=== PATIENT | female | born 1975 | race Caucasian/White ===

== ENCOUNTER 2017-12-05 19:45 | Emergency (ER) | payer MEDICARE, SELFPAY ==
[2017-12-05 19:46] VITALS: BP 121/94; PULSE 106; RESP 17; TEMP 36.9; O2SAT 96; BMI 36.7
--- NOTE | 2017-12-05 20:42 | CT_ITS ---
STUDY: CT ABDOMEN AND PELVIS WITHOUT CONTRAST REASON FOR EXAM: Female, 41 years old. Abdominal pain. RADIATION DOSAGE (If Supplied By Facility): CTDIvol = ( 21.76 ) mGy, DLP = ( 1163.64 ) mGycm TECHNIQUE: Transaxial images were obtained from the dome of the diaphragm to the symphysis pubis without oral contrast, and without intravenous contrast. Sagittal and coronal images were reconstructed. Individualized dose optimization techniques were used for this CT. COMPARISON: 03/18/2016. FINDINGS: The visualized lung bases are unremarkable. The visualized portions of the heart are within normal limits. The liver is borderline in size. No focal lesion is seen. There are surgical clips in the gallbladder fossa consistent with a prior cholecystectomy. The spleen is borderline in size. Normal pancreas. Normal bilateral adrenal glands. Normal right kidney. Normal left kidney. There is thickening of the gastric wall probably due to underdistention. Normal small intestine. There are multiple colonic diverticula consistent with diverticulosis. There are surgical clips in the region of the appendix consistent with a prior appendectomy. Normal abdominal aorta. Normal inferior vena cava. Normal retroperitoneum. Normal urinary bladder. There is a very small umbilical hernia containing fat. There is no demonstrated acute osseous changes. CT/Abdomen/Pel W ORAL Cont Only IMPRESSION: Borderline hepatosplenomegaly. Status post cholecystectomy. No demonstrated acute process. Electronically Signed: Vidal Manriquez MD at 22:52 EDT Tel , Service support ,
--- NOTE | 2017-12-05 20:45 | ED.DCSUM_ITS ---
- ER Visit Summary Date of Service: 12/05/17 Chief Complaint: Abdominal pain History of Present Illness: The patient is a 41 F presenting with abdominal pain. She states this has been ongoing for several years. She has had consistent pain for the past 3 weeks. She went to [facility]. She states that they did blood work and advised her to follow-up with her primary care physician. She has an appointment tomorrow. She is awaiting pain management. She has a history of diabetes, HIV, asthma. She states her viral load is undetectable. She has a history of previous appendectomy, cholecystectomy, hysterectomy. Denies nausea, vomiting, diarrhea. She has had constipation but had 2 bowel movements today. Denies urinary complaints. Denies fever. Physical Examination: Vitals are stable. Patient is afebrile. Alert no acute distress. HEENT exam is unremarkable. Neck is supple. Lungs are clear and equal bilaterally. Heart is regular rate and rhythm. Abdomen is soft mild diffuse tenderness with no rebound or guarding Extremities are unremarkable. Skin is warm and dry. No focal neurologic deficit. Remainder of exam is unremarkable. Emergency Department Course and Treatment: Patient is given morphine, Zofran, IV fluids. CBC, chemistries unremarkable other than creatinine 1.27. Alk phos 132, lipase 201. Urinalysis unremarkable. Patient continues to have pain and was given fentanyl with improvement. CT abdomen pelvis shows borderline hepatosplenomegaly. Status post cholecystectomy. No demonstrated acute process. Patient is resting comfortably on reevaluation. She has an appointment with her primary care physician in the morning. She is advised to keep this appointment. Advised return to ED for any worsening complaints. Disposition: Discharge home Impression: Acute on chronic abdominal pain This note was generated with [employer] dictation software. It may contain incorrect words, spelling, and punctuation that were not noted in review of the chart prior to signing ED Disposition - Plan for ED Patient: Chief Complaint: Abd Pain Referrals: Barry Fortune Jr., MD [Primary Care Provider] -
[2017-12-05] MEDS: Ondansetron 4 MG/2 ML Vial IV (21:06)
[2017-12-05] MEDS: Morphine 4 MG/ML Syringe IV (21:06)
[2017-12-05 21:34] LABS: Absolute Lymphocyte Count 2.46 X10^3/ul (0.83-4.51); Absolute Neutrophil Count 3.9 X10^3/uL (2.0-7.7); Basophil# 0.03 X10^3/uL; Basophil% 0.4 % (0-1); Eosinophil# 0.35 X10^3/uL; Eosinophils% 4.8 % (0-5); Hematocrit 43.8 % (37-47); Hemoglobin 14.8 g/dl (12.0-15.0); Lymphocyte # 2.46 X10^3/ul (4.0); Mean Corp Hgb Conc 33.8 g/gl (32-36); Mean Corpuscular Hgb 30.2 pg (27.0-32.0); Mean Corpuscular Volume 89.4 fL (81-99); Mean Platelet Vol. 10.7 fl (6.2-12.0); Monocyte# 0.54 X10^3/uL; Monocyte% 7.5 % (0-10); Neutrophil # 3.85 X10^3/uL (2.7-7.7); Neutrophil % 53.2 % (47-70); Platelet Count 195 K/mm3 (150-450); RBC Distribution Width CV 12.5 % (11.6-14.6); RBC Distribution Width SD 39.9 fl (35.1-43.9); White Blood Count 7.2 K/mm3 (4.4-11.0)
[2017-12-05 21:44] LABS: ALB/GLOB Ratio 1.1 RATIO (0.9-2.4); AST(SGOT) 24 U/L (15-37); Alanine Aminotransfer ALT/SGPT 37 U/L (13-56); Alkaline Phosphatase 132 U/L (45-117); Anion Gap 6 (5-15); BUN 16 mg/dL (7-18); BUN/Creat Ratio 12.6 RATIO (10-20); Calcium,Total 9.3 mg/dL (8.5-10.1); Chloride 106 mmol/L (98-107); Creatinine, Serum 1.27 mg/dL (0.55-1.02); EST Glomerular Filtration Rate 49 mL/min (>60); Est Glom Filt Rate - Afr Amer 60 mL/min (>60); Globulin 3.7 g/dL (2.2-4.2); Glucose 116 mg/dL (74-106); Lipase 201 U/L (73-393); Potassium 3.8 mmol/L (3.5-5.1); Protein, Total 7.7 g/dL (6.4-8.2); Sodium Level 139 mmol/L (136-145)
[2017-12-05 21:45] LABS: POSITIVE COUNT NO; POSITIVE DIFFERENTIAL NO; POSITIVE MORPHOLOGY NO
[2017-12-05] MEDS: 0.9% Normal Saline 1,000 ML 999 ML IV (22:33)
[2017-12-05 22:37] VITALS: BP 95/78; PULSE 85; RESP 20; O2SAT 98
[2017-12-05 22:41] LABS: Mucous, Urine 0 SEEN /hpf (<or=2+)
[2017-12-05 22:52] LABS: Color, Urine Yellow (Yellow); Glucose, Dipstick Normal (Normal); Ketone-Dipstick Negative (Negative); Leukocyte Esterase-Dipstick 25 /ul (Negative); Nitrite-Dipstick Negative (Negative); Occult Blood-Urine 10 /ul (Negative); Protein-Dipstick Negative (Negative); Specific Gravity, Urine 1.015 (1.002-1.030); Urine Bilirubin Dipstick Negative (Negative); Urine Clarity Clear (Clear); Urine Urobilinogen 1 mg/dl (Normal)
[2017-12-05] MEDS: fentaNYL 100 MCG/2 ML Ampul 50 MCG IV (22:54)
[2017-12-05 23:03] LABS: Squamous Epithelial Cells - UA 0-5 SEEN /hpf (5-10)
[2017-12-05 23:05] LABS: Bacteria 1+ /hpf (None Seen); White Blood Cells 0-5 SEEN /hpf (0-5)
[2017-12-05 23:06] LABS: Red Blood Cells-Urine 0-5 SEEN /hpf (0-5)
--- NOTE | 2017-12-05 23:17 | ED.DEP ---
ED Disposition - Plan for ED Patient: Chief Complaint: Abd Pain Instructions: ED Abdominal Pain Unkn Cause Referrals: Barry Fortune Jr., MD [Primary Care Provider] -
[2017-12-05 23:44] VITALS: BP 118/52; PULSE 85; RESP 16; O2SAT 98
== END 2017-12-05 23:45 | disposition home or self-care (01) ==
PROVIDERS: Emergency Provider Emergency Medicine; Family Provider Internal Medicine; PCP Internal Medicine
DX: R10.9 Unspecified abdominal pain (principal); G89.29 Other chronic pain; K59.00 Constipation, unspecified; B20 Human immunodeficiency virus [HIV] disease; R16.2 Hepatomegaly with splenomegaly, not elsewhere classified; E11.9 Type 2 diabetes mellitus without complications; J45.909 Unspecified asthma, uncomplicated; Z72.0 Tobacco use; Z79.84 Long term (current) use of oral hypoglycemic drugs; Z79.899 Other long term (current) drug therapy; Z90.49 Acquired absence of other specified parts of digestive tract; Z90.710 Acquired absence of both cervix and uterus
CPT/HCPCS: 74176; 80053; 81001; 83690; 85025; 96361; 96374; 96375; 99283; J7030; J7040; A4216; J2405

== ENCOUNTER 2018-05-11 14:01 | Outpatient (RCR) | payer MEDICARE, MEDICAID, SELFPAY ==
[2018-05-11 14:49] VITALS: BP 134/107; PULSE 111; RESP 20; TEMP 37; BMI 35.7
[2018-05-11 15:21] VITALS: BMI 35.7
--- NOTE | 2018-05-11 17:20 | PCM.WC.HP ---
(1) Flea bite of multiple sites Status: Acute Current Visit: Yes Code(s): W57.XXXA - Bitten or stung by nonvenomous insect and other nonvenomous arthropods, initial encounter (2) Dermatitis Status: Acute Current Visit: Yes Code(s): L30.9 - Dermatitis, unspecified (3) Type 2 diabetes mellitus Status: Acute Current Visit: Yes Code(s): E11.9 - Type 2 diabetes mellitus without complications (4) Bipolar 1 disorder Status: Acute Current Visit: Yes Code(s): F31.9 - Bipolar disorder, unspecified (5) Neuropathy Status: Acute Current Visit: Yes Code(s): G62.9 - Polyneuropathy, unspecified (6) Arthritis Status: Acute Current Visit: Yes Code(s): M19.90 - Unspecified osteoarthritis, unspecified site History of Present Illness Date of Service: 05/11/18 Chief Complaint: Consultation for multiple fleabites times 2 months and left ear sore spot times 1 week History of Wound: This is a 42-year-old white female who presents to the wound healing center today for evaluation of nonhealing flea bites times 2 months and a sore spot behind her left ear. The patient has a complicated past medical history with multiple surgeries and includes CHF, asthma, type 2 diabetes mellitus, bipolar, neuropathy, HIV, and arthritis. The patient notes that approximately 2 months ago she noted leaves on her lower extremities and developed fleabites shortly afterwards. She states that she had these evaluated and over the past 2 months she has been on multiple antibiotics including doxycycline and Keflex and a Medrol pack as well. She continues to itch and pick the sites that are present on her bilateral lower extremities, she states that she is currently done with all antibiotics and her Medrol pack. She also notes a sore spot on her ear that occurred approximately a week ago. She states that she went to the emergency department for this and was diagnosed with psoriasis and however has not followed up with her PCP or dermatology as was recommended. She denies any purulent drainage from her wounds and denies any signs of systemic infection at this time. She otherwise denies any fever, chills, nausea, vomiting, shortness of breath, chest pain or pressure, syncope or presyncopal episodes. Past Medical History Allergies/Adverse Reactions: Allergies amoxicillin Allergy (Verified 05/08/18 21:51) Hives hydrocodone [From Vicodin] Allergy (Verified 05/08/18 21:51) Unknown methylprednisolone [From Medrol] Allergy (Verified 05/08/18 21:51) Hives prochlorperazine [From Compazine] Allergy (Verified 05/08/18 21:51) Other prochlorperazine edisylate [From Compazine] Allergy (Verified 05/08/18 21:51) Other prochlorperazine maleate [From Compazine] Allergy (Verified 05/08/18 21:51) Other acetaminophen [From Tylenol] Adverse Reaction (Verified 05/08/18 21:51) Other A MIGRAINE MED Allergy (Uncoded 05/08/18 21:51) Other Home Medications: Ambulatory Orders Medication Instructions Recorded Emtricitabine/Tenofovir [Truvada 1 tab PO DAILY 04/16/15 Tablet] Lamivudine/Zidovudine [Combivir 1 each PO DAILY 04/16/15 Tablet] Ritonavir [Norvir] 500 mg PO DAILY 04/16/15 Dicyclomine HCl [Bentyl] 20 mg PO TIDAC #15 capsule 04/17/15 Cyclobenzaprine [Flexeril] 10 mg PO TID PRN #20 tablet 07/05/17 Darunavir Ethanolate [Prezista] 600 mg PO BID 12/05/17 Metformin HCl [Glucophage] 500 mg PO BIDCM 12/05/17 Raltegravir Potassium [Isentress] 400 mg PO BID 12/05/17 Lisinopril [Zestril] 10 tab PO DAILY 05/11/18 Sulfamethoxazole/Trimethoprim 400 tab PO DAILY 05/11/18 [Bactrim 400-80 mg Tablet] Smoking Status: Heavy Smoker (>10/day) Review of Systems Constitutional: Denies: Chills, Fever, Weight Change Eyes: Denies: Pain, Vision Change HEENT: Denies: Difficulty Hearing, Difficulty Swallowing, Sinus Congestion Cardiovascular: Denies: Chest Pain, Palpitations Respiratory: Denies: Cough, Shortness of Breath Gastrointestinal: Denies: Diarrhea, Nausea, Vomiting Genitourinary: Denies: Dysuria, Hematuria Skin: Reports: Lesions, Pruritis, Rash, Wounds - See HPI Endocrine: Denies: Heat/ Cold Intolerance, Polydipsia, Polyuria Hematologic/ Lymphatic: Denies: Easy Bruising, Easy Bleeding - Physical Exam Vital Signs Temp Pulse Resp BP 98.6 F 111 H 20 H 134/107 H 05/11/18 14:49 05/11/18 14:49 05/11/18 14:49 05/11/18 14:49 General: Alert, Oriented x3, Cooperative HEENT: Atraumatic Lungs: Normal air movement, Diminished, Wheezes Cardiovascular: Regular rate, Regular Rhythm Abdomen: Soft, Non Tender, Obese Extremities: No clubbing, No cyanosis, No edema Skin: Ulcer/ Wound - Multiple cysts small circular open areas present bilateral lower extremities, visible scratch card present, wounds are clean and without slough or signs of cellulitis at this time. Left posterior ear erythematous and patchy with some white scaling present Wound Measurements and Assessment WC - Nurse 1 - General Ulcer Measurement Start: 05/11/18 14:49 Freq: Status: Active Protocol: Activity Type Activity Date Activity User E-Sign Co-Sign Detail Recorded Client Recorded Date Recorded By Document 05/11/18 14:49 OH [id number] 05/11/18 15:12 MT Document 05/11/18 15:21 OH [id number] 05/11/18 15:49 OH 05/11/18 05/11/18 14:49 15:21 [Ulcer Assessment] #5 LEFT POST EAR -Combined with other wound No -Current Size (cm) - Length 2.3 -Current Size (cm) - Width 1 -Current Size (cm) - Depth 0.1 -Total Square Cm 2.3 -Date of Last Picture (Recall this 05/11/18 field) -Photo Taken Yes -Tunneling No -Undermining/Tunneling No -Circular Undermining No -Exudate Amt None Present (0 %) -Wound Margin Flat & Intact -Granulation Amt None Present (0 %) -Slough/Fibrin Yes -Necrosis Amt Large (67-100%) -Necrotic Tissue Type Adherent Slough -Texture (Padma-wound Skin Appearance) Assessed -Moisture (Padma-wound Skin Appearance Assessed ) -Color (Padma-wound Skin Appearance) Assessed -Temperature (Padma-wound Skin No Abnormality Appearance) (Pt Warm) -Tenderness on Palpation (Padma-wound Yes Skin Appearance) -Ulcer Cleansing Rinsed/ Irrigated with Saline -Foul Odor after Cleansing No -Anesthetic Used 4% Lidocaine Solution #3 MEDIAL SUP RLE CLUSTER -Combined with other wound No -Current Size (cm) - Length 1 -Current Size (cm) - Width 0.5 -Current Size (cm) - Depth 0.1 -Total Square Cm 0.5 -Date of Last Picture (Recall this 05/11/18 field) -Photo Taken Yes -Tunneling No -Undermining/Tunneling No -Circular Undermining No -Wound Margin Thickened -Slough/Fibrin Yes -Necrosis Amt Large (67-100%) -Necrotic Tissue Type Adherent Slough -Texture (Padma-wound Skin Appearance) Assessed -Moisture (Padma-wound Skin Appearance Assessed ) Maceration -Color (Padma-wound Skin Appearance) Assessed -Temperature (Padma-wound Skin No Abnormality Appearance) (Pt Warm) -Tenderness on Palpation (Padma-wound No Skin Appearance) -Ulcer Cleansing Rinsed/ Irrigated with Saline -Foul Odor after Cleansing No -Anesthetic Used 4% Lidocaine Solution #4 MEDIAL INFERIOR RLE -Combined with other wound No -Current Size (cm) - Length 0.5 -Current Size (cm) - Width 0.5 -Current Size (cm) - Depth 0.3 -Total Square Cm 0.25 -Date of Last Picture (Recall this 05/11/18 field) -Photo Taken Yes -Tunneling No -Undermining/Tunneling No -Circular Undermining No -Granulation Amt None Present (0 %) -Slough/Fibrin Yes -Necrosis Amt Large (67-100%) -Necrotic Tissue Type Adherent Slough -Texture (Padma-wound Skin Appearance) Assessed -Moisture (Padma-wound Skin Appearance Assessed ) Maceration -Color (Padma-wound Skin Appearance) Assessed Palor -Temperature (Padma-wound Skin No Abnormality Appearance) (Pt Warm) -Tenderness on Palpation (Padma-wound No Skin Appearance) -Ulcer Cleansing Rinsed/ Irrigated with Saline -Foul Odor after Cleansing No -Anesthetic Used 4% Lidocaine Solution #2 MEDIAL LLE -Combined with other wound No -Current Size (cm) - Length 1.0 -Current Size (cm) - Width 1.0 -Current Size (cm) - Depth 0.1 -Total Square Cm 1.00 -Date of Last Picture (Recall this 05/11/18 field) -Photo Taken Yes -Tunneling No -Undermining/Tunneling No -Circular Undermining No -Exudate Amt None Present (0 %) -Wound Margin Distinct, Outline Attached -Granulation Amt Large (67-100%) -Granulation Quality Red -Slough/Fibrin Yes -Necrosis Amt Large (67-100%) -Texture (Padma-wound Skin Appearance) Assessed -Moisture (Padma-wound Skin Appearance Assessed ) -Color (Padma-wound Skin Appearance) Assessed Erythema -Temperature (Padma-wound Skin No Abnormality Appearance) (Pt Warm) -Tenderness on Palpation (Padma-wound No Skin Appearance) -Ulcer Cleansing Rinsed/ Irrigated with Saline -Foul Odor after Cleansing No -Anesthetic Used 4% Lidocaine Solution #1 LEFT LATERAL LE -Combined with other wound No -Current Size (cm) - Length 0.5 -Current Size (cm) - Width 0.5 -Current Size (cm) - Depth 0.2 -Total Square Cm 0.25 -Date of Last Picture (Recall this 05/11/18 field) -Photo Taken Yes -Tunneling No -Undermining/Tunneling No -Circular Undermining No -Exudate Amt Small (1-33%) -Exudate Type Purulent -Wound Margin Distinct, Outline Attached -Granulation Amt Large (67-100%) -Granulation Quality Red -Slough/Fibrin No -Necrosis Amt None Present (0 %) -Texture (Padma-wound Skin Appearance) Assessed -Moisture (Padma-wound Skin Appearance Assessed ) -Color (Padma-wound Skin Appearance) Assessed -Temperature (Padma-wound Skin No Abnormality Appearance) (Pt Warm) -Tenderness on Palpation (Padma-wound No Skin Appearance) -Ulcer Cleansing Rinsed/ Irrigated with Saline -Foul Odor after Cleansing No -Anesthetic Used 4% Lidocaine Solution Wound Center Nurse 1 [Edema Assessment] -Lower Limb Edema Present No WC - Nurse 2 - General Ulcer CM Notes Start: 05/11/18 14:49 Freq: Status: Active Protocol: Activity Type Activity Date Activity User E-Sign Co-Sign Detail Recorded Client Recorded Date Recorded By Document 05/11/18 16:23 [id number] 05/11/18 16:24 05/11/18 16:23 Pain Scale: 0-10 Numeric [Pain] -Is Patient Pain Free? Yes Neurological: Neuro grossly intact Psych/Mental Status: Normal Affect, Appropriate, Alert and oriented to time, place, person, mood and affect Debridement Note Post-Debridement Measurements/Treatment WC - Nurse 2 - General Ulcer CM Notes Start: 05/11/18 14:49 Freq: Status: Active Protocol: Activity Type Activity Date Activity User E-Sign Co-Sign Detail Recorded Client Recorded Date Recorded By Document 05/11/18 16:23 [id number] 05/11/18 16:24 CS 05/11/18 16:23 Pain Scale: 0-10 Numeric Is Patient Pain Free? Yes No debridement was completed today Assessment/Plan Active Problems Flea bite of multiple sites (Acute) Dermatitis (Acute) Type 2 diabetes mellitus (Acute) Bipolar 1 disorder (Acute) Neuropathy (Acute) Arthritis (Acute) Assessment: See above diagnoses Plan: The patient was seen for consultation at the wound center today and updated on her plan of care. No debridement was done today as none was indicated. Patient does have have what she believes to be multiple wounds on her bilateral lower extremities which were initially caused by fleabites. All wounds are very small and clean and are complicated by the patient's chronic itching and picking. Advised patient to follow-up with dermatology. Also advised on daily chlorhexidine rinses and advised on signs and symptoms of cellulitis that require urgent medical attention. Patient has been treated with multiple antibiotics and steroids without much relief, therefore dermatology input is warranted. Regarding the patient's previous diagnosis of psoriasis to her left posterior ear, discuss following up with dermatology for this as well. Did discuss the importance of following up with her primary care as well. Patient may follow-up at the wound center on an as-needed basis. Code Visit Office Visits / Consults: [id number] OV L3 New
--- NOTE | 2018-05-11 17:26 | HP.PCM_ITS ---
(1) Flea bite of multiple sites Status: Acute Current Visit: Yes Code(s): W57.XXXA - Bitten or stung by nonvenomous insect and other nonvenomous arthropods, initial encounter (2) Dermatitis Status: Acute Current Visit: Yes Code(s): L30.9 - Dermatitis, unspecified (3) Type 2 diabetes mellitus Status: Acute Current Visit: Yes Code(s): E11.9 - Type 2 diabetes mellitus without complications (4) Bipolar 1 disorder Status: Acute Current Visit: Yes Code(s): F31.9 - Bipolar disorder, unspecified (5) Neuropathy Status: Acute Current Visit: Yes Code(s): G62.9 - Polyneuropathy, unspecified (6) Arthritis Status: Acute Current Visit: Yes Code(s): M19.90 - Unspecified osteoarthritis, unspecified site History of Present Illness Date of Service: 05/11/18 Chief Complaint: Consultation for multiple fleabites times 2 months and left ear sore spot times 1 week History of Wound: This is a 42-year-old white female who presents to the wound healing center today for evaluation of nonhealing flea bites times 2 months and a sore spot behind her left ear. The patient has a complicated past medical history with multiple surgeries and includes CHF, asthma, type 2 diabetes mellitus, bipolar, neuropathy, HIV, and arthritis. The patient notes that approximately 2 months ago she noted leaves on her lower extremities and develop ed fleabites shortly afterwards. She states that she had these evaluated and over the past 2 months she has been on multiple antibiotics including doxycycline and Keflex and a Medrol pack as well. She continues to itch and pick the sites that are present on her bilateral lower extremities, she states that she is currently done with all antibiotics and her Medrol pack. She also notes a sore spot on her ear that occurred approximately a week ago. She states that she went to the emergency department for this and was diagnosed with psoriasis and however has not followed up with her PCP or dermatology as was recommended. She denies any purulent drainage from her wounds and denies any signs of systemic infection at this time. She otherwise denies any fever, chills, nausea, vomiting, shortness of breath, chest pain or pressure, syncope or presyncopal episodes. Past Medical History Allergies/Adverse Reactions: Allergies amoxicillin Allergy (Verified 05/08/18 21:51) Hives hydrocodone [From Vicodin] Allergy (Verified 05/08/18 21:51) Unknown methylprednisolone [From Medrol] Allergy (Verified 05/08/18 21:51) Hives prochlorperazine [From Compazine] Allergy (Verified 05/08/18 21:51) Other prochlorperazine edisylate [From Compazine] Allergy (Verified 05/08/18 21:51) Other prochlorperazine maleate [From Compazine] Allergy (Verified 05/08/18 21:51) Other acetaminophen [From Tylenol] Adverse Reaction (Verified 05/08/18 21:51) Other A MIGRAINE MED Allergy (Uncoded 05/08/18 21:51) Other Home Medications: Ambulatory Orders Medication Instructions Recorded Emtricitabine/Tenofovir [Truvada 1 tab PO DAILY 04/16/15 Tablet] Lamivudine/Zidovudine [Combivir 1 each PO DAILY 04/16/15 Tablet] Ritonavir [Norvir] 500 mg PO DAILY 04/16/15 Dicyclomine HCl [Bentyl] 20 mg PO TIDAC #15 capsule 04/17/15 Cyclobenzaprine [Flexeril] 10 mg PO TID PRN #20 tablet 07/05/17 Darunavir Ethanolate [Prezista] 600 mg PO BID 12/05/17 Metformin HCl [Glucophage] 500 mg PO BIDCM 12/05/17 Raltegravir Potassium [Isentress] 400 mg PO BID 12/05/17 Lisinopril [Zestril] 10 tab PO DAILY 05/11/18 Sulfamethoxazole/Trimethoprim 400 tab PO DAILY 05/11/18 [Bactrim 400-80 mg Tablet] Smoking Status: Heavy Smoker (>10/day) Review of Systems Constitutional: Denies: Chills, Fever, Weight Change Eyes: Denies: Pain, Vision Change HEENT: Denies: Difficulty Hearing, Difficulty Swallowing, Sinus Congestion Cardiovascular: Denies: Chest Pain, Palpitations Respiratory: Denies: Cough, Shortness of Breath Gastrointestinal: Denies: Diarrhea, Nausea, Vomiting Genitourinary: Denies: Dysuria, Hematuria Skin: Reports: Lesions, Pruritis, Rash, Wounds - See HPI Endocrine: Denies: Heat/ Cold Intolerance, Polydipsia, Polyuria Hematologic/ Lymphatic: Denies: Easy Bruising, Easy Bleeding - Physical Exam Vital Signs Temp Pulse Resp BP 98.6 F 111 H 20 H 134/107 H 05/11/18 14:49 05/11/18 14:49 05/11/18 14:49 05/11/18 14:49 General: Alert, Oriented x3, Cooperative HEENT: Atraumatic Lungs: Normal air movement, Diminished, Wheezes Cardiovascular: Regular rate, Regular Rhythm Abdomen: Soft, Non Tender, Obese Extremities: No clubbing, No cyanosis, No edema Skin: Ulcer/ Wound - Multiple cysts small circular open areas present bilateral lower extremities, visible scratch card present, wounds are clean and without slough or signs of cellulitis at this time. Left posterior ear erythematous and patchy with some white scaling present Wound Measurements and Assessment WC - Nurse 1 - General Ulcer Measurement Start: 05/11/18 14:49 Freq: Status: Active Protocol: Activity Type Activity Date Activity User E-Sign Co-Sign Detail Recorded Client Recorded Date Recorded By Document 05/11/18 14:49 [place] [id number] 05/11/18 15:12 [place] Document 05/11/18 15:21 [place] [id number] 05/11/18 15:49 [place] 05/11/18 05/11/18 14:49 15:21 [Ulcer Assessment] #5 LEFT POST EAR -Combined with other wound No -Current Size (cm) - Length 2.3 -Current Size (cm) - Width 1 -Current Size (cm) - Depth 0.1 -Total Square Cm 2.3 -Date of Last Picture (Recall this 05/11/18 field) -Photo Taken Yes -Tunneling No -Undermining/Tunneling No -Circular Undermining No -Exudate Amt None Present (0 %) -Wound Margin Flat & Intact -Granulation Amt None Present (0 %) -Slough/Fibrin Yes -Necrosis Amt Large (67-100%) -Necrotic Tissue Type Adherent Slough -Texture (Padma-wound Skin Appearance) Assessed -Moisture (Padma-wound Skin Appearance Assessed ) -Color (Padma-wound Skin Appearance) Assessed -Temperature (Padma-wound Skin No Abnormality Appearance) (Pt Warm) -Tenderness on Palpation (Padma-wound Yes Skin Appearance) -Ulcer Cleansing Rinsed/ Irrigated with Saline -Foul Odor after Cleansing No -Anesthetic Used 4% Lidocaine Solution #3 MEDIAL SUP RLE CLUSTER -Combined with other wound No -Current Size (cm) - Length 1 -Current Size (cm) - Width 0.5 -Current Size (cm) - Depth 0.1 -Total Square Cm 0.5 -Date of Last Picture (Recall this 05/11/18 field) -Photo Taken Yes -Tunneling No -Undermining/Tunneling No -Circular Undermining No -Wound Margin Thickened -Slough/Fibrin Yes -Necrosis Amt Large (67-100%) -Necrotic Tissue Type Adherent Slough -Texture (Padma-wound Skin Appearance) Assessed -Moisture (Padma-wound Skin Appearance Assessed ) Maceration -Color (Padma-wound Skin Appearance) Assessed -Temperature (Padma-wound Skin No Abnormality Appearance) (Pt Warm) -Tenderness on Palpation (Padma-wound No Skin Appearance) -Ulcer Cleansing Rinsed/ Irrigated with Saline -Foul Odor after Cleansing No -Anesthetic Used 4% Lidocaine Solution #4 MEDIAL INFERIOR RLE -Combined with other wound No -Current Size (cm) - Length 0.5 -Current Size (cm) - Width 0.5 -Current Size (cm) - Depth 0.3 -Total Square Cm 0.25 -Date of Last Picture (Recall this 05/11/18 field) -Photo Taken Yes -Tunneling No -Undermining/Tunneling No -Circular Undermining No -Granulation Amt None Present (0 %) -Slough/Fibrin Yes -Necrosis Amt Large (67-100%) -Necrotic Tissue Type Adherent Slough -Texture (Padma-wound Skin Appearance) Assessed -Moisture (Padma-wound Skin Appearance Assessed ) Maceration -Color (Padma-wound Skin Appearance) Assessed Palor -Temperature (Padma-wound Skin No Abnormality Appearance) (Pt Warm) -Tenderness on Palpation (Padma-wound No Skin Appearance) -Ulcer Cleansing Rinsed/ Irrigated with Saline -Foul Odor after Cleansing No -Anesthetic Used 4% Lidocaine Solution #2 MEDIAL LLE -Combined with other wound No -Current Size (cm) - Length 1.0 -Current Size (cm) - Width 1.0 -Current Size (cm) - Depth 0.1 -Total Square Cm 1.00 -Date of Last Picture (Recall this 05/11/18 field) -Photo Taken Yes -Tunneling No -Undermining/Tunneling No -Circular Undermining No -Exudate Amt None Present (0 %) -Wound Margin Distinct, Outline Attached -Granulation Amt Large (67-100%) -Granulation Quality Red -Slough/Fibrin Yes -Necrosis Amt Large (67-100%) -Texture (Padma-wound Skin Appearance) Assessed -Moisture (Padma-wound Skin Appearance Assessed ) -Color (Padma-wound Skin Appearance) Assessed Erythema -Temperature (Padma-wound Skin No Abnormality Appearance) (Pt Warm) -Tenderness on Palpation (Padma-wound No Skin Appearance) -Ulcer Cleansing Rinsed/ Irrigated with Saline -Foul Odor after Cleansing No -Anesthetic Used 4% Lidocaine Solution #1 LEFT LATERAL LE -Combined with other wound No -Current Size (cm) - Length 0.5 -Current Size (cm) - Width 0.5 -Current Size (cm) - Depth 0.2 -Total Square Cm 0.25 -Date of Last Picture (Recall this 05/11/18 field) -Photo Taken Yes -Tunneling No -Undermining/Tunneling No -Circular Undermining No -Exudate Amt Small (1-33%) -Exudate Type Purulent -Wound Margin Distinct, Outline Attached -Granulation Amt Large (67-100%) -Granulation Quality Red -Slough/Fibrin No -Necrosis Amt None Present (0 %) -Texture (Padma-wound Skin Appearance) Assessed -Moisture (Padma-wound Skin Appearance Assessed ) -Color (Padma-wound Skin Appearance) Assessed -Temperature (Padma-wound Skin No Abnormality Appearance) (Pt Warm) -Tenderness on Palpation (Padma-wound No Skin Appearance) -Ulcer Cleansing Rinsed/ Irrigated with Saline -Foul Odor after Cleansing No -Anesthetic Used 4% Lidocaine Solution Wound Center Nurse 1 [Edema Assessment] -Lower Limb Edema Present No WC - Nurse 2 - General Ulcer CM Notes Start: 05/11/18 14:49 Freq: Status: Active Protocol: Activity Type Activity Date Activity User E-Sign Co-Sign Detail Recorded Client Recorded Date Recorded By Document 05/11/18 16:23 [id number] 05/11/18 16:24 05/11/18 16:23 Pain Scale: 0-10 Numeric [Pain] -Is Patient Pain Free? Yes Neurological: Neuro grossly intact Psych/Mental Status: Normal Affect, Appropriate, Alert and oriented to time, place, person, mood and affect Debridement Note Post-Debridement Measurements/Treatment WC - Nurse 2 - General Ulcer CM Notes Start: 05/11/18 14:49 Freq: Status: Active Protocol: Activity Type Activity Date Activity User E-Sign Co-Sign Detail Recorded Client Recorded Date Recorded By Document 05/11/18 16:23 [id number] 05/11/18 16:24 CS 05/11/18 16:23 Pain Scale: 0-10 Numeric Is Patient Pain Free? Yes No debridement was completed today Assessment/Plan Active Problems Flea bite of multiple sites (Acute) Dermatitis (Acute) Type 2 diabetes mellitus (Acute) Bipolar 1 disorder (Acute) Neuropathy (Acute) Arthritis (Acute) Assessment: See above diagnoses Plan: The patient was seen for consultation at the wound center today and [facility] ed on her plan of care. No debridement was done today as none was indicated. Patient does have have what she believes to be multiple wounds on her bilateral lower extremities which were initially caused by fleabites. All wounds are very small and clean and are complicated by the patient's chronic itching and picking. Advised patient to follow-up with dermatology. Also advised on daily chlorhexidine rinses and advised on signs and symptoms of cellulitis that require urgent medical attention. Patient has been treated with multiple antibiotics and steroids without much relief, therefore dermatology input is warranted. Regarding the patient's previous diagnosis of psoriasis to her left posterior ear, discuss following up with dermatology for this as well. Did discuss the importance of following up with her primary care as well. Patient may follow-up at the wound center on an as-needed basis. Code Visit Office Visits / Consults: [id number] OV L3 New
== END 2018-06-07 23:59 ==
LOC: WC 14:01
PROVIDERS: Family Provider Internal Medicine; PCP Internal Medicine; Visit Provider Nurse Practitioner Family
DX: S80.862A Insect bite (nonvenomous), left lower leg, initial encounter (principal); S80.861A Insect bite (nonvenomous), right lower leg, initial encounter; W57.XXXA Bitten or stung by nonvenomous insect and other nonvenomous arthropods, initial encounter; L30.9 Dermatitis, unspecified; F41.9 Anxiety disorder, unspecified; E11.42 Type 2 diabetes mellitus with diabetic polyneuropathy; M19.90 Unspecified osteoarthritis, unspecified site; B20 Human immunodeficiency virus [HIV] disease; I50.9 Heart failure, unspecified; J45.909 Unspecified asthma, uncomplicated; F17.200 Nicotine dependence, unspecified, uncomplicated
CPT/HCPCS: 99204; G0463

== ENCOUNTER 2018-12-07 00:26 | Emergency (ER) | payer MEDICARE, MEDICAID, SELFPAY ==
[2018-12-07 00:28] VITALS: BP 145/90; PULSE 109; RESP 18; TEMP 36.7; O2SAT 95; BMI 36.6
[2018-12-07] MEDS: DiphenhydrAMINE 50 MG/ML Syringe 25 MG IV (01:12)
[2018-12-07] MEDS: 0.9% Normal Saline 1,000 ML 1000 ML IV (01:12)
[2018-12-07] MEDS: Ketorolac 30 MG/ML Syringe IV (01:14)
[2018-12-07] MEDS: Metoclopramide 10 MG/2 ML Vial IV (01:21)
[2018-12-07 01:34] LABS: Absolute Lymphocyte Count 2.59 X10^3/ul (0.83-4.51); Basophil# 0.02 X10^3/uL; Basophil% 0.2 % (0-1); Eosinophil# 0.17 X10^3/uL; Eosinophils% 2.1 % (0-5); Hematocrit 40.7 % (37-47); Hemoglobin 14.2 g/dl (12.0-15.0); Lymphocyte # 2.59 X10^3/ul (4.0); Lymphocyte % 31.5 % (19-41); Mean Corp Hgb Conc 34.9 g/gl (32-36); Mean Corpuscular Hgb 29.9 pg (27.0-32.0); Mean Corpuscular Volume 85.7 fL (81-99); Mean Platelet Vol. 10.6 fl (6.2-12.0); Monocyte# 0.43 X10^3/uL; Monocyte% 5.2 % (0-10); Neutrophil % 60.8 % (47-70); Platelet Count 204 K/mm3 (150-450); RBC Distribution Width CV 14.1 % (11.6-14.6); RBC Distribution Width SD 44.1 fl (35.1-43.9); Red Blood Count 4.75 M/mm3 (4.2-5.4); White Blood Count 8.2 K/mm3 (4.4-11.0)
[2018-12-07 01:35] LABS: POSITIVE COUNT NO; POSITIVE DIFFERENTIAL NO; POSITIVE MORPHOLOGY NO
[2018-12-07 01:49] LABS: Anion Gap 10 (5-15); BUN 18 mg/dL (7-18); BUN/Creat Ratio 15.9 RATIO (10-20); Calcium,Total 8.8 mg/dL (8.5-10.1); Chloride 106 mmol/L (98-107); Creatinine, Serum 1.13 mg/dL (0.55-1.02); EST Glomerular Filtration Rate 56 mL/min (>60); Est Glom Filt Rate - Afr Amer 68 mL/min (>60); Estimated Creatinine Clearance 66.09 ml/min; Glucose 234 mg/dL (74-106); Potassium 3.7 mmol/L (3.5-5.1); Sodium Level 139 mmol/L (136-145)
--- NOTE | 2018-12-07 02:04 | ED.VISSUMM ---
- ER Visit Summary Date of Service: 12/07/18 Chief Complaint: Headache, flank pain, short of breath History of Present Illness: The patient is a 42 F who complains of migraine and left flank pain. She states she was seen at [facility] last week after being told she had been exposed to black mold. She had a rash on her face and arms. She was placed on Benadryl and 10 mg of prednisone a day for the last 5 days. Patient states she is now done without medication and her rash is resolved. She complains of a migraine that is been present since last June. She states she also has a cyst like lesion in her left kidney that is currently being worked up. She feels this area is sore now that she stopped the prednisone. She did take Excedrin yesterday afternoon. Patient has an appointment to be seen by Dr. Maldonado to establish primary care in less than a week. Physical Examination: Vital signs unremarkable. Patient sitting upright in a darkened room. She is in no acute distress. Head neck examination is unremarkable. No meningismus. Heart is regular rate and rhythm. Lung sounds are clear. Abdomen is soft and nontender. Neuro exam reveals no focal deficits. Test Results: CBC and chemistry studies significant only for glucose of 234. Patient is a diabetic. Creatinine is 1.13. Emergency Department Course and Treatment: Patient was given Toradol, Reglan, Benadryl, and IV fluids. On repeat evaluation she is sleeping comfortably. She easily awakens. She will follow-up with her upcoming doctor's appointment. She asked about testing for lead levels that she states she was told the home in which she has been living has exposed her to lead. I advised her that this can be ordered through her primary care doctor. Treatment Plan: [] Disposition: Discharge Impression: Migraine, improved This note was generated with [employer] dictation software. It may contain incorrect words, spelling, and punctuation that were not noted in review of the chart prior to signing ED Disposition - Plan for ED Patient: Disposition: Home or Assisted Living Instructions: ED Headache Migraine Referrals: Juan Manuel Maldonado MD [Primary Care Provider] - Keep Antonio appointment
[2018-12-07 02:19] VITALS: BP 130/72; PULSE 90; RESP 20; O2SAT 99
== END 2018-12-07 02:19 | disposition home or self-care (01) ==
PROVIDERS: Emergency Provider Emergency Medicine; Family Provider Internal Medicine; PCP Internal Medicine
DX: G43.909 Migraine, unspecified, not intractable, without status migrainosus (principal); R10.9 Unspecified abdominal pain; N28.9 Disorder of kidney and ureter, unspecified; M79.10 Myalgia, unspecified site; I50.9 Heart failure, unspecified; E11.9 Type 2 diabetes mellitus without complications; F31.9 Bipolar disorder, unspecified; Z72.0 Tobacco use; Z79.899 Other long term (current) drug therapy; I25.2 Old myocardial infarction; Z87.442 Personal history of urinary calculi
CPT/HCPCS: 80048; 85025; 96361; 96374; 96375; 99283; J7030

== ENCOUNTER → 2018-12-11 10:10 | Outpatient (CLI) | payer MEDICARE, SELFPAY ==
[2018-12-11 09:36] VITALS: BMI 36.6
[2018-12-11 12:18] LABS: Hemoglobin A1c 5.7 % (4.2-6.3)
[2018-12-11 12:28] LABS: Cholesterol 199 mg/dL (200); High Density Lipoprotein 40 mg/dL; Triglycerides 192 mg/dL; Very Low Density Lipoprotein 38 mg/dL (5-40)
[2018-12-12 16:49] LABS: Lead, Blood Adult 16+yrs 1 ug/dL (0-4)
== END ==
PROVIDERS: Family Provider Internal Medicine; PCP Internal Medicine; Visit Provider Internal Medicine
DX: E11.9 Type 2 diabetes mellitus without complications (principal); I10 Essential (primary) hypertension; Z77.011 Contact with and (suspected) exposure to lead
CPT/HCPCS: 36415; 80061; 83036; 83655

== ENCOUNTER → 2019-01-02 13:28 | Outpatient (CLI) | payer MEDICARE, MEDICAID, SELFPAY ==
[2019-01-02 13:28] VITALS: BMI 36.6
--- NOTE | 2019-01-02 13:31 | RAD_ITS ---
STUDY: X-RAY - RIGHT KNEE REASON FOR EXAM: Female, 43 years old. Pain. TECHNIQUE: 4 view(s) of the knee. COMPARISON: None. FINDINGS: Normal visualized distal femur. Normal visualized proximal tibia and fibula. Normal proximal tibiofibular articulation. Normal medial femorotibial compartment. Normal lateral femorotibial compartment. There is slight lateral tilt and subluxation of the patella. The soft tissue structures are unremarkable. RAD/Knee 4 or More Views IMPRESSION: Slight lateral tilt and subluxation of the patella. No acute finding. Electronically Signed: Philip Roman MD at 17:44 EDT , Service support ,
--- NOTE | 2019-01-02 13:31 | RAD_ITS ---
STUDY: X-RAY - LEFT KNEE REASON FOR EXAM: Female, 43 years old. Pain. TECHNIQUE: 4 view(s) of the knee. COMPARISON: None. FINDINGS: Normal visualized distal femur. Normal visualized proximal tibia and fibula. Normal proximal tibiofibular articulation. Normal medial femorotibial compartment. Normal lateral femorotibial compartment. There is slight lateral tilt and subluxation of the patella. The soft tissue structures are unremarkable. RAD/Knee 4 or More Views IMPRESSION: Slight lateral tilt and subluxation of the patella. No acute finding. Electronically Signed: Philip Roman MD at 17:44 EDT , Service support ,
== END ==
PROVIDERS: Family Provider Internal Medicine; PCP Internal Medicine; Referring Provider Orthopaedic Surgery; Visit Provider Orthopaedic Surgery
DX: M19.90 Unspecified osteoarthritis, unspecified site (principal)
CPT/HCPCS: 73564

== ENCOUNTER → 2019-02-06 16:19 | Outpatient (CLI) | payer MEDICARE, MEDICAID, SELFPAY ==
[2019-01-22 12:08] VITALS: BMI 36.6
--- NOTE | 2019-02-06 16:23 | MRI_ITS ---
STUDY: MRI RIGHT KNEE REASON FOR EXAM: Female, 43 years old. Right anterior knee pain. TECHNIQUE: Standardized fat and water weighted pulse sequences were obtained in all 3 orthogonal planes. COMPARISON: X-ray January 03, 2019. FINDINGS: Normal medial meniscus. Normal hyaline cartilage of the medial femorotibial compartment. Normal medial femoral condyle and tibial plateau. Normal medial collateral ligamentous complex (MCL). Normal distal semimembranosus, gracilis and semitendinosus tendons. Normal lateral meniscus. Normal hyaline cartilage of the lateral femorotibial compartment. Normal lateral femoral condyle and tibial plateau. Normal proximal tibiofibular articulation. Normal lateral collateral (fibular) ligament. Normal popliteus tendon. Normal biceps femoris tendon. Normal anterior cruciate ligament (ACL). Normal posterior cruciate ligament (PCL). There is arthrosis of the patellofemoral articulation. There is diffuse, full thickness articular cartilage loss of the patellofemoral compartment. There is mild spurring and subchondral edema of the posterior patella. Normal medial and lateral patellar retinaculum. Normal quadriceps tendon. Normal patellar tendon. Normal Hoffa's fat pad. There is a small volume joint effusion. There is a 3.2 cm Riggins's cyst. The soft tissues are unremarkable. The otherwise visualized osseous structures are unremarkable. MRI/Lower Ext Joint Only (Routine) IMPRESSION: Patellofemoral degenerative change. No meniscal tear. Joint effusion with popliteal cyst. Electronically Signed: Brad Valentine MD at 18:39 EDT , Service support ,
== END ==
PROVIDERS: Family Provider Internal Medicine; PCP Internal Medicine; Referring Provider Physician Assistant; Visit Provider Physician Assistant
DX: M25.561 Pain in right knee (principal)
CPT/HCPCS: 73721

== ENCOUNTER → 2019-02-14 16:20 | Outpatient (CLI) | payer MEDICARE, MEDICAID, SELFPAY ==
[2019-02-14 15:21] VITALS: BMI 36.6
--- NOTE | 2019-02-14 16:22 | RAD_ITS ---
STUDY: X-RAY - LUMBAR SPINE REASON FOR EXAM: Female, 43 years old. Back pain and right leg pain TECHNIQUE: 5 view(s) of the lumbar spine were obtained. COMPARISON: April 18, 2017 FINDINGS: Normal lumbar lordosis. There is no substantial scoliosis. There is a normal alignment of the vertebrae. Normal vertebral bodies and endplates. Normal disc space heights. Postop change status post cholecystectomy. No significant change since prior study RAD/L/S Spine Min 4 Views IMPRESSION: Normal x-ray examination of the lumbar spine. Would recommend CT or MRI for further evaluation Electronically Signed: Matias Blanco MD at 21:57 EDT , Service support ,
== END ==
PROVIDERS: Family Provider Internal Medicine; PCP Internal Medicine; Referring Provider Physician Assistant; Visit Provider Physician Assistant
DX: M54.9 Dorsalgia, unspecified (principal)
CPT/HCPCS: 72110

== ENCOUNTER → 2019-02-21 15:03 | Outpatient (CLI) | payer MEDICARE, SELFPAY ==
[2019-02-14 15:21] VITALS: BMI 36.6
[2019-02-21 14:33] VITALS: BMI 36.6
[2019-02-21 16:30] LABS: Hematocrit 42.6 % (37-47); Hemoglobin 14.7 g/dL (12.0-15.0); Mean Corp Hgb Conc 34.5 g/dL (32-36); Mean Corpuscular Volume 86.9 fL (81-99); Mean Platelet Vol. 10.7 fl (6.2-12.0); Platelet Count 222 K/mm3 (150-450); RBC Distribution Width CV 12.5 % (11.6-14.6); RBC Distribution Width SD 39.9 fl (35.1-43.9)
[2019-02-21 17:05] LABS: Anion Gap 6 (5-15); BUN 18 mg/dL (7-18); BUN/Creat Ratio 20.7 RATIO (10-20); Calcium,Total 9.5 mg/dL (8.5-10.1); Chloride 106 mmol/L (98-107); Creatinine, Serum 0.87 mg/dL (0.55-1.02); EST Glomerular Filtration Rate 76 mL/min (>60); Est Glom Filt Rate - Afr Amer 92 mL/min (>60); Glucose 122 mg/dL (74-106); Magnesium 1.7 mg/dL (1.6-2.6); Potassium 3.7 mmol/L (3.5-5.1); Sodium Level 137 mmol/L (136-145)
[2019-02-26 12:07] LABS: Alternaria tenuis 0.18 kU/L (Class 0/I); Aspergillus fumigatus <0.10 kU/L (Class 0); Bermuda Grass 3.83 kU/L (Class III); Birch 0.47 kU/L (Class I); Black Walnut 0.62 kU/L (Class II); Cat Hair / Dander,Stand <0.10 kU/L (Class 0); Cedar, Mountain 0.53 kU/L (Class I); Cladosporium herbarum <0.10 kU/L (Class 0); Cockroach, American 0.63 kU/L (Class II); Cottonwood 0.57 kU/L (Class II); D farinae Mite 0.18 kU/L (Class 0/I); D pteronyssinus <0.10 kU/L (Class 0); Dog Epithelia <0.10 kU/L (Class 0); Immunoglobulin E 92 IU/mL (6-495); Maple/Box Elder 0.63 kU/L (Class II); Mulberry, White 0.44 kU/L (Class I); Oak, White 0.57 kU/L (Class II); Pecan 0.51 kU/L (Class I); Penicillium Notatum <0.10 kU/L (Class 0); Pigweed, Rough 0.52 kU/L (Class I); Ragweed, Short/Common 0.66 kU/L (Class II); Russian Thistle 0.51 kU/L (Class I); Sheep Sorrel 0.61 kU/L (Class II)
[2019-02-26 12:48] LABS: Mouse Urine <0.10 kU/L (Class 0)
== END ==
PROVIDERS: Nurse Practitioner Family; Family Provider Internal Medicine; PCP Internal Medicine; Referring Provider Otolaryngology Otolaryngology/Facial Plastic Surgery; Visit Provider Otolaryngology Otolaryngology/Facial Plastic Surgery
DX: T78.40XA Allergy, unspecified, initial encounter (principal); E83.42 Hypomagnesemia; R25.2 Cramp and spasm; R53.83 Other fatigue
CPT/HCPCS: 36415; 80048; 82785; 83735; 85027; 86003

== ENCOUNTER 2019-03-01 20:06 | Emergency (ER) | payer MEDICARE, MEDICAID, SELFPAY ==
[2019-02-21 14:33] VITALS: BMI 36.6
[2019-03-01 20:07] VITALS: BP 140/76; PULSE 95; RESP 14; TEMP 36.4; O2SAT 97; BMI 37.1
[2019-03-01] MEDS: DiphenhydrAMINE 50 MG/ML Syringe 25 MG IV (22:07)
[2019-03-01] MEDS: Metoclopramide 10 MG/2 ML Vial 5 MG IV (22:08)
[2019-03-02 00:14] VITALS: RESP 16
[2019-03-02] MEDS: Ketorolac 30 MG/ML Syringe IV (00:26)
--- NOTE | 2019-03-02 00:43 | ED.DEP ---
ED Disposition - Plan for ED Patient: Instructions: Dry Socket, HEADACHE, Unspecified Prescriptions: Oxycodone [Oxyir] 5 mg PO Q6H PRN PRN 2 Days #8 tablet PRN Reason: Pain Referrals: Juan Manuel Maldonado MD [Primary Care Provider] -
--- NOTE | 2019-03-02 00:58 | ED.VISSUMM ---
- ER Visit Summary Date of Service: 03/02/19 Chief Complaint: Headache, mouth pain History of Present Illness: The patient is a 43 F presenting with headache, mouth pain. She states she has a migraine headache which started today. This feels like her typical migraine headaches. She states the headache started gradually. She also complains of pain in her mouth after having her left lower wisdom tooth pulled on Tuesday. She denies fever. She has had nausea and vomiting. Denies other complaints. Physical Examination: Vitals are stable. Patient is afebrile. Alert no acute distress. HEENT exam left lower gum s/p extraction. No fluctuance. No sublingual edema. Neck is supple. No meningismus Lungs are clear and equal bilaterally. Heart is regular rate and rhythm. Abdomen is soft nontender nondistended. Extremities are unremarkable. Skin is warm and dry. No focal neurologic deficit. Remainder of exam is unremarkable. Emergency Department Course and Treatment: Patient was given Reglan, Benadryl IV. She was then given Toradol IV with improvement of her headache. Dry socket paste was applied. She had improvement of her mouth pain. She is advised to follow-up with her dentist and her primary care physician. Advised return to ED for worsening complaints. Disposition: Discharge home Impression: Headache, dry socket This note was generated with [employer] dictation software. It may contain incorrect words, spelling, and punctuation that were not noted in review of the chart prior to signing ED Disposition - Plan for ED Patient: Instructions: HEADACHE, Unspecified, Dry Socket Prescriptions: Oxycodone [Oxyir] 5 mg PO Q6H PRN PRN 2 Days #8 tab PRN Reason: Pain Prescription Printed Referrals: Juan Manuel Maldonado MD [Primary Care Provider] -
[2019-03-02 00:59] VITALS: RESP 16
== END 2019-03-02 00:59 | disposition home or self-care (01) ==
PROVIDERS: Emergency Provider Emergency Medicine; Family Provider Internal Medicine; PCP Internal Medicine
DX: G43.909 Migraine, unspecified, not intractable, without status migrainosus (principal); M27.3 Alveolitis of jaws; B20 Human immunodeficiency virus [HIV] disease; I11.0 Hypertensive heart disease with heart failure; I50.9 Heart failure, unspecified; E11.9 Type 2 diabetes mellitus without complications; J45.909 Unspecified asthma, uncomplicated; K21.9 Gastro-esophageal reflux disease without esophagitis; Z79.84 Long term (current) use of oral hypoglycemic drugs; Z79.899 Other long term (current) drug therapy
CPT/HCPCS: 64402; 96374; 96375; 99285; A4216

== ENCOUNTER → 2019-03-13 14:10 | Outpatient (CLI) | payer MEDICARE, MEDICAID, SELFPAY ==
[2019-02-21 14:33] VITALS: BMI 36.6
[2019-03-01 20:07] VITALS: BMI 37.1
--- NOTE | 2019-03-13 14:27 | BD_ITS ---
STUDY: DUAL ENERGY X-RAY ABSORPTIOMETRY / DXA REASON FOR EXAM: Female, 43 years old. Early menopause. Loss of a period TECHNIQUE: Bone Mineral Density (BMD) measurements of lumbar spine and bilateral hips were obtained. COMPARISON: None. FINDINGS: Lumbar Spine (L1-L4): g/cm2 (1.045) / T-score (-1.1) / Z-score (-1.1) Findings are suggestive of osteopenia with a low fracture risk. Left Femur Total: g/cm2 (0.968) / T-score (-0.3) / Z-score (-0.1) Left Femoral Neck: g/cm2 (0.963) / T-score (-0.5) / Z-score (-0.1) Right Femur Total: g/cm2 (0.937) / T-score (-0.6) / Z-score (-0.3) Right Femoral Neck: g/cm2 (0.946) / T-score (-0.7) / Z-score (-0.2) BD/Dexa Bone Density Study IMPRESSION: The patient is considered osteopenic as outlined below according to World [employer] Organization (WHO) criteria with a low fracture risk. Reference Information: The T-score is the number of standard deviations above or below the standard which is normal for young adults at their peak bone mineral density. The World Health Organization (WHO) interprets the T-scores as follows: Above -1 Normal bone density Between -1 and -2.5 Osteopenia Equal to / or below -2.5 Osteoporosis As a practical clinical guideline, osteopenia may be graded as follows: Mild -1 through -1.5 Moderate -1.6 through -2.0 Severe -2.1 through -2.4 The Z-score is the number of standard deviations above or below age-matched controls. A Z-score of less than -1.5 would be considered abnormal. References: 1. NIH Osteoporosis and Related Bone Diseases http://www.osteo.org 2. International Society for Clinical Densitometry http://www.iscd.org 3. National Osteoporosis Foundation http://www.nof.org Electronically Signed: Del Amato, at 12:35 EDT , Service support ,
== END ==
PROVIDERS: Family Provider Internal Medicine; PCP Internal Medicine; Referring Provider Nurse Practitioner Family; Visit Provider Nurse Practitioner Family
DX: Z78.0 Asymptomatic menopausal state (principal); M85.80 Other specified disorders of bone density and structure, unspecified site
CPT/HCPCS: 77080

== ENCOUNTER 2019-03-27 08:42 | Emergency (ER) | payer MEDICARE, MEDICAID, SELFPAY ==
[2019-03-27 08:43] VITALS: BP 146/66; PULSE 85; RESP 16; TEMP 36.2; O2SAT 99; BMI 39.0
--- NOTE | 2019-03-27 08:57 | ED.DCSUM_ITS ---
- ER Visit Summary Date of Service: 03/27/19 Chief Complaint: Allergic reaction History of Present Illness: The patient is a 43 F who presents with an allergic reaction to mosquito bite. Patient states she was bitten by mosquito last night. Patient states she woke up today and her right eye was swollen. Patient states she has a history of allergies to mosquito bites. Patient denies any difficulty breathing or difficulty swallowing. Patient states she is Benadryl cream with minimal relief. Patient states she has pain in the right periorbital area that radiates to the right temporal area. Patient states she did have one episode of vomiting last night. Physical Examination: Vital signs are stable. Patient is afebrile. Patient is in no acute distress. Pupils are equal, round, and reactive to light bilaterally. Extraocular muscles are intact. There is edema of the right upper eyelid and supraorbital area. There are no vesicles or pustules noted. There is some mild edema and urticaria that cross the midline. There are no other urticaria noted. Oral mucosa is pink and moist. Airway is patent. There are no petechia noted. There are no mucous membrane lesions. Neck is supple. Trachea is midline. There is no JVD noted. There is no lymphadenopathy noted. Heart was regular rate and rhythm. Lungs are clear and equal bilaterally. Emergency Department Course and Treatment: Patient was given a prescription for Decadron since she is allergic to methylprednisolone. Patient was instructed to continue using ice to the area. Patient was instructed to continue using Benadryl as needed for itching. Patient was instructed to follow-up with her primary care physician in 5 to 7 days. Patient understood and was agreeable with the plan. All questions were answered. Disposition: Discharge home Impression: Urticaria This note was generated with [employer] dictation software. It may contain incorrect words, spelling, and punctuation that were not noted in review of the chart prior to signing ED Disposition - Plan for ED Patient: Disposition: Home or Assisted Living Diagnosis: Urticaria Instructions: ALLERGIC REACTION, Other (General) Prescriptions: Dexamethasone [Decadron] 6 mg PO DAILY 5 Days tab Prescription Printed Referrals: Juan Manuel Maldonado MD [Primary Care Provider] - 5-7 Days
== END 2019-03-27 09:36 | disposition home or self-care (01) ==
PROVIDERS: Emergency Provider Emergency Medicine; Family Provider Internal Medicine; PCP Internal Medicine
DX: L50.9 Urticaria, unspecified (principal); B20 Human immunodeficiency virus [HIV] disease; E11.9 Type 2 diabetes mellitus without complications; I10 Essential (primary) hypertension; M79.7 Fibromyalgia; R11.10 Vomiting, unspecified; M54.2 Cervicalgia; R19.7 Diarrhea, unspecified; R51 Headache; M54.9 Dorsalgia, unspecified; G89.29 Other chronic pain; K21.9 Gastro-esophageal reflux disease without esophagitis; F31.9 Bipolar disorder, unspecified; F41.9 Anxiety disorder, unspecified; E66.9 Obesity, unspecified; Z72.0 Tobacco use; Z79.84 Long term (current) use of oral hypoglycemic drugs; Z79.899 Other long term (current) drug therapy
CPT/HCPCS: 99282

== ENCOUNTER → 2019-04-17 14:40 | Outpatient (CLI) | payer MEDICARE, MEDICAID, SELFPAY ==
[2019-04-17 13:50] VITALS: BMI 39.0
[2019-04-18 12:50] LABS: Amphetamine Urine VISTA NEGATIVE (<1000 ng/mL); Barbiturate Urine VISTA NEGATIVE (< 200 ng/mL); Benzodiazepine Urine VISTA NEGATIVE (< 200 ng/mL); Cocaine Urine VISTA NEGATIVE (< 300 ng/mL); Ecstacy Urine VISTA NEGATIVE (< 500 ng/mL); Methadone Urine VISTA NEGATIVE (< 300 ng/mL); PCP Urine VISTA NEGATIVE (< 25 ng/mL); THC Urine VISTA NEGATIVE (< 50 ng/mL); Vista UDS pH Range 6
== END ==
PROVIDERS: Family Provider Internal Medicine; PCP Internal Medicine; Visit Provider Internal Medicine
DX: Z02.83 Encounter for blood-alcohol and blood-drug test (principal); F19.11 Other psychoactive substance abuse, in remission
CPT/HCPCS: 80307

== ENCOUNTER 2019-05-31 13:59 | Observation (INO) | payer MEDICARE, SELFPAY ==
[2019-04-17 13:50] VITALS: BMI 39.0
[2019-05-31] VITALS (11 sets, daily range): BP systolic 112–139; BP diastolic 64–87; PULSE 42–86; RESP 15–20; TEMP 36.4–36.8; O2SAT 97–100; BMI 37.9
--- NOTE | 2019-05-31 15:16 | EKG12_ITS ---
Test Reason : CP Blood Pressure : / mmHG Vent. Rate : 088 BPM Atrial Rate : 088 BPM P-R Int : 132 ms QRS Dur : 080 ms QT Int : 428 ms P-R-T Axes : 047 057 070 degrees QTc Int : 517 ms Sinus rhythm with Premature supraventricular complexes and with frequent Premature ventricular comple xes Possible Left atrial enlargement Prolonged QT Abnormal ECG Confirmed by LOLA ROSADO, DANIELE ([id number]), medical transcription editor REUBEN THOMAS ([id number]) on 06/04/2019 10:52:56 AM Referred By: EDPHYS Confirmed By:DANIELE DAVILA MD
--- NOTE | 2019-05-31 15:17 | RAD_ITS ---
STUDY: X-RAY CHEST REASON FOR EXAM: Female, 43 years old. Chest pain. Migraines. HIV. TECHNIQUE: Single AP portable view of the chest. COMPARISON: None. FINDINGS: EKG electrodes are seen. The lungs are clear and expanded. There is no demonstrated pleural abnormality. Normal size heart. Normal mediastinum and donta. Normal visualized pulmonary arteries. Normal visualized aortic arch and descending thoracic aorta. Normal visualized thoracic spine. Normal visualized ribs, clavicles, and shoulders. There is no demonstrated abnormality of the visualized soft tissue structures of the upper abdomen. RAD/Chest 1 View (Portable) IMPRESSION: Normal x-ray examination of the chest. Electronically Signed: Del Amato, at 15:34 EDT , Service support ,
--- NOTE | 2019-05-31 15:22 | ED.DCSUM_ITS ---
- ER Visit Summary Date of Service: 05/31/19 Chief Complaint: Chest pain History of Present Illness: The patient is a 43 F presenting with chest pain. Patient states this started approximately one week ago. She states it has worsened over the past several days. She states she has had intermittent pain for the past 3 days. She has associated shortness of breath. She has had a cough. She recently quit smoking. She denies fever. She has chronic abdominal pain which is no worse than usual. She has nausea with no vomiting. No diarrhea. Denies fever. She also complains of migraine headache. This started 2 days ago. Similar to her previous migraines. Headache was gradual in onset. No recent trauma. She states she has been out of her medications for 2 months. She recently applied for financial assistance. Denies other complaints. Physical Examination: Vitals are stable. Patient is afebrile. Alert no acute distress. HEENT exam is unremarkable. Neck is supple. Lungs are clear and equal bilaterally. Heart is regular rate and rhythm. Abdomen is soft nontender nondistended. Extremities are unremarkable. Skin is warm and dry. No focal neurologic deficit. Remainder of exam is unremarkable. Emergency Department Course and Treatment: She was given aspirin, Reglan, and Benadryl. EKG is sinus rate of 88 bigeminy. CBC normal except for platelets 123. Chemistries show glucose 178. Troponin is negative. Chest x-ray shows no acute process. On reevaluation, her headache has improved. Her chest pain has improved. Patient states she has not had a stress test in several years. Discussed with the hospitalist for observation. Disposition: Observation Impression: Chest pain, migraine This note was generated with [employer] dictation software. It may contain incorrect words, spelling, and punctuation that were not noted in review of the chart prior to signing ED Disposition - Plan for ED Patient: Referrals: Juan Manuel Maldonado MD [Primary Care Provider] -
[2019-05-31] MEDS: 0.9% Normal Saline 1,000 ML 999 ML IV (15:32)
[2019-05-31] MEDS: DiphenhydrAMINE 50 MG/ML Syringe 25 MG IV (15:32)
[2019-05-31] MEDS: Aspirin 81 MG TAB.CHEW 324 MG PO (15:32)
[2019-05-31] MEDS: Metoclopramide 10 MG/2 ML Vial 5 MG IV (15:32)
[2019-05-31 15:38] LABS: Absolute Lymphocyte Count 1.64 X10^3/uL (0.83-4.51); Absolute Neutrophil Count 4.1 X10^3/uL (2.0-7.7); Basophil# 0.03 X10^3/uL; Basophil% 0.5 % (0-1); Eosinophil# 0.31 X10^3/uL; Eosinophils% 4.7 % (0-5); Hematocrit 43.2 % (37-47); Hemoglobin 14.3 g/dL (12.0-15.0); Lymphocyte # 1.64 X10^3/ul (4.0); Lymphocyte % 24.8 % (19-41); Mean Corp Hgb Conc 33.1 g/dL (32-36); Mean Corpuscular Hgb 28.9 pg (27.0-32.0); Mean Corpuscular Volume 87.3 fL (81-99); Mean Platelet Vol. 11.3 fl (6.2-12.0); Monocyte# 0.45 X10^3/uL; Monocyte% 6.8 % (0-10); NRBC Flagged by Analyzer 0 % (0-5); Neutrophil # 4.14 X10^3/uL (2.7-7.7); Neutrophil % 62.7 % (47-70); Platelet Count 123 K/mm3 (150-450); RBC Distribution Width CV 12.5 % (11.6-14.6); RBC Distribution Width SD 39.7 fl (35.1-43.9); Red Blood Count 4.95 M/mm3 (4.2-5.4); White Blood Count 6.6 K/mm3 (4.4-11.0)
[2019-05-31 15:55] LABS: Anion Gap 7 (5-15); BUN 11 mg/dL (7-18); BUN/Creat Ratio 12.1 RATIO (10-20); Calcium,Total 9.2 mg/dL (8.5-10.1); Chloride 107 mmol/L (98-107); Creatinine, Serum 0.91 mg/dL (0.55-1.02); EST Glomerular Filtration Rate 72 mL/min (>60); Est Glom Filt Rate - Afr Amer 87 mL/min (>60); Estimated Creatinine Clearance 75.39 ml/min; Glucose 178 mg/dL (74-106); Potassium 3.7 mmol/L (3.5-5.1); Sodium Level 137 mmol/L (136-145)
--- NOTE | 2019-05-31 17:11 | HP.PCM_ITS ---
History of Present Illness Date of Admission: 05/31/19 Chief Complaint: chest pain, headache The patient is a 43 year old F with a very extensive past medical history as listed. She was admitted through the ED on 05/31/2019 with a complaint of chest pain and headache. She said chest pain had been going on for about a week she described as a pressure-like and retrosternal with no aggravating or relieving factors. She had no associated lightheadedness or dizziness, palpitations, or increased sweating. 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 She also complained of headache which she thought was due to migraine. She states her headaches were hormonal induced and she had not had a headache since she had oophorectomy 7 years ago but today started having a severe headache which she thought was due to migraine as she had associated photophobia. Review of systems otherwise negative. Initial troponin was negative and EKG showed normal sinus rhythm with heart rate of 88 and some bigeminy. CBC was unremarkable apart from platelets of 123 and glucose was essentially unremarkable apart from glucose of 178. Chest x-ray showed no acute cardiopulmonary process. She has been admitted to be managed for chest pain to rule out ACS and acute migraine headache. 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) CHF (congestive heart failure) (Chronic) Fatty liver (Chronic) Polyneuropathy (Chronic) Irregular heart beat (Chronic) Insomnia (Chronic) Fibromyalgia (Chronic) Anxiety (Chronic) Obesity (Chronic) Diverticulosis (Chronic) Depression (Chronic) Diabetes mellitus (Chronic) Asthma (Chronic) Type 2 diabetes mellitus (Chronic) Bipolar 1 disorder (Chronic) Medical History: Medical History (Last Reviewed 01/09/19 @ 13:39 by Enma Brown) Hypertension (Chronic) I10 GERD (gastroesophageal reflux disease) (Acute) K21.9 Seasonal allergies (Acute) J30.2 History of alcoholism (Acute) F10.21 History of drug abuse (Acute) Z87.898 History of blood transfusion (Acute) Z92.89 History of kidney stones (Acute) Z87.442 History of shingles (Acute) Z86.19 Herpes (Chronic) B00.9 HIV exposure (Acute) Z20.6 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) B97.7 Vitamin B12 deficiency (Acute) E53.8 Vitamin D deficiency (Acute) E55.9 CHF (congestive heart failure) (Chronic) I50.9 Fatty liver (Chronic) K76.0 Polyneuropathy (Chronic) G62.9 Irregular heart beat (Chronic) I49.9 Insomnia (Chronic) G47.00 Enlargement, spleen (Acute) R16.1 Fibromyalgia (Chronic) M79.7 Hypokalemia (Acute) E87.6 Acute hemorrhoid (Acute) K64.9 Migraines (Acute) G43.909 Sciatica (Acute) M54.30 Hiatal hernia (Acute) K44.9 Anxiety (Chronic) F41.9 Abdominal pain (Acute) R10.9 History of myocardial infarct at age less than 60 years (Acute) I25.2 Cough (Acute) R05 Obesity (Chronic) E66.9 Diverticulosis (Chronic) K57.90 Depression (Chronic) F32.9 Hyperglycemia (Acute) R73.9 Diabetes mellitus (Chronic) E11.9 Asthma (Chronic) J45.909 Abnormal bruising R23.8 Arthritis M19.90 Back pain M54.9 Cancer C80.1 Chest pain R07.9 Difficulty balancing R29.818 Fatigue R53.83 HIV (human immunodeficiency virus infection) B20 Hemorrhoids K64.9 History of wisdom tooth extraction K08.409 Kidney disease N28.9 Knee pain M25.569 Limb weakness R29.898 SOB (shortness of breath) R06.02 Shoulder pain M25.519 Allergies Iodinated Contrast Media [Iodinated Contrast- Oral and IV Dye] Allergy (Unknown, Verified 05/31/19 14:01) unknown amoxicillin Allergy (Verified 05/31/19 14:01) Hives hydrocodone [From Vicodin] Allergy (Verified 05/31/19 14:01) Unknown methylprednisolone [From Medrol] Allergy (Verified 05/31/19 14:01) Hives prochlorperazine [From Compazine] Allergy (Verified 05/31/19 14:01) Other prochlorperazine edisylate [From Compazine] Allergy (Verified 05/31/19 14:01) Other prochlorperazine maleate [From Compazine] Allergy (Verified 05/31/19 14:01) Other acetaminophen [From Tylenol] Adverse Reaction (Verified 05/31/19 14:01) Other sumatriptan [From Imitrex] Adverse Reaction (Verified 05/31/19 14:01) Hives A MIGRAINE MED Allergy (Uncoded 05/31/19 14:01) Other Home Medications: Ambulatory Orders Medication Instructions Recorded Lisinopril [Zestril] 10 tab PO DAILY 05/11/18 Sulfamethoxazole/Trimethoprim 400 tab PO DAILY 05/11/18 [Bactrim 400-80 mg Tablet] acyclovir 400 mg tablet 400 mg PO TID 12/07/18 cholecalciferol (vitamin D3) 50,000 unit PO QWEEK 12/07/18 50,000 unit capsule fluconazole 100 mg tablet 100 mg PO DAILY 12/07/18 folic acid 400 mcg tablet 0.4 mg PO DAILY 12/07/18 melatonin 3 mg tablet 3 mg PO HS PRN 12/07/18 metformin ER 1,000 mg 24 hr 500 mg PO QPM 12/07/18 tablet,extended release loratadine 10 mg tablet 10 mg PO DAILY #60 tab 12/11/18 tizanidine 4 mg tablet 4 mg PO TID PRN #60 tab 12/11/18 triamcinolone acetonide 0.1 % 1 applic TOPICAL DAILY PRN #80 g 12/11/18 topical cream darunavir ethanolate 600 mg tablet 600 mg PO BID 12/20/18 dicyclomine 10 mg capsule 20 mg PO TIDAC cap 12/20/18 raltegravir 400 mg tablet 400 mg PO BID 12/20/18 ranitidine 150 mg tablet 150 mg PO DAILY #30 tab 12/20/18 rizatriptan 10 mg disintegrating 10 mg PO ONCE PRN 01/09/19 tablet ibuprofen 800 mg tablet 800 mg PO Q8H PRN #21 tab 02/14/19 albuterol sulfate HFA 90 2 puff INHALATION Q6H PRN #18 g 04/11/19 mcg/actuation aerosol inhaler montelukast 10 mg tablet 10 mg PO QPM #90 tab 05/22/19 Beclomethasone Dipropionate [Qvar 1 puff INHALATION BID 05/31/19 Redihaler] Calcium Carbonate [Calcium] 600 mg PO DAILY 05/31/19 Clindamycin HCl 300 mg PO 4X/DAY 05/31/19 Cyanocobalamin (Vitamin B-12) 500 mcg PO DAILY 05/31/19 [Vitamin B-12] Emtricitabine/Tenofovir (Tdf) 1 ea PO DAILY 05/31/19 [Truvada 200 mg-300 mg Tablet] Magnesium Oxide [Magnesium] 250 mg PO MOWEFR 05/31/19 Metoprolol Succinate [Toprol Xl] 25 mg PO QHS 05/31/19 Multivitamin [Daily Multiple 1 ea PO DAILY 05/31/19 Vitamin] Ritonavir [Norvir] 100 mg PO BID 05/31/19 Surgical History: Surgical History (Last Reviewed 01/09/19 @ 13:39 by Enma Brown) History of 2 sections Z98.891 History of D&C Z98.890 x2 History of appendectomy Z90.49 History of cholecystectomy Z90.49 History of colonoscopy Z98.890 x2 History of endoscopy Z98.890 x4 History of hernia repair Z98.890, Z87.19 x3 History of hysterectomy Z90.710 History of left knee surgery Z98.890 x3 History of liver biopsy Z98.890 x2 History of shoulder surgery Z98.890 History of tonsillectomy Z90.89 History of trigger finger Z87.39 History of tubal ligation Z98.51 Hx of right knee surgery Z98.890 x3 Surgical History: - Psychiatric History: No pertinent psych hx 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 History: endometriosis Lives: Alone Smoking Status: Former smoker - quit 11 days ago Alcohol: None Drugs: None - *Family History Maternal Family History: Family History (Last Reviewed 01/09/19 @ 13:39 by Enma Brown) Other Alcoholism Anxiety and depression Arthritis Asthma Breast cancer CVA (cerebral vascular accident) Cancer Diabetes Heart disease Hyperlipemia Hypertension Kidney disease Myocardial infarction Seizures Review of Systems Constitutional: Denies: Chills, Fever, Malaise, Weakness, Weight Change Eyes: Denies: Blurred vision HEENT: Denies: Head Aches, Sinus Congestion, Sinus Drainage Cardiovascular: Reports: Chest Pain. Denies: Chest Pressure, Chest Tightness, Edema, Heaviness, Light Headedness, Orthopnea, Palpitations Respiratory: Denies: Cough, Shortness of Breath, Shortness of breath at rest, Shortness of breath upon exertion, Sputum production Gastrointestinal: Denies: Abdominal Pain, Nausea, Vomiting Genitourinary: Denies: Dysuria Gynecological: Denies: Breast symptoms Musculoskeletal: Denies: Joint Pain, Joint Tenderness Skin: Denies: Rash, Wounds Neurological: Reports: Headaches. Denies: Focal weakness, Numbness, Tingling Psychiatric: Denies: Anxiety, Depression, Homicidal Ideations, Suicidal Ideations Hematologic/ Lymphatic: Denies: Easy Bruising, Easy Bleeding VTE Information - Inpt Only VTE Present on Admission: No VTE Pharm Prophylaxis ordered?: Yes - Physical Exam Vitals/I&O's: Vital Signs Temp Pulse Resp BP Pulse Ox 97.5 F L 76 19 H 120/74 98 05/31/19 14:01 05/31/19 16:00 05/31/19 16:00 05/31/19 16:00 05/31/19 16:00 Oxygen Delivery Method Room Air Weight: 235 lb Body Mass Index (BMI) 37.9 General: Alert, Oriented x3, Cooperative, - - looks uncomfortable, has photophobia when light put on HEENT: Atraumatic, PERRLA, EOMI, Normocephalic Oral: Moist Mucosa Neck: Supple, No JVD, Negative Carotid Bruits Lungs: Clear to auscultation, Normal air movement Cardiovascular: Regular rate, Regular Rhythm, Normal S1, Normal S2, No murmurs Abdomen: Bowel Sounds Present, Soft, Non Tender, Non-Distended, No Hepato- splenomegaly Extremities: No clubbing, No cyanosis, No edema, Capillary Refill Less than 3 Seconds Skin: No rashes, No breakdown Musculoskeletal: No Tenderness to Palpation of Joints or Extremities Lymphatic: No Cervical, Supraclavicular, or Inguinal Adenopathy Neurological: Cranial nerves II-XII grossly intact, Neuro grossly intact, Motor Exam 5/5 strength throughout Psych/Mental Status: Normal Affect, Appropriate, Alert and oriented to time, place, person, mood and affect Laboratory Results 05/31/19 14:50: WBC 6.6, RBC 4.95, Hgb 14.3, Hct 43.2, MCV 87.3, MCH 28.9, MCHC 33.1, RDW Std Deviation 39.7, RDW Coeff of Vladimir 12.5, Plt Count 123 L, MPV 11.3, Immature Gran % (Auto) 0.500, Neut % (Auto) 62.7, Lymph % (Auto) 24.8, Carver % (Auto) 6.8, Eos % (Auto) 4.7, Baso % (Auto) 0.5, Absolute Neuts (auto) 4.1, Absolute Lymphs (auto) 1.64, Nucleated RBC % 0 05/31/19 14:50: Sodium 137, Potassium 3.7, Chloride 107, Carbon Dioxide 23.0, Anion Gap 7, BUN 11, Creatinine 0.91, Estim Creat Clear Calc 75.39, Est GFR (MDRD) Af Amer 87, Est GFR (MDRD) Non-Af 72, BUN/Creatinine Ratio 12.1, Glucose 178 H, Calcium 9.2, Troponin I < 0.015 Diagnostic Data Chest X-Ray 05/31/19 15:17 IMPRESSION: Normal x-ray examination of the chest. Electronically Signed: Del Amato, at 15:34 EDT , Service support , Assessment/Plan All Active Problems (Last Reviewed 01/09/19 @ 13:39 by Enma Brown) Bronchitis (Acute) GERD (gastroesophageal reflux disease) (Acute) Seasonal allergies (Acute) History of alcoholism (Acute) History of drug abuse (Acute) History of blood transfusion (Acute) History of kidney stones (Acute) History of shingles (Acute) HIV exposure (Acute) Vitamin B12 deficiency (Acute) Vitamin D deficiency (Acute) Enlargement, spleen (Acute) Hypokalemia (Acute) Acute hemorrhoid (Acute) Migraines (Acute) Sciatica (Acute) Hiatal hernia (Acute) Abdominal pain (Acute) History of myocardial infarct at age less than 60 years (Acute) Cough (Acute) Hyperglycemia (Acute) Flea bite of multiple sites (Acute) Dermatitis (Acute) Neuropathy (Acute) Arthritis (Acute) 43 y/o admitted with a complaitn of chest pain and headache 1. chest pain to r.o ACS * admit to PCU with telemetry * initial troponin was negative; cycle troponins * PO aspirin 81mg daily * SL nitroglycerin prn * check lipid panel * for stress test tomorrow if troponins are negative * 2. Acute migraine headache * allergic to solumedrol and sumatriptan. Will give fioricet * PO tylenol prn * 3. Hypertension: * On lisinopril. Will continue. Is on metoprolol. * However heart rate is falling to 42. Patient states she has not taken her metoprolol in over a week. * Will hold metoprolol monitor heart rate. * If continues to fall consult cardiology. Will check TSH. 4. History of HIV: On Truvada and raltegravir. Also on Bactrim and darunavir. 5. Diabetes mellitus: On metformin. Insulin sliding scale. Accuchecks ACHS 6. DVT prophylaxis: Lovenox Code Status: Full code * Patient counseled extensively about different types of CODE STATUS including full code, DNR CCA and DNR CCA. Patient elects to be full code. Total [id number] time 16 minutes. Code Visit OBSV E&M: 74035 Initial observation care L3 Procedures: 98625 Advncd Care Plan 30 Min
--- NOTE | 2019-05-31 18:51 | EKG12_ITS ---
Test Reason : CP ADMIT Blood Pressure : / mmHG Vent. Rate : 074 BPM Atrial Rate : 074 BPM P-R Int : 146 ms QRS Dur : 086 ms QT Int : 426 ms P-R-T Axes : 047 016 054 degrees QTc Int : 472 ms Normal sinus rhythm Low Voltage QRS (Limb Leads) Confirmed by ANA ROSADO, ALLYSON ([id number]), associate entertainment editor REUBEN THOMAS ([id number]) on 06/06/2019 10:11:21 AM Referred By: DR CHILEL Confirmed By:ALLYSON PEREZ MD
[2019-05-31 22:06] LABS: Bedside Glucose 257 mg/dL (70-110)
[2019-05-31] MEDS: RALTEGRAVIR POTASSIUM 400 MG TABLET PO (22:07)
[2019-05-31] MEDS: Acetaminophen/Butalbital/Caffe 1 Tablet PO (22:07)
[2019-05-31] MEDS: Insulin Lispro 100 UNIT/ML INSULN.PEN SC (22:08)
[2019-05-31] MEDS: EMTRICITABINE/TENOFOVIR 1 TABLET TABLET PO (22:08)
[2019-05-31] MEDS: Montelukast 10 MG Tablet PO (22:08)
[2019-06-01] VITALS (19 sets, daily range): BP systolic 96–133; BP diastolic 45–68; PULSE 65–94; RESP 14–20; TEMP 36.4–36.8; O2SAT 95–100
[2019-06-01] MEDS: DiphenhydrAMINE 50 MG/ML Syringe 25 MG IV ×2 (05:07→12:14)
--- NOTE | 2019-06-01 05:08 | EKG12_ITS ---
Test Reason : CP Blood Pressure : / mmHG Vent. Rate : 090 BPM Atrial Rate : 090 BPM P-R Int : 134 ms QRS Dur : 076 ms QT Int : 390 ms P-R-T Axes : 034 004 044 degrees QTc Int : 477 ms Normal sinus rhythm Low voltage QRS (Limb Leads) Abnormal ECG Confirmed by ANA ROSADO, ALLYSON ([id number]), writer editor REUBEN THOMAS ([id number]) on 06/06/2019 10:10:57 AM Referred By: DR CHILEL Confirmed By:ALLYSON PEREZ MD
[2019-06-01] MEDS: Metoclopramide 10 MG/2 ML Vial 5 MG IV (05:16)
[2019-06-01] MEDS: Ketorolac 15 MG/ML Vial IV ×2 (05:16→12:13)
[2019-06-01] MEDS: Lisinopril 10 MG Tablet PO (05:19)
[2019-06-01] MEDS: Aspirin E.C. 81 MG Tablet PO (05:20)
[2019-06-01 05:45] LABS: Absolute Lymphocyte Count 1.24 X10^3/uL (0.83-4.51); Absolute Neutrophil Count 2.5 X10^3/uL (2.0-7.7); Basophil# 0.02 X10^3/uL; Basophil% 0.5 % (0-1); Eosinophil# 0.29 X10^3/uL; Eosinophils% 6.7 % (0-5); Hematocrit 39.3 % (37-47); Hemoglobin 13.1 g/dL (12.0-15.0); Lymphocyte # 1.24 X10^3/ul (4.0); Lymphocyte % 28.6 % (19-41); Mean Corp Hgb Conc 33.3 g/dL (32-36); Mean Corpuscular Hgb 29.2 pg (27.0-32.0); Mean Corpuscular Volume 87.7 fL (81-99); Mean Platelet Vol. 11.1 fl (6.2-12.0); Monocyte# 0.27 X10^3/uL; Monocyte% 6.2 % (0-10); NRBC Flagged by Analyzer 0 % (0-5); Neutrophil # 2.51 X10^3/uL (2.7-7.7); Neutrophil % 57.8 % (47-70); Platelet Count 103 K/mm3 (150-450); RBC Distribution Width CV 12.8 % (11.6-14.6); Red Blood Count 4.48 M/mm3 (4.2-5.4); White Blood Count 4.3 K/mm3 (4.4-11.0)
[2019-06-01 06:12] LABS: Magnesium 1.7 mg/dL (1.6-2.6)
[2019-06-01 06:13] LABS: Anion Gap 7 (5-15); BUN 9 mg/dL (7-18); BUN/Creat Ratio 10.7 RATIO (10-20); Calcium,Total 8.4 mg/dL (8.5-10.1); Chloride 109 mmol/L (98-107); Cholesterol 135 mg/dL (200); Creatinine, Serum 0.84 mg/dL (0.55-1.02); EST Glomerular Filtration Rate 79 mL/min (>60); Est Glom Filt Rate - Afr Amer 95 mL/min (>60); Estimated Creatinine Clearance 81.67 ml/min; Glucose 121 mg/dL (74-106); High Density Lipoprotein 17 mg/dL; Potassium 3.9 mmol/L (3.5-5.1); Sodium Level 141 mmol/L (136-145); Triglycerides 273 mg/dL; Very Low Density Lipoprotein 55 mg/dL (5-40)
[2019-06-01 06:36] LABS: Bedside Glucose 107 mg/dL (70-110)
[2019-06-01] MEDS: Budesonide Respules 0.5 MG/2 ML AMPUL.NEB. INHALATION (07:15)
[2019-06-01] MEDS: Smz/Tmp Ds Tablet 0.5 TABLET PO (10:44)
[2019-06-01] MEDS: Fluconazole 100 MG Tablet PO (10:44)
[2019-06-01] MEDS: Loratadine 10 MG Tablet PO (10:45)
[2019-06-01] MEDS: Folic Acid 1 MG Tablet 0.5 MG PO (10:45)
[2019-06-01] MEDS: RALTEGRAVIR POTASSIUM 400 MG TABLET PO (10:45)
[2019-06-01] MEDS: Calcium (Elemental) 500 MG Tablet PO (10:45)
[2019-06-01] MEDS: Magnesium Oxide 400 MG Tablet PO (10:45)
[2019-06-01] MEDS: Multivitamins,Therapeutic Tablet 1 TABLET PO (10:45)
[2019-06-01] MEDS: Cyanocobalamin 500 MCG Tablet PO (10:46)
[2019-06-01] MEDS: Famotidine 20 MG Tablet PO (10:46)
--- NOTE | 2019-06-01 11:55 | STRESSREP ---
Stress Test Report Pharmacologic myocardial perfusion stress test. 43-year-old lady with a history of atypical chest pain. Stress protocol: Resting EKG demonstrates normal sinus rhythm with a rate of 79 bpm normal intervals are noted occasional premature ventricular complexes present. Resting blood pressures 110/62 mmHg. 0.4 mg of regadenoson was infused per usual protocol followed by rapid intravenous saline flush injection continuous quality assurance monitor body was performed. The maximum heart rate attained was 93 bpm which was 52% of maximum predicted heart rate the maximum workload was 1 metabolic equivalent. At rest there were no ST or T wave changes noted suggest ischemia at peak infusion nonspecific ST-T wave changes were noted. Occasional premature ventricular complexes only were noted.. During infusion of ventricular bigeminy was also present. Myocardial perfusion protocol. 15.0 mCi of technetium 99m sestamibi was injected at rest. 0.4 mg of regadenoson was infused per usual protocol peak infusion 44.3 mCi of technetium 99m sestamibi was injected stress images were obtained stress and rest images were reconstructed and compared in the short axis vertical and horizontal long axis. Gated images were not performed. Perfusion SPECT analysis: Review of the stress images demonstrate mildly reduced perfusion noted in the anterior wall on the stress images which appeared to normalize on the resting images. The above may be suggestive of mild anterior ischemia of anterior breast wall attenuation. Conclusion: Mildly abnormal anterior myocardial perfusion defect suggestive of ischemia. Anterior breast wall attenuation cannot be completely excluded.
[2019-06-01 12:25] LABS: Bedside Glucose 175 mg/dL (70-110)
--- NOTE | 2019-06-01 12:50 | PN_ITS ---
Vitals/I&O's: Vital Signs Temp Pulse Resp BP Pulse Ox 97.5 F L 87 16 133/55 H 100 06/01/19 11:00 06/01/19 11:40 06/01/19 11:00 06/01/19 11:00 06/01/19 11:00 Oxygen Delivery Method Room Air Weight: 106.594 kg Body Mass Index (BMI) 37.9 Intake and Output for Last 24 Hours 05/30/19 05/31/19 06/01/19 23:59 23:59 23:59 Intake Total 1000 / 1360 464 / 464 Balance 1000 / 1360 464 / 464 Laboratory Results 05/31/19 14:50: WBC 6.6, RBC 4.95, Hgb 14.3, Hct 43.2, MCV 87.3, MCH 28.9, MCHC 33.1, RDW Std Deviation 39.7, RDW Coeff of Vladimir 12.5, Plt Count 123 L, MPV 11.3, Immature Gran % (Auto) 0.500, Neut % (Auto) 62.7, Lymph % (Auto) 24.8, [place] % (Auto) 6.8, Eos % (Auto) 4.7, Baso % (Auto) 0.5, Absolute Neuts (auto) 4.1, Absolute Lymphs (auto) 1.64, Nucleated RBC % 0 05/31/19 14:50: Sodium 137, Potassium 3.7, Chloride 107, Carbon Dioxide 23.0, Anion Gap 7, BUN 11, Creatinine 0.91, Estim Creat Clear Calc 75.39, Est GFR (MDRD) Af Amer 87, Est GFR (MDRD) Non-Af 72, BUN/Creatinine Ratio 12.1, Glucose 178 H, Calcium 9.2, Troponin I < 0.015 05/31/19 20:56: Troponin I < 0.015 05/31/19 21:58: POC Glucose 257 H 05/31/19 22:54: Troponin I < 0.015 06/01/19 02:25: Troponin I < 0.015 06/01/19 05:15: WBC 4.3 L, RBC 4.48, Hgb 13.1, Hct 39.3, MCV 87.7, MCH 29.2, MCHC 33.3, RDW Std Deviation 41.0, RDW Coeff of Vladimir 12.8, Plt Count 103 L, MPV 11.1, Immature Gran % (Auto) 0.200, Neut % (Auto) 57.8, Lymph % (Auto) 28.6, [place] % (Auto) 6.2, Eos % (Auto) 6.7 H, Baso % (Auto) 0.5, Absolute Neuts (auto) 2.5, Absolute Lymphs (auto) 1.24, Nucleated RBC % 0 06/01/19 05:15: Sodium 141, Potassium 3.9, Chloride 109 H, Carbon Dioxide 25.0, Anion Gap 7, BUN 9, Creatinine 0.84, Estim Creat Clear Calc 81.67, Est GFR (MDRD) Af Amer 95, Est GFR (MDRD) Non-Af 79, BUN/Creatinine Ratio 10.7, Glucose 121 H, Calcium 8.4 L, Triglycerides 273 H, Cholesterol 135, LDL Cholesterol 63, VLDL Cholesterol 55 H, HDL Cholesterol 17 L, TSH 2.10 06/01/19 05:15: Magnesium 1.7 06/01/19 06:27: POC Glucose 107 06/01/19 12:11: POC Glucose 175 H Current Medications Acetaminophen/Butalbital/Caffeine (Fioricet) 1 tablet PO Q4H PRN PRN PRN Reason: MIGRAINE SYMPTOMS Last Admin: 05/31/19 22:07 Dose: 1 tablet Documented by: Acyclovir (Zovirax) 400 mg PO TID [facility] Last Admin: 05/31/19 22:34 Dose: Not Given Documented by: Albuterol Sulfate (Ventolin Aerosols) 2.5 mg INHALATION Q4H PRN PRN Reason: SHORTNESS OF BREATH OR WHEEZIN Aspirin (Ecotrin) 81 mg PO DAILY@0800 [facility] Last Admin: 06/01/19 05:20 Dose: 81 mg Documented by: Budesonide (Pulmicort Aerosol) 0.5 mg INHALATION BID [facility] Last Admin: 06/01/19 07:15 Dose: 0.5 mg Documented by: Calcium Carbonate (Os-Tyron 500) [facility] Last Admin: 06/01/19 10:45 Dose: 500 mg Documented by: Cyanocobalamin (Vitamin B12) 500 mcg PO DAILY [facility] Last Admin: 06/01/19 10:46 Dose: 500 mcg Documented by: Dextrose (D50w Syringe) 0 gm IV X1 PRN; Protocol PRN Reason: Hypoglycemia Dicyclomine HCl (Bentyl) 20 mg PO TIDAC [facility] Last Admin: 06/01/19 12:13 Dose: Not Given Documented by: Emtricitabine/Tenofovir (Truvada 200 Mg-300 Mg Tablet) 1 tablet PO DAILY [facility] Last Admin: 05/31/19 22:08 Dose: 1 tablet Documented by: Enoxaparin Sodium (Lovenox) 40 mg SC DAILY@1000 [facility] Last Admin: 06/01/19 12:17 Dose: Not Given Documented by: Famotidine (Pepcid) 20 mg PO DAILY [facility] Last Admin: 06/01/19 10:46 Dose: 20 mg Documented by: Fluconazole (Diflucan) 100 mg PO DAILY [facility] Last Admin: 06/01/19 10:44 Dose: 100 mg Documented by: Folic Acid (Folic Acid) 0.5 mg PO DAILYCM [facility] Last Admin: 06/01/19 10:45 Dose: 0.5 mg Documented by: Glucagon () 1 mg IM .X1 PRN PRN Reason: Hypoglycemia Sodium Chloride () 1,000 mls @ 0 mls/hr IV .Q0M [facility] Ibuprofen (Motrin) 800 mg PO Q8H PRN Insulin Human Lispro (Humalog Kwikpen (Bkc)) 0 unit SC ACHS [facility]; Protocol Last Admin: 06/01/19 12:17 Dose: Not Given Documented by: Lisinopril (Zestril) 10 mg PO DAILY [facility] Last Admin: 06/01/19 05:19 Dose: 10 mg Documented by: Loratadine (Claritin) 10 mg PO DAILY [facility] Last Admin: 06/01/19 10:45 Dose: 10 mg Documented by: Magnesium Oxide (Mag-Ox 400) 400 mg PO MOWEFR [facility] Last Admin: 06/01/19 10:45 Dose: 400 mg Documented by: Melatonin (Melatonin) 3 mg PO QHS PRN PRN Reason: SLEEP Metformin HCl (Glucophage Xr) 500 mg PO DAILY@1700 [facility] Montelukast Sodium (Singulair) 10 mg PO QPM [facility] Last Admin: 05/31/19 22:08 Dose: 10 mg Documented by: Multivitamins (Multivitamin) 1 tablet PO DAILY@0800 [facility] Last Admin: 06/01/19 10:45 Dose: 1 tablet Documented by: Nitroglycerin (Nitrostat) 0.4 mg SUBLINGUAL Q5M PRN PRN Reason: CARDIAC/CHEST PAIN Non-Formulary Medication (Cholecalciferol (Vitamin D3) [Vitamin D3]) 50,000 unit PO QWEEK [facility] Non-Formulary Medication (Darunavir Ethanolate) 600 mg PO BID [facility] Non-Formulary Medication (Ritonavir [Norvir]) 100 mg PO BID [facility] Raltegravir (Isentress) 400 mg PO BID [facility] Last Admin: 06/01/19 10:45 Dose: 400 mg Documented by: Tizanidine HCl (Zanaflex) 4 mg PO TID PRN PRN Reason: muscle spasticity Triamcinolone Acetonide (Triamcinolone Acetonide) 1 applic TOPICAL DAILY PRN PRN Reason: rash Trimethoprim/Sulfamethoxazole (Bactrim Ds) 0.5 [facility] Last Admin: 06/01/19 10:44 Dose: 0.5 tablet Documented by: STROKE Vital Signs/Narrative: Vital Signs Temp Pulse Resp BP Pulse Ox 06/01/19 11:40 87 06/01/19 11:00 97.5 F L 68 16 133/55 H 100 Medical Necessity - Tobacco Use Smoking Status: Former smoker - quit 11 days ago Assessment/Plan All Active Problems (Last Reviewed 01/09/19 @ 13:39 by Enma Brown) Bronchitis (Acute) GERD (gastroesophageal reflux disease) (Acute) Seasonal allergies (Acute) History of alcoholism (Acute) History of drug abuse (Acute) History of blood transfusion (Acute) History of kidney stones (Acute) History of shingles (Acute) HIV exposure (Acute) Vitamin B12 deficiency (Acute) Vitamin D deficiency (Acute) Enlargement, spleen (Acute) Hypokalemia (Acute) Acute hemorrhoid (Acute) Migraines (Acute) Sciatica (Acute) Hiatal hernia (Acute) Abdominal pain (Acute) History of myocardial infarct at age less than 60 years (Acute) Cough (Acute) Hyperglycemia (Acute) Flea bite of multiple sites (Acute) Dermatitis (Acute) Neuropathy (Acute) Arthritis (Acute)
--- NOTE | 2019-06-01 13:27 | PCM.CONS.C ---
Reason for Consult Date of Consultation: 06/01/19 Reason for Consultation: Chest pain History of Present Illness: The patient is a 43 year old F with a very extensive past medical history.. She was admitted through the ED on 05/31/2019 with a complaint of chest pain and headache. She said chest pain had been going on for about a week she described as a pressure-like and retrosternal with no aggravating or relieving factors. She had no associated lightheadedness or dizziness, palpitations, or increased sweating. 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 She also complained of headache which she thought was due to migraine. She states her headaches were hormonal induced and she had not had a headache since she had oophorectomy 7 years ago but today started having a severe headache which she thought was due to migraine as she had associated photophobia. Review of systems otherwise negative. Initial troponin was negative and EKG showed normal sinus rhythm with heart rate of 88 and some bigeminy. She was admitted to the hospital and underwent a pharmacologic stress test which demonstrated evidence of possible anterior ischemia. She complains of chest pain as well as body aches all over. Past Medical History Allergies/Adverse Reactions: Allergies Iodinated Contrast Media [Iodinated Contrast- Oral and IV Dye] Allergy (Unknown, Verified 05/31/19 14:01) unknown amoxicillin Allergy (Verified 05/31/19 14:01) Hives hydrocodone [From Vicodin] Allergy (Verified 05/31/19 14:01) Unknown methylprednisolone [From Medrol] Allergy (Verified 05/31/19 14:01) Hives prochlorperazine [From Compazine] Allergy (Verified 05/31/19 14:01) Other prochlorperazine edisylate [From Compazine] Allergy (Verified 05/31/19 14:01) Other prochlorperazine maleate [From Compazine] Allergy (Verified 05/31/19 14:01) Other acetaminophen [From Tylenol] Adverse Reaction (Verified 05/31/19 14:01) Other sumatriptan [From Imitrex] Adverse Reaction (Verified 05/31/19 14:01) Hives A MIGRAINE MED Allergy (Uncoded 05/31/19 14:01) Other Home Medications: Ambulatory Orders Medication Instructions Recorded Lisinopril [Zestril] 10 tab PO DAILY 05/11/18 Sulfamethoxazole/Trimethoprim 400 tab PO DAILY 05/11/18 [Bactrim 400-80 mg Tablet] acyclovir 400 mg tablet 400 mg PO TID 12/07/18 cholecalciferol (vitamin D3) 50,000 unit PO QWEEK 12/07/18 50,000 unit capsule fluconazole 100 mg tablet 100 mg PO DAILY 12/07/18 folic acid 400 mcg tablet 0.4 mg PO DAILY 12/07/18 melatonin 3 mg tablet 3 mg PO HS PRN 12/07/18 metformin ER 1,000 mg 24 hr 500 mg PO QPM 12/07/18 tablet,extended release loratadine 10 mg tablet 10 mg PO DAILY #60 tab 12/11/18 tizanidine 4 mg tablet 4 mg PO TID PRN #60 tab 12/11/18 triamcinolone acetonide 0.1 % 1 applic TOPICAL DAILY PRN #80 g 12/11/18 topical cream darunavir ethanolate 600 mg tablet 600 mg PO BID 12/20/18 dicyclomine 10 mg capsule 20 mg PO TIDAC cap 12/20/18 raltegravir 400 mg tablet 400 mg PO BID 12/20/18 ranitidine 150 mg tablet 150 mg PO DAILY #30 tab 12/20/18 rizatriptan 10 mg disintegrating 10 mg PO ONCE PRN 01/09/19 tablet ibuprofen 800 mg tablet 800 mg PO Q8H PRN #21 tab 02/14/19 albuterol sulfate HFA 90 2 puff INHALATION Q6H PRN #18 g 04/11/19 mcg/actuation aerosol inhaler montelukast 10 mg tablet 10 mg PO QPM #90 tab 05/22/19 Beclomethasone Dipropionate [Qvar 1 puff INHALATION BID 05/31/19 Redihaler] Calcium Carbonate [Calcium] 600 mg PO DAILY 05/31/19 Clindamycin HCl 300 mg PO 4X/DAY 05/31/19 Cyanocobalamin (Vitamin B-12) 500 mcg PO DAILY 05/31/19 [Vitamin B-12] Emtricitabine/Tenofovir (Tdf) 1 ea PO DAILY 05/31/19 [Truvada 200 mg-300 mg Tablet] Magnesium Oxide [Magnesium] 250 mg PO MOWEFR 05/31/19 Metoprolol Succinate [Toprol Xl] 25 mg PO QHS 05/31/19 Multivitamin [Daily Multiple 1 ea PO DAILY 05/31/19 Vitamin] Ritonavir [Norvir] 100 mg PO BID 05/31/19 Past Medical History (Chronic Problems): Chronic Problems (Last Reviewed 01/09/19 @ 13:39 by Enma Brown) HIV (human immunodeficiency virus infection) (Chronic) Osteoarthritis (Chronic) Hypertension (Chronic) Herpes (Chronic) 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) CHF (congestive heart failure) (Chronic) Fatty liver (Chronic) Polyneuropathy (Chronic) Irregular heart beat (Chronic) Insomnia (Chronic) Fibromyalgia (Chronic) Anxiety (Chronic) Obesity (Chronic) Diverticulosis (Chronic) Depression (Chronic) Diabetes mellitus (Chronic) Asthma (Chronic) Type 2 diabetes mellitus (Chronic) Bipolar 1 disorder (Chronic) Surgical History: - Psychiatric History: No pertinent psych hx 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 History: endometriosis - *Family History Maternal Family History: Family History (Last Reviewed 01/09/19 @ 13:39 by Enma Brown) Other Alcoholism Anxiety and depression Arthritis Asthma Breast cancer CVA (cerebral vascular accident) Cancer Diabetes Heart disease Hyperlipemia Hypertension Kidney disease Myocardial infarction Seizures Lives: Alone Smoking Status: Former smoker - quit 11 days ago Alcohol: None Drugs: None Review of Systems - Review of Systems General: Denies: Fever, Night Sweats, Fatigue HEENT: Denies: Vision Change Cardiovascular: Reports: Chest Discomfort, Chest Discomfort at Rest, Chest Tightness, Chest Heaviness. Denies: Shortness of Breath, Orthopnea, PND, Peripheral Edema, Palpitations, Lightheadedness, Dizziness, Near Syncope, Syncope Respiratory: Denies: Cough, Sputum Production, Hemoptysis Gastrointestinal: Denies: Hematemesis, Hematochezia, Melena Genitourinary: Denies: Dysuria, Hematuria Muscoloskeletal: Denies: Myalgias Skin: Denies: Rash Neurological: Denies: Dizziness Psychiatric: Denies: Anxiety Endocrine: Denies: Heat Intolerance Hematologic/ Lymphatic: Denies: Lymph Node Enlargement Subjectve: Young lady in no distress but appears uncomfortable with tattoos all over Objective: Vital Signs Temp Pulse Resp BP Pulse Ox 97.5 F L 87 16 133/55 H 100 06/01/19 11:00 06/01/19 11:40 06/01/19 11:00 06/01/19 11:00 06/01/19 11:00 Oxygen Delivery Method Room Air Weight: 235 lb Body Mass Index (BMI) 37.9 Intake and Output for Last 24 Hours 05/30/19 05/31/19 06/01/19 23:59 23:59 23:59 Intake Total 1000 / 1360 464 / 464 Balance 1000 / 1360 464 / 464 General: Awake, Alert, Oriented x 3 HEENT: PERRL, EOMI, Sclera Non Icteric Neck: Supple, Good ROM, No Lymph Node Enlargement Lungs: Clear to auscultation Cardiovascular: Regular Rhythm, Normal S1, Normal S2, No Murmurs, No Rubs, No Gallops Vascular: No Carotid Bruits, Normal Femoral Pulses, Normal Radial Pulses, Normal Dorsalis Pedal Pulse, Normal Posterior Tibial Pulses Abdomen: Bowel Sounds Present, Soft, Non Tender, No HSM, No Organomegaly Extremities: No Cyanosis, No Clubbing, No edema Musculoskeletal: No Erythema Skin: No Rashes Lymphatic: No Lymph Node Enlargement Neurological: No Focal Motor or Sensory Deficit Psych/Mental Status: Appropriate 05/31/19 14:50: WBC 6.6, RBC 4.95, Hgb 14.3, Hct 43.2, MCV 87.3, MCH 28.9, MCHC 33.1, Plt Count 123 L, MPV 11.3, Immature Gran % (Auto) 0.500, Neut % (Auto) 62.7, Lymph % (Auto) 24.8, [place] % (Auto) 6.8, Eos % (Auto) 4.7, Baso % (Auto) 0.5, Absolute Neuts (auto) 4.1, Nucleated RBC % 0 05/31/19 14:50: Sodium 137, Potassium 3.7, Chloride 107, Carbon Dioxide 23.0, Anion Gap 7, BUN 11, Creatinine 0.91, Est GFR (MDRD) Af Amer 87, Est GFR (MDRD) Non-Af 72, BUN/Creatinine Ratio 12.1, Glucose 178 H, Calcium 9.2, Troponin I < 0.015 05/31/19 20:56: Troponin I < 0.015 05/31/19 22:54: Troponin I < 0.015 06/01/19 02:25: Troponin I < 0.015 06/01/19 05:15: WBC 4.3 L, RBC 4.48, Hgb 13.1, Hct 39.3, MCV 87.7, MCH 29.2, MCHC 33.3, Plt Count 103 L, MPV 11.1, Immature Gran % (Auto) 0.200, Neut % (Auto) 57.8, Lymph % (Auto) 28.6, [place] % (Auto) 6.2, Eos % (Auto) 6.7 H, Baso % (Auto) 0.5, Absolute Neuts (auto) 2.5, Nucleated RBC % 0 06/01/19 05:15: Sodium 141, Potassium 3.9, Chloride 109 H, Carbon Dioxide 25.0, Anion Gap 7, BUN 9, Creatinine 0.84, Est GFR (MDRD) Af Amer 95, Est GFR (MDRD) Non-Af 79, BUN/Creatinine Ratio 10.7, Glucose 121 H, Calcium 8.4 L, Triglycerides 273 H, Cholesterol 135, LDL Cholesterol 63, VLDL Cholesterol 55 H, HDL Cholesterol 17 L 06/01/19 05:15: Magnesium 1.7 Rhythm: EKG: Sinus rhythm with no acute changes ECHO: Stress Test: Cardiac Cath: PCI: CT Surgery: Holter monitor: EPS: PPM: CXR: Chest CT Scan: Assessment/Plan 1, atypical chest pain Patient presented with atypical chest pain and underwent stress testing today which demonstrated evidence of possible anterior ischemia of the breast attenuation artifact cannot be completely excluded. I discussed with the patient about the risk benefits and alternatives and suggested that perhaps a cardiac catheterization should be performed. She agreed to the above. Had a catheterization performed today demonstrated the following: Normal left main coronary artery. Left circumflex artery which is normal. Dominant right coronary artery with no significant disease. Borderline left ventricular ejection fraction with minimal anterior hypokinesis. Based on the above angiographic findings I do not see any obstructive coronary disease to explain her symptomatology. Outpatient follow-up can be considered.
--- NOTE | 2019-06-01 13:36 | DCINST_ITS ---
You will use the following diet at home:: Calorie/Carbohydrate Controlled (specify 1200, 1400, etc) - 1800 Allergies/Adverse Reactions: Allergies Iodinated Contrast Media [Iodinated Contrast- Oral and IV Dye] Allergy (Unknown, Verified 05/31/19 14:01) unknown amoxicillin Allergy (Verified 05/31/19 14:01) Hives hydrocodone [From Vicodin] Allergy (Verified 05/31/19 14:01) Unknown methylprednisolone [From Medrol] Allergy (Verified 05/31/19 14:01) Hives prochlorperazine [From Compazine] Allergy (Verified 05/31/19 14:01) Other prochlorperazine edisylate [From Compazine] Allergy (Verified 05/31/19 14:01) Other prochlorperazine maleate [From Compazine] Allergy (Verified 05/31/19 14:01) Other acetaminophen [From Tylenol] Adverse Reaction (Verified 05/31/19 14:01) Other sumatriptan [From Imitrex] Adverse Reaction (Verified 05/31/19 14:01) Hives A MIGRAINE MED Allergy (Uncoded 05/31/19 14:01) Other Medications to take at Discharge Lisinopril [Zestril] 10 tab PO DAILY 05/11/18 Sulfamethoxazole/Trimethoprim [Bactrim 400-80 mg Tablet] 400 tab PO DAILY 05/11/18 acyclovir 400 mg tablet 400 mg PO TID 12/07/18 cholecalciferol (vitamin D3) 50,000 unit capsule 50,000 unit PO QWEEK 12/07/18 fluconazole 100 mg tablet 100 mg PO DAILY 12/07/18 folic acid 400 mcg tablet 0.4 mg PO DAILY 12/07/18 melatonin 3 mg tablet 3 mg PO HS PRN 12/07/18 metformin ER 1,000 mg 24 hr tablet,extended release 500 mg PO QPM 12/07/18 loratadine 10 mg tablet 10 mg PO DAILY #60 tab 12/11/18 tizanidine 4 mg tablet 4 mg PO TID PRN #60 tab 12/11/18 triamcinolone acetonide 0.1 % topical cream 1 applic TOPICAL DAILY PRN #80 g 12/11/18 darunavir ethanolate 600 mg tablet 600 mg PO BID 12/20/18 dicyclomine 10 mg capsule 20 mg PO TIDAC cap 12/20/18 raltegravir 400 mg tablet 400 mg PO BID 12/20/18 ranitidine 150 mg tablet 150 mg PO DAILY #30 tab 12/20/18 rizatriptan 10 mg disintegrating tablet 10 mg PO ONCE PRN 01/09/19 ibuprofen 800 mg tablet 800 mg PO Q8H PRN #21 tab 02/14/19 albuterol sulfate HFA 90 mcg/actuation aerosol inhaler 2 puff INHALATION Q6H PRN #18 g 04/11/19 montelukast 10 mg tablet 10 mg PO QPM #90 tab 05/22/19 Beclomethasone Dipropionate [Qvar Redihaler] 1 puff INHALATION BID 05/31/19 Calcium Carbonate [Calcium] 600 mg PO DAILY 05/31/19 Clindamycin HCl 300 mg PO 4X/DAY 05/31/19 Cyanocobalamin (Vitamin B-12) [Vitamin B-12] 500 mcg PO DAILY 05/31/19 Emtricitabine/Tenofovir (Tdf) [Truvada 200 mg-300 mg Tablet] 1 ea PO DAILY 05/31/19 Magnesium Oxide [Magnesium] 250 mg PO MOWEFR 05/31/19 Metoprolol Succinate [Toprol Xl] 25 mg PO QHS 05/31/19 Multivitamin [Daily Multiple Vitamin] 1 ea PO DAILY 05/31/19 Ritonavir [Norvir] 100 mg PO BID 05/31/19 Primary Care Physician: Juan Manuel Maldonado MD [Primary Care Provider] - Please follow up with your Primary Care Physician in: in 1 week Test Results: Test results from this visit will be discussed in further detail at your follow- up appointment, if applicable. Proposed Discharge Date: 06/01/19
--- NOTE | 2019-06-01 13:37 | CL.D_ITS ---
Patient Name: RICHARD MATOS Study Date: 06/01/2019 Performing: Yunier Chaudhry MD Ht: 66 inches 168 cm : 1975 Wt: 236.2 lbs 107 kg Age: 43 Gender: female BSA: 2.15 PROCEDURE(S) PERFORMED TO95-BSP/COR/LV CLINICAL PROFILE AND INDICATIONS Indications: Suspected CAD Heart Failure: None Stress/Imaging Date: 06/01/2019Stress Test with SPECT MPI: Positive Intermediate Risk CAD Presentations: Symptom unlikely to be ischemic. CONCLUSIONS Normal coronary arteries RECOMMENDATIONS Medical therapy DESCRIPTION OF PROCEDURE The patient arrived to the procedure lab. The risks and benefits of the procedure as well as a full d escription of our services here and current unavailability of surgical backup were fully explained to the patient and/or their significant other prior to the catheterization. The Timeout was completed, verifying the correct patient and procedure. The patient's procedural site was prepped and draped in the usual fashion. Local anesthetic was given subcutaneously to right radial region with Lidocaine 2% . Using a modified Seldinger technique, arterial access was obtained via the right radial artery, a 6 Fr sheath was inserted. Right Coronary Artery selective angiography was then performed in multiple v iews using a 5 Fr. 4.0 [place] catheter. Left Coronary Artery selective angiography was performed in mu ltiple views using a 5 Fr. 4.0 [place] catheter. Left Ventriculography was performed in JEAN projection using a 5 Fr. [place] catheter. LV to AO pullback pressures were then recorded.The arterial sheath was pulled and a TR Band was applied for hemostasis-9cc air CORONARY ANGIOGRAPHY DOMINANCE: Right Dominant LEFT HEART ASSESSMENT Left Ventricular Ejection Fraction: by LV Gram 50 % Anterior Hypokinesis - Mild Normal Left Ventricular systolic function Normal Left Ventricular systolic function LEFT MAIN: Angiographically normal LEFT ANTERIOR DESCENDING ARTERY: Angiographically normal CIRCUMFLEX ARTERY: Angiographically normal RIGHT CORONARY ARTERY: Angiographically normal COMPLICATIONS No Complications PROCEDURE MEDICATIONS Fentanyl 50 mcg IV Versed 1 mg IV Versed 1 mg IV Fentanyl 25 mcg IV Oxygen: 2 L/min via nasal cannula Solu-medrol 125 mg IV 06/01/2019 12:58:11 SUMMARY OF HEMODYNAMIC DATA Time AIR REST ECG 12:54:22 AO 98/75 (86) SA 13:15:05 LV 93/6, 13 13:21:02 LV 95/8, 11 13:21:16 LV 91/0, 6 13:22:08 LVp 98/1, 13 13:22:12 AOp 118/74 (94) 13:22:17 Signed By Yunier Chaudhry MD On 06/01/2019 13:36:38 Yunier Chaudhry MD
--- NOTE | 2019-06-01 13:46 | DS.PCM_ITS ---
Discharge Date and Diagnosis - Problem List Patient Problems: Active and Suspected Problems (Last Updated 06/01/19 @ 13:43 by Jhonny Dunn MD) Chest pain (Acute) Date of Admission: 05/31/19 Date of Discharge: 06/01/19 - Primary Discharge Diagnosis Active and Suspected Problems (Last Updated 06/01/19 @ 13:43 by Jhonny Dunn MD) Chest pain (Acute) - Secondary Discharge Diagnosis Chronic Problems (Last Updated 06/01/19 @ 13:43 by Jhonny Dunn MD) HIV (human immunodeficiency virus infection) (Chronic) Bronchitis (Chronic) Osteoarthritis (Chronic) Hypertension (Chronic) GERD (gastroesophageal reflux disease) (Chronic) Seasonal allergies (Chronic) History of alcoholism (Chronic) History of drug abuse (Chronic) History of blood transfusion (Chronic) History of kidney stones (Chronic) Herpes (Chronic) 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 Electronically Signed: Del Amato, at 15:34 EDT , Service support , Summary of Care Provided: The patient is a 43 year old F comorbidities admitted with chest pain Chest pain patient was placed in a monitored bed [place] was ruled out with serial cardiac enzymes. Patient subsequently underwent a nuclear stress test which came back equivocal consult was subsequently placed to cardiology patient had left heart catheterization performed on 06/01/2019 which failed to demonstrate any obstructive lesions. Subsequently discharged home instructed to follow-up with PCP for subsequent care. Patient Problems: Active and Suspected Problems (Last Updated 06/01/19 @ 13:43 by Jhonny Dunn MD) Chest pain (Acute) - Physical Exam Vitals/I&O's: Vital Signs Temp Pulse Resp BP Pulse Ox 97.5 F L 87 16 133/55 H 100 06/01/19 11:00 06/01/19 11:40 06/01/19 11:00 06/01/19 11:00 06/01/19 11:00 Oxygen Delivery Method Room Air Weight: 106.594 kg Body Mass Index (BMI) 37.9 Intake and Output for Last 24 Hours 05/30/19 05/31/19 06/01/19 23:59 23:59 23:59 Intake Total 1000 / 1360 464 / 464 Balance 1000 / 1360 464 / 464 General: Cooperative HEENT: Atraumatic Neck: Supple Lungs: Diminished Cardiovascular: Regular rate, Regular Rhythm Laboratory Results 05/31/19 14:50: WBC 6.6, RBC 4.95, Hgb 14.3, Hct 43.2, MCV 87.3, MCH 28.9, MCHC 33.1, RDW Std Deviation 39.7, RDW Coeff of Vladimir 12.5, Plt Count 123 L, MPV 11.3, Immature Gran % (Auto) 0.500, Neut % (Auto) 62.7, Lymph % (Auto) 24.8, [place] % (Auto) 6.8, Eos % (Auto) 4.7, Baso % (Auto) 0.5, Absolute Neuts (auto) 4.1, Absolute Lymphs (auto) 1.64, Nucleated RBC % 0 05/31/19 14:50: Sodium 137, Potassium 3.7, Chloride 107, Carbon Dioxide 23.0, Anion Gap 7, BUN 11, Creatinine 0.91, Estim Creat Clear Calc 75.39, Est GFR (MDRD) Af Amer 87, Est GFR (MDRD) Non-Af 72, BUN/Creatinine Ratio 12.1, Glucose 178 H, Calcium 9.2, Troponin I < 0.015 05/31/19 20:56: Troponin I < 0.015 05/31/19 21:58: POC Glucose 257 H 05/31/19 22:54: Troponin I < 0.015 06/01/19 02:25: Troponin I < 0.015 06/01/19 05:15: WBC 4.3 L, RBC 4.48, Hgb 13.1, Hct 39.3, MCV 87.7, MCH 29.2, MCHC 33.3, RDW Std Deviation 41.0, RDW Coeff of Vladimir 12.8, Plt Count 103 L, MPV 11.1, Immature Gran % (Auto) 0.200, Neut % (Auto) 57.8, Lymph % (Auto) 28.6, [place] % (Auto) 6.2, Eos % (Auto) 6.7 H, Baso % (Auto) 0.5, Absolute Neuts (auto) 2.5, Absolute Lymphs (auto) 1.24, Nucleated RBC % 0 06/01/19 05:15: Sodium 141, Potassium 3.9, Chloride 109 H, Carbon Dioxide 25.0, Anion Gap 7, BUN 9, Creatinine 0.84, Estim Creat Clear Calc 81.67, Est GFR (MDRD) Af Amer 95, Est GFR (MDRD) Non-Af 79, BUN/Creatinine Ratio 10.7, Glucose 121 H, Calcium 8.4 L, Triglycerides 273 H, Cholesterol 135, LDL Cholesterol 63, VLDL Cholesterol 55 H, HDL Cholesterol 17 L, TSH 2.10 06/01/19 05:15: Magnesium 1.7 06/01/19 06:27: POC Glucose 107 06/01/19 12:11: POC Glucose 175 H Current Medications Acetaminophen/Butalbital/Caffeine (Fioricet) 1 tablet PO Q4H PRN PRN PRN Reason: MIGRAINE SYMPTOMS Last Admin: 05/31/19 22:07 Dose: 1 tablet Documented by: Acyclovir (Zovirax) 400 mg PO TID [facility] Last Admin: 05/31/19 22:34 Dose: Not Given Documented by: Albuterol Sulfate (Ventolin Aerosols) 2.5 mg INHALATION Q4H PRN PRN Reason: SHORTNESS OF BREATH OR WHEEZIN Aspirin (Ecotrin) 81 mg PO DAILY@0800 [facility] Last Admin: 06/01/19 05:20 Dose: 81 mg Documented by: Budesonide (Pulmicort Aerosol) 0.5 mg INHALATION BID [facility] Last Admin: 06/01/19 07:15 Dose: 0.5 mg Documented by: Calcium Carbon[facility] ([facility]Tyron 500) [facility] Last Admin: 06/01/19 10:45 Dose: 500 mg Documented by: Cyanocobalamin (Vitamin B12) 500 mcg PO DAILY [facility] Last Admin: 06/01/19 10:46 Dose: 500 mcg Documented by: Dextrose (D50w Syringe) 0 gm IV X1 PRN; Protocol PRN Reason: Hypoglycemia Dicyclomine HCl (Bentyl) 20 mg PO TIDAC [facility] Last Admin: 06/01/19 12:13 Dose: Not Given Documented by: Emtricitabine/Tenofovir (Truvada 200 Mg-300 Mg Tablet) 1 tablet PO DAILY [facility] Last Admin: 05/31/19 22:08 Dose: 1 tablet Documented by: Enoxaparin Sodium (Lovenox) 40 mg SC DAILY@1000 [facility] Last Admin: 06/01/19 12:17 Dose: Not Given Documented by: Famotidine (Pepcid) 20 mg PO DAILY [facility] Last Admin: 06/01/19 10:46 Dose: 20 mg Documented by: Fluconazole (Diflucan) 100 mg PO DAILY [facility] Last Admin: 06/01/19 10:44 Dose: 100 mg Documented by: Folic Acid (Folic Acid) 0.5 mg PO DAILYCM [facility] Last Admin: 06/01/19 10:45 Dose: 0.5 mg Documented by: Glucagon () 1 mg IM .X1 PRN PRN Reason: Hypoglycemia Sodium Chloride () 1,000 mls @ 0 mls/hr IV .Q0M [facility] Ibuprofen (Motrin) 800 mg PO Q8H PRN Insulin Human Lispro (Humalog Kwikpen (Bkc)) 0 unit SC ACHS [facility]; Protocol Last Admin: 06/01/19 12:17 Dose: Not Given Documented by: Lisinopril (Zestril) 10 mg PO DAILY [facility] Last Admin: 06/01/19 05:19 Dose: 10 mg Documented by: Loratadine (Claritin) 10 mg PO DAILY [facility] Last Admin: 06/01/19 10:45 Dose: 10 mg Documented by: Magnesium Oxide (Mag-Ox 400) 400 mg PO MOWEFR [facility] Last Admin: 06/01/19 10:45 Dose: 400 mg Documented by: Melatonin (Melatonin) 3 mg PO QHS PRN PRN Reason: SLEEP Metformin HCl (Glucophage Xr) 500 mg PO DAILY@1700 [facility] Montelukast Sodium (Singulair) 10 mg PO QPM [facility] Last Admin: 05/31/19 22:08 Dose: 10 mg Documented by: Multivitamins (Multivitamin) 1 tablet PO DAILY@0800 [facility] Last Admin: 06/01/19 10:45 Dose: 1 tablet Documented by: Nitroglycerin (Nitrostat) 0.4 mg SUBLINGUAL Q5M PRN PRN Reason: CARDIAC/CHEST PAIN Non-Formulary Medication (Cholecalciferol (Vitamin D3) [Vitamin D3]) 50,000 unit PO QWEEK [facility] Non-Formulary Medication (Darunavir Ethanolate) 600 mg PO BID [facility] Non-Formulary Medication (Ritonavir [Norvir]) 100 mg PO BID [facility] Raltegravir (Isentress) 400 mg PO BID [facility] Last Admin: 06/01/19 10:45 Dose: 400 mg Documented by: Tizanidine HCl (Zanaflex) 4 mg PO TID PRN PRN Reason: muscle spasticity Triamcinolone Acetonide (Triamcinolone Acetonide) 1 applic TOPICAL DAILY PRN PRN Reason: rash Trimethoprim/Sulfamethoxazole (Bactrim Ds) [facility] Last Admin: 06/01/19 10:44 Dose: 0.5 tablet Documented by: Discharge Diet: No Restrictions Discharge Activity: Return to Normal Activity Home Medications: Medications to take at Discharge Lisinopril [Zestril] 10 tab PO DAILY 05/11/18 Sulfamethoxazole/Trimethoprim [Bactrim 400-80 mg Tablet] 400 tab PO DAILY 05/11/18 acyclovir 400 mg tablet 400 mg PO TID 12/07/18 cholecalciferol (vitamin D3) 50,000 unit capsule 50,000 unit PO QWEEK 12/07/18 fluconazole 100 mg tablet 100 mg PO DAILY 12/07/18 folic acid 400 mcg tablet 0.4 mg PO DAILY 12/07/18 melatonin 3 mg tablet 3 mg PO HS PRN 12/07/18 metformin ER 1,000 mg 24 hr tablet,extended release 500 mg PO QPM 12/07/18 loratadine 10 mg tablet 10 mg PO DAILY #60 tab 12/11/18 tizanidine 4 mg tablet 4 mg PO TID PRN #60 tab 12/11/18 triamcinolone acetonide 0.1 % topical cream 1 applic TOPICAL DAILY PRN #80 g 12/11/18 darunavir ethanolate 600 mg tablet 600 mg PO BID 12/20/18 dicyclomine 10 mg capsule 20 mg PO TIDAC cap 12/20/18 raltegravir 400 mg tablet 400 mg PO BID 12/20/18 ranitidine 150 mg tablet 150 mg PO DAILY #30 tab 12/20/18 rizatriptan 10 mg disintegrating tablet 10 mg PO ONCE PRN 01/09/19 ibuprofen 800 mg tablet 800 mg PO Q8H PRN #21 tab 02/14/19 albuterol sulfate HFA 90 mcg/actuation aerosol inhaler 2 puff INHALATION Q6H PRN #18 g 04/11/19 montelukast 10 mg tablet 10 mg PO QPM #90 tab 05/22/19 Beclomethasone Dipropionate [Qvar Redihaler] 1 puff INHALATION BID 05/31/19 Calcium Carbonate [Calcium] 600 mg PO DAILY 05/31/19 Clindamycin HCl 300 mg PO 4X/DAY 05/31/19 Cyanocobalamin (Vitamin B-12) [Vitamin B-12] 500 mcg PO DAILY 05/31/19 Emtricitabine/Tenofovir (Tdf) [Truvada 200 mg-300 mg Tablet] 1 ea PO DAILY 05/31/19 Magnesium Oxide [Magnesium] 250 mg PO MOWEFR 05/31/19 Metoprolol Succinate [Toprol Xl] 25 mg PO QHS 05/31/19 Multivitamin [Daily Multiple Vitamin] 1 ea PO DAILY 05/31/19 Ritonavir [Norvir] 100 mg PO BID 05/31/19 Primary Care Physician: Juan Manuel Maldonado MD [Primary Care Provider] - Please follow up with your Primary Care Physician in: in 1 week Disposition: Home Minutes spent on discharge:: 35 Medical Necessity - Tobacco Use Smoking Status: Former smoker - quit 11 days ago Meaningful Use Info Meaningful Use Diagnoses (Choose all that apply): None applicable Code Visit OBSV E&M: 84408 Observation care discharge
== END 2019-06-01 13:26 | disposition home or self-care (01) ==
LOC: ED 17:59 → PCU 18:00
PROVIDERS: Hospitalist; Admitting Provider Student in an Organized Health Care Education/Training Program; Emergency Provider Emergency Medicine; Family Provider Internal Medicine; PCP Internal Medicine; Visit Provider Internal Medicine
DX: R07.89 Other chest pain (principal); G43.909 Migraine, unspecified, not intractable, without status migrainosus; I50.9 Heart failure, unspecified; I11.0 Hypertensive heart disease with heart failure; B20 Human immunodeficiency virus [HIV] disease; M19.90 Unspecified osteoarthritis, unspecified site; M79.7 Fibromyalgia; E11.40 Type 2 diabetes mellitus with diabetic neuropathy, unspecified; F41.9 Anxiety disorder, unspecified; F31.9 Bipolar disorder, unspecified; E66.9 Obesity, unspecified; J45.909 Unspecified asthma, uncomplicated; K21.9 Gastro-esophageal reflux disease without esophagitis; F10.21 Alcohol dependence, in remission; I25.2 Old myocardial infarction; Z87.891 Personal history of nicotine dependence; Z68.37 Body mass index [BMI] 37.0-37.9, adult; Z71.3 Dietary counseling and surveillance; Z79.899 Other long term (current) drug therapy
CPT/HCPCS: 36415; 71045; 78452; 80048; 80061; 82962; 83735; 84443; 84484; 85025; 93005; 93017; 93458; 94640; 96361; 96374; 96375; 96376; 99152; 99153; 99218; 99285; A9500; Q9967; A4216; C1769; C1894; G0378; J2785

== ENCOUNTER 2019-06-03 00:52 | Emergency (ER) | payer MEDICARE, MEDICAID, SELFPAY ==
[2019-05-31 14:01] VITALS: BMI 37.9
[2019-06-03 00:53] VITALS: BP 127/82; PULSE 85; RESP 15; TEMP 36.7; O2SAT 96; BMI 39.1
[2019-06-03] MEDS: 0.9% Normal Saline 1,000 ML 1000 ML IV (01:21)
[2019-06-03] MEDS: Metoclopramide 10 MG/2 ML Vial IV (01:22)
[2019-06-03] MEDS: DiphenhydrAMINE 50 MG/ML Syringe 25 MG IV (01:22)
[2019-06-03] MEDS: Ketorolac 30 MG/ML Syringe IV (01:25)
[2019-06-03 01:38] LABS: Absolute Lymphocyte Count 2.04 X10^3/uL (0.83-4.51); Absolute Neutrophil Count 4.1 X10^3/uL (2.0-7.7); Basophil# 0.02 X10^3/uL; Basophil% 0.3 % (0-1); Eosinophil# 0.17 X10^3/uL; Eosinophils% 2.5 % (0-5); Hematocrit 38.8 % (37-47); Hemoglobin 12.9 g/dL (12.0-15.0); Lymphocyte # 2.04 X10^3/ul (4.0); Lymphocyte % 30.3 % (19-41); Mean Corp Hgb Conc 33.2 g/dL (32-36); Mean Corpuscular Hgb 29.3 pg (27.0-32.0); Mean Corpuscular Volume 88.2 fL (81-99); Mean Platelet Vol. 10.9 fl (6.2-12.0); Monocyte# 0.35 X10^3/uL; Monocyte% 5.2 % (0-10); NRBC Flagged by Analyzer 0 % (0-5); Neutrophil # 4.13 X10^3/uL (2.7-7.7); Neutrophil % 61.3 % (47-70); Platelet Count 119 K/mm3 (150-450); RBC Distribution Width CV 12.5 % (11.6-14.6); RBC Distribution Width SD 40.5 fl (35.1-43.9); White Blood Count 6.7 K/mm3 (4.4-11.0)
--- NOTE | 2019-06-03 02:05 | ED.VISSUMM ---
- ER Visit Summary Date of Service: 06/03/19 Chief Complaint: [Wound check and headache] History of Present Illness: The patient is a 43 F [presents to the emergency department with several complaints. Patient tells me that she had a heart catheterization 2 days ago done by Dr. Yunier Chaudhry through the right wrist. Patient now states she is had increased pain over the last 24 hours to the right arm she feels like the arm might be red and swollen. Patient also complaining of a migraine headache for the last 24 hours with nausea and photophobia. Headache is typical of her migraines. Patient has history of diabetes and hypertension. She denies any chest pain or shortness of breath. Patient with prior history of hypertension and diabetes. She does have prior surgical history including appendectomy, cholecystectomy, and hysterectomy. Patient denies any fevers.] Physical Examination: [HEENT-PERRLA, EOMI. Cranial nerves II through XII grossly intact. TMs clear. Mucous membranes moist. No adenopathy. Cardiovascular-regular rate and rhythm without murmur or ectopy Lungs-clear to auscultation, chest wall stable without crepitus or subcu emphysema Abdomen-normoactive bowel sounds, soft, nontender, no rebound or rigidity, no peritoneal signs. Neuro [id number] and heel barrera testing within normal limits, negative Romberg, negative pronator drift, fundi benign Extremities-intact ?4, normal range of motion, normal pulses, atraumatic. Right arm-the right radial wrist site appears normal with a dressing on it. Patient has normal radial and ulnar pulses noted. Normal cap refill. I do not appreciate any edema to the arm or evidence of cellulitis. She has normal range of motion in all digits.] Test Results: [BC with everything was normal.] Emergency Department Course and Treatment: [She was given a liter normal same fluid bolus. 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 Patient advised to return if fever, increasing redness, increased swelling to the arm, or conditions worsen anyway. At this point clinically I do not feel she has any evidence of DVT. I do not suspect a pseudoaneurysm of the radial artery.] Disposition: [Discharged home in stable condition.] Impression: [Postop wound check-no infection, no bleeding. Migraine headache-resolved] This note was generated with [employer] dictation software. It may contain incorrect words, spelling, and punctuation that were not noted in review of the chart prior to signing ED Disposition - Plan for ED Patient: Referrals: Juan Manuel Maldonado MD [Primary Care Provider] -
--- NOTE | 2019-06-03 02:08 | ED.DEP ---
ED Disposition - Plan for ED Patient: Instructions: ED, Migraine (Classical), POST OP WOUND CHECK, General Referrals: Juan Manuel Maldonado MD [Primary Care Provider] - Yunier Chaudhry MD [STAFF PHYSICIAN] - 5-7 Days
[2019-06-03 02:29] VITALS: BP 117/78; PULSE 82; RESP 16; O2SAT 98
== END 2019-06-03 02:29 | disposition home or self-care (01) ==
LOC: ED 01:11
PROVIDERS: Emergency Provider Emergency Medicine; Family Provider Internal Medicine; PCP Internal Medicine
DX: G43.909 Migraine, unspecified, not intractable, without status migrainosus (principal); Z98.890 Other specified postprocedural states; E11.9 Type 2 diabetes mellitus without complications; I10 Essential (primary) hypertension; Z79.899 Other long term (current) drug therapy; Z90.49 Acquired absence of other specified parts of digestive tract; Z90.710 Acquired absence of both cervix and uterus; Z87.891 Personal history of nicotine dependence
CPT/HCPCS: 85025; 96361; 96374; 96375; 99283; J7030; A4216

== ENCOUNTER 2019-06-21 14:57 | Inpatient (IN) | payer MEDICARE, MEDICAID, SELFPAY ==
[2019-06-20 14:12] VITALS: BMI 39.1
[2019-06-21] VITALS (13 sets, daily range): BP systolic 114–133; BP diastolic 49–81; PULSE 42–97; RESP 14–22; TEMP 36.6–36.8; O2SAT 96–99; BMI 38.1; BMI 38.2
--- NOTE | 2019-06-21 15:18 | RAD_ITS ---
STUDY: X-RAY CHEST REASON FOR EXAM: Female, 43 years old. Lightheadedness and low heart rate. TECHNIQUE: Single AP portable view of the chest. COMPARISON: Prior chest radiograph May 31, 2019 FINDINGS: The lungs are clear and expanded. There is no demonstrated pleural abnormality. Normal size heart. Normal mediastinum and donta. Normal visualized pulmonary arteries. Normal visualized aortic arch and descending thoracic aorta. Normal visualized thoracic spine. Normal visualized ribs, clavicles, and shoulders. There is no demonstrated abnormality of the visualized soft tissue structures of the upper abdomen. RAD/Chest 1 View IMPRESSION: Normal x-ray examination of the chest. Electronically Signed: Rosangela Jessica MD at 16:50 EST , Service support ,
--- NOTE | 2019-06-21 15:18 | CT_ITS ---
STUDY: CT BRAIN WITHOUT CONTRAST REASON FOR EXAM: Female, 43 years old. Neurologic deficit, bradycardia. Recent catheterization. TECHNIQUE: Transaxial CT imaging of the brain was performed without administration of intravenous contrast material. Individualized dose optimization techniques were used for this CT. COMPARISON: No relevant priors. FINDINGS: Normal soft tissue structures. Normal calvarium. There is mild cerebral atrophy with widening of the extra-axial spaces and ventricular dilatation. Normal white matter tracts of the cerebral hemispheres. Normal basal ganglia and thalami. Normal brainstem. Normal cerebellum. There is no intracranial hemorrhage. There are no findings of an acute ischemic infarction. Normal visualized paranasal sinuses. CT/Brain/Head without Contrast IMPRESSION: No acute intracranial findings. Negative for hemorrhage, hematoma or mass density. Negative for demarcation of a new nonhemorrhagic infarct zone. Mild atrophy. Electronically Signed: Rosangela Jessica MD at 16:07 EST , Service support ,
--- NOTE | 2019-06-21 15:18 | EKG12_ITS ---
Test Reason : Blood Pressure : / mmHG Vent. Rate : 093 BPM Atrial Rate : 093 BPM P-R Int : 136 ms QRS Dur : 090 ms QT Int : 404 ms P-R-T Axes : 032 005 054 degrees QTc Int : 502 ms Sinus rhythm with frequent Premature ventricular complexes in a pattern of bigeminy Otherwise normal ECG Confirmed by LOLA ROSADO, DANIELE ([id number]), senior editor BONI RASCON ([id number]) on 06/26/2019 11:22:33 AM Referred By: Mian Yeboah Confirmed By:DANIELE DAVILA MD
[2019-06-21 15:50] LABS: Bacteria 0 SEEN /hpf (None Seen); Mucous, Urine 0 SEEN /hpf (<or=2+); Red Blood Cells-Urine 0 SEEN /hpf (0-5); White Blood Cells 0 SEEN /hpf (0-5)
[2019-06-21 15:59] LABS: Anion Gap 8 (5-15); BUN 12 mg/dL (7-18); BUN/Creat Ratio 12.3 RATIO (10-20); Calcium,Total 8.9 mg/dL (8.5-10.1); Chloride 108 mmol/L (98-107); Creatinine, Serum 0.97 mg/dL (0.55-1.02); EST Glomerular Filtration Rate 67 mL/min (>60); Est Glom Filt Rate - Afr Amer 81 mL/min (>60); Estimated Creatinine Clearance 70.73 ml/min; Glucose 157 mg/dL (74-106); Potassium 3.9 mmol/L (3.5-5.1); Sodium Level 139 mmol/L (136-145); Thyroid Stim Hormone (TSH) 0.91 uIU/mL (0.358-3.74)
[2019-06-21 16:01] LABS: Absolute Lymphocyte Count 1.77 X10^3/uL (0.83-4.51); Absolute Neutrophil Count 3.6 X10^3/uL (2.0-7.7); Basophil# 0.04 X10^3/uL; Basophil% 0.7 % (0-1); Eosinophil# 0.35 X10^3/uL; Eosinophils% 5.7 % (0-5); Hematocrit 43.5 % (37-47); Lymphocyte # 1.77 X10^3/ul (4.0); Lymphocyte % 28.8 % (19-41); Mean Corp Hgb Conc 32.2 g/dL (32-36); Mean Corpuscular Hgb 28.5 pg (27.0-32.0); Mean Corpuscular Volume 88.4 fL (81-99); Monocyte# 0.32 X10^3/uL; Monocyte% 5.2 % (0-10); NRBC Flagged by Analyzer 0 % (0-5); Neutrophil # 3.63 X10^3/uL (2.7-7.7); Neutrophil % 59.1 % (47-70); Platelet Count 124 K/mm3 (150-450); RBC Distribution Width CV 12.6 % (11.6-14.6); RBC Distribution Width SD 40.7 fl (35.1-43.9); Red Blood Count 4.92 M/mm3 (4.2-5.4); White Blood Count 6.1 K/mm3 (4.4-11.0)
--- NOTE | 2019-06-21 16:01 | ED.VIS.GEN ---
History of Present Illness Chief Complaint: Dizziness Informant: Patient - c Onset: - - chronic Narrative: Is a 43-year-old female with extensive past medical history presenting from ENT office for concern of lightheadedness and low heart rate. Patient was there for routine allergy shots. Her heart rate was found to be 48 and she was sent to the ED. Patient states that she ehas chronic lightheadedness which is unchanged. She notes that cardiac catheterization about 2 weeks ago for chronic chest pain. That was found to be normal. She notes that she did have an irregular heart rate after the catheterization but does not remember what it was. Patient currently denies any chest pain. She does report short of breath but states she is been short of breath ever since she was exposed to black mold which was remotely. Patient denies any nausea or vomiting. She denies any urinary symptoms. While I am talking the patient she also mentions that the right side of her face started to feel numb when she was driving herself over a year. She states this is a new symptom. She denies any vision changes but does state that she occasionally sees spots. She currently is not having that symptom. Patient denies any history of stroke. She states she is supposed to be on medication for low heart rate however her heart rates been low since she had a cardiac catheterization so she has not started it. She denies any other recent medication changes. She denies any other complaints at this time. Past Medical History - Allergies and Home Meds Allergies/Adverse Reactions: Allergies Iodinated Contrast Media [Iodinated Contrast- Oral and IV Dye] Allergy (Unknown, Verified 06/21/19 15:02) unknown amoxicillin Allergy (Verified 06/21/19 15:02) Hives hydrocodone [From Vicodin] Allergy (Verified 06/21/19 15:02) Unknown methylprednisolone [From Medrol] Allergy (Verified 06/21/19 15:02) Hives prochlorperazine [From Compazine] Allergy (Verified 06/21/19 15:02) Other prochlorperazine edisylate [From Compazine] Allergy (Verified 06/21/19 15:02) Other prochlorperazine maleate [From Compazine] Allergy (Verified 06/21/19 15:02) Other acetaminophen [From Tylenol] Adverse Reaction (Verified 06/21/19 15:02) Other sumatriptan [From Imitrex] Adverse Reaction (Verified 06/21/19 15:02) Hives A MIGRAINE MED Allergy (Uncoded 06/21/19 15:02) Other Primary Care Physician: Juan Manuel Maldonado MD [Primary Care Provider] - Past Medical History: - - HIV, bipolar, Fibromyalgia, depression/anxiety, migraines Surgical History: - - cardiac cath Smoking Status: Former smoker Review of Systems General: Reports: Malaise. Denies: Chills, Fever, Sweats Eyes: Reports: - - Seeing spots. Denies: Visual changes - bilaterally, Diplopia ENT: Denies: Rhinorrhea, Sore throat Cardiovascular: Denies: Chest pain, Palpitations Respiratory: Reports: Dyspnea. Denies: Cough, Dyspnea on exertion Gastrointestinal: Denies: Abdominal pain, Nausea, Vomiting, Diarrhea, Melena, Hematochezia Genitourinary: Denies: Dysuria, Hematuria, Frequency Musculoskeletal: Denies: Back pain, Extremity Pain Skin: Denies: Rash, Wounds Neurological: Reports: Headache, Parasthesia - Right face. Denies: Weakness, Numbness Physical Exam Vital Signs/Narrative: Vital Signs Temp Pulse Resp BP Pulse Ox 06/21/19 15:18 93 16 120/59 L 98 06/21/19 14:58 97.8 F 97 16 120/59 L 97 Inital Vital Signs reviewed: Yes General: Well nourished, Well developed, No Acute Distress Head: Normocephalic, Atraumatic Eyes: Perrl, EOMI ENT: Moist mucous membranes, No rhinorrhea. Negative for: Sinus tenderness Neck: Supple, Nontender Cardiovascular: Regular rate, Regular rhythm, Murmur Respiratory: No distress, CTA bilaterally, Chest nontender Abdomen: Soft, Nontender, Nondistended, Normal bowel sounds Back: Nontender, Normal Inspection Extremities: Nontender, No edema Skin: Normal color, No rash Neurological: Alert, Oriented x3, Cranial nerves II-XII grossly intact, Normal Strength, Parasthesia - Right face including forehead, - - NIH equals 1-mild sensory loss (face- right ) Psychological: Normal affect, Normal Mood Diagnostic/Tx/Re-eval Chest X-Ray - ED: 1 View, Read by ED Physician, No Acute Disease Clinical Impression(s) from Imaging Studies Brain CT 06/21/19 15:18 IMPRESSION: No acute intracranial findings. Negative for hemorrhage, hematoma or mass density. Negative for demarcation of a new nonhemorrhagic infarct zone. Mild atrophy. Electronically Signed: Rosangela Jessica MD at 16:07 EST , Service support , Laboratory Data 06/21/19 06/21/19 06/21/19 15:25 15:30 15:35 WBC 6.1 RBC 4.92 Hgb 14.0 Hct 43.5 MCV 88.4 MCH 28.5 MCHC 32.2 RDW Std Deviation 40.7 RDW Coeff of Vladimir 12.6 Plt Count 124 L MPV 11.0 Immature Gran % (Auto) 0.500 Neut % (Auto) 59.1 Lymph % (Auto) 28.8 [place] % (Auto) 5.2 Eos % (Auto) 5.7 H Baso % (Auto) 0.7 Absolute Neuts (auto) 3.6 Absolute Lymphs (auto) 1.77 Nucleated RBC % 0 PT INR APTT Sodium 139 Potassium 3.9 Chloride 108 H Carbon Dioxide 23.0 Anion Gap 8 BUN 12 Creatinine 0.97 Estim Creat Clear Calc 70.73 Est GFR (MDRD) Af Amer 81 Est GFR (MDRD) Non-Af 67 BUN/Creatinine Ratio 12.3 Glucose 157 H Calcium 8.9 Troponin I < 0.015 TSH 0.91 Urine Color Yellow Urine Clarity Clear Urine pH 6.0 Ur Specific [place] 1.020 Urine Protein Negative Urine Glucose (UA) Normal Urine Ketones Negative Urine Occult Blood Negative Urine Nitrite Negative Urine Bilirubin Negative Urine Urobilinogen 1 H Ur Leukocyte Esterase Negative Urine RBC 0 SEEN Urine WBC 0 SEEN Ur Squamous Epith Cells 0-5 SEEN Urine Bacteria 0 SEEN Urine Mucus 0 SEEN 06/21/19 15:40 WBC RBC Hgb Hct MCV MCH MCHC RDW Std Deviation RDW Coeff of Vladimir Plt Count MPV Immature Gran % (Auto) Neut % (Auto) Lymph % (Auto) [place] % (Auto) Eos % (Auto) Baso % (Auto) Absolute Neuts (auto) Absolute Lymphs (auto) Nucleated RBC % PT Cancelled INR Cancelled APTT Cancelled Sodium Potassium Chloride Carbon Dioxide Anion Gap BUN Creatinine Estim Creat Clear Calc Est GFR (MDRD) Af Amer Est GFR (MDRD) Non-Af BUN/Creatinine Ratio Glucose Calcium Troponin I TSH Urine Color Urine Clarity Urine pH Ur Specific [place] Urine Protein Urine Glucose (UA) Urine Ketones Urine Occult Blood Urine Nitrite Urine Bilirubin Urine Urobilinogen Ur Leukocyte Esterase Urine RBC Urine WBC Ur Squamous Epith Cells Urine Bacteria Urine Mucus - Rhythm Strip Rhythm Strip: Sinus Rhythm Rate: 93 Ectopy: PVC(s), - - bigeminy - EKG Initial EKG Interpretation: Sinus Rhythm, - - Sinus rhythm with PVCs in a pattern of bigeminy NH interval 136 QRS 90 QT/QTc 404/502 Normal axis - Medical Decision Making Patient is evaluated for lightheadedness and low heart rate at an office visit. On her way over she is developed paresthesias of her right face. Patient's NIH is 1. Discussed with the stroke neurologist at [facility] who agrees that patient would not be a TPA candidate but warrants a further neurologic evaluation. Patient is given aspirin after negative head CT. EKG does show bigeminy. Chart review shows that patient has had this on telemetry during her prior admission. I am not sure if this is related to patient's frequent lightheadedness. Patient does have HIV but states that her CD4 count is above 300 and her viral load is undetectable. I have a lower suspicion for any AIDS defining lesions that might be causing her neurologic symptoms. Patient be admitted for further neuro evaluation and MRI. She is agree with this plan. Work-up is otherwise unremarkable. She stable for general medical floor. ED Disposition - Plan for ED Patient: Disposition: Acute Care Hospital [facility] Diagnosis: Facial paresthesia, Bigeminal rhythm Referrals: Juan Manuel Maldonado MD [Primary Care Provider] -
[2019-06-21 16:09] LABS: Color, Urine Yellow (Yellow); Glucose, Dipstick Normal (Normal); Ketone-Dipstick Negative (Negative); Leukocyte Esterase-Dipstick Negative /ul (Negative); Nitrite-Dipstick Negative (Negative); Occult Blood-Urine Negative /ul (Negative); Protein-Dipstick Negative (Negative); Urine Bilirubin Dipstick Negative (Negative); Urine Clarity Clear (Clear); Urine Urobilinogen 1 mg/dl (Normal)
[2019-06-21 16:11] LABS: Squamous Epithelial Cells - UA 0-5 SEEN /hpf (5-10)
[2019-06-21] MEDS: Aspirin 325 MG Tablet PO (17:02)
[2019-06-21 17:06] LABS: Prothrombin Time (Protime)PT. 13.3 SECONDS (11.7-14.9)
[2019-06-21 17:07] LABS: Partial Thromboplast Time 32.6 Seconds (24.1-36.2)
--- NOTE | 2019-06-21 17:40 | MRI_ITS ---
HISTORY: R facial parathesis TECHNIQUE: Routine brain MR protocol was performed without gadolinium. COMPARISON: Head CT from just over 4 hours earlier FINDINGS: # of images incl. paperwork: 279 Brain volume is normal. No acute stroke is present. Paranasal sinuses are clear. There does appear to be some fluid within the mastoid air cells, right slightly to a greater degree than left. There are no masses, herniations, nor deviations. Orbits and globes are normal. The pituitary and sella turcica are not enlarged. Flow is present within major central intracranial arteries. MRI/Brain without Contrast IMPRESSION: Normal brain. Mild mastoid air cell disease, right greater than left. I cannot follow the right sixth nerve through the temporal bone to assess if it is involved in inflammation of the right mastoid air cells. This disease is only mild disease and is in fact not even perceived on the CT scan. at 2058 Reported and signed by: Jerry Gold MD Electronically Signed: Jerry Gold MD at 20:57 EST Tel , Service support ,
--- NOTE | 2019-06-21 17:40 | MRI_ITS ---
HISTORY: R facial parathesis EXAMINATION: MRA Neck WO/W Contrast TECHNIQUE: Routine carotid MR angiogram protocol was performed. 3-D [id number] and post gadolinium acquisitions were obtained. 3-D images would you rather text [id number] reviewed. Nascet criteria using the distal ICAs for comparison were used for evaluation of stenoses. IV Contrast dosage and agent: 20 Dotarem IV Dotarem 20 COMPARISON: None FINDINGS: AORTIC ARCH AND BRANCHES: No significant stenosis at the visualized portions. RIGHT CCA: No occlusion, significant stenosis or dissection. RIGHT ICA: No occlusion, significant stenosis or dissection. LEFT CCA: No occlusion, significant stenosis or dissection. LEFT ICA: No occlusion, significant stenosis or dissection. RIGHT VERTEBRAL ARTERY: No occlusion, significant stenosis or dissection. LEFT VERTEBRAL ARTERY: I cannot determine the origin of the left vertebral artery from the left subclavian artery. The imaging does not go low enough on the 3-D [id number], and on the post gadolinium images there is an area devoid of signal. I believe this is likely artifactual because in all other aspects flow within the left vertebral artery is symmetric to that in the right. No evidence of acute injury of the major arterial system of the neck. MRI/MRA Neck WITH and W/O Contrast IMPRESSION: No acute stenosis perceived. Short segment of absence of flow identified on the post gadolinium images near the origin of the left vertebral artery. I believe this is artifactual and not due to occlusion of the left vertebral artery. The 3-D [id number] images do not image as low as the left subclavian artery to assess for flow within the origin of the left vertebral artery. at 2109 Reported and signed by: Jerry Gold MD Electronically Signed: Jerry Gold MD at 21:08 EST Tel , Service support ,
--- NOTE | 2019-06-21 17:40 | MRI_ITS ---
HISTORY: R facial parathesis TECHNIQUE: Routine [place]/brain 3D time of flight MR angiogram protocol was performed without gadolinium. 3D reconstructions were reviewed. COMPARISON: CT scan of the brain from over 3 hours earlier. Motion artifact is present throughout the image acquisition. This decreases the negative predictive value of this study FINDINGS: # of images incl. paperwork: 195 Flow is present within bilateral intracranial ICA, CARIN, MCA, vertebral, superior cerebellars, the basilar artery, and the inside sales account executive. The anterior communicating artery is patent. Bilateral posterior communicating arteries are patent bilaterally providing the preponderance of flow to the posterior circulation. No aneurysms, stenoses, occlusions, nor dissections. MRI/MRA Head ONLY without Contrast IMPRESSION: Normal. at 2048 Reported and signed by: Jerry Gold MD Electronically Signed: Jerry Gold MD at 20:47 EST Tel , Service support ,
--- NOTE | 2019-06-21 18:05 | HP.PCM_ITS ---
Problem List (1) Facial paresthesia Status: Acute (2) Bigeminal rhythm Status: Acute History of Present Illness Date of Admission: 06/21/19 Chief Complaint: Bigeminy, right facial paresthesia The patient is a 43 year old F was seen in the emergency room at [facility] after coming in for evaluation of a low heart rate-she was at her ENT physician's office and they detected a low heart rate and sent the patient into the ER for evaluation. While in triage, the patient complained of right facial numbness, she did not complain of any speech difficulties, visual disturbances, or focal motor weakness. Work-up in the emergency room showed the patient to be in bigeminy, NIH score was 1, patient's labs were markable for a blood glucose of 157, otherwise her labs were unremarkable. CT of the brain was performed-there was no evidence of any acute process. I reviewed the patient's medical record, she was in this hospital in May 2019 and was noted to have periods of bigeminy on the monitor at that time. She was discharged to home from that admission on metoprolol which the patient admits she stopped because it cost my heart rate to go down too low. Patient had a cardiac catheterization performed on 06/01/[address] Chaudhry which showed normal coronary arteries and an EF of 50%. She tells me that she has an upcoming appointment with a manager material here at the hospital-she thinks it is Dr. Chaudhry-this appointment was made for her by her PCPs office. I briefly talked with Dr. Tang on the telephone today about the patient, he advised placing the patient back on metoprolol and having her follow-up in the office. I do not feel the patient would benefit from seeing cardiology while she is hospitalized here unless her status changes after admission. For now, I will place the patient into observation status on PCU, monitor the patient, place her back on metoprolol, and monitor her facial paresthesia. I feel she should have an MRI of the head and neck as well as a brain MRI, I do not feel she needs to be placed on a statin or have an echocardiogram at this time and I do not think she would benefit from seeing physical therapy, occupational therapy, or speech therapy. I will however have nursing carry out NIH scores. It is this examiner's opinion that the patient's complaints of facial paresthesia may be related to a conversion disorder. 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) Vitamin B12 deficiency (Chronic) Vitamin D deficiency (Chronic) CHF (congestive heart failure) (Chronic) Fatty liver (Chronic) Polyneuropathy (Chronic) Irregular heart beat (Chronic) Insomnia (Chronic) Enlargement, spleen (Chronic) Fibromyalgia (Chronic) Migraines (Chronic) Hiatal hernia (Chronic) Anxiety (Chronic) Obesity (Chronic) Diverticulosis (Chronic) Depression (Chronic) Diabetes mellitus (Chronic) Asthma (Chronic) Flea bite of multiple sites (Chronic) Dermatitis (Chronic) Type 2 diabetes mellitus (Chronic) Bipolar 1 disorder (Chronic) Neuropathy (Chronic) Arthritis (Chronic) Medical History: Medical History (Last Updated 06/01/19 @ 13:43 by Jhonny Dunn MD) Hypertension (Chronic) I10 GERD (gastroesophageal reflux disease) (Chronic) K21.9 Seasonal allergies (Chronic) J30.2 History of alcoholism (Chronic) F10.21 History of drug abuse (Chronic) Z87.898 History of blood transfusion (Chronic) Z92.89 History of kidney stones (Chronic) Z87.442 History of shingles (Acute) Z86.19 Herpes (Chronic) B00.9 HIV exposure (Acute) Z20.6 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) B97.7 Vitamin B12 deficiency (Chronic) E53.8 Vitamin D deficiency (Chronic) E55.9 CHF (congestive heart failure) (Chronic) I50.9 Fatty liver (Chronic) K76.0 Polyneuropathy (Chronic) G62.9 Irregular heart beat (Chronic) I49.9 Insomnia (Chronic) G47.00 Enlargement, spleen (Chronic) R16.1 Fibromyalgia (Chronic) M79.7 Hypokalemia (Resolved) E87.6 Acute hemorrhoid (Resolved) K64.9 Migraines (Chronic) G43.909 Sciatica (Resolved) M54.30 Hiatal hernia (Chronic) K44.9 Anxiety (Chronic) F41.9 Abdominal pain (Resolved) R10.9 History of myocardial infarct at age less than 60 years (Inactive) I25.2 Cough (Resolved) R05 Obesity (Chronic) E66.9 Diverticulosis (Chronic) K57.90 Depression (Chronic) F32.9 Hyperglycemia (Resolved) R73.9 Diabetes mellitus (Chronic) E11.9 Asthma (Chronic) J45.909 Abnormal bruising R23.8 Arthritis M19.90 Back pain M54.9 Cancer C80.1 Chest pain R07.9 Difficulty balancing R29.818 Fatigue R53.83 HIV (human immunodeficiency virus infection) B20 Hemorrhoids K64.9 History of wisdom tooth extraction K08.409 Kidney disease N28.9 Knee pain M25.569 Limb weakness R29.898 SOB (shortness of breath) R06.02 Shoulder pain M25.519 Allergies Iodinated Contrast Media [Iodinated Contrast- Oral and IV Dye] Allergy (Unknown, Verified 06/21/19 15:02) unknown amoxicillin Allergy (Verified 06/21/19 15:02) Hives hydrocodone [From Vicodin] Allergy (Verified 06/21/19 15:02) Unknown methylprednisolone [From Medrol] Allergy (Verified 06/21/19 15:02) Hives prochlorperazine [From Compazine] Allergy (Verified 06/21/19 15:02) Other prochlorperazine edisylate [From Compazine] Allergy (Verified 06/21/19 15:02) Other prochlorperazine maleate [From Compazine] Allergy (Verified 06/21/19 15:02) Other acetaminophen [From Tylenol] Adverse Reaction (Verified 06/21/19 15:02) Other sumatriptan [From Imitrex] Adverse Reaction (Verified 06/21/19 15:02) Hives A MIGRAINE MED Allergy (Uncoded 06/21/19 15:02) Other Home Medications: Ambulatory Orders Medication Instructions Recorded Lisinopril [Zestril] 10 tab PO DAILY 05/11/18 folic acid 400 mcg tablet 0.4 mg PO DAILY 12/07/18 melatonin 3 mg tablet 3 mg PO HS PRN 12/07/18 loratadine 10 mg tablet 10 mg PO DAILY #60 tab 12/11/18 darunavir ethanolate 600 mg tablet 600 mg PO BID 12/20/18 dicyclomine 10 mg capsule 20 mg PO TIDAC cap 12/20/18 raltegravir 400 mg tablet 400 mg PO BID 12/20/18 montelukast 10 mg tablet 10 mg PO QPM #90 tab 05/22/19 Cyanocobalamin (Vitamin B-12) 500 mcg PO DAILY 05/31/19 [Vitamin B-12] Emtricitabine/Tenofovir (Tdf) 1 ea PO DAILY 05/31/19 [Truvada 200 mg-300 mg Tablet] Magnesium Oxide [Magnesium] 250 mg PO MOWEFR 05/31/19 Metoprolol Succinate [Toprol Xl] 25 mg PO QHS 05/31/19 Multivitamin [Daily Multiple 1 ea PO DAILY 05/31/19 Vitamin] Ritonavir [Norvir] 100 mg PO BID 05/31/19 albuterol sulfate HFA 90 2 puff INHALATION Q6H PRN #18 g 06/18/19 mcg/actuation aerosol inhaler beclomethasone diprop 40 1 inh INHALATION BID #10.6 g 06/18/19 mcg/actuation HFA breath activated aerosol calcium carbonate 600 mg calcium 600 mg PO DAILY #90 tab 06/18/19 (1,500 mg) tablet rizatriptan 10 mg disintegrating 10 mg PO ONCE PRN #10 tab 06/18/19 tablet omeprazole 40 mg capsule,delayed 40 mg PO BID #60 cap 06/20/19 release ondansetron HCl 4 mg tablet 4 mg PO BID-TID PRN #14 tab 06/20/19 Tizanidine HCl 4 mg PO TID PRN PRN 06/21/19 Triamcinolone Acetonide 1 applic TOPICAL DAILY PRN PRN 06/21/19 Surgical History: Surgical History (Last Updated 06/01/19 @ 16:21 by Iqra Chan) History of 2 sections Z98.891 History of D&C Z98.890 x2 History of appendectomy Z90.49 History of cholecystectomy Z90.49 History of colonoscopy Z98.890 x2 History of endoscopy Z98.890 x4 History of hernia repair Z98.890, Z87.19 x3 History of hysterectomy Z90.710 History of left knee surgery Z98.890 x3 History of liver biopsy Z98.890 x2 History of shoulder surgery Z98.890 History of tonsillectomy Z90.89 History of trigger finger Z87.39 History of tubal ligation Z98.51 Hx of right knee surgery Z98.890 x3 History of left heart catheterization Onset Date: 06/01/19 Z98.890 Surgical History: appendectomy, hysterectomy, tonsillectomy, - - cardiac cath, shoulder surgery, trigger finger surgery, arthroscopic knee surgery Psychiatric History: No pertinent psych hx 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 History: endometriosis Lives: With Family Smoking Status: Former smoker Tobacco Use: Non-smoker Alcohol: None Drugs: None - *Family History Maternal Family History: Family History (Last Reviewed 01/09/19 @ 13:39 by Enma Brwon) Other Alcoholism Anxiety and depression Arthritis Asthma Breast cancer CVA (cerebral vascular accident) Cancer Diabetes Heart disease Hyperlipemia Hypertension Kidney disease Myocardial infarction Seizures History Items: COPD Paternal Family History: Family History (Last Reviewed 01/09/19 @ 13:39 by Enma Brown) Other Alcoholism Anxiety and depression Arthritis Asthma Breast cancer CVA (cerebral vascular accident) Cancer Diabetes Heart disease Hyperlipemia Hypertension Kidney disease Myocardial infarction Seizures History Items: COPD Review of Systems Constitutional: Denies: Anorexia, Chills, Fever, Night Sweats, Malaise, Weakness, Weight Change, Fatigue Eyes: Denies: Cataracts, Conjunctivae Inflammation, Double vision, Drainage HEENT: Denies: Difficulty Swallowing, Dysphasia, Ear Pain, Eye Pain, Nasal bleeding, Nasal Congestion, Post Nasal Drip Cardiovascular: Denies: Chest Pain, Claudication, Chest Pressure, Chest Tightness, Edema, Heaviness, Light Headedness, Palpitations Respiratory: Denies: Cough, Hemoptysis, Pleuritic Pain, Shortness of Breath, Shortness of breath at rest, Shortness of breath upon exertion Gastrointestinal: Denies: Abdominal Pain, Constipation, Diarrhea, Hematemesis, Hematochezia, Nausea, Melena, Vomiting Genitourinary: Denies: Dysuria, Frequency, Hematuria, Hesitancy, Urgency Gynecological: Denies: Breast symptoms Musculoskeletal: Denies: Back Pain, Foot Pain, Hand Pain, Joint Pain, Joint stiffness, Joint swelling, Joint Tenderness, Leg Pain Skin: Denies: Dryness, Pruritis, Rash Neurological: Reports: Numbness - Right facial numbness. Denies: Balance problems, Blurred vision, Double vision, Change in Speech, Slurred speech, Confusion, Difficulty swallowing, Focal weakness, Headaches, Incoordination, Tingling, Tremor, Seizures Psychiatric: Denies: Anxiety, Depression, Homicidal Ideations, Suicidal Ideations Endocrine: Denies: Change in Body Habitus, Heat/ Cold Intolerance, Polydipsia, Polyuria Hematologic/ Lymphatic: Denies: Adenopathy, Anemia, Easy Bruising, Easy Bleeding, Petechiae, Purpura VTE Information - Inpt Only VTE Present on Admission: No VTE Mechan Device Prophylaxis: None VTE Pharm Prophylaxis ordered?: No Reason prophylaxis not ordered:: Treatment Not Indicated Patient Problems: Active and Suspected Problems (Last Updated 06/21/19 @ 18:20 by Mian Yeboah DO) Facial paresthesia (Acute) Bigeminal rhythm (Acute) - Physical Exam Vitals/I&O's: Vital Signs Temp Pulse Resp BP Pulse Ox 97.8 F 67 18 114/52 L 97 06/21/19 14:58 06/21/19 17:30 06/21/19 17:30 06/21/19 17:30 06/21/19 17:30 Oxygen Delivery Method Room Air Weight: 107.4 kg Body Mass Index (BMI) 38.2 Finger Stick Blood Glucose 157 General: Alert, Oriented x3, Cooperative, No apparent distress, Well developed, Well nourished HEENT: Atraumatic, PERRLA, EOMI, Normocephalic Oral: Moist Mucosa Neck: Supple, No JVD, Negative Carotid Bruits, Trachea Midline, Thyroid Normal Size and Texture Lungs: Clear to auscultation, Normal air movement, No rhonchi, No wheeze, No rales, Diminished, Rales Cardiovascular: Regular rate, Normal S1, Normal S2, No murmurs, - - Patient has frequent runs of ventricular bigeminy Abdomen: Bowel Sounds Present, Soft, Non Tender, Non-Distended, Obese Extremities: No clubbing, No cyanosis, No edema, Capillary Refill Less than 3 Seconds Skin: - - Patient has multiple small scabbed areas on her anterior lower legs particularly on the ankle and foot areas, she states that these areas are due to fleabites Musculoskeletal: No Tenderness to Palpation of Joints or Extremities Neurological: Cranial nerves II-XII grossly intact, Neuro grossly intact, Coordination normal, - - Patient has decreased sensation to light touch and pain over the right facial area, there is no facial drooping Psych/Mental Status: Normal Affect, Appropriate, Alert and oriented to time, place, person, mood and affect Laboratory Results 06/21/19 15:25: Sodium 139, Potassium 3.9, Chloride 108 H, Carbon Dioxide 23.0, Anion Gap 8, BUN 12, Creatinine 0.97, Estim Creat Clear Calc 70.73, Est GFR (MDRD) Af Amer 81, Est GFR (MDRD) Non-Af 67, BUN/Creatinine Ratio 12.3, Glucose 157 H, Calcium 8.9, Troponin I < 0.015, TSH 0.91 06/21/19 15:30: WBC 6.1, RBC 4.92, Hgb 14.0, Hct 43.5, MCV 88.4, MCH 28.5, MCHC 32.2, RDW Std Deviation 40.7, RDW Coeff of Vladimir 12.6, Plt Count 124 L, MPV 11.0, Immature Gran % (Auto) 0.500, Neut % (Auto) 59.1, Lymph % (Auto) 28.8, Angelina % (Auto) 5.2, Eos % (Auto) 5.7 H, Baso % (Auto) 0.7, Absolute Neuts (auto) 3.6, Absolute Lymphs (auto) 1.77, Nucleated RBC % 0 06/21/19 15:35: Urine Color Yellow, Urine Clarity Clear, Urine pH 6.0, Ur Specific [place] 1.020, Urine Protein Negative, Urine Glucose (UA) Normal, Urine Ketones Negative, Urine Occult Blood Negative, Urine Nitrite Negative, Urine Bilirubin Negative, Urine Urobilinogen 1 H, Ur Leukocyte Esterase Negative, Urine RBC 0 SEEN, Urine WBC 0 SEEN, Ur Squamous Epith Cells 0-5 SEEN, Urine Bacteria 0 SEEN, Urine Mucus 0 SEEN 06/21/19 15:40: PT Cancelled, INR Cancelled, APTT Cancelled 06/21/19 16:37: PT 13.3, INR 1.0, APTT 32.6 Current Medications Aspirin (Aspirin, Baby) 81 mg PO DAILY@0800 ABIMAEL Sodium Chloride () 250 mls @ 15 mls/hr IV .[id number] PRN PRN Reason: Saline Flush Metoprolol Tartrate (Lopressor (Beta Hesham)) 12.5 mg PO BID ABIMAEL Sodium Chloride () 10 - 40 ml IV UD PRN PRN Reason: SALINE FLUSH Assessment/Plan All Active Problems (Last Updated 06/21/19 @ 18:20 by Mian Yeboah DO) Facial paresthesia (Acute) Bigeminal rhythm (Acute) Chest pain (Resolved) History of shingles (Acute) HIV exposure (Acute) Hypokalemia (Resolved) Acute hemorrhoid (Resolved) Sciatica (Resolved) Abdominal pain (Resolved) Cough (Resolved) Hyperglycemia (Resolved) #1 ventricular bigeminy-patient will be placed into observation status on PCU, she will be observed on telemetry, she will start back on her metoprolol at a dose of 12 and half milligrams twice daily. At this time, I do not feel she needs to see cardiology-she will need to follow-up as an outpatient and ultimately may be referred to an strategic account executive. Again, patient had a cardiac catheterization done in May 2019 here which showed normal coronary arteries and an EF of 50%. I do not feel the patient needs an echocardiogram at this time. #2 right facial paresthesias-I do not think the patient has had a TIA or stroke, again I feel this is more likely to be secondary to a conversion reaction, patient will have NIH stroke score's monitored while she is on PCU, I have ordered an MRA of her head and neck and an MRI of her brain. I placed the patient on one baby aspirin a day, I do not think she needs a statin. Neurology will see her in consultation and may order additional testing if they feel it is warranted #3 HIV positive-patient takes many medications for this, these will be continued while she is in the hospital #4 history of liver cirrhosis per patient-she states this was secondary to her HIV medications and she is following as an outpatient with a GI doctor #5 type 2 diabetes-patient states that she is not on any diabetic medications and she just watches her diet, patient will be on 1800-calorie ADA diet while she is in the hospital, I do not feel the patient's blood sugar needs to be monitored #6 bipolar 1 disorder
[2019-06-21] MEDS: Metoprolol Tartrate 25 MG Tablet 12.5 MG PO (21:40)
[2019-06-21] MEDS: Pantoprazole Sodium 40 MG Tablet PO (21:40)
[2019-06-21] MEDS: RALTEGRAVIR POTASSIUM 400 MG TABLET PO (21:41)
[2019-06-21] MEDS: DiphenhydrAMINE 25 MG Capsule 50 MG PO (23:55)
[2019-06-21] MEDS: Ketorolac 30 MG/ML Syringe IV (23:56)
[2019-06-21] MEDS: 0.9% Saline Lock 10 ML Syringe IV (23:56)
[2019-06-21] MEDS: Metoclopramide 10 MG/2 ML Vial 5 MG IV (23:56)
[2019-06-22] VITALS (13 sets, daily range): BP systolic 96–122; BP diastolic 51–81; PULSE 79–93; RESP 16–18; TEMP 36.6–36.9; O2SAT 94–99
--- NOTE | 2019-06-22 09:08 | ECHOD_ITS ---
Reason For Study: ARRHYTHMIA Left Ventricle Normal LV size. Left ventricular systolic function is normal. The estimated ejection fraction is 60 %. Transmitral doppler flow suggestive of impaired relaxation of left ventricle. No regional wall motion abnormalities noted. Right Ventricle Normal RV size. Normal systolic function. Atria Borderline enlarged left atrium. Normal right atrium. No doppler evidence for ASD. Mitral Valve There is no mitral annular calcification. Normal mitral valve. Mild-Moderate (1-2+) mitral valve insufficiency. Tricuspid Valve Normal tricuspid valve. Trivial tricuspid valve insufficiency. Right ventricular systolic pressure estimated to be 35 mmHg. Aortic Valve Trisinus/trileaflet aortic valve. Normal aortic valve. Pulmonic Valve The pulmonic valve is not well visualized. Great Vessels Normal sized aortic root. Pericardium/Pleural No pericardial effusion. MMode/2D Measurements & Calculations LVIDd: 4.7 cm IVSd: 0.94 cm Ao root diam: 3.5 cm LVIDs: 3.0 cm LVPWd: 0.96 cm RVDd: 3.2 cm FS: 35.4 % LAV(MOD-bp): 61.0 ml LA A4 area: 18.3 cm2 LA dimension(2D): 3.9 cm LAV(MOD-bp) Indexed: 28.4 ml/m2 LAV(MOD-sp2): 70.7 ml LAV(MOD-sp4): 52.0 ml RA A4 area: 15.1 cm2 Time Measurements MV dec time: 0.26 sec Doppler Measurements & Calculations MV E max vinod: 79.0 cm/sec Lat Peak E' Vinod: 10.9 cm/sec Med Peak E' Vinod: 11.7 cm/sec MV A max vinod: 86.9 cm/sec E/E' lat: 7.2 E/E' med: 6.8 MV E/A: 0.91 Ao V2 max: 174.0 cm/sec LV V1 max: 138.4 cm/sec TR max vinod: 283.0 cm/sec Ao max P.1 mmHg LV V1 max P.7 mmHg TR max P.1 mmHg Interpretation Summary Left ventricular systolic function is normal. The estimated ejection fraction is 60 %. Borderline enlarged left atrium. Mild-Moderate (1-2+) mitral valve insufficiency. Trivial tricuspid valve insufficiency. Right ventricular systolic pressure estimated to be 35 mmHg. Transmitral doppler flow suggestive of impaired relaxation of left ventricle Comment: 2D echocardiographic images during an underlying cardiac rhythm appearing compatible with sinus rhythm with ventricular bigeminy. Ordering Physician: Chapo Maya Referring Physician: Juan Manuel Maldonado Performed By: Gretchen Russell, TOMASZ, RVT
[2019-06-22] MEDS: Folic Acid 1 MG Tablet PO (09:29)
[2019-06-22] MEDS: RALTEGRAVIR POTASSIUM 400 MG TABLET PO ×2 (09:29→21:41)
[2019-06-22] MEDS: Aspirin 81 MG TAB.CHEW PO (09:29)
[2019-06-22] MEDS: Pantoprazole Sodium 40 MG Tablet PO ×2 (09:29→21:40)
[2019-06-22] MEDS: Metoprolol Tartrate 25 MG Tablet 12.5 MG PO ×2 (09:30→21:40)
[2019-06-22] MEDS: EMTRICITABINE/TENOFOVIR 1 TABLET TABLET PO (09:30)
[2019-06-22] MEDS: Cyanocobalamin 500 MCG Tablet PO (09:36)
[2019-06-22] MEDS: Ondansetron ODT 4 MG Tablet 8 MG PO (09:37)
[2019-06-22] MEDS: Rizatriptan Benzoate 10 MG Tablet PO (09:40)
[2019-06-22 09:46] LABS: Amphetamine Urine VISTA NEGATIVE (<1000 ng/mL); Barbiturate Urine VISTA NEGATIVE (< 200 ng/mL); Benzodiazepine Urine VISTA NEGATIVE (< 200 ng/mL); Cocaine Urine VISTA NEGATIVE (< 300 ng/mL); Ecstacy Urine VISTA NEGATIVE (< 500 ng/mL); Methadone Urine VISTA NEGATIVE (< 300 ng/mL); PCP Urine VISTA NEGATIVE (< 25 ng/mL); THC Urine VISTA NEGATIVE (< 50 ng/mL); Vista UDS pH Range 6
[2019-06-22 09:46] LABS: Vitamin B12 694 pg/mL (211-911)
--- NOTE | 2019-06-22 10:38 | NURSING ---
Pt brought in medications from home and wouldn't give to nightshift RN, per Mark Gallegos RN. This RN also reinforced multiple times that it is hospital policy to send home medications down to pharmacy for labeling in order to keep track of what medications the pt is taking while at the hospital or else lock them in medication room. Pt refusing to let this RN send her home medications down to pharmacy or locking them in the medication room.
--- NOTE | 2019-06-22 12:29 | PN_ITS ---
<Chapo Maya - Last Filed: 06/22/19 12:29> Patient Problems: Active and Suspected Problems (Last Updated 06/22/19 @ 10:03 by Tammy Mojica MD) Headache (Acute) Migraine (Acute) Dizziness (Acute) Bigeminal rhythm (Acute) Subjective: Pt reports migraine this AM. She was treated succesfully after her MRI, however her symptoms are returning. She states she takes maxalt as needed at home for this. Currently she has no photophobia, nausea or vomiting. She requested dilaudid. Pain is right frontotemporal region. She has never seen a neurologist for migraine. No further twitching or numbness of the right face. She c/o chest pain that she says has been there since she was exposed to mold several months ago while living with family, she no longer lives there. She has a cough productive of white sputum. No blood. No fever/chills. No MCCURDY/Dizziness/LH. No palpitations. She was sent to the hospital for bradycardia, parasthesias started in triage. She states she does not always take b12, but is compliant with her antiretrovirals. She also states she was taken off metformin for t2dm, and treats it only with diet currently. - Physical Exam Vitals/I&O's: Vital Signs Temp Pulse Resp BP Pulse Ox 98.4 F 91 16 122/66 H 98 06/22/19 09:20 06/22/19 10:59 06/22/19 09:20 06/22/19 09:30 06/22/19 09:20 Oxygen Delivery Method Room Air Weight: 236 lb 12.423 oz Body Mass Index (BMI) 38.2 Finger Stick Blood Glucose 157 Intake and Output for Last 24 Hours 06/20/19 06/21/19 06/22/19 23:59 23:59 23:59 Intake Total 360 / 360 Balance 360 / 360 General: Alert, Oriented x3, Cooperative HEENT: Atraumatic, PERRLA, EOMI, Normocephalic Neck: Supple, No JVD, Negative Carotid Bruits Lungs: Clear to auscultation, Normal air movement Cardiovascular: Irregular Rate, Murmur - 3/6 systolic murmur best at LSB Abdomen: Bowel Sounds Present, Soft, Non Tender Extremities: No edema, Capillary Refill Less than 3 Seconds Skin: No rashes, No breakdown Musculoskeletal: No Tenderness to Palpation of Joints or Extremities Neurological: Cranial nerves II-XII grossly intact Psych/Mental Status: Normal Affect, Appropriate, Alert and oriented to time, place, person, mood and affect Laboratory Results 06/21/19 15:25: Sodium 139, Potassium 3.9, Chloride 108 H, Carbon Dioxide 23.0, Anion Gap 8, BUN 12, Creatinine 0.97, Estim Creat Clear Calc 70.73, Est GFR (MDRD) Af Amer 81, Est GFR (MDRD) Non-Af 67, BUN/Creatinine Ratio 12.3, Glucose 157 H, Calcium 8.9, Troponin I < 0.015, TSH 0.91 06/21/19 15:25: Vitamin B12 694 06/21/19 15:30: WBC 6.1, RBC 4.92, Hgb 14.0, Hct 43.5, MCV 88.4, MCH 28.5, MCHC 32.2, RDW Std Deviation 40.7, RDW Coeff of Vladimir 12.6, Plt Count 124 L, MPV 11.0, Immature Gran % (Auto) 0.500, Neut % (Auto) 59.1, Lymph % (Auto) 28.8, [place] % (Auto) 5.2, Eos % (Auto) 5.7 H, Baso % (Auto) 0.7, Absolute Neuts (auto) 3.6, Absolute Lymphs (auto) 1.77, Nucleated RBC % 0 06/21/19 15:35: Urine Color Yellow, Urine Clarity Clear, Urine pH 6.0, Ur Specific [place] 1.020, Urine Protein Negative, Urine Glucose (UA) Normal, Urine Ketones Negative, Urine Occult Blood Negative, Urine Nitrite Negative, Urine Bilirubin Negative, Urine Urobilinogen 1 H, Ur Leukocyte Esterase Negative, Urine RBC 0 SEEN, Urine WBC 0 SEEN, Ur Squamous Epith Cells 0-5 SEEN, Urine Bacteria 0 SEEN, Urine Mucus 0 SEEN 06/21/19 15:35: Urine Opiates Screen NEGATIVE, Urine Methadone Screen NEGATIVE, Ur Barbiturates Screen NEGATIVE, Ur Phencyclidine Scrn NEGATIVE, Ur Amphetamines Screen NEGATIVE, U Methamphetamin-MDMA NEGATIVE, U Benzodiazepines Scrn NEGATIVE, Urine Cocaine Screen NEGATIVE, U Cannabinoids Screen NEGATIVE, Ur Drug Screen Comment 06/21/19 15:40: PT Cancelled, INR Cancelled, APTT Cancelled 06/21/19 16:37: PT 13.3, INR 1.0, APTT 32.6 Current Medications Aspirin (Aspirin, Baby) 81 mg PO DAILY@0800 [facility] Last Admin: 06/22/19 09:29 Dose: 81 mg Documented by: Cyanocobalamin (Vitamin B12) 500 mcg PO DAILY [facility] Last Admin: 06/22/19 09:36 Dose: 500 mcg Documented by: Dicyclomine HCl (Bentyl) 20 mg PO TIDAC PRN PRN Reason: abdominal cramping Diphenhydramine HCl (Benadryl) 50 mg PO Q6H PRN PRN PRN Reason: MIGRAINE SYMPTOMS Last Admin: 06/21/19 23:55 Dose: 50 mg Documented by: Emtricitabine/Tenofovir (Truvada 200 Mg-300 Mg Tablet) 1 tablet PO DAILY [facility] Last Admin: 06/22/19 09:30 Dose: 1 tablet Documented by: Folic Acid (Folic Acid) 1 mg PO DAILY@0800 [facility] Last Admin: 06/22/19 09:29 Dose: 1 mg Documented by: Sodium Chloride () 250 mls @ 15 mls/hr IV .[id number] PRN PRN Reason: Saline Flush Ketorolac Tromethamine (Toradol) 30 mg IV Q6H PRN PRN PRN Reason: Pain Score 6-10/10 Stop: 06/26/19 23:36 Last Admin: 06/21/19 23:56 Dose: 30 mg Documented by: Lisinopril (Zestril) 10 mg PO DAILY [facility] Last Admin: 06/22/19 09:30 Dose: Not Given Documented by: Melatonin (Melatonin) 3 mg PO QHS PRN PRN Reason: SLEEP Metoprolol Tartrate (Lopressor (Beta Hesham)) 12.5 mg PO BID [facility] Last Admin: 06/22/19 09:30 Dose: 12.5 mg Documented by: Non-Formulary Medication (Darunavir Ethanolate) 600 mg PO BID [facility] Non-Formulary Medication (Ritonavir [Norvir]) 100 mg PO BID [facility] Pantoprazole Sodium (Protonix) 40 mg PO BID [facility] Last Admin: 06/22/19 09:29 Dose: 40 mg Documented by: Raltegravir (Isentress) 400 mg PO BID [facility] Last Admin: 06/22/19 09:29 Dose: 400 mg Documented by: Sodium Chloride () 10 - 40 ml IV UD PRN PRN Reason: SALINE FLUSH Last Admin: 06/21/19 23:56 Dose: 10 ml Documented by: Tizanidine HCl (Zanaflex) 4 mg PO TID PRN PRN PRN Reason: muscle spasticity Medical Necessity - Tobacco Use Smoking Status: Former smoker Tobacco Use: Non-smoker Assessment/Plan All Active Problems (Last Updated 06/22/19 @ 10:03 by Tammy Mojica MD) Headache (Acute) Migraine (Acute) Dizziness (Acute) Bigeminal rhythm (Acute) History of shingles (Acute) 1. Right facial parasthesias, uncontrolled twitching - currently c/o migraine. She does not take maintenance migraine medication, only prn maxalt and exedrin, and has not seen a neurologist in the past. + family hx seizure, no personal. Symptoms are resolved. Neuro consult. CT brain mild atrophy. MRI brain, MRA head and neck negative. EEG ordered. Echo pending. TSH normal, b12 level normal. Tox screen negative. Echo shows EF60%, 1-2+ MVI, RVSP 35 mmHg, impaired left vent relaxation, borderl ine enlarged left atrium. No ASD. No pericardial effusion. -Pt needs outpatient follow up with Cardiology. - Possible complex, administered toradol, maxalt. Other tx migraine as per neuro. 2. Chest pain - suspect musculoskeletal, recent heart cath negative. Echo pending. EKG and troponin negative. CXR negative. No fever/leukocytosis. 3. Bigemini - recently taken off metoprolol for bradycardia. Resume metoprolol at lower dose. 4. DMt2 with obesity- diet controlled orally. Did not tolerate Metformin. Check a1c. 5. Hx HIV - CBC is WNL. No evidence of acute infectious process. Pt reports compliance with antiretrovirals, which she is self administering while here (she refused to let us administer these). 6. Hx diastolic CHF - echo as above no acute findings. 7. Hx drug abuse, alcoholism - tox screen negative. 8. Hx Migraines - as per #1 9. Other chronic medical problems, continue home meds. DVT ppx: early ambulation DC planning: Likely home, no needs, tomorrow if migraine controlled. O/p neuro referral. This patient was seen by Chapo Maya PA-C under the supervision of Doctor Galina. <Tammy Mojica E - Last Filed: 06/22/19 13:17> - Physical Exam Vitals/I&O's: Vital Signs Temp Pulse Resp BP Pulse Ox 98.4 F 91 16 122/66 H 98 06/22/19 09:20 06/22/19 10:59 06/22/19 09:20 06/22/19 09:30 06/22/19 09:20 Oxygen Delivery Method Room Air Weight: 236 lb 12.423 oz Body Mass Index (BMI) 38.2 Finger Stick Blood Glucose 157 Intake and Output for Last 24 Hours 06/20/19 06/21/19 06/22/19 23:59 23:59 23:59 Intake Total 760 / 760 Balance 760 / 760 Laboratory Results 06/21/19 15:25: Sodium 139, Potassium 3.9, Chloride 108 H, Carbon Dioxide 23.0, Anion Gap 8, BUN 12, Creatinine 0.97, Estim Creat Clear Calc 70.73, Est GFR (MDRD) Af Amer 81, Est GFR (MDRD) Non-Af 67, BUN/Creatinine Ratio 12.3, Glucose 157 H, Calcium 8.9, Troponin I < 0.015, TSH 0.91 06/21/19 15:25: Vitamin B12 694 06/21/19 15:30: WBC 6.1, RBC 4.92, Hgb 14.0, Hct 43.5, MCV 88.4, MCH 28.5, MCHC 32.2, RDW Std Deviation 40.7, RDW Coeff of Vladimir 12.6, Plt Count 124 L, MPV 11.0, Immature Gran % (Auto) 0.500, Neut % (Auto) 59.1, Lymph % (Auto) 28.8, [place] % (Auto) 5.2, Eos % (Auto) 5.7 H, Baso % (Auto) 0.7, Absolute Neuts (auto) 3.6, Absolute Lymphs (auto) 1.77, Nucleated RBC % 0 06/21/19 15:35: Urine Color Yellow, Urine Clarity Clear, Urine pH 6.0, Ur Specific [place] 1.020, Urine Protein Negative, Urine Glucose (UA) Normal, Urine Ketones Negative, Urine Occult Blood Negative, Urine Nitrite Negative, Urine Bilirubin Negative, Urine Urobilinogen 1 H, Ur Leukocyte Esterase Negative, Urine RBC 0 SEEN, Urine WBC 0 SEEN, Ur Squamous Epith Cells 0-5 SEEN, Urine Bacteria 0 SEEN, Urine Mucus 0 SEEN 06/21/19 15:35: Urine Opiates Screen NEGATIVE, Urine Methadone Screen NEGATIVE, Ur Barbiturates Screen NEGATIVE, Ur Phencyclidine Scrn NEGATIVE, Ur Amphetamines Screen NEGATIVE, U Methamphetamin-MDMA NEGATIVE, U Benzodiazepines Scrn NEGATIVE, Urine Cocaine Screen NEGATIVE, U Cannabinoids Screen NEGATIVE, Ur Drug Screen Comment 06/21/19 15:40: PT Cancelled, INR Cancelled, APTT Cancelled 06/21/19 16:37: PT 13.3, INR 1.0, APTT 32.6 Current Medications Aspirin (Aspirin, Baby) 81 mg PO DAILY@0800 [facility] Last Admin: 06/22/19 09:29 Dose: 81 mg Documented by: Cyanocobalamin (Vitamin B12) 500 mcg PO DAILY [facility] Last Admin: 06/22/19 09:36 Dose: 500 mcg Documented by: Dicyclomine HCl (Bentyl) 20 mg PO TIDAC PRN PRN Reason: abdominal cramping Diphenhydramine HCl (Benadryl) 50 mg PO Q6H PRN PRN PRN Reason: MIGRAINE SYMPTOMS Last Admin: 06/21/19 23:55 Dose: 50 mg Documented by: Emtricitabine/Tenofovir (Truvada 200 Mg-300 Mg Tablet) 1 tablet PO DAILY [facility] Last Admin: 06/22/19 09:30 Dose: 1 tablet Documented by: Folic Acid (Folic Acid) 1 mg PO DAILY@0800 [facility] Last Admin: 06/22/19 09:29 Dose: 1 mg Documented by: Sodium Chloride () 250 mls @ 15 mls/hr IV .[id number] PRN PRN Reason: Saline Flush Valproic Acid 500 mg/ Dextrose 55 mls @ 50 mls/hr IV Q8 [facility] Stop: 06/23/19 14:00 Magnesium Sulfate 1 gm/ Sodium (Chloride) 102 mls @ 52 mls/hr IV X1 ONE Stop: 06/22/19 15:07 Ketorolac Tromethamine (Toradol) 30 mg IV Q6H PRN PRN PRN Reason: Pain Score 6-10/10 Stop: 06/26/19 23:36 Last Admin: 06/21/19 23:56 Dose: 30 mg Documented by: Lisinopril (Zestril) 10 mg PO DAILY [facility] Last Admin: 06/22/19 09:30 Dose: Not Given Documented by: Melatonin (Melatonin) 3 mg PO QHS PRN PRN Reason: SLEEP Metoprolol Tartrate (Lopressor (Beta Hesham)) 12.5 mg PO BID [facility] Last Admin: 06/22/19 09:30 Dose: 12.5 mg Documented by: Non-Formulary Medication (Darunavir Ethanolate) 600 mg PO BID [facility] Non-Formulary Medication (Ritonavir [Norvir]) 100 mg PO BID [facility] Pantoprazole Sodium (Protonix) 40 mg PO BID [facility] Last Admin: 06/22/19 09:29 Dose: 40 mg Documented by: Raltegravir (Isentress) 400 mg PO BID [facility] Last Admin: 06/22/19 09:29 Dose: 400 mg Documented by: Sodium Chloride () 10 - 40 ml IV UD PRN PRN Reason: SALINE FLUSH Last Admin: 06/21/19 23:56 Dose: 10 ml Documented by: Tizanidine HCl (Zanaflex) 4 mg PO TID PRN PRN PRN Reason: muscle spasticity Assessment/Plan Hospitalist note: I am seeing this patient in conjunction with Chapo Maya. I independently seen and examined the patient. Progress note above, laboratory data and imaging studies reviewed and I concur with the above treatment plan. Today, patient mentioned that she has no more numbness on the right side of her face. She still having headache. Reported intermittent dizziness which has been chronic. She is still having bigeminy on telemetry. Her vital signs are stable. Heart rate has been in the 90s. - Physical Exam General: Alert, Oriented x3, Cooperative, No apparent distress. HEENT: Atraumatic, PERRLA, EOMI. Neck: Supple, No JVD, Negative Carotid Bruits, Trachea Midline, Thyroid Normal. Lungs: Clear to auscultation, Normal air movement, No rhonchi, No wheeze, No rales. Cardiovascular: Regular rate, Regular Rhythm, Normal S1, Normal S2, PMI Normal, ectopics. Abdomen: Bowel Sounds Present, Soft, Non Tender, Non-Distended, No Hepato- splenomegaly. Extremities: No clubbing, No cyanosis, No edema Skin: No rashes, No breakdown Neurological: Cranial nerves are intact, neuro grossly intact Vital Signs are stable. Assessment and plan: #1 status migrainosus: Or possibly concussion. Acute stroke ruled out. MRA of the brain showed no acute stroke or infarct. MRA of the head and neck was unremarkable. CT scan brain showed no acute findings as well. She has no focal deficit. Neurology consulted and recommended trial of Depakote. EEG ordered. #2 ventricle bigeminy: Started back on metoprolol at 12.5 mill grams p.o. twice daily. Heart rate has been in the 90s, blood pressure stable. Patient still complaining of intermittent dizziness. Echocardiogram reviewed as above. Serum electrolytes are within normal limits. TSH was normal. #3 chest pain: Patient heart cath was negative for CAD. Troponin is negative. EKG was unremarkable. Chest x-ray without acute findings. It is likely musculoskeletal pain. #4 other chronic medical problems: Stable, continue current medication as above. This note was generated with Yeswareation software. It may contain incorrect words, spelling, and punctuation that were not noted in checking the note before signing. Code Visit OBSV E&M: 44181 Subsequent observation care L2
--- NOTE | 2019-06-22 12:59 | CON.PCM_ITS ---
Problem List (1) Headache Status: Acute (2) Migraine Status: Acute (3) Dizziness Status: Acute Reason for Consult Date of Consultation: 06/22/19 Reason for Consultation: MCCURDY, dizziness, facial numbness History of Present Illness: The patient is a 43 year old F with PMH HTN, DM, HIV on HAART, history of migraine, bipolar disorder, fatty liver, Ex-ETOH abuse, Ex-polysubstance abuse, Ex-tobacco abuse, admitted with headache, right facial numbness, dizziness and bradycardia. Per patient she has been having chronic dizziness, sees ENT for the same, has migraine headaches about 1-2 times a week, generalized, with photophobia phonophobia, nausea, visual aura and headache lasts hours as per patient. Per patient about 2 to 3 days ago she hit her head, did not lose any consciousness, and since then she has been having generalized headache, when she was sent in yesterday from ENT office for bradycardia she felt she had right facial numbness, per patient right facial numbness would come and go intermittently. She denies any focal motor weakness, sensory loss, speech disturbances, visual disturbances or witnessed seizures. MRI brain done on admission did not show anything acute, MRA head/neck did not show any hemodynamically significant stenosis or occlusion. Per patient she used to drink alcohol heavy in the past many years ago, she used to use crack cocaine but has been clean for the past 3 years per patient and she quit smoking about 45 days ago. [] Past Medical History Past Medical History (Chronic Problems): Chronic Problems (Last Updated 06/22/19 @ 10:03 by Tammy Mojica MD) Dermatitis (Chronic) Type 2 diabetes mellitus (Chronic) Bipolar 1 disorder (Chronic) Neuropathy (Chronic) Arthritis (Chronic) Osteoarthritis (Chronic) HIV (human immunodeficiency virus infection) (Chronic) Hypertension (Chronic) GERD (gastroesophageal reflux disease) (Chronic) Seasonal allergies (Chronic) History of alcoholism (Chronic) History of drug abuse (Chronic) History of blood transfusion (Chronic) History of kidney stones (Chronic) Herpes (Chronic) HIV exposure (Chronic) 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) Vitamin B12 deficiency (Chronic) Vitamin D deficiency (Chronic) CHF (congestive heart failure) (Chronic) Polyneuropathy (Chronic) Insomnia (Chronic) Enlargement, spleen (Chronic) Fibromyalgia (Chronic) Hiatal hernia (Chronic) Anxiety (Chronic) Obesity (Chronic) Diverticulosis (Chronic) Depression (Chronic) Diabetes mellitus (Chronic) Asthma (Chronic) Medical History: Medical History (Last Updated 06/22/19 @ 10:03 by Tammy Mojica MD) Hypertension (Chronic) I10 GERD (gastroesophageal reflux disease) (Chronic) K21.9 Seasonal allergies (Chronic) J30.2 History of alcoholism (Chronic) F10.21 History of drug abuse (Chronic) Z87.898 History of blood transfusion (Chronic) Z92.89 History of kidney stones (Chronic) Z87.442 Herpes (Chronic) B00.9 HIV exposure (Chronic) Z20.6 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) B97.7 Vitamin B12 deficiency (Chronic) E53.8 Vitamin D deficiency (Chronic) E55.9 CHF (congestive heart failure) (Chronic) I50.9 Polyneuropathy (Chronic) G62.9 Insomnia (Chronic) G47.00 Enlargement, spleen (Chronic) R16.1 Fibromyalgia (Chronic) M79.7 Hiatal hernia (Chronic) K44.9 Anxiety (Chronic) F41.9 Obesity (Chronic) E66.9 Diverticulosis (Chronic) K57.90 Depression (Chronic) F32.9 Diabetes mellitus (Chronic) E11.9 Asthma (Chronic) J45.909 Arthritis M19.90 Back pain M54.9 Cancer C80.1 HIV (human immunodeficiency virus infection) B20 Hemorrhoids K64.9 Kidney disease N28.9 History of myocardial infarct at age less than 60 years (Inactive) I25.2 Allergies Iodinated Contrast Media [Iodinated Contrast- Oral and IV Dye] Allergy (Unknown, Verified 06/21/19 15:02) unknown amoxicillin Allergy (Verified 06/21/19 15:02) Hives hydrocodone [From Vicodin] Allergy (Verified 06/21/19 15:02) Unknown methylprednisolone [From Medrol] Allergy (Verified 06/21/19 15:02) Hives prochlorperazine [From Compazine] Allergy (Verified 06/21/19 15:02) Other prochlorperazine edisylate [From Compazine] Allergy (Verified 06/21/19 15:02) Other prochlorperazine maleate [From Compazine] Allergy (Verified 06/21/19 15:02) Other acetaminophen [From Tylenol] Adverse Reaction (Verified 06/21/19 15:02) Other sumatriptan [From Imitrex] Adverse Reaction (Verified 06/21/19 15:02) Hives A MIGRAINE MED Allergy (Uncoded 06/21/19 15:02) Other Home Medications: Ambulatory Orders Medication Instructions Recorded Lisinopril [Zestril] 10 tab PO DAILY 05/11/18 folic acid 400 mcg tablet 0.4 mg PO DAILY 12/07/18 melatonin 3 mg tablet 3 mg PO HS PRN 12/07/18 loratadine 10 mg tablet 10 mg PO DAILY #60 tab 12/11/18 darunavir ethanolate 600 mg tablet 600 mg PO BID 12/20/18 dicyclomine 10 mg capsule 20 mg PO TIDAC PRN cap 12/20/18 raltegravir 400 mg tablet 400 mg PO BID 12/20/18 montelukast 10 mg tablet 10 mg PO QPM #90 tab 05/22/19 Cyanocobalamin (Vitamin B-12) 500 mcg PO DAILY 05/31/19 [Vitamin B-12] Emtricitabine/Tenofovir (Tdf) 1 ea PO DAILY 05/31/19 [Truvada 200 mg-300 mg Tablet] Magnesium Oxide [Magnesium] 250 mg PO MOWEFR 05/31/19 Metoprolol Succinate [Toprol Xl] 25 mg PO QHS 05/31/19 Multivitamin [Daily Multiple 1 ea PO DAILY 05/31/19 Vitamin] Ritonavir [Norvir] 100 mg PO BID 05/31/19 albuterol sulfate HFA 90 2 puff INHALATION Q6H PRN #18 g 06/18/19 mcg/actuation aerosol inhaler beclomethasone diprop 40 1 inh INHALATION BID #10.6 g 06/18/19 mcg/actuation HFA breath activated aerosol calcium carbonate 600 mg calcium 600 mg PO DAILY #90 tab 06/18/19 (1,500 mg) tablet rizatriptan 10 mg disintegrating 10 mg PO ONCE PRN #10 tab 06/18/19 tablet omeprazole 40 mg capsule,delayed 40 mg PO BID #60 cap 06/20/19 release ondansetron HCl 4 mg tablet 4 mg PO BID-TID PRN #14 tab 06/20/19 Tizanidine HCl 4 mg PO TID PRN PRN 11/14/19 Triamcinolone Acetonide 1 applic TOPICAL DAILY PRN PRN 06/21/19 Surgical History: Surgical History (Last Updated 06/22/19 @ 10:01 by Tammy Mojica MD) History of 2 sections Z98.891 History of D&C Z98.890 x2 History of appendectomy Z90.49 History of cholecystectomy Z90.49 History of colonoscopy Z98.890 x2 History of endoscopy Z98.890 x4 History of hernia repair Z98.890, Z87.19 x3 History of hysterectomy Z90.710 History of left knee surgery Z98.890 x3 History of liver biopsy Z98.890 x2 History of shoulder surgery Z98.890 History of tonsillectomy Z90.89 History of tubal ligation Z98.51 Hx of right knee surgery Z98.890 x3 Surgical History: appendectomy, hysterectomy, tonsillectomy, - - cardiac cath, shoulder surgery, trigger finger surgery, arthroscopic knee surgery Psychiatric History: No pertinent psych hx INSIDE WIRER History: endometriosis Lives: With Family Smoking Status: Former smoker Tobacco Use: Non-smoker Alcohol: None Drugs: None - *Family History Maternal Family History: Family History (Last Reviewed 01/09/19 @ 13:39 by Enma Brown) Other Alcoholism Anxiety and depression Arthritis Asthma Breast cancer CVA (cerebral vascular accident) Cancer Diabetes Heart disease Hyperlipemia Hypertension Kidney disease Myocardial infarction Seizures History Items: COPD Paternal Family History: Family History (Last Reviewed 01/09/19 @ 13:39 by Enma Brown) Other Alcoholism Anxiety and depression Arthritis Asthma Breast cancer CVA (cerebral vascular accident) Cancer Diabetes Heart disease Hyperlipemia Hypertension Kidney disease Myocardial infarction Seizures History Items: COPD Review of Systems Constitutional: Reports: - - Complete ROS negative except as documented in HPI Patient Problems: Active and Suspected Problems (Last Updated 06/22/19 @ 10:03 by Tammy Mojica MD) Headache (Acute) Migraine (Acute) Dizziness (Acute) Bigeminal rhythm (Acute) - Physical Exam Vitals/I&O's: Vital Signs Temp Pulse Resp BP Pulse Ox 98.4 F 91 16 122/66 H 98 06/22/19 09:20 06/22/19 10:59 06/22/19 09:20 06/22/19 09:30 06/22/19 09:20 Oxygen Delivery Method Room Air Weight: 107.4 kg Body Mass Index (BMI) 38.2 Finger Stick Blood Glucose 157 Intake and Output for Last 24 Hours 06/20/19 06/21/19 06/22/19 23:59 23:59 23:59 Intake Total 760 / 760 Balance 760 / 760 General: Alert HEENT: Normocephalic Neck: Supple Lungs: Normal air movement Cardiovascular: Normal S1, Normal S2 Abdomen: Bowel Sounds Present Extremities: No cyanosis Neurological: - - Conscious, alert, AOA x3, CN II to XII grossly intact, power 5/5 both upper and lower extremities, plantars B/L flexor, no pronator drift, no sensory loss, no cerebellar signs, gait deferred, reflexes + B/L B/S/T/K/A, No NR, fundus not visualized Psych/Mental Status: Normal Affect Laboratory Results 06/21/19 15:25: Sodium 139, Potassium 3.9, Chloride 108 H, Carbon Dioxide 23.0, Anion Gap 8, BUN 12, Creatinine 0.97, Estim Creat Clear Calc 70.73, Est GFR (MDRD) Af Amer 81, Est GFR (MDRD) Non-Af 67, BUN/Creatinine Ratio 12.3, Glucose 157 H, Calcium 8.9, Troponin I < 0.015, TSH 0.91 06/21/19 15:25: Vitamin B12 694 06/21/19 15:30: WBC 6.1, RBC 4.92, Hgb 14.0, Hct 43.5, MCV 88.4, MCH 28.5, MCHC 32.2, RDW Std Deviation 40.7, RDW Coeff of Vladimir 12.6, Plt Count 124 L, MPV 11.0, Immature Gran % (Auto) 0.500, Neut % (Auto) 59.1, Lymph % (Auto) 28.8, Kay % (Auto) 5.2, Eos % (Auto) 5.7 H, Baso % (Auto) 0.7, Absolute Neuts (auto) 3.6, Absolute Lymphs (auto) 1.77, Nucleated RBC % 0 06/21/19 15:35: Urine Color Yellow, Urine Clarity Clear, Urine pH 6.0, Ur Specific Kiefer 1.020, Urine Protein Negative, Urine Glucose (UA) Normal, Urine Ketones Negative, Urine Occult Blood Negative, Urine Nitrite Negative, Urine Bilirubin Negative, Urine Urobilinogen 1 H, Ur Leukocyte Esterase Negative, Urine RBC 0 SEEN, Urine WBC 0 SEEN, Ur Squamous Epith Cells 0-5 SEEN, Urine Bacteria 0 SEEN, Urine Mucus 0 SEEN 06/21/19 15:35: Urine Opiates Screen NEGATIVE, Urine Methadone Screen NEGATIVE, Ur Barbiturates Screen NEGATIVE, Ur Phencyclidine Scrn NEGATIVE, Ur Amphetamines Screen NEGATIVE, U Methamphetamin-MDMA NEGATIVE, U Benzodiazepines Scrn NEGATIVE, Urine Cocaine Screen NEGATIVE, U Cannabinoids Screen NEGATIVE, Ur Drug Screen Comment 06/21/19 15:40: PT Cancelled, INR Cancelled, APTT Cancelled 06/21/19 16:37: PT 13.3, INR 1.0, APTT 32.6 Current Medications Aspirin (Aspirin, Baby) 81 mg PO DAILY@0800 [facility] Last Admin: 06/22/19 09:29 Dose: 81 mg Documented by: Cyanocobalamin (Vitamin B12) 500 mcg PO DAILY [facility] Last Admin: 06/22/19 09:36 Dose: 500 mcg Documented by: Dicyclomine HCl (Bentyl) 20 mg PO TIDAC PRN PRN Reason: abdominal cramping Diphenhydramine HCl (Benadryl) 50 mg PO Q6H PRN PRN PRN Reason: MIGRAINE SYMPTOMS Last Admin: 06/21/19 23:55 Dose: 50 mg Documented by: Emtricitabine/Tenofovir (Truvada 200 Mg-300 Mg Tablet) 1 tablet PO DAILY [facility] Last Admin: 06/22/19 09:30 Dose: 1 tablet Documented by: Folic Acid (Folic Acid) 1 mg PO DAILY@0800 [facility] Last Admin: 06/22/19 09:29 Dose: 1 mg Documented by: Sodium Chloride () 250 mls @ 15 mls/hr IV .[id number] PRN PRN Reason: Saline Flush Ketorolac Tromethamine (Toradol) 30 mg IV Q6H PRN PRN PRN Reason: Pain Score 6-10/10 Stop: 06/26/19 23:36 Last Admin: 06/21/19 23:56 Dose: 30 mg Documented by: Lisinopril (Zestril) 10 mg PO DAILY [facility] Last Admin: 06/22/19 09:30 Dose: Not Given Documented by: Melatonin (Melatonin) 3 mg PO QHS PRN PRN Reason: SLEEP Metoprolol Tartrate (Lopressor (Beta Hesham)) 12.5 mg PO BID [facility] Last Admin: 06/22/19 09:30 Dose: 12.5 mg Documented by: Non-Formulary Medication (Darunavir Ethanolate) 600 mg PO BID [facility] Non-Formulary Medication (Ritonavir [Norvir]) 100 mg PO BID [facility] Pantoprazole Sodium (Protonix) 40 mg PO BID [facility] Last Admin: 06/22/19 09:29 Dose: 40 mg Documented by: Raltegravir (Isentress) 400 mg PO BID [facility] Last Admin: 06/22/19 09:29 Dose: 400 mg Documented by: Sodium Chloride () 10 - 40 ml IV UD PRN PRN Reason: SALINE FLUSH Last Admin: 06/21/19 23:56 Dose: 10 ml Documented by: Tizanidine HCl (Zanaflex) 4 mg PO TID PRN PRN PRN Reason: muscle spasticity Assessment/Plan All Active Problems (Last Updated 06/22/19 @ 10:03 by Tammy Mojica MD) Headache (Acute) Migraine (Acute) Dizziness (Acute) Bigeminal rhythm (Acute) History of shingles (Acute) The patient is a 43 year old F with PMH HTN, DM, HIV on HAART, history of migraine, bipolar disorder, fatty liver, Ex-ETOH abuse, Ex-polysubstance abuse, Ex-tobacco abuse, admitted with headache, right facial numbness, dizziness and bradycardia. Per patient she has been having chronic dizziness, sees ENT for the same, has migraine headaches about 1-2 times a week, generalized, with photophobia phonophobia, nausea, visual aura and headache lasts hours as per patient. Per patient about 2 to 3 days ago she hit her head, did not lose any consciousness, and since then she has been having generalized headache, when she was sent in yesterday from ENT office for bradycardia she felt she had right facial numbness, per patient right facial numbness would come and go intermittently. She denies any focal motor weakness, sensory loss, speech disturbances, visual disturbances or witnessed seizure. MRI brain done on admission did not show anything acute, MRA head/neck did not show any hemodynamically significant stenosis or occlusion. Per patient she used to drink alcohol heavy in the past many years ago, she used to use crack cocaine but has been clean for the past 3 years per patient and she quit smoking about 45 days ago. Impression Headache, right facial numbness Possible postconcussion syndrome versus status migrainosus Plan -MRI brain and MRA head/neck?nothing acute -EEG ordered by hospitalist team -Trial of Depacon 500 mg IV q. 8 hourly for 24 hours and then stop -Magnesium sulfate 1 g IV once -Avoid narcotics -Labs reviewed -Avoid dehydration -GI/DVT prophylaxis -Fall precautions -Further medical management per hospitalist team -Please call with questions if any -Follow-up with neurology in 6 weeks -Thank you for allowing us to participate in patient's care and management This note has been generated using [employer] dictation software. It may contain incorrect words, spellings and punctuation that were not noted in the review of the note prior to signing Code Visit Inpatient E&M: 79812 Init Hosp L3
[2019-06-22 13:44] LABS: AST(SGOT) 152 U/L (15-37); Alanine Aminotransfer ALT/SGPT 124 U/L (13-56); Albumin, Serum 3.6 g/dL (3.2-5.0); Alkaline Phosphatase 215 U/L (45-117); Bilirubin, Direct 0.22 mg/dL (0.00-0.30); Globulin 4.1 g/dL (2.2-4.2); Protein, Total 7.7 g/dL (6.4-8.2)
--- NOTE | 2019-06-22 13:50 | EEG ---
- Electroencephalogram Date of service 06/22/2019 History EEG is being done in this 43 yr F to rule out seizures EEG Description: This is an 18 channel EEG with 10-20 lead placement system. Bipolar montages, and Referential montages were reviewed. Photic stimulation and Hyperventilation were performed. The posterior dominant rhythm is 10 HZ synchronous, symmetric, reacting to eye opening and closing. Photo stimulation elicited normal driving response but no abnormal photoparoxysmal response, Hyperventilation did not elicit any abnormal photoparoxysmal response. Sleep was identified. There is no abnormal background slowing noted. There was no epileptiform discharges or electrographic seizures noted during this recording. EEG Interpretation This is a normal awake and asleep EEG. There is no epileptiform discharges or electrographic seizures noted during the record.
[2019-06-22] MEDS: Ketorolac 30 MG/ML Syringe IV (14:34)
[2019-06-22] MEDS: Magnesium Sulfate 1 GM in 0.9% Normal Saline 100 ML IV (16:27)
[2019-06-22] MEDS: DARUNAVIR ETHANOLATE 600 MG TABLET PO (22:47)
[2019-06-22] MEDS: Dicyclomine 10 MG Capsule 20 MG PO (22:49)
[2019-06-23] VITALS (8 sets, daily range): BP systolic 113–116; BP diastolic 65–77; PULSE 74–90; RESP 16–18; TEMP 36.6–36.9; O2SAT 93–96
[2019-06-23] MEDS: Folic Acid 1 MG Tablet PO (08:09)
[2019-06-23] MEDS: Aspirin 81 MG TAB.CHEW PO (08:09)
[2019-06-23] MEDS: Cyanocobalamin 500 MCG Tablet PO (09:21)
[2019-06-23] MEDS: Polyethylene Glycol 3350 17 GM PACKET PO (09:21)
[2019-06-23] MEDS: Pantoprazole Sodium 40 MG Tablet PO (09:21)
[2019-06-23] MEDS: EMTRICITABINE/TENOFOVIR 1 TABLET TABLET PO (09:21)
[2019-06-23] MEDS: RALTEGRAVIR POTASSIUM 400 MG TABLET PO (09:21)
[2019-06-23] MEDS: Metoprolol Tartrate 25 MG Tablet 12.5 MG PO (09:21)
--- NOTE | 2019-06-23 09:25 | NURSING ---
Attempted to witness patient take home norvir and prezista with the rest of the 1000 medicatons scheduled on oct, but patient refused at this time stating I will do that whenever I wake up. Patient proceeded to roll over.
[2019-06-23] MEDS: DARUNAVIR ETHANOLATE 600 MG TABLET PO (10:26)
--- NOTE | 2019-06-23 10:55 | PCM.DC ---
- Discharge Diagnoses Current Active Problems: Current Active and Chronic Problems (Last Updated 06/22/19 @ 10:03 by Tammy Mojica MD) Headache (Acute) Migraine (Acute) Dizziness (Acute) Bigeminal rhythm (Acute) You will use the following diet at home:: Calorie/Carbohydrate Controlled (specify 1200, 1400, etc) - 1800 sadiq / day, Cardiac Your food should be the consistency of: Regular Your liquids should be the consistency of: Regular/Thin Discharge Activity: Return to Normal Activity Additional Instructions: You need to speak to either your family medicine physician or your communications project lead about having a referral to an cut and cover line worker as an outpatient. Allergies/Adverse Reactions: Allergies Iodinated Contrast Media [Iodinated Contrast- Oral and IV Dye] Allergy (Unknown, Verified 06/21/19 15:02) unknown amoxicillin Allergy (Verified 06/21/19 15:02) Hives hydrocodone [From Vicodin] Allergy (Verified 06/21/19 15:02) Unknown methylprednisolone [From Medrol] Allergy (Verified 06/21/19 15:02) Hives prochlorperazine [From Compazine] Allergy (Verified 06/21/19 15:02) Other prochlorperazine edisylate [From Compazine] Allergy (Verified 06/21/19 15:02) Other prochlorperazine maleate [From Compazine] Allergy (Verified 06/21/19 15:02) Other acetaminophen [From Tylenol] Adverse Reaction (Verified 06/21/19 15:02) Other sumatriptan [From Imitrex] Adverse Reaction (Verified 06/21/19 15:02) Hives A MIGRAINE MED Allergy (Uncoded 06/21/19 15:02) Other Medications to take at Discharge Lisinopril [Zestril] 10 tab PO DAILY 05/11/18 folic acid 400 mcg tablet 0.4 mg PO DAILY 12/07/18 melatonin 3 mg tablet 3 mg PO HS PRN 12/07/18 loratadine 10 mg tablet 10 mg PO DAILY #60 tab 12/11/18 darunavir ethanolate 600 mg tablet 600 mg PO BID 12/20/18 dicyclomine 10 mg capsule 20 mg PO TIDAC PRN cap 12/20/18 raltegravir 400 mg tablet 400 mg PO BID 12/20/18 montelukast 10 mg tablet 10 mg PO QPM #90 tab 05/22/19 Cyanocobalamin (Vitamin B-12) [Vitamin B-12] 500 mcg PO DAILY 05/31/19 Emtricitabine/Tenofovir (Tdf) [Truvada 200 mg-300 mg Tablet] 1 ea PO DAILY 05/31/19 Magnesium Oxide [Magnesium] 250 mg PO MOWEFR 05/31/19 Multivitamin [Daily Multiple Vitamin] 1 ea PO DAILY 05/31/19 Ritonavir [Norvir] 100 mg PO BID 05/31/19 albuterol sulfate HFA 90 mcg/actuation aerosol inhaler 2 puff INHALATION Q6H PRN #18 g 06/18/19 beclomethasone diprop 40 mcg/actuation HFA breath activated aerosol 1 inh INHALATION BID #10.6 g 06/18/19 calcium carbonate 600 mg calcium (1,500 mg) tablet 600 mg PO DAILY #90 tab 06/18/19 rizatriptan 10 mg disintegrating tablet 10 mg PO ONCE PRN #10 tab 06/18/19 omeprazole 40 mg capsule,delayed release 40 mg PO BID #60 cap 06/20/19 ondansetron HCl 4 mg tablet 4 mg PO BID-TID PRN #14 tab 06/20/19 Tizanidine HCl 4 mg PO TID PRN PRN 06/21/19 Triamcinolone Acetonide 1 applic TOPICAL DAILY PRN PRN 06/21/19 Metoprolol Tartrate [Lopressor (beta mayra)] 12.5 mg PO BID #30 tab 06/23/19 The following prescriptions were given: Metoprolol Tartrate [Lopressor (beta mayra)] 12.5 mg PO BID #30 tab Transmission Status: Pending to [facility]/pharmacy #[id number] Primary Care Physician: Juan Manuel Maldonado MD [Primary Care Provider] - Please follow up with your Primary Care Physician in: 1 week Test Results: Test results from this visit will be discussed in further detail at your follow-up appointment, if applicable. Please Follow Up With: Sherron Le MD When: 2 weeks Proposed Discharge Date: 06/23/19
--- NOTE | 2019-06-23 11:59 | PCM.DC.SUM ---
<Chapo Maya - Last Filed: 06/23/19 11:59> Discharge Date and Diagnosis - Problem List Patient Problems: Active and Suspected Problems (Last Updated 06/22/19 @ 10:03 by Tammy Mojica MD) Headache (Acute) Migraine (Acute) Dizziness (Acute) Bigeminal rhythm (Acute) Date of Admission: 06/21/19 Date of Discharge: 06/23/19 - Primary Discharge Diagnosis Active and Suspected Problems (Last Updated 06/22/19 @ 10:03 by Tammy Mojica MD) Bigemini Migraine Headache, complex, with facial parasthesias Abnormal LFTs suspect 2/2 antiretroviral therapy Chest pain - musculoskeletal DMt2 with Obesity HIV - Secondary Discharge Diagnosis Chronic Problems (Last Updated 06/22/19 @ 10:03 by Tammy Mojica MD) Dermatitis (Chronic) Type 2 diabetes mellitus (Chronic) Bipolar 1 disorder (Chronic) Neuropathy (Chronic) Arthritis (Chronic) Osteoarthritis (Chronic) HIV (human immunodeficiency virus infection) (Chronic) Hypertension (Chronic) GERD (gastroesophageal reflux disease) (Chronic) Seasonal allergies (Chronic) History of alcoholism (Chronic) History of drug abuse (Chronic) History of blood transfusion (Chronic) History of kidney stones (Chronic) Herpes (Chronic) HIV exposure (Chronic) 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 Negative for hemorrhage, hematoma or mass density. Negative for demarcation of a new nonhemorrhagic infarct zone. Mild atrophy. RAD/Chest 1 View IMPRESSION: Normal x-ray examination of the chest. MRI/Brain without Contrast IMPRESSION: Normal brain. Mild mastoid air cell disease, right greater than left. I cannot follow the right sixth nerve through the temporal bone to assess if it is involved in inflammation of the right mastoid air cells. This disease is only mild disease and is in fact not even perceived on the CT scan. MRI/MRA Head ONLY without Contrast IMPRESSION: Normal. MRI/MRA Neck WITH and W/O Contrast IMPRESSION: No acute stenosis perceived. Short segment of absence of flow identified on the post gadolinium images near the origin of the left vertebral artery. I believe this is artifactual and not due to occlusion of the left vertebral artery. The 3-D [id number]-savwfl images do not image as low as the left subclavian artery to assess for flow within the origin of the left vertebral artery. Echo: Interpretation Summary Left ventricular systolic function is normal. The estimated ejection fraction is 60 %. Borderline enlarged left atrium. Mild-Moderate (1-2+) mitral valve insufficiency. Trivial tricuspid valve insufficiency. Right ventricular systolic pressure estimated to be 35 mmHg. Transmitral doppler flow suggestive of impaired relaxation of left ventricle Comment: 2D echocardiographic images during an underlying cardiac rhythm appearing compatible with sinus rhythm with ventricular bigeminy. EEG: EEG Interpretation: This is a normal awake and asleep EEG. There is no epileptiform discharges or electrographic seizures noted during the record. Consults: Mahad - Neuro Operations: None Procedures: 2-D Echocardiogram, Electroencephalogram Summary of Care Provided: Hospital course: The patient is a 43 year old F with extensive pmhx notably HIV on antiretroviral therapy, Hx migraines, recent recent negative heart cath, who presented to the ER after being sent from her ENTs office with abnormal heart rhythm. She was found to have bigemini on EKG. She had this on a past admission and was started on metoprolol, however she had been taken off of this after developing bradycardia. Also, during triage, she reported right facial twitching and numbness and tingling. She underwent a CT brain which was negative. She was admitted for bigemin and stroke rule out. She had an MRI brain during which she developed a migraine. This did not show stroke. MRA head and neck were unremarkable. Echo was obtained as well, with results as above. She also complained of chest pain, however she recently had a negative heart cath, and EKG did not show evidence of acute change, and troponin was negative, so this was felt to be musculoskeletal. Neurology was consulted regarding the facial twitching and paraesthesias. B12 and TSH were normal. EEG was obtained and was normal. LFTs were somewhat elevated, which was attributed to her antiretroviral therapy. She was felt to have a complex migraine and was given antiemetics, toradol, maxalt, and lastly depakote x 3 doses. She did have improvement in her migraine. She was placed on a lower dose of metoprolol (12.5mg Bid) for the bigemini at admission and during her stay her bigemini resolved and she did not have bradycardia. The patient was discharged on this dose of metoprolol. She was advised that she should talk to either her PCP or welt stitcher to obtain a referral to en senior training specialist as an outpatient. She should also discuss a referral to neurology as an outpatient with her PCP. She should follow up with her PCP in 1 week, and with her welt stitcher in 2 weeks. She was discharged home in stable condition. This patient was seen by Chapo Maya PA-C under the supervision of Doctor Mojica. [] Patient Problems: Active and Suspected Problems (Last Updated 06/22/19 @ 10:03 by Tammy Mojica MD) Headache (Acute) Migraine (Acute) Dizziness (Acute) Bigeminal rhythm (Acute) - Physical Exam Vitals/I&O's: Vital Signs Temp Pulse Resp BP Pulse Ox 98.3 F 74 18 113/65 93 06/23/19 09:09 06/23/19 11:03 06/23/19 09:09 06/23/19 09:09 06/23/19 09:26 Oxygen Delivery Method Room Air Weight: 236 lb 12.423 oz Body Mass Index (BMI) 38.2 Finger Stick Blood Glucose 157 Intake and Output for Last 24 Hours 06/21/19 06/22/19 06/23/19 23:59 23:59 23:59 Intake Total 1574.75 / 1574.75 105 / 105 Output Total 350 / 350 Balance 1224.75 / 1224.75 105 / 105 General: Alert, Oriented x3, Cooperative HEENT: Atraumatic, PERRLA, EOMI, Normocephalic Neck: Supple, No JVD, Negative Carotid Bruits Lungs: Clear to auscultation, Normal air movement Cardiovascular: Regular rate, No murmurs Abdomen: Bowel Sounds Present, Soft, Non Tender, Obese Extremities: No edema, Capillary Refill Less than 3 Seconds Skin: No rashes, No breakdown Musculoskeletal: No Tenderness to Palpation of Joints or Extremities Neurological: Cranial nerves II-XII grossly intact Psych/Mental Status: Normal Affect, Appropriate, Alert and oriented to time, place, person, mood and affect Laboratory Results 06/22/19 13:17: Total Bilirubin 1.00, Direct Bilirubin 0.22, AST 152 H, ALT 124 H, Alkaline Phosphatase 215 H, Total Protein 7.7, Albumin 3.6, Globulin 4.1 Current Medications Aspirin (Aspirin, Baby) 81 mg PO DAILY@0800 [facility] Last Admin: 06/23/19 08:09 Dose: 81 mg Documented by: Cyanocobalamin (Vitamin B12) 500 mcg PO DAILY [facility] Last Admin: 06/23/19 09:21 Dose: 500 mcg Documented by: Dicyclomine HCl (Bentyl) 20 mg PO TIDAC PRN PRN Reason: abdominal cramping Last Admin: 06/22/19 22:49 Dose: 20 mg Documented by: Diphenhydramine HCl (Benadryl) 50 mg PO Q6H PRN PRN PRN Reason: MIGRAINE SYMPTOMS Last Admin: 06/21/19 23:55 Dose: 50 mg Documented by: Emtricitabine/Tenofovir (Truvada 200 Mg-300 Mg Tablet) 1 tablet PO DAILY [facility] Last Admin: 06/23/19 09:21 Dose: 1 tablet Documented by: Folic Acid (Folic Acid) 1 mg PO DAILY@0800 [facility] Last Admin: 06/23/19 08:09 Dose: 1 mg Documented by: Sodium Chloride () 250 mls @ 15 mls/hr IV .[id number] PRN PRN Reason: Saline Flush Last Infusion: 06/22/19 14:45 Dose: 0 mls/hr Documented by: Valproic Acid 500 mg/ Dextrose 55 mls @ 50 mls/hr IV Q8 [facility] Stop: 06/23/19 14:00 Last Infusion: 06/23/19 06:10 Dose: Infused Documented by: Ketorolac Tromethamine (Toradol) 30 mg IV Q6H PRN PRN PRN Reason: Pain Score 6-10/10 Stop: 06/26/19 23:36 Last Admin: 06/22/19 14:34 Dose: 30 mg Documented by: Lisinopril (Zestril) 10 mg PO DAILY [facility] Last Admin: 11/16/19 09:21 Dose: Not Given Documented by: Melatonin (Melatonin) 3 mg PO QHS PRN PRN Reason: SLEEP Metoprolol Tartrate (Lopressor (Beta Hesham)) 12.5 mg PO BID [facility] Last Admin: 06/23/19 09:21 Dose: 12.5 mg Documented by: Pantoprazole Sodium (Protonix) 40 mg PO BID [facility] Last Admin: 06/23/19 09:21 Dose: 40 mg Documented by: Raltegravir (Isentress) 400 mg PO BID [facility] Last Admin: 06/23/19 09:21 Dose: 400 mg Documented by: Ritonavir (Norvir) 100 mg PO BID [facility] Last Admin: 06/23/19 10:26 Dose: 100 mg Documented by: Sodium Chloride () 10 - 40 ml IV UD PRN PRN Reason: SALINE FLUSH Last Admin: 06/21/19 23:56 Dose: 10 ml Documented by: Tizanidine HCl (Zanaflex) 4 mg PO TID PRN PRN PRN Reason: muscle spasticity Discharge Diet: Low fat/ Low Cholesterol, 1800 Calorie Control Diet, 2000 mg Sodium Diet Discharge Activity: Return to Normal Activity Home Medications: Medications to take at Discharge Lisinopril [Zestril] 10 tab PO DAILY 05/11/18 folic acid 400 mcg tablet 0.4 mg PO DAILY 12/07/18 melatonin 3 mg tablet 3 mg PO HS PRN 12/07/18 loratadine 10 mg tablet 10 mg PO DAILY #60 tab 12/11/18 darunavir ethanolate 600 mg tablet 600 mg PO BID 12/20/18 dicyclomine 10 mg capsule 20 mg PO TIDAC PRN cap 12/20/18 raltegravir 400 mg tablet 400 mg PO BID 12/20/18 montelukast 10 mg tablet 10 mg PO QPM #90 tab 05/22/19 Cyanocobalamin (Vitamin B-12) [Vitamin B-12] 500 mcg PO DAILY 05/31/19 Emtricitabine/Tenofovir (Tdf) [Truvada 200 mg-300 mg Tablet] 1 ea PO DAILY 05/31/19 Magnesium Oxide [Magnesium] 250 mg PO MOWEFR 05/31/19 Multivitamin [Daily Multiple Vitamin] 1 ea PO DAILY 05/31/19 Ritonavir [Norvir] 100 mg PO BID 05/31/19 albuterol sulfate HFA 90 mcg/actuation aerosol inhaler 2 puff INHALATION Q6H PRN #18 g 06/18/19 beclomethasone diprop 40 mcg/actuation HFA breath activated aerosol 1 inh INHALATION BID #10.6 g 06/18/19 calcium carbonate 600 mg calcium (1,500 mg) tablet 600 mg PO DAILY #90 tab 06/18/19 rizatriptan 10 mg disintegrating tablet 10 mg PO ONCE PRN #10 tab 06/18/19 omeprazole 40 mg capsule,delayed release 40 mg PO BID #60 cap 06/20/19 ondansetron HCl 4 mg tablet 4 mg PO BID-TID PRN #14 tab 06/20/19 Tizanidine HCl 4 mg PO TID PRN PRN 06/21/19 Triamcinolone Acetonide 1 applic TOPICAL DAILY PRN PRN 06/21/19 Metoprolol Tartrate [Lopressor (beta hesham)] 12.5 mg PO BID #30 tab 06/23/19 Following Prescrptions Were Given to Patient: Metoprolol Tartrate [Lopressor (beta hesham)] 12.5 mg PO BID #30 tab Transmission Status: Received by [facility]/pharmacy #[id number] Primary Care Physician: Juan Manuel Maldonado MD [Primary Care Provider] - Please follow up with your Primary Care Physician in: 1 week Please Follow Up With: Sherron Le MD When: 2 weeks Disposition: Home Minutes spent on discharge:: 35 Patient Condition:: Stable Medical Necessity - Tobacco Use Smoking Status: Former smoker Tobacco Use: Non-smoker Meaningful Use Info Meaningful Use Diagnoses (Choose all that apply): None applicable <Tammy Mojica - Last Filed: 06/23/19 14:05> Discharge Date and Diagnosis - Primary Discharge Diagnosis Active and Suspected Problems (Last Updated 06/22/19 @ 10:03 by Tammy Mojica MD) Headache (Acute) Migraine (Acute) Dizziness (Acute) Bigeminal rhythm (Acute) - Secondary Discharge Diagnosis Chronic Problems (Last Updated 06/22/19 @ 10:03 by Tammy Mojica MD) Dermatitis (Chronic) Type 2 diabetes mellitus (Chronic) Bipolar 1 disorder (Chronic) Neuropathy (Chronic) Arthritis (Chronic) Osteoarthritis (Chronic) HIV (human immunodeficiency virus infection) (Chronic) Hypertension (Chronic) GERD (gastroesophageal reflux disease) (Chronic) Seasonal allergies (Chronic) History of alcoholism (Chronic) History of drug abuse (Chronic) History of blood transfusion (Chronic) History of kidney stones (Chronic) Herpes (Chronic) HIV exposure (Chronic) 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 Patient was sent to emergency department from ENT office because of abnormal heart rhythm. Patient complains of dizziness and headache. She was found to have frequent ventricular bigeminy on EKG. Patient has history of ventricular bigeminy and she was on beta-blockers but because of bradycardia, she was taken off beta-blockers. Patient reported headache, right facial twisting with numbness and tingling. She had CT scan brain that showed no evidence of acute infarct or hemorrhage. MRI brain done and showed no acute findings. MRA of the head and neck was unremarkable. Acute stroke ruled out. 2D echocardiogram revealed ejection fraction of 60%, moderate MR, revealed TR, RVSP of 35. Her routine blood work was unremarkable. Serum electrolytes were within normal limits. TSH was normal. Troponin was negative. LFT revealed elevated liver transaminases as well as alkaline phosphatase which is attributed to antiretroviral medications that patient has been taking for HIV. Patient was started on metoprolol. Neurology consulted and stated that patient may have complicated migraine/status migrainosus and she was given IV Depakote. EEG done and was normal without evidence of epileptiform discharges. On the day of discharge, patient mentioned that headache is slightly improved. On telemetry on the day of discharge, patient was in sinus rhythm with no bigeminy seen. Patient discharged home in a stable medical condition, discharged on metoprolol 12.5 mg p.o. twice daily, continued on rizatriptan for migraine, plan to follow-up with cardiology as outpatient as patient may need referral to elective physiology as outpatient, recommended follow-up with PCP in 1 week. - Physical Exam General: Alert, Oriented x3, Cooperative, No apparent distress. HEENT: Atraumatic, PERRLA, EOMI. Neck: Supple, No JVD, Negative Carotid Bruits, Trachea Midline, Thyroid Normal. Lungs: Clear to auscultation, Normal air movement, No rhonchi, No wheeze, No rales. Cardiovascular: Regular rate, Regular Rhythm, Normal S1, Normal S2, PMI Normal. Abdomen: Bowel Sounds Present, Soft, Non Tender, Non-Distended, No Hepato-splenomegaly. Extremities: No clubbing, No cyanosis, No edema Skin: No rashes, No breakdown Neurological: Neuro grossly intact Vital Signs are stable. This note was generated with [employer] dictation software. It may contain incorrect words, spelling, and punctuation that were not noted in checking the note before signing. - Physical Exam Vitals/I&O's: Vital Signs Temp Pulse Resp BP Pulse Ox 98 F 74 16 116/68 96 06/23/19 12:36 06/23/19 12:36 06/23/19 12:36 06/23/19 12:36 06/23/19 12:36 Oxygen Delivery Method Room Air Weight: 236 lb 12.423 oz Body Mass Index (BMI) 38.2 Finger Stick Blood Glucose 157 Intake and Output for Last 24 Hours 06/21/19 06/22/19 06/23/19 23:59 23:59 23:59 Intake Total 1574.75 / 1574.75 1080 / 1080 Output Total 350 / 350 Balance 1224.75 / 1224.75 1080 / 1080 Current Medications Aspirin (Aspirin, Baby) 81 mg PO DAILY@0800 [facility] Last Admin: 06/23/19 08:09 Dose: 81 mg Documented by: Cyanocobalamin (Vitamin B12) 500 mcg PO DAILY [facility] Last Admin: 06/23/19 09:21 Dose: 500 mcg Documented by: Dicyclomine HCl (Bentyl) 20 mg PO TIDAC PRN PRN Reason: abdominal cramping Last Admin: 06/22/19 22:49 Dose: 20 mg Documented by: Diphenhydramine HCl (Benadryl) 50 mg PO Q6H PRN PRN PRN Reason: MIGRAINE SYMPTOMS Last Admin: 06/21/19 23:55 Dose: 50 mg Documented by: Emtricitabine/Tenofovir (Truvada 200 Mg-300 Mg Tablet) 1 tablet PO DAILY [facility] Last Admin: 06/23/19 09:21 Dose: 1 tablet Documented by: Folic Acid (Folic Acid) 1 mg PO DAILY@0800 [facility] Last Admin: 06/23/19 08:09 Dose: 1 mg Documented by: Sodium Chloride () 250 mls @ 15 mls/hr IV .[id number] PRN PRN Reason: Saline Flush Last Infusion: 06/22/19 14:45 Dose: 0 mls/hr Documented by: Valproic Acid 500 mg/ Dextrose 55 mls @ 50 mls/hr IV Q8 [facility] Stop: 06/23/19 14:00 Last Infusion: 06/23/19 13:40 Dose: Infused Documented by: Ketorolac Tromethamine (Toradol) 30 mg IV Q6H PRN PRN PRN Reason: Pain Score 6-10/10 Stop: 06/26/19 23:36 Last Admin: 06/22/19 14:34 Dose: 30 mg Documented by: Lisinopril (Zestril) 10 mg PO DAILY [facility] Last Admin: 06/23/19 09:21 Dose: Not Given Documented by: Melatonin (Melatonin) 3 mg PO QHS PRN PRN Reason: SLEEP Metoprolol Tartrate (Lopressor (Beta Hesham)) 12.5 mg PO BID [facility] Last Admin: 06/23/19 09:21 Dose: 12.5 mg Documented by: Pantoprazole Sodium (Protonix) 40 mg PO BID [facility] Last Admin: 06/23/19 09:21 Dose: 40 mg Documented by: Raltegravir (Isentress) 400 mg PO BID [facility] Last Admin: 06/23/19 09:21 Dose: 400 mg Documented by: Ritonavir (Norvir) 100 mg PO BID [facility] Last Admin: 06/23/19 10:26 Dose: 100 mg Documented by: Sodium Chloride () 10 - 40 ml IV UD PRN PRN Reason: SALINE FLUSH Last Admin: 06/21/19 23:56 Dose: 10 ml Documented by: Tizanidine HCl (Zanaflex) 4 mg PO TID PRN PRN PRN Reason: muscle spasticity Disposition: Home Minutes spent on discharge:: 27 Patient Condition:: Stable Meaningful Use Info Meaningful Use Diagnoses (Choose all that apply): None applicable Code Visit OBSV E&M: 19173 Observation care discharge
--- NOTE | 2019-06-23 14:12 | CM.UR ---
RN CM Assessment Introduced role of RN CM to patient. Patient is alert and able to participate in RN CM Assessment. Care providers, pharmacy, and demographics verified. No family at bedside. Presentation: Lightheadedness, low HR Admit Dx: Bigeminy Re-Admit: No Barriers/Issues: none PCP: Erica Specialists: States numerous. States list already given to nurse for doctor. Preferred Pharmacy: [facility] Insurance: [facility] Rx Benefit: Yes, copays but doing ok LNOK: Stephie Fraser, mother LW/HPOA: States yes on file at [facility]. States can't get one in here right now. Living Arrangements: Duplex, one floor with basement. Lives with other family members ADL?s: Independent Transportation: Drives self but also now makes someone go with her d/t intermittent s/s. DME: None DME co: [facility] HHC: None SNF: None Goal: Home DC PLAN: Home, NN anticipated. Joaquina Richmond RN, CCM.
== END 2019-06-23 14:17 | disposition home or self-care (01) | DRG 309 ==
LOC: ED 16:51 → PCU 20:51
PROVIDERS: Physician Assistant; Psychiatry & Neurology Neurology; Admitting Provider Internal Medicine; Emergency Provider Emergency Medicine; Family Provider Internal Medicine; PCP Internal Medicine; Referring Provider Internal Medicine; Visit Provider Hospitalist
DX: I49.8 Other specified cardiac arrhythmias (principal); B20 Human immunodeficiency virus [HIV] disease; I50.32 Chronic diastolic (congestive) heart failure; G43.901 Migraine, unspecified, not intractable, with status migrainosus; I11.0 Hypertensive heart disease with heart failure; K74.60 Unspecified cirrhosis of liver; I49.3 Ventricular premature depolarization; E11.42 Type 2 diabetes mellitus with diabetic polyneuropathy; M79.7 Fibromyalgia; M19.90 Unspecified osteoarthritis, unspecified site; E53.8 Deficiency of other specified B group vitamins; E55.9 Vitamin D deficiency, unspecified; J45.909 Unspecified asthma, uncomplicated; K21.9 Gastro-esophageal reflux disease without esophagitis; F31.9 Bipolar disorder, unspecified; F41.9 Anxiety disorder, unspecified; F10.21 Alcohol dependence, in remission; E66.9 Obesity, unspecified; Z68.38 Body mass index [BMI] 38.0-38.9, adult; Z79.899 Other long term (current) drug therapy; Z87.891 Personal history of nicotine dependence
CPT/HCPCS: 70450; 70544; 70549; 70551; 71045; 80048; 80076; 80307; 81001; 82607; 84443; 84484; 85025; 85610; 85730; 93005; 93306; 95819; 99285; A9575; J7050; A4216

== ENCOUNTER → 2019-08-06 15:40 | Outpatient (CLI) | payer MEDICARE, MEDICAID, SELFPAY ==
[2019-07-18 14:48] VITALS: BMI 38.2
--- NOTE | 2019-08-06 15:42 | BI_ITS ---
MAMMOGRAPHY - BILATERAL SCREENING 3-D TOMOSYNTHESIS REASON FOR EXAM: Female, 43 years old. FAM HX 4 MAT AUNTS,3 MAT COUSINS, MOTHER? -- BASELINE -- LOST 32# -- LT NIPPLE DISCHARGE OCCASIONALLY -- BILAT TATTOOS PERTINENT HISTORY: No significant family history. TECHNIQUE: 2-D mammograms and 3-D Tomosynthesis of the breast (s) were performed. CAD was performed. COMPARISON: None. Baseline examination. FINDINGS: The breast composition is composed of scattered fibroglandular density. There is a 4.7 mm, well-circumscribed, ovoid nodule within the upper lateral left breast positioned 5.6 cm from the nipple base on the left cc view and 5.3 cm from the nipple base on the left MLO view. Recommend further characterization with sonography. There are no suspicious microcalcifications. There are no secondary signs of malignancy. BI/SCREEN MAMM (CAD) W/MICAH BILAT IMPRESSION: Subcentimeter left breast nodule as above. ASSESSMENT CATEGORY: BIRADS Category 0: Incomplete. Need additional imaging evaluation as above. A letter regarding these results will be sent to the patient by the facility within 30 days. FOLLOW UP RECOMMENDATION: Ultrasound Recommended. (I) Approximately 10% of breast cancers are not detected by mammography. A normal mammogram should not delay biopsy of a clinically suspicious abnormality. Electronically Signed: Terence Wild MD at 7:02 EST , Service support ,
== END ==
PROVIDERS: Family Provider Internal Medicine; PCP Internal Medicine; Referring Provider Internal Medicine; Visit Provider Internal Medicine
DX: Z12.31 Encounter for screening mammogram for malignant neoplasm of breast (principal)
CPT/HCPCS: 77063; 77067

== ENCOUNTER → 2019-08-06 16:09 | Outpatient (CLI) | payer MEDICARE, MEDICAID, SELFPAY ==
[2019-07-18 14:48] VITALS: BMI 38.2
[2019-08-06 17:32] LABS: Absolute Lymphocyte Count 1.81 X10^3/uL (0.83-4.51); Absolute Neutrophil Count 3.5 X10^3/uL (2.0-7.7); Basophil# 0.02 X10^3/uL; Basophil% 0.3 % (0-1); Eosinophil# 0.35 X10^3/uL; Eosinophils% 5.8 % (0-5); Hematocrit 43.6 % (37-47); Hemoglobin 14.4 g/dL (12.0-15.0); Lymphocyte # 1.81 X10^3/ul (4.0); Lymphocyte % 30.1 % (19-41); Mean Corpuscular Hgb 28.9 pg (27.0-32.0); Mean Corpuscular Volume 87.4 fL (81-99); Mean Platelet Vol. 11.7 fl (6.2-12.0); Monocyte# 0.31 X10^3/uL; Monocyte% 5.2 % (0-10); NRBC Flagged by Analyzer 0 % (0-5); Neutrophil % 58.3 % (47-70); Platelet Count 114 K/mm3 (150-450); RBC Distribution Width CV 13.2 % (11.6-14.6); RBC Distribution Width SD 41.9 fl (35.1-43.9); Red Blood Count 4.99 M/mm3 (4.2-5.4)
[2019-08-06 18:07] LABS: Vitamin D,25 Hydroxy 17.1 ng/mL (29.95-100.01)
[2019-08-06 18:12] LABS: ALB/GLOB Ratio 0.7 RATIO (0.9-2.4); AST(SGOT) 144 U/L (15-37); Alanine Aminotransfer ALT/SGPT 110 U/L (13-56); Albumin, Serum 3.5 g/dL (3.2-5.0); Alkaline Phosphatase 210 U/L (45-117); Anion Gap 8 (5-15); BUN 10 mg/dL (7-18); BUN/Creat Ratio 11.5 RATIO (10-20); Calcium,Total 8.6 mg/dL (8.5-10.1); Chloride 107 mmol/L (98-107); Cholesterol 124 mg/dL (200); Creatinine, Serum 0.87 mg/dL (0.55-1.02); EST Glomerular Filtration Rate 76 mL/min (>60); Est Glom Filt Rate - Afr Amer 91 mL/min (>60); Globulin 4.9 g/dL (2.2-4.2); Glucose 140 mg/dL (74-106); High Density Lipoprotein 19 mg/dL; Potassium 3.9 mmol/L (3.5-5.1); Protein, Total 8.4 g/dL (6.4-8.2); Sodium Level 138 mmol/L (136-145); Triglycerides 206 mg/dL; Very Low Density Lipoprotein 41 mg/dL (5-40)
[2019-08-07 09:55] LABS: Hepatitis B Surface Antibody Reactive; Hepatitis B Surface Antigen Non-Reactive (Nonreactive); Hepatitis C Antibody Non-Reactive (Nonreactive)
[2019-08-09 02:24] LABS: Rapid Plasmin Reagin (RPR) NONREACTIVE (NONREACTIVE)
[2019-08-09 16:07] LABS: Absolute CD4 Helper 319 /uL (359-1519); Basophils (Absolute) 0 x10E3/uL (0.0-0.2); Eosinophils 6 % (Not Estab.); Eosinophils (Absolute) 0.4 x10E3/uL (0.0-0.4); HEPATITIS B SURFACE AG Negative (Negative); Hematocrit 43.3 % (34.0-46.6); Hemoglobin 14.3 g/dL (11.1-15.9); Hepatitis A AB, Total Positive (Negative); Hepatitis A IgM Antibody Negative (Negative); Hepatitis B Core AB IgM Negative (Negative); Hepatitis B Core Ab Total Negative (Negative); Hepatitis C Ab <0.1 s/co ratio (0.0-0.9); Immature Granulocytes 0 % (Not Estab.); Immature Granulocytes Absolute 0 x10E3/uL (0.0-0.1); Lymphs 31 % (Not Estab.); Lymphs (Absolute) 2.1 x10E3/uL (0.7-3.1); MCH 29.4 pg (26.6-33.0); MCV 89 fL (79-97); Monocytes 4 % (Not Estab.); Monocytes (Absolute) 0.2 x10E3/uL (0.1-0.9); Neutrophils 59 % (Not Estab.); Neutrophils (Absolute) 3.9 x10E3/uL (1.4-7.0); Percent % CD4 Pos. Lymph. 15.2 % (30.8-58.5); Platelets 128 x10E3/uL (150-450); RBC Count 4.86 x10E6/uL (3.77-5.28); WBC Count 6.6 x10E3/uL (3.4-10.8)
[2019-08-10 12:53] LABS: HIV-1 RNA by PCR, Quant. 197000 copies/mL (.); Hep B Surface Antibodies Reactive (.); LOG10 HIV-1 RNA 5.294 (.); RDW 14.3 % (12.3-15.4)
== END ==
PROVIDERS: Family Provider Internal Medicine; PCP Internal Medicine; Referring Provider Internal Medicine Infectious Disease; Visit Provider Internal Medicine Infectious Disease
DX: Z12.31 Encounter for screening mammogram for malignant neoplasm of breast (principal); B20 Human immunodeficiency virus [HIV] disease; K76.0 Fatty (change of) liver, not elsewhere classified; E78.5 Hyperlipidemia, unspecified; E55.9 Vitamin D deficiency, unspecified; R11.2 Nausea with vomiting, unspecified; K21.9 Gastro-esophageal reflux disease without esophagitis
CPT/HCPCS: 36415; 77063; 77067; 80053; 80061; 82306; 85025; 86361; 86592; 86704; 86705; 86706; 86708; 86709; 86803; 87340; 87536

== ENCOUNTER 2019-08-09 23:14 | Emergency (ER) | payer MEDICARE, SELFPAY ==
[2019-07-18 14:48] VITALS: BMI 38.2
[2019-08-09 23:15] VITALS: BP 150/93; PULSE 114; RESP 20; TEMP 36.2; O2SAT 100; BMI 37.7
--- NOTE | 2019-08-10 00:06 | ED.VIS.GEN ---
History of Present Illness Chief Complaint: Wound Narrative: Stated that she has been itching her whole body diffusely over the last several weeks. She stated she thinks she might have fleas. She has washed her sheets with hot water. She found a bug inside her bra last week and that concerned her that she could be getting bit by it. Patient stated she is noticed some redness on her distal right ankle and some mild redness around some of the lesions. She does have HIV. She has not been taking her medications for the last 4 months that she has not followed up. Patient saw her family doctor approximately 2 weeks ago for these wounds. Her doctor did not feel that she had a cellulitis so they without antibiotics. - Past Medical History (1) Bigeminal rhythm Status: Acute (2) Dizziness Status: Acute (3) Headache Status: Acute (4) History of shingles Status: Acute (5) Migraine Status: Acute (6) Anxiety Status: Chronic (7) Arthritis Status: Chronic (8) Asthma Status: Chronic (9) Bipolar 1 disorder Status: Chronic (10) CHF (congestive heart failure) Status: Chronic (11) Depression Status: Chronic (12) Dermatitis Status: Chronic (13) Diabetes mellitus Status: Chronic (14) Diverticulosis Status: Chronic (15) Enlargement, spleen Status: Chronic (16) Fibromyalgia Status: Chronic (17) GERD (gastroesophageal reflux disease) Status: Chronic (18) HIV (human immunodeficiency virus infection) Status: Chronic (19) HIV exposure Status: Chronic (20) 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 (21) Herpes Status: Chronic (22) Hiatal hernia Status: Chronic (23) History of alcoholism Status: Chronic (24) History of blood transfusion Status: Chronic (25) History of drug abuse Status: Chronic (26) History of kidney stones Status: Chronic (27) Hypertension Status: Chronic (28) Insomnia Status: Chronic (29) Neuropathy Status: Chronic (30) Obesity Status: Chronic (31) Osteoarthritis Status: Chronic (32) Polyneuropathy Status: Chronic (33) Seasonal allergies Status: Chronic (34) Type 2 diabetes mellitus Status: Chronic (35) Vitamin B12 deficiency Status: Chronic (36) Vitamin D deficiency Status: Chronic Past Medical History - Allergies and Home Meds Allergies/Adverse Reactions: Allergies Iodinated Contrast Media [Iodinated Contrast- Oral and IV Dye] Allergy (Unknown, Verified 06/21/19 15:02) unknown amoxicillin Allergy (Verified 06/21/19 15:02) Hives hydrocodone [From Vicodin] Allergy (Verified 06/21/19 15:02) Unknown methylprednisolone [From Medrol] Allergy (Verified 06/21/19 15:02) Hives prochlorperazine [From Compazine] Allergy (Verified 06/21/19 15:02) Other prochlorperazine edisylate [From Compazine] Allergy (Verified 06/21/19 15:02) Other prochlorperazine maleate [From Compazine] Allergy (Verified 06/21/19 15:02) Other acetaminophen [From Tylenol] Adverse Reaction (Verified 06/21/19 15:02) Other sumatriptan [From Imitrex] Adverse Reaction (Verified 06/21/19 15:02) Hives A MIGRAINE MED Allergy (Uncoded 06/21/19 15:02) Other Primary Care Physician: Juan Manuel Maldonado MD [Primary Care Provider] - Prior records reviewed: Yes Past Medical History: - - See problem list Surgical History: appendectomy, hysterectomy, tonsillectomy, - - cardiac cath, shoulder surgery, trigger finger surgery, arthroscopic knee surgery Lives: With Family Smoking Status: Former smoker Alcohol: None Drugs: None - Family History Maternal Family History: Family History (Last Reviewed 07/18/19 @ 14:47 by Enma Brown) Other Alcoholism Anxiety and depression Arthritis Asthma Breast cancer CVA (cerebral vascular accident) Cancer Diabetes Heart disease Hyperlipemia Hypertension Kidney disease Myocardial infarction Seizures Family History: Reports: COPD Paternal Family History: Family History (Last Reviewed 07/18/19 @ 14:47 by Enma Brown) Other Alcoholism Anxiety and depression Arthritis Asthma Breast cancer CVA (cerebral vascular accident) Cancer Diabetes Heart disease Hyperlipemia Hypertension Kidney disease Myocardial infarction Seizures Family History: Reports: COPD Review of Systems General: Denies: Chills, Fever, Sweats Eyes: Denies: Visual changes - bilaterally, Diplopia ENT: Denies: Rhinorrhea, Sore throat Cardiovascular: Denies: Chest pain, Palpitations Respiratory: Denies: Dyspnea, Cough, Dyspnea on exertion Gastrointestinal: Denies: Abdominal pain, Nausea, Vomiting, Diarrhea, Melena, Hematochezia Genitourinary: Denies: Dysuria, Hematuria, Frequency Musculoskeletal: Denies: Back pain, Extremity Pain Skin: Reports: Wounds Neurological: Denies: Headache, Weakness, Numbness Physical Exam Vital Signs/Narrative: Vital Signs Temp Pulse Resp BP Pulse Ox 08/09/19 23:15 97.1 F L 114 H 20 H 150/93 H 100 General: Well nourished, Well developed, No Acute Distress Head: Normocephalic, Atraumatic Eyes: Perrl, EOMI ENT: Moist mucous membranes, No rhinorrhea Neck: Supple, Nontender Cardiovascular: Regular rate, Regular rhythm, No murmurs Respiratory: No distress, CTA bilaterally, Chest nontender Abdomen: Soft, Nontender, Nondistended, Normal bowel sounds Back: Nontender, Normal Inspection Extremities: Nontender, No edema Skin: - - Patient has multiple scab-like areas that it appears that she has itched open because superficial wounds. The one on her ankle has a superficial cellulitis measuring 4 x 4 cm. There is no fluctuance or abscess. There is no necrotizing areas.. Negative for: Normal color, No rash Neurological: Alert, Oriented x3, Cranial nerves II-XII grossly intact, Normal Strength, Normal Sensation Psychological: Normal affect, Normal Mood Diagnostic/Tx/Re-eval - Medical Decision Making Patient has multiple areas that she has been itching open. She was given Benadryl. She has been using Neosporin on these areas when they break open. Instructed to use Benadryl. Given Keflex for superficial cellulitis of her right ankle. This is a very small area I do not feel she needs IV antibiotic treatment. She will follow-up as an outpatient ED Disposition - Plan for ED Patient: Disposition: Home or Assisted Living Diagnosis: Cellulitis, leg Instructions: Cellulitis Prescriptions: Smz/Tmp Ds [Bactrim Ds] 2 tab PO BID #40 tab Prescription Printed Cephalexin [Keflex] 500 mg PO Q6 #40 cap Prescription Printed Referrals: Juan Manuel Maldonado MD [Primary Care Provider] -
[2019-08-10] MEDS: DiphenhydrAMINE 25 MG Capsule PO (00:23)
[2019-08-10] MEDS: Cephalexin 250 MG Capsule 500 MG PO (00:23)
[2019-08-10] MEDS: Smz/Tmp Ds Tablet 2 TABLET PO (00:23)
== END 2019-08-10 00:23 | disposition home or self-care (01) ==
PROVIDERS: Emergency Provider Emergency Medicine; Family Provider Internal Medicine; PCP Internal Medicine
DX: L03.115 Cellulitis of right lower limb (principal); I11.0 Hypertensive heart disease with heart failure; I50.9 Heart failure, unspecified; Z21 Asymptomatic human immunodeficiency virus [HIV] infection status; E11.42 Type 2 diabetes mellitus with diabetic polyneuropathy; M19.90 Unspecified osteoarthritis, unspecified site; J45.909 Unspecified asthma, uncomplicated; M79.7 Fibromyalgia; E55.9 Vitamin D deficiency, unspecified; E53.8 Deficiency of other specified B group vitamins; G47.00 Insomnia, unspecified; K21.9 Gastro-esophageal reflux disease without esophagitis; F10.21 Alcohol dependence, in remission; F31.9 Bipolar disorder, unspecified; F41.9 Anxiety disorder, unspecified; E66.9 Obesity, unspecified; Z79.899 Other long term (current) drug therapy; Z88.5 Allergy status to narcotic agent; Z88.8 Allergy status to other drugs, medicaments and biological substances; Z88.6 Allergy status to analgesic agent; Z87.442 Personal history of urinary calculi; Z87.891 Personal history of nicotine dependence; Z90.710 Acquired absence of both cervix and uterus
CPT/HCPCS: 99283

== ENCOUNTER → 2019-08-10 14:14 | Outpatient (CLI) | payer MEDICARE, MEDICAID, SELFPAY ==
[2019-07-18 14:48] VITALS: BMI 38.2
[2019-08-09 23:15] VITALS: BMI 37.7
--- NOTE | 2019-08-10 14:30 | US_ITS ---
STUDY: ULTRASOUND BREAST - LEFT REASON FOR EXAM: Female, 43 years old. Abnormal screening mammogram. TECHNIQUE: Axial and longitudinal images of the LEFT breast were performed with a high resolution ultrasound transducer. # OF IMAGES: 31 COMPARISON: Comparison is made with prior mammogram dated August 06, 2019. FINDINGS: LEFT Breast: The left upper outer quadrant was examined by ultrasound. No sonographic abnormality is seen. US/Breast Limited Unilateral IMPRESSION: No sonographic abnormality is seen. ASSESSMENT CATEGORY: BIRADS Category 1: Negative. A letter regarding these results will be sent to the patient by the facility within 30 days. Electronically Signed: Del Amato, at 10:10 EST , Service support ,
[2019-08-10 17:11] LABS: Color, Urine Amber (Yellow); Glucose, Dipstick Normal (Normal); Ketone-Dipstick 5 mg/dl (Negative); Leukocyte Esterase-Dipstick Negative /ul (Negative); Nitrite-Dipstick Negative (Negative); Occult Blood-Urine 10 /ul (Negative); Protein-Dipstick 30 mg/dl (Negative); Specific Gravity, Urine 1.025 (1.002-1.030); Urine Clarity Cloudy (Clear); Urine Urobilinogen 4 mg/dl (Normal)
[2019-08-10 17:12] LABS: Urine Bilirubin Dipstick 1 mg/dL (Negative)
[2019-08-10 18:59] LABS: Chlamydia Trachomatis by PCR Negative (Negative); Neisserai gonorrhoeae by PCR Negative (Negative); Probe Check PASS; Sample Adequacy Control PASS; Specimen Processing Control PASS
== END ==
PROVIDERS: Family Provider Internal Medicine; PCP Internal Medicine; Referring Provider Internal Medicine; Visit Provider Internal Medicine
DX: R92.8 Other abnormal and inconclusive findings on diagnostic imaging of breast (principal); B20 Human immunodeficiency virus [HIV] disease; E78.5 Hyperlipidemia, unspecified
CPT/HCPCS: 76641; 76642; 81002; 87491; 87591

== ENCOUNTER 2019-09-08 22:18 | Emergency (ER) | payer MEDICARE, MEDICAID, SELFPAY ==
[2019-09-08 22:18] VITALS: BP 133/77; PULSE 97; RESP 16; TEMP 36.8; O2SAT 96; BMI 36.8
--- NOTE | 2019-09-08 22:45 | CT_ITS ---
STUDY: CT ABDOMEN AND PELVIS WITH CONTRAST REASON FOR EXAM: Female, 43 years old. RIGHT SIDED PAIN S/P US BX OF LIVER, RADIATES TO SHOULDER, SWELLING AT SITE, FEVER, PT HAS HIV, CIRRHOSIS, CERVICAL AND OVARIAN CA, IAN, HTN, MT, DIAB-NO MEDS, APPY, GB, HERNIA REPAIR, TUBAL,KS RADIATION DOSAGE (If Supplied By Facility): CTDIvol = ( 16.92 ) mGy, DLP = ( 1343.97 ) mGycm TECHNIQUE: Transaxial images were obtained from the dome of the diaphragm to the symphysis pubis without oral contrast. IV 100mL Isovue-370 was administered. Sagittal and coronal images were reconstructed. Individualized dose optimization techniques were used for this CT. COMPARISON: CT abdomen and pelvis from 12/05/2017 FINDINGS: The visualized lung bases demonstrated bibasilar lung atelectasis.. The visualized portions of the heart are within normal limits. Tiny subcapsular liver hypodensity within the right hepatic lobe, series 2 images 31 which is too small to characterize. There are surgical clips in the gallbladder fossa consistent with a prior cholecystectomy. Normal spleen. Normal pancreas. The liver and spleen appear borderline prominent in size. Normal bilateral adrenal glands. Normal right kidney. Normal left kidney. Normal visualized stomach. Normal small intestine. Normal colon. There is non-visualization of the appendix. Normal abdominal aorta. Normal inferior vena cava. Normal retroperitoneum. Normal urinary bladder. The uterus is not visualized. Normal abdominal wall. Normal osseous structures. There is trace fat stranding changes within the right lateral abdominal wall. No focal fluid collections visualized. CT/Abdomen/Pelvis W IV Cont ONLY IMPRESSION: Trace fat stranding within the right lateral abdominal wall subcutaneous fat likely due to recent reported biopsy and tiny 4 mm subcapsular right hepatic lobe hypodensity likely representing biopsy tract site. No hemorrhage or hematoma formation visualized otherwise negative enhanced CT of the abdomen and pelvis for acute abnormality. Electronically Signed: Nakul rGeen, at 0:34 EST Tel , Service support ,
--- NOTE | 2019-09-08 22:47 | ED.VIS.GEN ---
History of Present Illness Chief Complaint: Abd Pain Narrative: Patient states that yesterday she underwent a liver biopsy at [facility]. She states that she has had worsening pain. Today at noon she had 102 fever. She did not take anything for it. Around 5 she called the on-call doctor and spoke with them around 7. She states she has been sleeping more. She has a slight cough. Past Medical History - Allergies and Home Meds Allergies/Adverse Reactions: Allergies Iodinated Contrast Media [Iodinated Contrast- Oral and IV Dye] Allergy (Unknown, Verified 09/09/19 00:00) Hives pt states only when she has both together-no reaction to solely IV contrast. amoxicillin Allergy (Verified 09/08/19 22:28) Hives hydrocodone [From Vicodin] Allergy (Verified 09/08/19 22:28) Unknown methylprednisolone [From Medrol] Allergy (Verified 09/08/19 22:28) Hives moxifloxacin Allergy (Verified 09/08/19 22:28) Shortness of breath prochlorperazine [From Compazine] Allergy (Verified 09/08/19 22:28) Other prochlorperazine edisylate [From Compazine] Allergy (Verified 09/08/19 22:28) Other prochlorperazine maleate [From Compazine] Allergy (Verified 09/08/19 22:28) Other acetaminophen [From Tylenol] Adverse Reaction (Verified 09/08/19 22:28) Other sumatriptan [From Imitrex] Adverse Reaction (Verified 09/08/19 22:28) Hives A MIGRAINE MED Allergy (Uncoded 09/08/19 22:28) Other Primary Care Physician: Juan Manuel Maldonado MD [Primary Care Provider] - Surgical History: appendectomy, hysterectomy, tonsillectomy, - - cardiac cath, shoulder surgery, trigger finger surgery, arthroscopic knee surgery Smoking Status: Former smoker - Family History Maternal Family History: Family History (Last Reviewed 07/18/19 @ 14:47 by Enma Brown) Other Alcoholism Anxiety and depression Arthritis Asthma Breast cancer CVA (cerebral vascular accident) Cancer Diabetes Heart disease Hyperlipemia Hypertension Kidney disease Myocardial infarction Seizures Family History: Reports: COPD Paternal Family History: Family History (Last Reviewed 07/18/19 @ 14:47 by Enma Brown) Other Alcoholism Anxiety and depression Arthritis Asthma Breast cancer CVA (cerebral vascular accident) Cancer Diabetes Heart disease Hyperlipemia Hypertension Kidney disease Myocardial infarction Seizures Family History: Reports: COPD Review of Systems General: Reports: Fever. Denies: Chills, Sweats Eyes: Denies: Visual changes - bilaterally, Diplopia ENT: Denies: Rhinorrhea, Sore throat Cardiovascular: Denies: Chest pain, Palpitations Respiratory: Reports: Cough. Denies: Dyspnea, Dyspnea on exertion Gastrointestinal: Reports: Abdominal pain. Denies: Nausea, Vomiting, Diarrhea, Melena, Hematochezia Genitourinary: Denies: Dysuria, Hematuria, Frequency Musculoskeletal: Denies: Back pain, Extremity Pain Skin: Denies: Rash, Wounds Neurological: Denies: Headache, Weakness, Numbness Physical Exam Vital Signs/Narrative: Vital Signs Temp Pulse Resp BP Pulse Ox 09/08/19 22:18 98.2 F 97 16 133/77 H 96 Inital Vital Signs reviewed: Yes General: Well nourished, Well developed, No Acute Distress Head: Normocephalic, Atraumatic Eyes: Perrl, EOMI ENT: Moist mucous membranes, No rhinorrhea Neck: Supple, Nontender Cardiovascular: Regular rate, Regular rhythm, No murmurs Respiratory: No distress, CTA bilaterally, Chest nontender Abdomen: Soft, Nondistended, Normal bowel sounds, Tender, - - Is a Band-Aid in the right mid axillary/flank area with a mild amount of surrounding ecchymosis. No significant swelling noted. The abdomen is otherwise soft. Back: Nontender, Normal Inspection Extremities: Nontender, No edema Skin: Normal color, No rash Neurological: Alert, Oriented x3, Cranial nerves II-XII grossly intact, Normal Strength, Normal Sensation Psychological: Normal affect, Normal Mood Diagnostic/Tx/Re-eval - Medical Decision Making Basic labs were not significantly changed from previous injury. The macular point with radiotherapy. CT of the pelvis does not demonstrate any significant complications from the procedure. Chest x-ray shows some atelectatic changes which could be the cause of the fever earlier in the day. However she is not febrile now. I spoke with Dr. Ramírez who is the on-call inventory control assistant that she spoke with earlier. We will be treating her pain with some oxycodone and have her follow-up. She is to call her doctor's office on Tuesday and inform them of her ED visit and tell them how she is feeling. Talked about deep breathing to help with the atelectasis and to help limit the possibility of pneumonia. ED Disposition - Plan for ED Patient: Disposition: Home or Assisted Living Diagnosis: Post-operative pain Instructions: POST OP WOUND CHECK, Pain Prescriptions: Oxycodone [Oxyir] 5 mg PO Q6H PRN PRN 3 Days #12 tab PRN Reason: pain Prescription Printed Additional Instructions: Call your doctors office on Tuesday and let them know how you are feeling and inform them of your ED visit amarjit
[2019-09-08] MEDS: Morphine 4 MG/ML Syringe IV (23:08)
[2019-09-08 23:17] LABS: Absolute Lymphocyte Count 0.99 X10^3/uL (0.83-4.51); Absolute Neutrophil Count 1.8 X10^3/uL (2.0-7.7); Basophil# 0.01 X10^3/uL; Basophil% 0.3 % (0-1); Eosinophil# 0.25 X10^3/uL; Eosinophils% 7.3 % (0-5); Hematocrit 39.2 % (37-47); Hemoglobin 12.7 g/dL (12.0-15.0); Lymphocyte # 0.99 X10^3/ul (4.0); Lymphocyte % 28.9 % (19-41); Mean Corp Hgb Conc 32.4 g/dL (32-36); Mean Corpuscular Hgb 28.7 pg (27.0-32.0); Mean Corpuscular Volume 88.7 fL (81-99); Mean Platelet Vol. 10.7 fl (6.2-12.0); Monocyte# 0.33 X10^3/uL; Monocyte% 9.6 % (0-10); NRBC Flagged by Analyzer 0 % (0-5); Neutrophil % 52.4 % (47-70); POSITIVE COUNT YES; Platelet Count 83 K/mm3 (150-450); RBC Distribution Width CV 13.1 % (11.6-14.6); Red Blood Count 4.42 M/mm3 (4.2-5.4); White Blood Count 3.4 K/mm3 (4.4-11.0)
[2019-09-08 23:28] LABS: AST(SGOT) 157 U/L (15-37); Alanine Aminotransfer ALT/SGPT 103 U/L (13-56); Albumin, Serum 3.1 g/dL (3.2-5.0); Alkaline Phosphatase 205 U/L (45-117); Anion Gap 5 (5-15); BUN 9 mg/dL (7-18); BUN/Creat Ratio 10.2 RATIO (10-20); Bilirubin, Direct 0.52 mg/dL (0.00-0.30); Calcium,Total 8.6 mg/dL (8.5-10.1); Chloride 108 mmol/L (98-107); Creatinine, Serum 0.88 mg/dL (0.55-1.02); EST Glomerular Filtration Rate 74 mL/min (>60); Est Glom Filt Rate - Afr Amer 90 mL/min (>60); Estimated Creatinine Clearance 77.96 ml/min; Globulin 4.7 g/dL (2.2-4.2); Glucose 148 mg/dL (74-106); Lipase 123 U/L (73-393); Potassium 3.7 mmol/L (3.5-5.1); Protein, Total 7.8 g/dL (6.4-8.2); Sodium Level 138 mmol/L (136-145)
--- NOTE | 2019-09-08 23:45 | RAD_ITS ---
STUDY: X-RAY CHEST REASON FOR EXAM: Female, 43 years old. FEVER, PT HAD LIVER BIOPSY YESTERDAY TECHNIQUE: PA and lateral COMPARISON: 06/21/2019 FINDINGS: The lungs demonstrate bibasilar minimal atelectasis. Normal size heart. Normal mediastinum and donta. Normal visualized pulmonary arteries. Normal visualized aortic arch and descending thoracic aorta. Normal visualized thoracic spine. There is fixation of the distal right clavicle. There is no demonstrated abnormality of the visualized soft tissue structures of the upper abdomen. RAD/Chest PA and Lateral IMPRESSION: Minimal bibasilar lung atelectasis. Electronically Signed: Nakul Green, at 0:36 EST Tel , Service support ,
[2019-09-09 00:30] LABS: Bacteria 0 SEEN /hpf (None Seen); Mucous, Urine 0 SEEN /hpf (<or=2+); Red Blood Cells-Urine 0 SEEN /hpf (0-5); White Blood Cells 0 SEEN /hpf (0-5)
[2019-09-09 00:31] LABS: Color, Urine Yellow (Yellow); Glucose, Dipstick Normal (Normal); Ketone-Dipstick Negative (Negative); Leukocyte Esterase-Dipstick Negative /ul (Negative); Nitrite-Dipstick Negative (Negative); Occult Blood-Urine Negative /ul (Negative); Protein-Dipstick Negative (Negative); Urine Bilirubin Dipstick Negative (Negative); Urine Clarity Clear (Clear); Urine Urobilinogen 4 mg/dl (Normal)
[2019-09-09 00:39] LABS: Squamous Epithelial Cells - UA 0-5 SEEN /hpf (5-10)
[2019-09-09 00:57] VITALS: BP 115/62; PULSE 55; RESP 16; O2SAT 99
== END 2019-09-09 01:22 | disposition home or self-care (01) ==
PROVIDERS: Emergency Provider Emergency Medicine; PCP Internal Medicine
DX: G89.18 Other acute postprocedural pain (principal); Z98.890 Other specified postprocedural states; R10.9 Unspecified abdominal pain; R50.9 Fever, unspecified; R05 Cough; Z79.84 Long term (current) use of oral hypoglycemic drugs; Z79.899 Other long term (current) drug therapy; Z88.5 Allergy status to narcotic agent; Z88.8 Allergy status to other drugs, medicaments and biological substances; Z88.6 Allergy status to analgesic agent; Z87.891 Personal history of nicotine dependence; Z90.710 Acquired absence of both cervix and uterus
CPT/HCPCS: 71046; 74177; 80048; 80076; 81001; 83690; 85025; 96374; 99284; Q9967; A4216

== ENCOUNTER → 2019-09-25 17:03 | Outpatient (CLI) | payer MEDICARE, MEDICAID, SELFPAY ==
[2019-09-19 16:22] VITALS: BMI 36.8
== END ==
LOC: LAB.FUTURE 10-20 10:16 → LAB 01-17 06:13
PROVIDERS: PCP Internal Medicine; Referring Provider Internal Medicine Infectious Disease; Visit Provider Internal Medicine Infectious Disease
DX: B20 Human immunodeficiency virus [HIV] disease (principal)
CPT/HCPCS: 36415

== ENCOUNTER 2019-11-28 15:11 | Emergency (ER) | payer MEDICARE, SELFPAY ==
[2019-09-19 16:22] VITALS: BMI 36.8
[2019-11-28 15:14] VITALS: BP 136/79; PULSE 91; RESP 17; TEMP 36.7; O2SAT 98; BMI 34.7
--- NOTE | 2019-11-28 15:49 | RAD_ITS ---
STUDY: X-RAY CHEST REASON FOR EXAM: Female, 43 years old. FEVER, MIGRAINE X 1 MONTH TECHNIQUE: Single AP portable view of the chest. COMPARISON: 09/08/2019 FINDINGS: The lungs are clear and expanded. There is no demonstrated pleural abnormality. Normal size heart. Normal mediastinum and donta. Normal visualized pulmonary arteries. Normal visualized aortic arch and descending thoracic aorta. Normal visualized thoracic spine. Normal visualized ribs, clavicles, and shoulders. There is no demonstrated abnormality of the visualized soft tissue structures of the upper abdomen. RAD/Chest 1 View (Portable) IMPRESSION: Normal x-ray examination of the chest. Electronically Signed: Barry Og MD at 17:00 EDT Tel , Service support ,
--- NOTE | 2019-11-28 15:56 | CT_ITS ---
STUDY: CT BRAIN WITH AND WITHOUT CONTRAST REASON FOR EXAM: Female, 43 years old. HIV + W/ FEVER AND MIGRAINES X 1 MONTH. RADIATION DOSAGE (If Supplied By Facility): CTDIvol = ( 44.99 ) mGy, DLP = ( 1513.48 ) mGycm TECHNIQUE: Transaxial CT imaging of the brain was performed pre and post contrast administration. The examination was performed with intravenous administration of IV 50mL Isovue-370. Individualized dose optimization techniques were used for this CT. COMPARISON: 06/21/2019 FINDINGS: Normal soft tissue structures. Normal calvarium. Normal size ventricles and extra-axial spaces for the patient''s age. Normal white matter tracts of the cerebral hemispheres. Normal basal ganglia and thalami. Normal brainstem. Normal cerebellum. There is no intracranial hemorrhage. There are no findings of an acute ischemic infarction. Normal visualized paranasal sinuses. CT/Brain/Head W/WO Contrast IMPRESSION: Normal unenhanced and enhanced CT scan of the brain. Electronically Signed: Barry Og MD at 17:15 EDT Tel , Service support ,
[2019-11-28 16:11] LABS: Absolute Lymphocyte Count 1.73 X10^3/uL (0.83-4.51); Absolute Neutrophil Count 1.4 X10^3/uL (2.0-7.7); Basophil# 0.02 X10^3/uL; Basophil% 0.6 % (0-1); Eosinophil# 0.15 X10^3/uL; Eosinophils% 4.3 % (0-5); Hematocrit 33.4 % (37-47); Hemoglobin 10.9 g/dL (12.0-15.0); Lymphocyte # 1.73 X10^3/ul (4.0); Lymphocyte % 49.9 % (19-41); Mean Corp Hgb Conc 32.6 g/dL (32-36); Mean Corpuscular Hgb 29.2 pg (27.0-32.0); Mean Corpuscular Volume 89.5 fL (81-99); Mean Platelet Vol. 11.2 fl (6.2-12.0); Monocyte# 0.17 X10^3/uL; Monocyte% 4.9 % (0-10); NRBC Flagged by Analyzer 0 % (0-5); Neutrophil # 1.39 X10^3/uL (2.7-7.7); POSITIVE COUNT YES; POSITIVE MORPHOLOGY YES; Platelet Count 93 K/mm3 (150-450); RBC Distribution Width CV 15.7 % (11.6-14.6); RBC Distribution Width SD 51.3 fl (35.1-43.9); Red Blood Count 3.73 M/mm3 (4.2-5.4); White Blood Count 3.5 K/mm3 (4.4-11.0)
[2019-11-28] MEDS: 0.9% Normal Saline 1,000 ML 1000 ML IV (16:11)
[2019-11-28] MEDS: Ketorolac 30 MG/ML Syringe IV (16:11)
[2019-11-28 16:12] LABS: Differential Indicated SCAN CRITERIA MET
[2019-11-28] MEDS: DiphenhydrAMINE 50 MG/ML Syringe 25 MG IV (16:22)
[2019-11-28] MEDS: Metoclopramide 10 MG/2 ML Vial IV (16:22)
--- NOTE | 2019-11-28 16:22 | ED.VISSUMM ---
- ER Visit Summary Date of Service: 11/28/19 Chief Complaint: Fever History of Present Illness: The patient is a 43 F complex past medical history including HIV, chronic migraines, diet-controlled diabetes, fibromyalgia, chronic pain, neuropathies. Patient's had multiple surgeries. She states for 1 month she has had daily headaches. And fevers between 102 and 104 that come and go and are typically worse at night. She has had a mild nonproductive cough. But she said she is had a cough since she quit smoking last May. Denies any nausea, vomiting or diarrhea. No neck pain. No sore throat or earache. No dysuria. No rash. No known COVID exposure. Physical Examination: Middle-aged female no acute distress. Vital signs are stable afebrile. Temperature is 98. She does not look septic or toxic or in any distress. HEENT exam normal. Pupils are unreactive light. No facial droop. Posterior pharynx normal. TMs normal. Neck nontender no lymphadenopathy. No meningismus. Able to touch chin to chest. Lungs clear to auscultation bilaterally. Heart regular rhythm no murmur. Abdomen soft nontender normal bowel sounds no peritoneal signs. Extremities moves all 4. Normal strength. 5-5 elevators inspector strength. Dorsi plantarflexion intact. Back nontender. Skin no rashes. No bruising. Multiple tattoos. Neurologically she is awake and alert. No focal motor deficits. Test Results: Test x-ray read as normal portable 1 view read both myself and the radiologist. CAT scan of the brain with and without contrast read by the radiologist as normal. Reviewed by me. CBC white count of 4. Hemoglobin 10.9. No bands. Chemistries unremarkable glucose of 172. Normal creatinine gap. UA negative. Blood cultures pending. Respiratory panel and CD4 count pending. And COVID-19 test pending. I discussed that with Dr. Garnett the infectious disease specialist and he wanted it sent through [facility]. Emergency Department Course and Treatment: HIV-positive patient with intermittent fevers for a month and intermittent headaches with a history of chronic pain and chronic headaches. Treated with IV fluids, IV Toradol, IV Benadryl and IV Reglan for the headaches. Her infectious disease physician called in prior to arrival and wanted specific work-up done. Including imaging of her brain. Her exam is basically normal. Her neurologic exam is normal. Repeat exam patient is doing well at 1758. Her headaches resolving. Her Exam is unchanged. Normal. Treatment Plan: Outpatient follow-up with her infectious disease physician. He is going to restart her HIV meds. And will follow-up outpatient testing. Disposition: Discharge Impression: Acute fever uncertain etiology Acute on chronic headaches. Rule out COVID Chronic pain. History of HIV and immunocompromise. This note was generated with [employer] dictation software. It may contain incorrect words, spelling, and punctuation that were not noted in review of the chart prior to signing ED Disposition - Plan for ED Patient: Referrals: Juan Manuel Maldonado MD [Primary Care Provider] -
[2019-11-28 16:42] LABS: Mucous, Urine 0 SEEN /hpf (<or=2+)
[2019-11-28 16:46] LABS: Color, Urine Yellow (Yellow); Glucose, Dipstick Normal (Normal); Ketone-Dipstick 5 mg/dl (Negative); Leukocyte Esterase-Dipstick 25 /ul (Negative); Nitrite-Dipstick Negative (Negative); Occult Blood-Urine 25 /ul (Negative); Protein-Dipstick 30 mg/dl (Negative); Urine Clarity Cloudy (Clear); Urine Urobilinogen 4 mg/dl (Normal)
[2019-11-28 16:47] LABS: Urine Bilirubin Dipstick 1 mg/dL (Negative)
[2019-11-28 16:52] LABS: Bacteria 2+ /hpf (None Seen); Red Blood Cells-Urine 0-5 SEEN /hpf (0-5); Squamous Epithelial Cells - UA 0-5 SEEN /hpf (5-10); White Blood Cells 0-5 SEEN /hpf (0-5)
[2019-11-28 17:07] LABS: Anion Gap 7 (5-15); BUN 9 mg/dL (7-18); BUN/Creat Ratio 11.3 RATIO (10-20); Calcium,Total 8.4 mg/dL (8.5-10.1); Chloride 107 mmol/L (98-107); EST Glomerular Filtration Rate 84 mL/min (>60); Est Glom Filt Rate - Afr Amer 101 mL/min (>60); Estimated Creatinine Clearance 85.76 ml/min; Glucose 172 mg/dL (74-106); Potassium 3.8 mmol/L (3.5-5.1); Sodium Level 137 mmol/L (136-145)
[2019-11-28 17:10] LABS: Differential Comment SCANNED
[2019-11-28 18:00] VITALS: BP 106/52; BP 106/60; PULSE 80; RESP 14; TEMP 36.6; O2SAT 98; O2SAT 99
--- NOTE | 2019-11-28 18:00 | ED.DEP ---
ED Disposition - Plan for ED Patient: Disposition: Home or Assisted Living Instructions: ED FUO Adult Referrals: Francisco Garnett MD [STAFF PHYSICIAN] - As soon as possible Additional Instructions: Your test today were unremarkable. Your respiratory panel and COVID test are still pending. As are your blood cultures. Currently we do not have a specific cause of your fever. I discussed with your infectious disease physician Dr. Ulloa. Follow-up with him tomorrow. He is going to restart you on your meds and do further testing or follow-up with the test that we have already done.
[2019-11-28 18:43] VITALS: BP 106/66; PULSE 82; RESP 16; O2SAT 98
[2019-11-30 12:07] LABS: Absolute CD4 Helper 82 /uL (359-1519); Basophils (Absolute) 0 x10E3/uL (0.0-0.2); Eosinophils 3 % (Not Estab.); Eosinophils (Absolute) 0.1 x10E3/uL (0.0-0.4); Hematocrit 31.6 % (34.0-46.6); Hemoglobin 10.6 g/dL (11.1-15.9); Immature Granulocytes 0 % (Not Estab.); Immature Granulocytes Absolute 0 x10E3/uL (0.0-0.1); Lymphs 40 % (Not Estab.); Lymphs (Absolute) 1.2 x10E3/uL (0.7-3.1); MCH 30.3 pg (26.6-33.0); MCHC 33.5 g/dL (31.5-35.7); MCV 90 fL (79-97); Monocytes 13 % (Not Estab.); Monocytes (Absolute) 0.4 x10E3/uL (0.1-0.9); Neutrophils 44 % (Not Estab.); Neutrophils (Absolute) 1.3 x10E3/uL (1.4-7.0); Percent % CD4 Pos. Lymph. 6.8 % (30.8-58.5); RDW 14.9 % (11.7-15.4)
[2019-11-30 13:52] LABS: Platelets 77 x10E3/uL (150-450)
== END 2019-11-28 18:44 | disposition home or self-care (01) ==
PROVIDERS: Emergency Provider Emergency Medicine; PCP Internal Medicine
DX: R50.9 Fever, unspecified (principal); R51 Headache; G89.29 Other chronic pain; Z03.818 Encounter for observation for suspected exposure to other biological agents ruled out; Z21 Asymptomatic human immunodeficiency virus [HIV] infection status; E11.9 Type 2 diabetes mellitus without complications; M79.7 Fibromyalgia; Z79.899 Other long term (current) drug therapy; Z87.891 Personal history of nicotine dependence
CPT/HCPCS: 70470; 71045; 80048; 81001; 85025; 86361; 87040; 87633; 87635; 96361; 96374; 96375; 99284; J7030; Q9967; U0004

== ENCOUNTER → 2020-01-21 10:53 | Outpatient (CLI) | payer MEDICARE, SELFPAY ==
[2020-01-21 11:24] LABS: Hematocrit 35.2 % (37-47); Hemoglobin 11.5 g/dL (12.0-15.0); Mean Corp Hgb Conc 32.7 g/dL (32-36); Mean Corpuscular Hgb 30.1 pg (27.0-32.0); Mean Corpuscular Volume 92.1 fL (81-99); Mean Platelet Vol. 10.3 fl (6.2-12.0); POSITIVE COUNT YES; Platelet Count 90 K/mm3 (150-450); RBC Distribution Width CV 14.4 % (11.6-14.6); RBC Distribution Width SD 48.8 fl (35.1-43.9); Red Blood Count 3.82 M/mm3 (4.2-5.4); White Blood Count 4.4 K/mm3 (4.4-11.0)
[2020-01-21 11:40] LABS: AST(SGOT) 45 U/L (15-37); Alanine Aminotransfer ALT/SGPT 26 U/L (13-56); Albumin, Serum 3.1 g/dL (3.2-5.0); Alkaline Phosphatase 156 U/L (45-117); Anion Gap 7 (5-15); BUN 11 mg/dL (7-18); BUN/Creat Ratio 11.9 RATIO (10-20); Bilirubin, Direct 0.52 mg/dL (0.00-0.30); Calcium,Total 9.4 mg/dL (8.5-10.1); Chloride 109 mmol/L (98-107); Creatinine, Serum 0.92 mg/dL (0.55-1.02); EST Glomerular Filtration Rate 70 mL/min (>60); Est Glom Filt Rate - Afr Amer 85 mL/min (>60); Globulin 5.6 g/dL (2.2-4.2); Glucose 163 mg/dL (74-106); Protein, Total 8.7 g/dL (6.4-8.2); Sodium Level 139 mmol/L (136-145)
[2020-01-22 16:08] LABS: Absolute CD4 Helper 220 /uL (359-1519); Basophils (Absolute) 0 x10E3/uL (0.0-0.2); Eosinophils 7 % (Not Estab.); Eosinophils (Absolute) 0.3 x10E3/uL (0.0-0.4); Hematocrit 35.2 % (34.0-46.6); Hemoglobin 11.6 g/dL (11.1-15.9); Immature Granulocytes 0 % (Not Estab.); Immature Granulocytes Absolute 0 x10E3/uL (0.0-0.1); Lymphs 29 % (Not Estab.); Lymphs (Absolute) 1.3 x10E3/uL (0.7-3.1); MCH 30.3 pg (26.6-33.0); MCV 92 fL (79-97); Monocytes 6 % (Not Estab.); Monocytes (Absolute) 0.3 x10E3/uL (0.1-0.9); Neutrophils 57 % (Not Estab.); Neutrophils (Absolute) 2.5 x10E3/uL (1.4-7.0); Percent % CD4 Pos. Lymph. 16.9 % (30.8-58.5); RBC Count 3.83 x10E6/uL (3.77-5.28); RDW 13.9 % (11.7-15.4); WBC Count 4.4 x10E3/uL (3.4-10.8)
[2020-01-23 05:13] LABS: Platelets 91 x10E3/uL (150-450)
[2020-01-23 13:34] LABS: HIV-1 RNA by PCR, Quant. 80 copies/mL (.); LOG10 HIV-1 RNA 1.903 (.)
--- OUTSIDE RECORDS SUMMARY | 2020-05-25 13:31 | XMS RPT_ITS | CCD ---
:1975 External Reference #:[id number] Author Organization [facility] Care Team Providers Name Role Phone Reggie Primary Care Provider Reggie Primary Care Provider Reggie Primary Care Provider Pcp Primary Care Provider Unavailable Pcp Primary Care Provider Unavailable Pcp Primary Care Provider Unavailable Pcp Primary Care Provider Unavailable Sanaz Fortune Primary Care Provider Trish Attending Unavailable PROVIDER Referring Unavailable Tong Primary Care Unavailable PROVIDER Referring Unavailable Tong Primary Care Unavailable Mellissa GAMBINO Attending Unavailable Stk Cnty, Physicians Unavailable Unavailable UNKNOWN Unavailable Unavailable UNKNOWN Unavailable Unavailable UNKNOWN Unavailable Unavailable UNKNOWN Unavailable Unavailable Katie, P Unavailable Unavailable UNKNOWN Unavailable Unavailable Katie, P Unavailable Unavailable Rodney, N Unavailable Unavailable Katie, P Unavailable Unavailable UNKNOWN Unavailable Unavailable Allergies Reported Allergen Reaction(s) Severity Date of Onset Location Acetaminophen 06-22-2006 - [facility] (88951) Amoxicillin 05-20-2005 - [facility] (66142) Iodine Hives 06-01-2016 - [facility] (91538) methylPREDNISolone Hives High 04-12-2017 - [facility] (98233) moxifloxacin 08-30-2007 - [facility] (12158) Prochlorperazine 05-20-2005 - [facility] (64771) Problems Active Problems Category Problem Name Status Date Location Abdominal hernia Diaphragmatic hernia Active 12-01-2018 - [facility] without obstruction or Syste m (11780) gangrene Allergic reactions Allergy status to Active 12-01-2018 - [facility] Health analgesic agent status Syste m (13264) Anxiety disorders Anxiety disorder, Active 12-01-2018 - [facility] unspecified System (02610) Asthma Unspecified asthma, Active 12-01-2018 - [facility] uncomplicated System (59529) Calculus of urinary Personal history of Active 12-01-2018 - [facility] tract urinary calculi System (0000 0) Cancer of cervix Personal history of Active 12-01-2018 [facility] malignant neoplasm of System (70758) cervix uteri Chronic kidney disease Chronic kidney disease Active 05-16-20 18 - [facility] stage 2 (30406) Diabetes mellitus Type 2 diabetes mellitus Active 05-16-2018 - [facility] without complication without complication (53679) Diverticulosis and Diverticulosis of Active 12-01-2018 [facility] diverticulitis intestine, part System (00 000) unspecified, without perforation or abscess without bleeding Esophageal disorders Gastro-esophageal reflux Active 12-02-19 - [facility] disease without System (0000 0) esophagitis Essential hypertension Essential (primary) Active 12-01-2018 [facility] hypertension System (65403) Headache; including Headache Active 12-01-2018 [facility] migraine System (23780) HIV infection Human immunodeficiency Active 06-08-2006 [facility] virus infection System (0000 0) Mood disorders Bipolar disorder, Active 12-01-2018 [facility] unspecified System (90009) Other connective tissue Fibromyalgia Active 12-01-2018 [facility] disease System (83469) Other diseases of Cyst of kidney Active 05-16-2018 - [facility] kidney and ureters (38933) Other liver diseases Liver disease, Active 12-01-2018 - [facility] unspecified System (31634) Other nutritional; Obesity, unspecified Active 12-01-2018 [facility] endocrine; and System (74564 ) metabolic disorders Other skin disorders Rash and other Active 12-01-2018 [facility] nonspecific skin eruption Sy stem (87600) Residual codes; 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 (59911) Unclassified Unknown / UNK(Unknown) Active 08-26-2017 - [facility] [place] (09565) Past or Other Problems Category Problem Name Status Date Location Other diseases of Cyst of kidney, acquired Completed 01-24-2018 - [facility] kidney and ureters System (0 0000) Other screening for Abnormal findings on Completed 01-24-2018 - [facility] suspected conditions diagnostic imaging of System (64123) (not mental disorders other abdominal regions, or infectious including disease) retroperitoneum Unclassified COUGH,CONGESTION,SOB/CAR 08-26-2017 - [facility] [place] (90219) Results Result Name Value Range Unit Interpretation Flag Date Location xr hand minimum 3 views right on 2020-02-12 XR HAND MINIMUM 3 ORIGINAL Normal 02-12-2020 [facility] VIEWS RIGHT XR HAND 3 VIEWS RIGHT [facility] ([place]) (12978) CLINICAL STATEMENT: trauma, pain. COMPARISON: None FINDINGS: No acute fracture or dislocation is identified. The joint spaces are maintained. There is no radiopaque foreign body or soft tissue swelling. IMPRESSION: No acute fracture or dislocation. Interpreted By: Philip Emerson MD Preliminary Report By: Philip Emerson MD Electronically Signed By: Philip Emerson MD Dictated Date: 02/12/2020 2:00:39 AM Prelim Date: 02/12/2020 2:00:39 AM Sign Date: 02/12/2020 2:01:53 AM Ordering Provider:Bo Porras xr forearm 2 views right on 2020-02-12 XR FOREARM 2 VIEWS ORIGINAL Normal 02-12-2020 [facility] RIGHT XR FOREARM 2 VIEWS RIGHT [facility] [place] (38990) CLINICAL STATEMENT: trauma, pain. COMPARISON: None FINDINGS: No acute fracture or dislocation is identified. Proximal and distal joint spaces are maintained. No soft tissue abnormality is seen. IMPRESSION: No acute fracture or dislocation. Interpreted By: Philip Emerson MD Preliminary Report By: Philip Emerson MD Electronically Signed By: Philip Emerson MD Dictated Date: 02/12/2020 1:59:34 AM Prelim Date: 02/12/2020 1:59:34 AM Sign Date: 02/12/2020 2:00:13 AM Ordering Provider:Bo Porras ct head or brain w/o contrast on 2020-02-12 CT HEAD OR BRAIN ORIGINAL Normal 02-12-2020 [facility] W/O CONTRAST CT HEAD OR BRAIN W/O CONTRAST [facility] ([place]) ([id number]) CLINICAL INFORMATION: headache COMPARISON: 07/28/2017 This exam was performed acco rding to our departmental dose optimization program, and includes the following measures where applicable: automated exposure control, adjustment of the mAs and/or kVp accord ing to patient size and/or exam, and an iterative reconstr uction algorithm. The ventricular size and con figuration is normal. No evidence of intracranial hemorrhage, edema, mass, or acute infarct is identified. No abnormal extra-axial fluid accumulation is present. Gusman-white m atter interface is normal. P osterior fossa structures are unremarkable. Paranasal sinuses and mastoid air cells are normally aerated. IMPRESSION: No interval change or acute intracranial process. Interpreted By: Philip Emerson MD Preliminary Report By: Philip Emerson MD Electronically Signed By: Philip Emerson MD Dictated Date: 02/12/2020 2:10:46 AM Prelim Date: 02/12/2020 2:10:46 AM Sign Date: 02/12/2020 2:12:15 AM Ordering Provider:Bo luocnb on 2019-10-08 7 Misc. lab Send Out (Non See Comments Normal [facility] Blood) ([place]) (0000 0) Comment: Order Comment: covid 19 Result Comment: Complete ref erence lab report scanned to EMR. Performed By: #### PRO, CBC, ADIFF, ANEU #### [address] [address] cbl on 2019-10-28 CBL . Normal 10-28-2019 [facility] MICRO - Microbiology [facility] ([place]) ([id number]) PROCEDURE: Blood Culture (bacterial) [*1] SOURCE: Blood BODY SITE: COLLECTED DATE/TIME: 10/23/19 14:29 EDT RECEIVED DATE/TIME: 10/23/2019 15:22 EDT START DATE/TIME: 10/23/2019 15:22 EDT FREE TEXT SOURCE: FINAL REPORTS Final Report [] Verified Date/Time/Personnel: 10/28/2019 15:59 EDT Blood Culture: No Growth at 5 days. PRELIMINARY REPORTS Preliminary Report [] Verified Date/Time/Personnel: 10/23/2019 15:59 EDT Culture has been received in lab and is no growth to date. Routine cultures are held for 5 days. Performing Locations *1: This test was performed at: [address], [address]- , [facility] Comment: Performed By: #### PRO, CBC, ADIFF, ANEU #### [address] [address] CBL . Normal 10-28-2019 [facility] MICRO - Microbiology [facility] ([place]) ([id number]) PROCEDURE: Blood Culture (bacterial) [*1] SOURCE: Blood BODY SITE: COLLECTED DATE/TIME: 10/23/19 14:29 EDT RECEIVED DATE/TIME: 10/23/2019 14:42 EDT START DATE/TIME: 10/23/2019 14:42 EDT FREE TEXT SOURCE: FINAL REPORTS Final Report [] Verified Date/Time/Personnel: 10/28/2019 14:59 EDT Blood Culture: No Growth at 5 days. PRELIMINARY REPORTS Preliminary Report [] Verified Date/Time/Personnel: 10/23/2019 15:59 EDT Culture has been received in lab and is no growth to date. Routine cultures are held for 5 days. Performing Locations *1: This test was performed at: [address], [address]- , [facility] Comment: Performed By: #### PRO, CBC, ADIFF, ANEU #### [address] [address] xr chest 1 view on 2019-10-23 XR CHEST 1 VIEW ORIGINAL Normal 10-23-2019 [facility] XR XR CHEST 1 VIEW, [facility] ([place]) ([id number]) Clinical Statement: cough/fever; suspect pneumonia, Comparison: 07/26/2018 Findings: No consolidation, pneumothor ax, pleural fluid, or vascular congestion is seen. Heart size and mediastinal contours are within normal limits for age and projection. No acute skeletal abnormality. IMPRESSION: No acute cardiopulmonary process. Interpreted By: Juan Pablo Saenz MD Preliminary Report By: Juan Pablo Saenz MD Electronically Signed By: Juan Pablo Saenz MD Dictated Date: 10/23/2019 3:32:44 PM Prelim Date: 10/23/2019 3:32:44 PM Sign Date: 10/23/2019 3:33:22 PM Ordering Provider:Mik escamilla on 2019-10-23 RFLU . Normal 10-23-2019 [facility] ([place]) (51527) PROCEDURE: Rapid Flu A+B Screen w Confirm if Ind [*1] SOURCE: Nasopharyngeal BODY SITE: COLLECTED DATE/TIME: 10/23/19 14:29 EDT RECEIVED DATE/TIME: 10/23/2019 14:42 EDT START DATE/TIME: 10/23/2019 14:42 EDT FREE TEXT SOURCE: FINAL REPORTS Final Report [] Verified Date/Time/Personnel: 10/23/2019 15:37 EDT Specimen is negative for the presence of influenza A antigen. . Specimen is negative for the presence of influenza B antigen. . Inadequate specimen collection, improper sample handling and/or low levels of viral shedding may yield a false-negative result. . The optimal specimen type for the Rapid Flu test is a nasopharyngeal wash/aspirate or nasopharyngeal swab. All negative rapid tests for Flu A and Flu B will be confirmed with a Respiratory Id Panel by PCR. . Assay method employs immunofluorescence technology. Performing Locations *1: This test was performed at: [address], [address]- , [place] Comment: Performed By: #### PRO, CBC, ADIFF, ANEU #### [address] [address] respid on 2019-10-07 7 Adenovirus Not Detected Not Detected Normal 10-23-2019 [facility] ([place]) (0000 0) Comment: Order Comment: Order added b y [email or web address] Performed By: #### PRO, CBC, ADIFF, ANEU #### [address] [address] Bordetella Not Detected Not Detected Normal 10-23-2019 [facility] Parapertussis [facility] ([place]) (68751) Comment: Order Comment: Order added b y [email or web address] Performed By: #### PRO, CBC, ADIFF, ANEU #### [address] [address] Bordetella Pertussis Not Detected Not Detected Normal [facility] ([place]) (41004) Comment: Order Comment: Order added b y [email or web address] Performed By: #### PRO, CBC, ADIFF, ANEU #### [address] [address] Chlamydophila Not Detected Not Detected Normal 10-23-2019 [facility] pneumoniae [facility] n ([place]) (76799) Comment: Order Comment: Order added b y [email or web address] Performed By: #### PRO, CBC, ADIFF, ANEU #### [address] [address] Coronavirus 229E Not Detected Not Detected Normal [facility] ([place]) (68514) Comment: Order Comment: Order added b y [email or web address] Performed By: #### PRO, CBC, ADIFF, ANEU #### [address] [address] Coronavirus HKU1 Not Detected Not Detected Normal [facility] ([place]) (42903) Comment: Order Comment: Order added b y [email or web address] Performed By: #### PRO, CBC, ADIFF, ANEU #### [address] [address] Coronavirus NL63 Not Detected Not Detected Normal [facility] ([place]) (59954) Comment: Order Comment: Order added b y [email or web address] Performed By: #### PRO, CBC, ADIFF, ANEU #### [address] [address] Coronavirus OC43 Not Detected Not Detected Normal [facility] ([place]) (17958) Comment: Order Comment: Order added b y [email or web address] Performed By: #### PRO, CBC, ADIFF, ANEU #### [address] [address] Human Metapneumovirus Not Detected Not Detected Normal [facility] ([place]) (25773) Comment: Order Comment: Order added b y [email or web address] Performed By: #### PRO, CBC, ADIFF, ANEU #### [address] [address] Influenza A Not Detected Not Detected Normal 10-23-2019 [facility] ([place]) (0000 0) Comment: Order Comment: Order added b y [email or web address] Performed By: #### PRO, CBC, ADIFF, ANEU #### [address] [address] Influenza B Not Detected Not Detected Normal 10-23-2019 [facility] ([place]) (0000 0) Comment: Order Comment: Order added b y [email or web address] Performed By: #### PRO, CBC, ADIFF, ANEU #### [address] [address] Mycoplasma Not Detected Not Detected Normal 10-23-2019 [facility] pneumoniae [facility] ([place]) (74662) Comment: Order Comment: Order added b y [email or web address] Performed By: #### PRO, CBC, ADIFF, ANEU #### [address] [address] Parainfluenza 1 Not Detected Not Detected Normal 10-23-19 20 [facility] ([place]) (11173) Comment: Order Comment: Order added b y [email or web address] Performed By: #### PRO, CBC, ADIFF, ANEU #### [address] [address] Parainfluenza 2 Not Detected Not Detected Normal 10-23-19 20 [facility] ([place]) (64354) Comment: Order Comment: Order added b y [email or web address] Performed By: #### PRO, CBC, ADIFF, ANEU #### [address] [address] Parainfluenza 3 Not Detected Not Detected Normal 10-23-19 [facility] ([place]) (63367) Comment: Order Comment: Order added b y [email or web address] Performed By: #### PRO, CBC, ADIFF, ANEU #### [address] [address] Parainfluenza 4 Not Detected Not Detected Normal 10-23-19 20 [facility] ([place]) (98264) Comment: Order Comment: Order added b y [email or web address] Performed By: #### PRO, CBC, ADIFF, ANEU #### [address] [address] Respiratory Not Detected Not Detected Normal 10-23-2019 [facility] Syncytial Virus Foun dation ([place]) (38097) Comment: Order Comment: Order added b y [email or web address] Performed By: #### PRO, CBC, ADIFF, ANEU #### [address] [address] Rhinovirus/Enterovirus Not Detected Not Detected Normal 0 10-23-2019 [facility] ([place]) (26499) Comment: Order Comment: Order added b y [email or web address] Performed By: #### PRO, CBC, ADIFF, ANEU #### [address] [address] cbc on 2019-10-23 Erythrocyte distribution 14.4 11.5-15.5 % Normal 10-22 [facility] (RBC) [Ratio] [facility] ([place]) (66655) Comment: Performed By: #### CBC, ADIF F, ANEU, GFR, BMP #### [address] [address] Hematocrit (Bld) [Volume 37.8 34.0-46.0 % Normal 10-22 [facility] fraction] ([place]) (0000 0) Comment: Performed By: #### CBC, ADIF F, ANEU, GFR, BMP #### [place] [id number] Hemoglobin (Bld) 12.7 12.0-16.0 G/dL Normal 10-23-2019 [facility] [Mass/Vol] [facility] ([place]) (43720) Comment: Performed By: #### CBC, ADIF F, ANEU, GFR, BMP #### [place] [id number] MCH (RBC) [Entitic mass] 29.0 27.0-33.0 pg Normal 10-22 [facility] ([place]) (0000 0) Comment: Performed By: #### CBC, ADIF F, ANEU, GFR, BMP #### [place] [id number] MCHC (RBC) [Mass/Vol] 33.7 32.0-36.0 G/dL Normal 10-23-19 20 [facility] ([place]) (0000 0) Comment: Performed By: #### CBC, ADIF F, ANEU, GFR, BMP #### [place] [address] MCV (RBC) [Entitic vol] 86.2 80.0-99.0 fL Normal 2019 [facility] ([place]) (0000 0) Comment: Performed By: #### CBC, ADIF F, ANEU, GFR, BMP #### [place] [id number] Platelet mean volume 9.1 6.6-10.5 fL Normal 0 [facility] (Bld) [Entitic vol] ([place]) (57451) Comment: Performed By: #### CBC, ADIF F, ANEU, GFR, BMP #### [place] [id number] Platelets (Bld) [#/Vol] 88 150-450 10 3/mcL Low 2019 [facility] ([place]) (0000 0) Comment: Performed By: #### CBC, ADIF F, ANEU, GFR, BMP #### [facility] [address] [place], [place] [address] RBC (Bld) [#/Vol] 4.39 4.10-5.30 10 6/mcL Normal 10-23-2019 [facility] ([place]) (0000 0) Comment: Performed By: #### CBC, ADIF F, ANEU, GFR, BMP #### [address] [address] WBC (Bld) [#/Vol] 4.80 4.50-10.80 10 3/mcL Normal 10-23-2019 [facility] ([place]) (07128) Comment: Performed By: #### CBC, ADIF F, ANEU, GFR, BMP #### [address] [address] bmp on 2019-10-23 Potassium [Moles/Vol] 4.1 3.5-5.0 mEq/L Normal 10-23-19 20 [facility] ([place]) (0000 0) Comment: Result Comment: Specimen sli ghtly hemolyzed. Results may be falsely elevated. Performed By: #### CBC, ADIF F, ANEU, GFR, BMP #### [address] [address] Calcium [Mass/Vol] 9.0 8.4-10.1 mg/dL Normal 10-23-2019 [facility] ([place]) (0000 0) Comment: Performed By: #### CBC, ADIF F, ANEU, GFR, BMP #### [address] [address] Chloride [Moles/Vol] 109 98-110 mEq/L Normal 0 [facility] ([place]) (0000 0) Comment: Performed By: #### CBC, ADIF F, ANEU, GFR, BMP #### [address] [address] CO2 [Moles/Vol] 29 22-32 mEq/L Normal 10-23-2019 [facility] ([place]) (86926) Comment: Performed By: #### CBC, ADIF F, ANEU, GFR, BMP #### [address] [address] Creatinine [Mass/Vol] 0.72 0.50-1.20 mg/dL Normal 10-23-19 20 [facility] ([place]) (26988) Comment: Performed By: #### CBC, ADIF F, ANEU, GFR, BMP #### [address] [address] Electrolyte Balance 3.0 4.0-15.0 mEq/L Low 10-23-2019 [facility] ([place]) (41657) Comment: Performed By: #### CBC, ADIF F, ANEU, GFR, BMP #### [address] [address] Glucose [Mass/Vol] 147 70-110 mg/dL High 10-23-2019 [facility] ([place]) (95639) Comment: Performed By: #### CBC, ADIF F, ANEU, GFR, BMP #### [address] [address] Sodium [Moles/Vol] 141 136-145 mEq/L Normal 10-23-2019 [facility] ([place]) (23158) Comment: Performed By: #### CBC, ADIF F, ANEU, GFR, BMP #### [address] [address] Urea nitrogen [Mass/Vol] 10.0 8.0-22.0 mg/dL Normal 10-22 [facility] ([place]) (95456) Comment: Performed By: #### CBC, ADIF F, ANEU, GFR, BMP #### [address] [address] Urea nitrogen/Creatinine 13.9 10.0-22.0 ratio Normal 10-22 [facility] [Mass ratio] [facility] ([place]) (95403) Comment: Performed By: #### CBC, ADIF F, ANEU, GFR, BMP #### [address] [address] .neuabs on Neutrophils (Bld) 2.70 2.25-8.10 10 3/mcL Normal 10-23-2019 [facility] [#/Vol] [facility] ([place]) (63701) Comment: Performed By: #### CBC, ADIF F, ANEU, GFR, BMP #### [address] [address] .gfr on 2019-10-23 GFR Non- >60 Normal 10-22 [facility] ([place]) (38287) Comment: Result Comment: GFR Population mean for Afri can Salvadorean, Non- Americans Ages 20-29 = 116 mL/min/1.73 sq.m. Ages 30-39 = 107 mL/min/1.73 sq.m. Ages 40-49 = 99 mL/min/1.73 sq.m. Ages 50-59 = 93 mL/min/1.73 sq.m. Ages 60-69 = 85 mL/min/1.73 sq.m. Ages 70+ = 75 mL/min/1.73 sq .m. Chronic Kidney Disease: Less than 60 mL/min/1.73 square meters End Stage Renal Disease: Les s than 15 mL/min/1.73 square meters Performed By: #### CBC, ADIF F, ANEU, GFR, BMP #### [address] [address] GFR >60 Normal 0 [facility] ([place]) (43594) Comment: Result Comment: GFR Population mean for Afri can Salvadorean, Non- Americans Ages 20-29 = 116 mL/min/1.73 sq.m. Ages 30-39 = 107 mL/min/1.73 sq.m. Ages 40-49 = 99 mL/min/1.73 sq.m. Ages 50-59 = 93 mL/min/1.73 sq.m. Ages 60-69 = 85 mL/min/1.73 sq.m. Ages 70+ = 75 mL/min/1.73 sq .m. Chronic Kidney Disease: Less than 60 mL/min/1.73 square meters End Stage Renal Disease: Les s than 15 mL/min/1.73 square meters Performed By: #### CBC, ADIF F, ANEU, GFR, BMP #### [address] [address] .auto diff on 10-22 Ammonia (P) [Mass/Vol] 0.30 0.09-1.40 10 3/mcL Normal 10-22- 020 [facility] ([place]) (01449) Comment: Performed By: #### CBC, ADIF F, ANEU, GFR, BMP #### [address] [address] Basophils (Bld) 0.10 0.00-0.27 10 3/mcL Normal 10-23-2019 [facility] [#/Vol] [facility] ([place]) (66217) Comment: Performed By: #### CBC, ADIF F, ANEU, GFR, BMP #### [address] [address] Basophils/100 WBC (Bld) 1.7 0.0-2.5 % Normal 2019 [facility] ([place]) (0000 0) Comment: Performed By: #### CBC, ADIF F, ANEU, GFR, BMP #### [address] [address] Eosinophils (Bld) 0.40 0.00-0.65 10 3/mcL Normal 10-23-2019 [facility] [#/Vol] [facility] ([place]) (13589) Comment: Performed By: #### CBC, ADIF F, ANEU, GFR, BMP #### [address] [address] Eosinophils/100 WBC (Bld) 7.4 0.0-6.0 % High 10-06 [facility] ([place]) (0000 0) Comment: Performed By: #### CBC, ADIF F, ANEU, GFR, BMP #### [address] [address] Lymphocytes (Bld) 1.40 0.90-4.32 10 3/mcL Normal 10-23-2019 [facility] [#/Vol] [facility] ([place]) (91551) Comment: Performed By: #### CBC, ADIF F, ANEU, GFR, BMP #### [address] [address] Lymphocytes/100 WBC (Bld) 28.6 20.0-40.0 % Normal 10-06 [facility] ([place]) (66421) Comment: Performed By: #### CBC, ADIF F, ANEU, GFR, BMP #### [facility] [address] [place] [address] Monocytes/100 WBC (Bld) 6.9 2.0-13.0 % Normal 2019 [facility] ([place]) (0000 0) Comment: Performed By: #### CBC, ADIF F, ANEU, GFR, BMP #### [facility] [address] [place] [address] Neutrophils/100 WBC (Bld) 55.4 50.0-75.0 % Normal 10-06 [facility] ([place]) (20754) Comment: Performed By: #### CBC, ADIF F, ANEU, GFR, BMP #### [facility] [address] [place] [address] surgical pathology on 2019-09-17 Surgical [id number] Normal 09-17-2019 [facility] Pathology [facility] System PATHOLOGY AND (03387 ) LABORATORY MEDICINE [address] [place] [address] Fax - FINAL SURGICAL PATHOLOGY REPORT NAME: CARLO RICHARD A : 1975 43 Y F BILLING NO.: [id number] LOCATION: [facility] PROCEDURE 09/17/2019 DATE: SURGEON: MARIELLA BLEDSOE MD RECEIVED 09/17/2019 DATE: ATTENDING: MARIELLA BLEDSOE MD REPORT DATE: 09/19/2019 COPIES TO: DIAGNOSIS: A. DUODENUM, BIOPSY - CHRONIC INACTIVE GASTRITIS. NEGATIVE FOR INTESTINAL METAPLASIA, DYSPLASIA, OR MALIGNANCY . NEGATIVE FOR H PYLORI ORGANISMS ON H AND E STAINED SLIDE. COMMENT: This specimen came labeled as duodenum but contai ns a single fragment of tissue consistent with stomach. B. STOMACH, ANTRUM, BIOPSY - SMALL BOWEL MUCOSA WITH NO SI GNIFICANT HISTOPATHOLOGIC ABNORMALITIES. COMMENT: The specimen demonstrates an unremarkable villous architecture without significantly increased intraepithelial lymphocytes. Whipple's disease is not identified. Parasites are not identified. This specimen came labeled as antrum but contains several fragments of tissue consistent with duodenum. C. COLON, RECTUM, BIOPSY - COLONIC MUCOSA WITH INTRAMUCOSAL LYMPHOID AGGREGATES AND NO OTHER SIGNIFICANT HISTOPATHOLOGIC ABNORMAL ITIES. COMMENT: No evidence of acute or chronic colitis is identifi ed, including the lymphocytic and collagenous colitides. CRH/CRH Signature> ANISH SALMON M.D. CLINICAL INFORMATION: Abdominal pain in the right upper quad rant, nausea SPECIMEN: (A) DUODENUM, BIOPSY (B) GASTRIC BIOPSY (C) COLON BIOPSY GROSS DESCRIPTION: A. Duodenal biopsy Received in formalin is a segment of newell tissue 0.2 cm. Subm itted in toto. (1 ns, 1) B. Antrum Received in formalin are four segments of newell tissue 0.2 cm each. Submitted in toto. (4 ns, 1) C. Rectal colon Received in formalin are four segments of newell tissue 0.2 cm each. Submitted in toto. (4 ns, 1) JCK/KHLOE Disclaimer: The following statement applies to all immunohistochemistry, in situ hybridization, molecular studi es, and immunofluorescence testing. The use of one or more reagents in the above tests is regula arron as an analyte specific reagent (ASR). These tests were developed a nd their performance characteristics determined by the clinical labor atories of [facility]. They have not been cleared by the [facility] od and Drug Administration (FDA). The FDA has determined that such clear ance or approval is not necessary. All the above immunostains were performed on paraffin embedd ed tissue. Appropriate positive and negative controls (where applicable ) were run in parallel with the patient's specimen; these controls show ed expected staining pattern, with acceptable intensity of staining. Immunohistochemical assays have not been validated on decalc ified tissues. Results should be interpreted with caution given th e raised possibility of false negativity on decalcified specimens. Case reviewed at [facility] [address] [address]. DEPARTMENT OF PATHOLOGY AND LABORATORY MEDICINE [place], [place] [address] us biopsy liver on 2019-09-07 US Biopsy Liver Patient Name: RICHARD FRASER 09-07-2019 [facility] ([id number]) Ultrasound Exam Date/Time 09/07/2019 12:38:42 EST Exam US Biopsy Liver Ordering Physician MARIELLA BLEDSOE Accession Number [id number] CPT4 Codes 94510 (), 58258 () Reason For Exam KINSEY elevated liver enzymes Report Ultrasound-guided liver core biopsy The benefits and risks of the procedure were discussed with the patient. The patient agreed to proceed. Conscious Sedation: An independent trained nurse under my marsh pervision monitored the patient during the procedure and administered three mg of Versed and 150 ug of Fentanyl intravenously. The monitori ng time was 30 minutes. Sterile technique was utilized. The skin was cleaned with 2% chlorhexidine. Sterile drapes were placed. I washed my hands prior to the procedure. I wore a cap, mask, sterile gown and sterile gloves during the procedure. Lidocaine was applied for local anesthesia. Using sterile te chnique and US guidance a 10 cm 18 gauge core needle was inserted in to the liver and core biopsy performed. The specimen was submitted to pathology. IMPRESSION: Successful ultrasound guided biopsy of the liver. Report Dictated on Final Dictated: 09/07/2019 12:58 pm Dictating Physician: MD HENDRICKS MALAY Signed Date and Time: 09/07/2019 12:58 pm Signed by: MD HENDRICKS MALAY Transcribed Date and Time: 09/07/2019 12:58 surgical pathology on 2019-09-07 Surgical [id number] Normal 09-07-2019 [facility] System PATHOLOGY AND ([id number] ) LABORATORY MEDICINE [address] [place] [address] FINAL SURGICAL PATHOLOGY REPORT NAME: RICHARD FRASER : 1975 43 Y F BILLING NO.: [id number] LOCATION: [address] 61 PROCEDURE 09/07/2019 DATE: SURGEON: MARIELLA BLEDSOE M.D. RECEIVED 09/07/2019 DATE: ATTENDING: MARIELLA BLEDSOE M.D. REPORT DATE: 09/11/2019 COPIES TO: DARLYN HENDRICKS M.D. DIAGNOSIS: LIVER, CORE BIOPSY - STEATOHEPATITIS WITH AT LEAST BRIDGING FIBROSIS Microscopic description: Sections demonstrate disrupted live r architecture with at least bridging fibrosis highlighted wit h a Trichrome stain. There is additionally perisinusoidal fibros is and associated ballooning degeneration highlighted with the Tric hrome stain. An Iron stain is negative for increased iron depositi on. There is mild 10 - 20% macrovesicular and microvesicular steatosis . Numerous foci of lobular activity are noted. JAW/JAF Signature> ANAHI MARTINEZ M.D. CLINICAL INFORMATION: Elevated liver enzymes, cirrhosis, HUY H SPECIMEN: LIVER NEEDLE OR WEDGE BIOPSY, MEDICAL GROSS DESCRIPTION: Liver biopsy Received in formalin is a core of gusman-newell soft tissue measu ring 1.4 cm in length. Submitted in toto. (1 ns, 1) JCK/KMS1 Disclaimer: The following statement applies to all immunohistochemistry, in situ hybridization, molecular studi es, and immunofluorescence testing. The use of one or more reagents in the above tests is regula arron as an analyte specific reagent (ASR). These tests were developed a nd their performance characteristics determined by the clinical labor atories of [facility]. They have not been cleared by the [place] od and Drug Administration (FDA). The FDA has determined that such clear ance or approval is not necessary. All the above immunostains were performed on paraffin embedd ed tissue. Appropriate positive and negative controls (where applicable ) were run in parallel with the patient's specimen; these controls show ed expected staining pattern, with acceptable intensity of staining. Immunohistochemical assays have not been validated on decalc ified tissues. Results should be interpreted with caution given th e raised possibility of false negativity on decalcified specimens. Professional Performing Location: [place] [address] [place] [address]. DEPARTMENT OF PATHOLOGY AND LABORATORY MEDICINE [place], [place] [address] prothrombin time on 2019-09-07 INR Coag (PPP) [Relative 1.0 0.9-1.1 Normal 09-07 [facility] time] ([id number]) Comment: Result Comment: Recommended Anticoagulant Therapy: SEE BELOW ----- INR of 2.0 - 3.0 : - Prophylaxis of Venous Thro mbosis (high-risk surgery) - Treatment of Venous Thromb osis - Treatment of Pulmonary Emb olism (Includes tissue heart valves, Acute Myocardial Inf arction to prevent systemic embolism, Valvular Heart Dis ease, and Atrial Fibrillation) ----- INR of 2.5 - 3.5 : - Mechanical Prosthetic Valv es (high risk) - If oral anticoagulant ther apy is used to prevent Myocardial Infarction Performed By: #### PLTCT, PT #### [facility] [address] [place] [address] PT Coag (PPP) [Time] 10.6 9.0-12.0 s Normal 0 [facility] ([id number]) Comment: Result Comment: . Performed By: #### PLTCT, PT #### [facility] [address] [place] [address] platelet count on Platelets (Bld) [#/Vol] 89 140-440 10*3/uL Low 2019 [facility] ([id number]) Comment: Performed By: #### PLTCT, PT #### [facility] [address] [place] [address] hivgen on 2019-08-09 0 EER HIV-1 Genotyping SEE NOTE Normal 0 [facility] ([place]) ([address]) Comment: Result Comment: (NOTE) Access [facility] Enhanced Report using either link below: -Direct access: [email or web address] -Enter Username, Password: [email or web address] Username: [email or web address] Password: [email or web address] Performed by [facility], [address] [place] [address],[place] [address] [email or web address], Lamberto Sahni do, MD, Lab. Director Performed By: #### HIVGEN ## ## Myriam [address] [address] HIV Disclaimer HIV Information: [place] [facility] Rev. Code 3701.243(E): [facility] ([place]) ([address]) Comment: Result Comment: This informa tion has been disclosed to you from confidential records protected from disclosure by state law . You shall make no further disclosure of this information without the spec ific, written, and informed release of the individual to whom it pertai ns or as otherwise permitted by state law. A general authorization for the release of medical or other information is not sufficient for the purpose o f the release of HIV test results or diagnoses. Performed By: [facility] [address] [place] [address] Nursing Home Social Worker: Parth Spence III#: [id number] Phone#: Performed By: #### HIVGEN ## ## [address] [address] HIV Genotyping SEE NOTE Normal 08-27-2019 [facility] ([place]) ([id number]) Comment: Result Comment: (NOTE) Drug Resistance: NRTI Drug Class VIDEX, (didanosine, ddI) Non e VIREAD, (tenofovir, TDF) Pos sible Resistance ZERIT, (stavudine, d4T) Poss ible Resistance ZIAGEN, (abacavir, ABC) None EMTRIVA, (emtricitabine, FTC ) None RETROVIR, (zidovudine, ZDV) Possible Resistance EPIVIR, (lamivudine, 3TC) No ne NRTI drug resistance mutatio ns identified: L210W, T215S NNRTI Drug Class SUSTIVA, (efavirenz, EFV) Po ssible Resistance VIRAMUNE, (nevirapine, NVP) Resistance INTELENCE, (etravirine, ETR) Possible Resistance EDURANT, (rilpivirine, RPV) Possible Resistance NNRTI drug resistance mutati ons identified: Y181C PI+ Drug Class VIRACEPT, (nelfinavir, NFV) None APTIVUS, (tipranavir, TPV) N one CRIXIVAN, (indinavir, IDV) N one KALETRA, (lopinavir + ritona vir, LPV) None REYATAZ, (atazanavir, ATV) N one PREZISTA, (darunavir, DRV) N one LEXIVA, (fosamprenavir, FPV) None FORTOVASE / INVIRASE, (saqui navir, SQV) None PI+ drug resistance mutation s identified: A71T Additional Mutations: The fo llowing amino acids differing from the reference sequence (HXB-2, accession number [id number]) at the indicated codon posit ions were identified and may be useful as a baseline determi nation of virus genotype. Protease: V3I, I13V, S37D, L 63P, H69Q RT: K104R, D123N, D177E, R21 1K, L214F, I293V + Evidence of Resistance for Protease Inhibitors estimates response to ritona vir boosted regimens. Refer to Evidence of Resistance L egend. The protease inhibitor (PI) evidence of r esistance interpretations were developed to estimate t he expected virological response to standard doses o f protease inhibitors with pharmacokinetic boosting by ritonavir. This has become the most common method of ad ministering each of the protease inhibitors, except nelfinavir (ref. 1), to ensure adequate drug levels in all patients. Boosted PIs are more active in the prese nce of resistance than nonboosted Pls(ref. 2,3) * NOTE: At least one mutatio n used to determine Evidence of Resistance for t his drug has not been fully validated. NOTE: At least one mutati on used to determine Evidence of Resistance for t his drug has not been clinically verified. NOTE: For at least one m utation used to evaluate Evidence of Resistance for t his drug, both notes above apply. Evidence of Resistance Legen d: Resistance: Mutations presen t constitute a high level of genetic evidence for viral r esistance. Possible Resistance: Mutatio ns present suggest the possibility of viral resista nce. None: There is insufficient evidence for viral resistance. Software Version: Numerify V-1 System v2.0; Decision Curve Software v3.0 INTERPRETIVE INFORMATION: HI V-1 Genotyping This assay predicts HIV-1 re sistance to protease and reverse transcriptase inhibitor anti -retroviral drugs. The protease gene and codons 1-335 of the reve rse transcriptase gene of the viral genome are sequenced using [facility] Snocap HIV-1 Genotyping System kit. Drug resistance is assi gned using Decision Curve software. The most current resistance algorithm and drug list is available by selecting the Drug Resistanc e Report found in the test directory. This test should be used in conjunction with clinical presentation and other laboratory markers . A patient's response to therapy depends on multiple factors, including patient compliance, percentage of resistant viru s population, dosing, and drug pharmacology issues. Resista nce interpretations may vary with methodology. Some insertions or deletions may be difficult to detect using this software. This test may not detect minor HIV-1 populations less than 20 percent of the total population. Test developed and character istics determined by [employer]. See Compliance Statement B: [email or web address] Performed By: #### HIVGEN ## ## [address] [address] pro on 2019-08-21 INR Coag (PPP) [Relative 1.1 0.9-1.2 ratio Normal 08-21 [facility] time] ([place]) (0000 0) Comment: Result Comment: Standard Dos e 2.0 - 3.0 High Dose 2.5 - 3.5 The recommended therapeutic range for oral anticoagulant therapy is: LOW RISK: Prophylaxis of jered ous thrombosis INR: 2.0 - 3.0 Treatment of pulmonary embol ism 2.0 - 3.0 Prevention of systemic embol ism 2.0 - 3.0 HIGH RISK: Mechanical prosth etic valves 2.5 - 3.5 Performed By: #### PRO, CBC, ADIFF, ANEU #### [address] [address] PT Coag (PPP) [Time] 12.9 9.0-14.3 seconds Normal 0 [facility] ([place]) ([address]) Comment: Performed By: #### PRO, CBC, ADIFF, ANEU #### [address] [address] cbc on 2019-08-21 Erythrocyte distribution 13.6 11.5-14.5 % Normal 08-21 [facility] (RBC) [Ratio] [facility] ([place]) ([address]) Comment: Performed By: #### PRO, CBC, ADIFF, ANEU #### [address] [address] Hematocrit (Bld) [Volume 37.2 37.0-47.0 % Normal 08-21 [facility] fraction] ([place]) (0000 0) Comment: Performed By: #### PRO, CBC, ADIFF, ANEU #### [address] [address] Hemoglobin (Bld) 12.8 12.0-16.0 G/dL Normal 08-21-2019 [facility] [Mass/Vol] [facility] ([place]) ([address]) Comment: Performed By: #### PRO, CBC, ADIFF, ANEU #### [address] [address] MCH (RBC) [Entitic mass] 29.5 27.0-31.2 pg Normal 08-21 [facility] ([place]) (0000 0) Comment: Performed By: #### PRO, CBC, ADIFF, ANEU #### [address] [address] MCHC (RBC) [Mass/Vol] 34.3 33.0-37.0 G/dL Normal 08-21-19 20 [facility] ([place]) (0000 0) Comment: Performed By: #### PRO, CBC, ADIFF, ANEU #### [address] [address] MCV (RBC) [Entitic vol] 86.0 80.0-94.0 fL Normal 2019 [facility] ([place]) (0000 0) Comment: Performed By: #### PRO, CBC, ADIFF, ANEU #### [address] [address] Platelet mean volume 9.0 7.4-10.4 fL Normal 0 [facility] (Bld) [Entitic vol] ([place]) ([address]) Comment: Performed By: #### PRO, CBC, ADIFF, ANEU #### [address] [address] Platelets (Bld) [#/Vol] 97 130-400 10 3/mcL Low 2019 [facility] ([place]) (0000 0) Comment: Performed By: #### PRO, CBC, ADIFF, ANEU #### [address] [address] RBC (Bld) [#/Vol] 4.33 4.20-5.40 10 6/mcL Normal 08-21-2019 [facility] ([place]) (0000 0) Comment: Performed By: #### PRO, CBC, ADIFF, ANEU #### [address] [address] WBC (Bld) [#/Vol] 4.20 4.60-10.80 10 3/mcL Low 08-21-2019 [facility] ([place]) (0000 0) Comment: Performed By: #### PRO, CBC, ADIFF, ANEU #### [address] [address] .neuabs on Neutrophils (Bld) 2.40 2.85-6.16 10 3/mcL Low 08-21-2019 [facility] [#/Vol] [facility] ([place]) ([address]) Comment: Performed By: #### PRO, CBC, ADIFF, ANEU #### [address] [address] .auto diff on 08-21 Ammonia (P) [Mass/Vol] 0.30 0.15-1.00 10 3/mcL Normal 08-21-2 020 [facility] ([place]) ([address]) Comment: Performed By: #### PRO, CBC, ADIFF, ANEU #### [address] [address] Basophils (Bld) 0.00 0.00-0.19 10 3/mcL Normal 08-21-2019 [facility] [#/Vol] [facility] ([place]) ([address]) Comment: Performed By: #### PRO, CBC, ADIFF, ANEU #### [address] [address] Basophils/100 WBC (Bld) 0.6 0.0-2.5 % Normal 2019 [facility] ([place]) (0000 0) Comment: Performed By: #### PRO, CBC, ADIFF, ANEU #### [address] [address] Eosinophils (Bld) 0.20 0.00-0.40 10 3/mcL Normal 08-21-2019 [facility] [#/Vol] [facility] ([place]) ([address]) Comment: Performed By: #### PRO, CBC, ADIFF, ANEU #### [address] [address] Eosinophils/100 WBC (Bld) 4.5 0.0-7.0 % Normal 08-08 [facility] ([place]) (0000 0) Comment: Performed By: #### PRO, CBC, ADIFF, ANEU #### [address] [address] Lymphocytes (Bld) 1.30 0.77-3.85 10 3/mcL Normal 08-21-2019 [facility] [#/Vol] [facility] ([place]) ([address]) Comment: Performed By: #### PRO, CBC, ADIFF, ANEU #### [address] [address] Lymphocytes/100 WBC (Bld) 31.9 10.0-50.0 % Normal 08-08 [facility] ([place]) ([address]) Comment: Performed By: #### PRO, CBC, ADIFF, ANEU #### [address] [address] Monocytes/100 WBC (Bld) 6.5 1.7-13.0 % Normal 2019 [facility] ([place]) (0000 0) Comment: Performed By: #### PRO, CBC, ADIFF, ANEU #### [address] [address] Neutrophils/100 WBC (Bld) 56.5 37.0-80.0 % Normal 08-08 [facility] ([place]) ([address]) Comment: Performed By: #### PRO, CBC, ADIFF, ANEU #### [address] [address] cnpn on 2019-05-24 CNPN Telephone (INFDMN) Normal 05-24-2019 [place] FRASERRICHARD Precious ([id number]) 1975 F [place] Date Time Provider Department ([id number]) 05/24/19 CHEL JOSE (ZEENAT) [facility] During your visit today, we recorded the following informati on about you: Allie William Senior Inspector 05/24/2019 11:29 AM Signed Patient would like her diagnosis and icd10 code sent to her so she can submit it to her insurance. She would like it mailed to her. [phone] (home) Allie William Senior Inspector Allergies As of Date: 05/24/2019 Noted Allergy Reaction MEDROL (METHYLPREDNISOLONE) 04/12/2017 4 - Hives AMOXICILLIN 05/20/2005 Comments: hives AVELOX (MOXIFLOXACIN HCL) 08/30/2007 Comments: swelling in legs, hard breathing COMPAZINE (PROCHLORPERAZINE EDISY*05/20/2005 Comments: lock jaw symptoms CONTRAST DYE (IODINE) 06/01/2016 4 - Hives TYLENOL (ACETAMINOPHEN) 06/22/2006 Date Reviewed: 05/16/2018 Reviewed by: Chel Jose MD (Fel) - Fully Assessed Reason for Visit: Letter [264] Prescriptions as of 05/24/2019 Sig: ALBUTEROL SULFATE HFA 90 MCG/* Inhale 2 Puffs as instructed * DICYCLOMINE 10 MG CAPSULE Take 10 mg by mouth before me* METFORMIN 1,000 MG TABLET Take 1,000 mg by mouth daily * ALBUTEROL 90 MCG/ACTUATION AE* 2 PUFFS EVERY 4 HOUR NEEDE D Problem List As Of Date 05/24/2019 Noted Resolved HUMAN IMMUNODEFICIENCY VIRUS DIS [B20] INVALID FOR* Genital herpes [054.1] INVALID FOR*05/16/2018 Osteoarthrosis, unspecified whether generalized*INVALID FOR* 05/16/2018 Depressive disorder, not elsewhere classified [*INVALID FOR* 05/16/2018 Anxiety state, unspecified [F41.1] INVALID FOR*05/16/2018 Unspecified asthma(493.90) [J45.909] INVALID FOR*05/16/2018 Unspecified disorder of liver [K76.9] INVALID FOR*05/16/2018 Calculus of kidney [N20.0] INVALID FOR*05/16/2018 Calculus of ureter [N20.1] INVALID FOR*05/16/2018 Restless legs syndrome (RLS) [G25.81] INVALID FOR*05/16/2018 Myalgia and myositis, unspecified [HXY5507] INVALID FOR*04/2018 Hypersplenism [D73.1] INVALID FOR*05/16/2018 Migraine with aura, without mention of intracta*INVALID FOR* 05/16/2018 Other and unspecified ovarian cyst [N83.209] INVALID FOR*04/2018 Abdominal pain, unspecified site [R10.9] INVALID FOR* 018 Other chronic pain [G89.29] INVALID FOR* Medication monitoring encounter [Z51.81] INVALID FOR* On HAART (highly active antiretroviral) therapy*INVALID FOR* Type 2 diabetes mellitus without complication, *INVALID FOR* Renal cyst [N28.1] INVALID FOR* Chronic kidney disease, stage 2, mildly decreas*INVALID FOR* Letter Text Encounter Status:Closed by ALLIE RODAS on mri abdomen w/o contrast on 2019-01-12 MRI Abdomen w/o Patient Name: RICHARD FRASER 01-12-2019 [facility] ([id number]) MRI Exam Date/Time 01/11/2019 14:51:54 EDT Exam MRI Abdomen w/o Contrast Ordering Physician MARIELLA BLEDSOE Accession Number [id number] CPT4 Codes 00917 () Reason For Exam MRCP RUQ PAIN FEVER Report MRI OF THE ABDOMEN WITH MRCP: CLINICAL INDICATION: Right upper quadrant pain and fever. Re ported hypoechoic lesion in the pancreas on ultrasound from one yea r ago and ultrasound from one year ago TECHNIQUE: Transaxial and coronal T1 and T2 breath hold romel g with transaxial and coronal gradient echo sequences were performe d through the abdomen. Thick section multi-angle and thin section mult i-slice MRCP sequences were performed through the abdomen as well. M aximum intensity projection 3-D images were created with the latter data set on an independent workstation. COMPARISON: MRI from one year ago FINDINGS: Gallbladder: Absent. Biliary tree: Intrahepatic and extrahepatic biliary tree dem onstrates normal caliber. Common hepatic duct luminal caliber: 0.3 cm. Common bile duct luminal caliber: 0.3 cm. No filling defects identi fied. Normal tapered configuration of the distal end of the common bile duct. Pancreatic duct: Normal caliber. Liver: Large size with cephalocaudad dimension of 22 cm. Nor mal contour and homogeneous signal. No focal lesion. Pancreas: No mass or peripancreatic fluid identified. No cys tic lesion identified within the pancreatic head. Spleen: Enlarged configuration measuring 17 x 6 x 12 cm with out focal lesion or surrounding collection. Adrenals:Normal Kidneys: No contour abnormality or hydronephrosis. Small cys t in the left kidney measures less than 1 cm. Aorta: Normal caliber. Visualized Osseous structures: Unremarkable. IMPRESSION: 1. Hepatosplenomegaly again noted 2. No biliary dilatation. 3. No change Report Dictated on Final Dictated: 01/12/2019 10:53 am Dictating Physician: MD MATOS JEFFREY Signed Date and Time: 01/12/2019 11:02 am Signed by: MD MATOS JEFFREY Transcribed Date and Time: 01/12/2019 10:53 cr chest portable o n 2018-12-01 CR Chest Portable Patient Name: RICHARD FRASER 12-01-2018 [facility] ([id number] ) Diagnostic Radiology Exam Date/Time 12/01/2018 03:54:16 EDT Exam CR Chest Portable Ordering Physician NOBLE GAMBINO STEPHEN H Accession Number [id number] CPT4 Codes 00206 () Reason For Exam chest pain Report PORTABLE CHEST Clinical indication: Chest pain Comparison: 08/03/2006 The cardiac silhouette and mediastinal contours are not enla rged. The lungs show no edema or focal acute infiltrates. No pleural e ffusions are identified. IMPRESSION: NO ACUTE RADIOGRAPHIC ABNORMALITY IS NOTED IN THE CHEST. Report Dictated on Workstation: [id number] Final Dictated: 12/01/2018 4:02 am Dictating Physician: MD BRASWELL DIANE Signed Date and Time: 12/01/2018 4:03 am Signed by: MD BRASWELL DIANE Transcribed Date and Time: 12/01/2018 4:02 cnnurse on [facility] Nurse Visit (INFDMN) Normal [address] [place] RICHARD Randall ([id number]) 1975 [facility] Time Provider Department ([id number]) 06/16/18 2:00 PM NURSE INFD MAIN INFDMN During your visit today, we recorded the following informati on about you: Kassi Bush MA, SANDIE 06/16/2018 2:31 PM Signed Patient has been identified. Allergies verified. Patient here for an injection of menactra Lot #: [id number] Expiration Date: 03/21/2019 [facility] # [id number] MGF Name sanofi pasteur Dose: 0.5ml Route: Intramuscular Site: Left Arm Patient tolerated injection well. Kassi Bush MA Patient has been identified. Allergies verified. Patient here for an injection of HEPATITIS A Lot #: [id number] Expiration Date: 04/12/2019 [facility] # [id number] MGF Name merckANDco Dose: 1ml Route: Intramuscular Site: Left Arm Patient tolerated injection well. Kassi Bush MA Referring Provider: SELF [200] Allergies As of Date: 06/16/2018 Noted Allergy Reaction MEDROL (METHYLPREDNISOLONE) 04/12/2017 4 - Hives AMOXICILLIN 05/20/2005 Comments: hives AVELOX (MOXIFLOXACIN HCL) 08/30/2007 Comments: swelling in legs, hard breathing COMPAZINE (PROCHLORPERAZINE EDISY*05/20/2005 Comments: lock jaw symptoms CONTRAST DYE (IODINE) 06/01/2016 4 - Hives TYLENOL (ACETAMINOPHEN) 06/22/2006 Date Reviewed: 05/16/2018 Reviewed by: Chel Jose MD (Fel) - Fully Assessed Primary Visit Diagnosis:Need for vaccination [Z23] Prescriptions as of 06/16/2018 Sig: ALBUTEROL SULFATE HFA 90 MCG/* Inhale 2 Puffs as instructed * DICYCLOMINE 10 MG CAPSULE Take 10 mg by mouth before me* METFORMIN 1,000 MG TABLET Take 1,000 mg by mouth daily * DARUNAVIR ETHANOLATE 600 MG T* Take 1 tablet by mouth twice * RALTEGRAVIR 400 MG TABLET Take 1 tablet by mouth twice * SULFAMETHOXAZOLE 800 MG-TRIME* Take 1 tablet by mouth once d * RITONAVIR 100 MG CAPSULE Take 1 capsule by mouth twice* EMTRICITABINE 200 MG-TENOFOVI* Take 1 tablet by mouth once d * ALBUTEROL 90 MCG/ACTUATION AE* 2 PUFFS EVERY 4 HOUR NEEDE D Problem List As Of Date 06/16/2018 Noted Resolved HUMAN IMMUNODEFICIENCY VIRUS DIS [B20] INVALID FOR* Genital herpes [054.1] INVALID FOR*05/16/2018 Osteoarthrosis, unspecified whether generalized*INVALID FOR* 05/16/2018 Depressive disorder, not elsewhere classified [*INVALID FOR* 05/16/2018 Anxiety state, unspecified [F41.1] INVALID FOR*05/16/2018 Unspecified asthma(493.90) [J45.909] INVALID FOR*05/16/2018 Unspecified disorder of liver [K76.9] INVALID FOR*05/16/2018 Calculus of kidney [N20.0] INVALID FOR*05/16/2018 Calculus of ureter [N20.1] INVALID FOR*05/16/2018 Restless legs syndrome (RLS) [G25.81] INVALID FOR*05/16/2018 Myalgia and myositis, unspecified [FFS7793] INVALID FOR*04/2018 Hypersplenism [D73.1] INVALID FOR*05/16/2018 Migraine with aura, without mention of intracta*INVALID FOR* 05/16/2018 Other and unspecified ovarian cyst [N83.209] INVALID FOR*04/2018 Abdominal pain, unspecified site [R10.9] INVALID FOR* 018 Other chronic pain [G89.29] INVALID FOR* Medication monitoring encounter [Z51.81] INVALID FOR* On HAART (highly active antiretroviral) therapy*INVALID FOR* Type 2 diabetes mellitus without complication, *INVALID FOR* Renal cyst [N28.1] INVALID FOR* Chronic kidney disease, stage 2, mildly decreas*INVALID FOR* Visit Notes: >> Kassi (Sandie) SANDIE Bush TueJun 16, 2018 2:29 PM Status: Signed Patient has been identified. Allergies verified. Patient here for an injection of menactra Lot #: [id number] Expiration Date: 03/21/2019 NDC # 17341-331-16 MGF Name sanofi pasteur Dose: 0.5ml Route: Intramuscular Site: Left Arm Patient tolerated injection well. Kassi Bush MA Patient has been identified. Allergies verified. Patient here for an injection of HEPATITIS A Lot #: [id number] Expiration Date: 04/12/2019 [facility] # 7013-9304-13 MGF Name merckANDco Dose: 1ml Route: Intramuscular Site: Left Arm Patient tolerated injection well. Kassi Bush MA Encounter Status:Closed by KASIS BUSH MA on 06/16/18 shoulder min 2 vws bilateral on 2018-03-15 SHOULDER SHOULDER MIN 2 VWS BILATERALOrdering Physician: Lashonda 03-15-2018 [facility] MIN 2 VWS Messi Wilson MD03/15/2018 4:30 PMBILATERAL Medical BILATERAL SHOULDERS FOUR VIEWS:Clinical Statement: Pain, Center diabetic neuropathy.Comparison: Right shoulder two [place] views 07/01/2014FINDINGS: Four views of both (72616) shoulders were obtained.At the right shoulder, postsurgical changes are again shown at thedistal clavicle with metallic plates along the superior and inferiormargins unchanged from the previous study. The acromioclavicular jointis within normal limits. The glenohumeral joint is maintained. Noosseous erosions, fracture or abnormal bone lesion. The soft tissuesare unremarkable.The left shoulder, bone mineralization is within normal limits. Theacromioclavicular and glenohumeral joint spaces are maintained. Noosseous erosions, fracture or abnormal bone lesion. The soft tissuesare unremarkable.IMPRESSION:1. Stable postsurgical changes at the right shoulder. The rightshoulder is otherwise unremarkable.2. Unremarkable left shoulder. ---- Electronic Signature on File ----Signed By: Phani Salazar [email or web address]: 03/16/2018 1:12 AMSigned: 03/16/2018 1:15 AM Reported By: PHANI SALAZAR M.D. Signed By: PHANI SALAZAR M.D. lumbar spine 2 or 3 vws on 2018-03-15 LUMBAR LUMBAR SPINE 2 OR 3 VWSOrdering Physician: Messi Gallego 03-15-2018 [facility] 2 MD Katie03/15/2018 4:30 PMLUMBAR SPINE THREE Medical OR 3 VIEWS:Clinical Statement: Diabetic neuropathy. Center VWS Pain.Comparison: Lumbar spine 07/01/2014.FINDINGS: [place] There is straightening of the lumbar lordosis. Five (38231) lumbarvertebral bodies demonstrate normal height and alignment.Intervertebral disk spaces are within normal limits and the posteriorelements are intact. Multiple surgical clips are again noted withinthe right abdomen.IMPRESSION:Straightening of the lumbar lordosis suggesting muscle spasm.Otherwise, unremarkable exam. ---- Electronic Signature on File ----Signed By: Phani Salazar [email or web address]: 03/16/2018 1:10 AMSigned: 03/16/2018 1:12 AM Reported By: PHANI SALAZAR M.D. Signed By: PHANI SALAZAR M.D. knee comp 4 or more vws chris on 2018-03-15 KNEE KNEE COMP 4 OR MORE VWS BILOrdering Physician: Lashonda 03-15-2018 Dominique Wilson MD03/15/2018 4:30 PMBILATERAL KNEES Medical 4 OR FIVE VIEWS:Clinical Statement: Diabetic neuropathy, Center MORE pain.Comparison: None.FINDINGS: Five views of both [place] VWS knees were obtained. There are mildtricompartmental (59714) CHRIS degenerative changes bilaterally. Bone mineralizationis within normal limits. The joint spaces are otherwise maintained. Noosseous erosions, fracture or joint effusion. No soft tissuecalcifications or chondrocalcinosis.IMPRESSION:Bilateral mild tricompartment osteoarthritis. ---- Electronic Signature on File ----Signed By: Phani Salazar [email or web address]: 03/16/2018 1:07 AMSigned: 03/16/2018 1:12 AM Reported By: PHANI SALAZAR M.D. Signed By: PHANI SALAZAR M.D. js on 2018-03-15 [facility] Normal 03-15-2018 [facility] REPORT Center Cosme desai ([id number]) JS DATE OF SERVICE: Normal 03-15-2018 [facility] 03/15/2018HISTORY OF Center [place] PRESENT ILLNESS: Ms. Fraser ([id number]) is a 42-[facility]-old [facility] with the complaint of rash all over the body, and thepatient tried to not pick on it, and the rash is red and itching, and the patientdenied any scabies exposure; however, the patient went to visit her sister at [facility], and her sister had a lot of fleas in the house, so she is concerned it maybe flea bites. Symptoms started 4 days ago. Patient denied any fever or chills, andno other complaint. Patient's primary care physician is Dr. Fortune.MEDICATIONS: Please see the patient's list.ALLERGIES: Patient is allergic to AMOXICILLIN, COMPAZINE, CONTRAST DYE, MEDROLDOSEPAK, but not prednisone, TYLENOL, and IMITREX.SOCIAL HISTORY: The patient is a smoker of 1 pack a day and not an alcohol drinker.FAMILY HISTORY: Significant for heart disease, high blood pressure, diabetes,stroke, and cancer.REVIEW OF SYSTEMS: Per HPI.PHYSICAL EXAMINATION: Vital Signs: Temperature 98.2, respiration rate 20, pulse 72,blood pressure 106/70, pulse oximetry 98%, the pain level 9/10. Patient's weight is221 pounds. General: This is a 42-year-old female appearing anxious butnot in acute distress. Skin: Left and right upper extremities, lower extremities,abdomen, neck, chest appear like infected follicles with redness, surrounding skinerythematous and red. No warmth to touch. HEENT: Unremarkable. Neck: Supple.Full range of motion. No lymphadenopathy. Lungs: Clear to auscultationbilaterally.Hea rt: Regular rhythm. Normal heart sounds. Abdomen: Soft, nontender.IMPRESSION: Acute folliculitis/pruritus.PLAN: Discussed the findings with patient. We will start the patient on raaojyaccgc577 mg 1 p.o. b.i.d. x10 days, number 20, and prednisone 10 mg tapering down dose,number 20, and may take Benadryl as needed, and follow up with the family doctor jasiel. Son Aurbey Rodney, [facility] [place][id number]: 03/15/2018 17:29 [facility] PATIENT NAME: BRIDGERTHIAGORICHARD Dover[address]Jenny Morel MEDICAL REC #: [id number], [place] [address] STAT[facility]ARE REPORT STATCARE PHYSICIANDT: 03/15/2018 21:11SSI File#: [id number] #: [id number]/Reviewed by04/21/18 1649 SORAYA [facility] PATIENT NAME: BRIDGERTHIAGORICHARD DoverAnnette [facility] [address] [address] MEDICAL REC #: [id number], [place] [address] STATCARE REPORT STAT[facility]ARE PHYSICIAN cerv sp 4 or 5 views on 2018-03-15 CERV CERV SP 4 OR 5 VIEWSOrdering Physician: Messi Gallego 03-15-2018 Dominique SP 4 MD Katie03/15/2018 4:30 PMCERVICAL SPINE FIVE Medical OR 5 VIEWS:Clinical Statement: Diabetic Center VIEWS neuropathy.Comparison: CT cervical spine [place] 08/13/2011..FINDINGS: There is straightening of the (76892) cervical lordosis. There ismild disk space narrowing and endplate spurring at C5-C6. There isbilateral C5-C6 uncovertebral spurring with associated foraminalstenosis, left greater than right. Remaining intervertebral diskspaces and neural foramina are within normal limits. The dens isintact and the atlantoaxial relationship is maintained. Prevertebralsoft tissue contour is within normal limits.IMPRESSION:1. C5-C6 degenerative disk disease with bilateral uncovertebralspurring and foraminal stenosis, left greater than right.2. Straightening of the cervical lordosis suggesting muscle spasm. ---- Electronic Signature on File ----Signed By: Phani Salazar [email or web address]: 03/16/2018 1:04 AMSigned: 03/16/2018 1:07 AM Reported By: PHANI SALAZAR M.D. Signed By: PHANI SALAZAR M.D. ed doc on ED PHYSICIA N ASSESSMENT DEMOGRAPHICS Patient: RICHARD FRASERSex: FDOB: Normal [birth year] Dominique DOC 1975Age: 41 yrAccount No: [id number]: [id number] Date: 23:01 10/12/2017Address: [address]: [place] [address] TFE ISTRATION ED Number: [id number]: Marital Status: SFin[facility] Priority: 3 - UrgentComplaint: Neck PainStated Complaint: neck pain/ non traumatic/ fell afew days ago and was seen [place] already today for leg pain t o RODVT.Arrival Date: 10/12/2017 23:01Triage Date: 10/12/2017 23:07Mode of Arrival: AmbulanceWC: NLanguage: EnglishTransport: [id number] =BED D49 In: 10/12/2017 23:25:45 10/12/201723:25:45 JBF [facility] PATIENT NAME: RICHARD FRASER A[address] [facility] [address] Morel MEDICAL REC #: [id number], [place] [address] DEPARTMENT CHART EMERGENCY DEPARTMENT [id number] (Removed From) Out: 10/12/2017 23:26:55010/12/2017 23:26:55 JBF PROVIDERS TRIAGE HISTORY ALLERGIESAllergic To: amoxil - Hives 10/12/2017 23:13 JBFAl lergic To: tylenol - liver problems 10/12/201723:13 JBFAllergic To: compazine - lock jaw 10/12/2017 23:13 JBFCURRENT MEDSName: bentyl prn 10/12/2017 23:13 JBFName: AL BUTEROL SULFATE 0.5% SOLUTION FOR INHALATION -INH prn 10/12/2017 23:13 JBFName: TRUVADA 200MG-300MG TABLET - PO daily 10/12/201723:13 JBFName: NORVIR 100MG CAPSUL E - PO daily 10/12/2017 23:13JBFName: perzista for HIV po daily 10/12/2017 23:13 JBFName: another HIV pill unk name 10/12/2017 23:13 JBFName: zanaflex prn 2017 23:13 JBFName: flexiril prn 10/12/2017 23:13 JBFName: metformin 1000mg po bid 10/12/2017 23:13 JBFILLNESSIllness: Other Medical HIV 10/12/2017 23:13 JBFIllness: Other Medical mass on her right ovary MEDICAL CENTER PATIENT NAME: CARLORICHARD A[address] Morel MEDICAL REC #: [id number], [place] [address] DEPARTMENT CHART EMERGENCY DEPARTMENT RTAQOAYVG34/07/20 23:13 JBFIllness: Other Medical anemic 10/12/2017 23:13 JBFIllness: Other Medical migraines 10/12/2017 23:13 JBFIllness: Other Medical DIVERTICULITIS 10/12/201723: 13 JBFIllness: Other Medical LOW POTASSIUM 10/12/2017 23:13JBFIllness: Other Medical CHRONIC PAIN 10/12/2017 23:13JBFIllness: Other Medical POLYNEUROPATHYU 0 02/201823:13 JBFIllness: Other Medical POLYNEUROPATHY 10/12/201723:13 JBFIllness: Other Medical LOW VITAMIN D/B12/FOLIC ACID10/12/2017 23:13 JBFIllness: Depression 10/12/2017 23:13 JBFIllness: Fibromyalgia 10/12/2017 23:13 JBFIllness: Anemia: Iron Deficiency 10/12/2017 23:13 JBFIllness: NIDDM 10/12/2017 23:13 JBFIllness: Anxiety 10/12/2017 23:13 JBFPAST SURGERY HISTSurgery: Seferino;Precious -age- 0310/12/2017 23:13 JBFSurgery: 7 hernia repairs 10/12/2017 23:13 JBFSurgery: trigger fingers 10/12/2017 23:13 JBFSurgery: cold knife surgery 10/12/2017 23:13 JBFSurgery: Hysterectomy- 10/12/2017 23:13 JBFSurgery: RT SHOULDER 10/12/2017 23:13 JBF [facility] PATIENT NAME: RICHARD FRASER0 [facility] [address] 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 was told that we are very busy in the back and thatwe do apologize and we will get her back as soon aspossible when a bed becomes available. 23:28 JBF [facility] PATIENT NAME: RICHARD FRASER A[address] Morel MEDICAL REC #: [id number], [place] [address] DEPARTMENT CHART EMERGENCY DEPARTMENT PHYSICIAN TREATMENT ME DICATIONS IV ===== ======I AND O VITALS VS-ROUTINE Time: 10/12/2017 23:07B/P: 124/73 - Left Upper Arm - Sitting - MachinePulse: 100 - Monitor Resp: 18Sa02: 96 Room Air Temp: 97.50 F - Wxgtfmmt60/07/2018 23:13 JBFVS-Pain Time: 10/12/2017 23:07 Pain Level: 23:13 JBFVS-GCS Time: 10/12/2017 2 3:07 Visual: 4 Verbal: 5 Motor:6 GCS Total: 15 10/12/2017 23:13 JBFVS-HT/WT Time: 10/12/2017 23:07 Ht: 68 in. StatedWeight: 295 lbs Actual 10/12/2017 23:13 JBFV S-Visual Time: 10/12/2017 23:07 10/12/2017 23:13 JBFVS-FHT Time: 10/12/2017 23:07 10/12/2017 23:13JBFVS-Notes Time: 10/12/2017 23:07 map 93 10/12/201723:13 JBF====== ORDERS LBE (Left Before Exam) 10/12/2017 23:30N/AOrdered: 10/12/2017 23:30 By ANAHI KAIN DISC HARGE Diagnosis: LWT 0 10/12/2017 23:30 [facility] PATIENT NAME: RICHARD FRASER A[address] [facility] [address] MEDICAL REC #: [id number], [place] [address] DEPARTMENT CHART EMERGENCY DEPARTMENT PHYSICIANDisposition: Time: 10/12/2017 23:28Discharge Time: 23:28Type: LBECondition: JERICA pt moved to room 49 afterit became available after waiting 25 mins in triage and shenow states that she doesnt want to be seen. RN precious dayed ernie felt better and she said no, but she doesnt want to beseen. RN told her that we have a clean bed for her anddoctor could see her at this time. pt still refused at thistime.Referral: 02/2018 23:30 JBF PRESCRIPTIONS ERICK GES SIGNATURE ANAHI FINNEGAN RN JBF [facility] PATIENT NAME: RICHARD FRASER [address] [facility] [address]l MEDICAL REC #: [id number], [place] [address] DEPARTMENT CHART EMERGENCY DEPARTMENT PHYSICIAN ED This is a preliminary report only, as the practitioner review and authentication has not occurred. Normal 10-14-19 18 [facility] Medical [facility] atio [place] n ([id number]) vlvd on 2017-10-12 VENOUS DUPLEX Normal 10-12-2017 [facility] [place] ([id number]) VLVD VASCULAR MEDSTREAMING Normal 10-13-19 18 [facility] ------Patient: RICHARD FRASER ([id number]) AAccount [id number] Phy:MR: [id number] for Visit: RT LEG SWELLING/TRIAGEDate of Service 10/12/17Reading Physician: Eugenio Marinelli, MDRight:Duplex ultrasound evaluation of the right lower extremity from thelevel of the calf to the level of the common femoral vein showscompressible and compliant vessels throughout the deep andsuperficial venous system. Color and spectral Doppler waveformanalysis of the deep and superficial venous system demonstratesspontaneous, phasic, and augmented flow with no evidence of refluxin the saphenofemoral junction. These findings are consistent withthe absence of deep vein thrombosis (DVT) or superficial veinthrombosis.Non vascular fluid collection seen in the right popliteal fossameasuring 1.9 x 0.8 x 1.7 cm.Left:CFV evaluated for comparisonConclusions:No evidence of deep vein thrombosis (DVT) or superficial veinthrombosis in the right lower extremity.Non vascular fluid collection in the right popliteal fossa.CC:Bryce Lemonsbreviated Final Report. Full Report is available via link to Impinj under [employer] Image Viewer. [facility] PAT[facility] NAME: [facility] [address] [facility] [address] [facility] MEDICAL REC #: [id number], [place] [address] DATE:DISCHARGE DATE: 10/12/17VENOUS DUPLEX REPORT ATTENDING PHY: Bryce Lemons DOElectronically Signed by: Eugenio Marinelli MD Esign Date: 10/13/17 ed doc on 7 ED PHYSICIA N ASSESSMENT RECORDS: FlexChartDataEvent Time: Normal 10-12-2017 Nataliia cy DOC 10/12/2017 18:15Status: Sign [facility] [[id number]]Mid-Level Medical Chart (V2b)40 / F / 12/10/18 77Chart created at 10/12/2017 18:11 by Martin Alvarado closed at Center 10/12/2017 19:54Entry in Jennifer rgency Department at 10/12/2017 17:16,departure at 10/12/2017 [place] 20:18Patient Name: Richard lynne Record Number: [id number]: 10/12/2017 18:11Entered Department (000 00) at: 10/12/2017 17:16 Patient Seen at:10/12/2017 18:04 Historian: PatientPCP: Caleb Fortune Complaint:LEG PAIN. RIGHT LE G SWELLING STARTINGYESTERDAY W/ PAIN TODAY. HX OF DVTTemperature: 98.8 F (37.1 C). Pulse: 113. Respir atory Rate:18. Blood-pressure:144/94. Oxygen Saturation: 98%.History of Present Illness:I agree with nurses notes. No defined injury/fall. Shestates she does fall a lot with herpolyneuropathy. She does have remote history of DVT about14 years ago after having had a abdominalsurgery. She denies any chest pain shortness of breathHPI Elements: Onset:(yesterday); Timing: Gradual; Location:ri ght leg; Quality: Aching; Severity:maximum Moderate, now Moderate; Context: At Rest;Exacerbated by: Palpation; Alleviated by: Nothing [facility] PATIENT NAME: RICHARD FRASER A[address]Annet[address] [facility] [address] Morel MEDICAL REC #: [id number], [place] [address] 2EMERGENCY DEPARTMENT CHART EMERGENCY DEPARTMENT PHYSICIANAssociated symptoms: none aside from th at described above.Review of Systems. Constitutional: negative for Fever Eyes:negative for Eye Pain E ar/Nose/Throat:negative for Sore Throat Cardio- Vascular: negative forChest Pain Respiratory: n egative for Dyspnea GI:negative for Abd. Pain, Diarrhea, Nausea or Vomiting :negative for Dys uria Musculo-Skeletal: positivefor Myalgias, negative for Back Pain, right legNeurological: negat nirav for Headache Hem/Endo: negativefor Bleeding Immunology: negative for Joint Pain All othersystems reviewed and negative..Past History, Medications, Allergies, Social History andFamily History re viewed in nurses note.Medications: Reviewed RN Note.does not have a listAllergies: Reviewed RN N oteamoxil(Hives), tylenol(liver problems), compazine(lock jaw)amoxil(Hives), tylenol(l iver problems),compazine(lock jaw)Social History: Reviewed RN Note.Family History: Reviewed RN NotePhy sical Examination: General: Alert and Well DevelopedHEENT: Normal ENT inspection.Eyes: Lids Normal ; . Oropharynx / Throat: NormalPharynx. Neck: No Lymphadenopathy, NoMeningismus and Supple Res piratory: No Resp Distress andNormal Breath Sounds Cardio-Vascular: No murmur,No rub and RRR Abdome n: Non-tender and Soft Back: No CVAtenderness, No Midline Tenderness and Non-tenderExtremity: No josie a; diffusely tender right leg, strongpulses, no obvious vascular deficit Neurological:Alert, Oriented X3 and No Gross Weakness Skin: No rash, NoPetechiae, Warm and Dry Psychological:Mood/Affect Normal and Normal Memory/Judgmen tMedical Decision Making [facility] PATIENT NAME: RICHARD FRASER [facility] [address] MEDICAL REC #: [id number], [place] [address] [facility] EM[facility] DEPARTMENT [id number]-Mbhl-yuk female with a subjective com plaint of right legswelling. Do not appreciate any significantswelling on exam. Duplex scan came back negative for DVT.She does have a Bakers cyst which was alreadypreviously known. She has an appointmen t to follow-up withher primary care physician tomorrow. We didgive her medication here, we will be refraining from anytype of narcotic medications for home. Shesencouraged to use a support stockingAdd itional Information: Discussed Results, Diagnosis andFollow-Up with Patient.Clinical Impression: 1. right leg pain without evidence of DVT2. Vikram cystDisposition: Discharged *Home. Condition: Good at19:54Direct patient care supervision and electronicdocumentation review by Bryce Lemons on 10/19/201700:42.: FlexChartDataEvent Time: 02/2018 20:45Status: SignedRogue Regional Medical CenterRhondprecious Fraser [[id number]]Att ending Eecjemrwl69 / / 1975Chart (V2b)Chart created at 10/12/2017 20:10 by Bryce Jackson rt closed at 10/12/2017 20:11Entry in Emergency Department at 10/12/2017 17:16,departure at 10/12/2017 20:18Patient Name: Richard Fraser Record Number: [id number] [facility] PATIENT NAME: RICHARD FRASER [address] [facility] [address] MEDICAL REC #: [id number], [place] [address] 2EMERGENCY DEPARTMENT CHART EMERGENCY DEPARTMENT PHYSICIANDate: 10/12/2017 20:10Entered Depa rtment at: 10/12/2017 17:16 Patient Seen at:10/12/2017 18:04 Historian: PatientPCP: Bruno Fortune Complaint:LEG PAIN. RIGHT LEG SWELLING STARTINGYESTERDAY W/ PAIN TODAY. HX OF DVTTriage Note reviewed and Initial Vital Signs reviewed.Temperature: 98.8 F (37.1 C). Pulse: 113. Respiratory Rate :18. Blood-pressure:144/94. Oxygen Saturation: 98%.Past History, Medications, Allergies, Soci al History andFamily History reviewed in nurses note.Medications: Reviewed RN Note.does not willson ve a listAllergies: Reviewed RN Noteamoxil(Hives), tylenol(liver problems), compazine(lock ja w)Social History: Reviewed RN Note.Family History: Reviewed RN NoteMedical Decision MakingA fter receiving test results from physicians engineer third assistant,patient immediately walked out of the emergencyd epartment, she did not receive any of her dischargeinstructions, I was unable to directly evaluate thepatient myself because of this. The physicians assistantdid discuss patients discharge instructi onswith her verbally prior to her leaving.MSE completed.I was the primary ED attending..I confirm that I have reviewed the mid-level providersdocumentation and agree with the evaluation, planof care and disposition.. [facility] PATIENT NA ME: RICHARD FRASER A[address] Dominique Morel MEDICAL REC #: [id number], [place] [address]EMERGENCY DEPARTMENT CHART EMERGENCY DEPARTMENT PHYSICIANElectronically sign ed by Bryce Lemons on 10/12/2017 at20:11 : Discharge ReportEvent Time: 10/12/2017 19:55===DIS CHARGE REPORT===: FlexChartDataEvent Time: 10/12/2017 18:15: FlexChartDataEvent Time: 02/2018 20:45: Discharge ReportEvent Time: 10/12/2017 19:55Status: DraftReasons to Return [facility]:You must return to the ER for any new, worsening orchanging symptoms, or if you feel mor e ill or sick inany way. This is the most important thing to remember.Follow-up:The care you received in the ER was given on an emergencybasis only, and it is often not possible tocomplet brandon treat or diagnose a problem in a single ERvisit. You must see your follow-up doctor for arechec k within a week unless you receive instructions witha different timeframe for follow-up. Pleasefollow all your discharge instructions.Medications:Unless the ER doctor tells you differently, you should takeall your regular medications and any newmedications prescribed today. Because it is not possiblefo r the ER doctor to review all of yourmedication side effects or interactions, you must revie wpossible side effects and interactions with yourpharmacist when you get your prescriptions filled.EK G and Radiology Results:A manager human capital or radiologist will review any EKG orradiology results provided by the ER doctor. We willcontact you if the results in the final EKG or radiologyreports require a change in treatment. [facility] PATIENT NAME: RICHARD FRASER A[address] [facility] [address] MEDICAL REC #: [id number], [place] [address] [facility]Y DEPARTMENT PHYSICIANCulture Results:Cultures may have be en ordered during your ER visit. Wewill contact you if the culture results require achange in t reatment.Referrals:Most referrals to specialists come from the on-call listYou should make your [facility] aware of anyreferrals before you schedule the appointment so that theyare aware and can m travon suggestionsDIAGNOSIS:right leg pain without evidence of DVT, bakers cystINSTRUCTIONS:maintain fo llow-up with primary care physician as scheduledfor tomorrowMEDICATIONSWe have given you these prescri ptions that you must filland start taking:NoneMy signature below indicates that I have receiv ed andunderstand the oral instructions regarding mymedical problem. I also acknowledge receipt of this writteninstruction sheet including a list of majortests and procedures ordered during my visit. I willarrange for follow-up care as indicated by theseinstructions and referr als.This signed original will be kept in my medical record.Your signature below indicates consent for Case Managementto contact communityhealthcare providers in [facility] to meet your ongoing healthcare needs. This willallow forcontinuity of care once you leave theAr[facility] Department. This exchange of informationwillinclude, but not be limited to, disclosure of your [facility] PATIENT NAME: RICHARD FRASER [address] [facility] [address] Morel MEDICAL REC #: [id number], [place] [address] [facility] DE[facility] CHART EMERGENCY DEPARTMENT PHYSICIANpatient information and possible release ofrecords. ==DEMOGRAPHICS Emergisoft Patient: RICHARD FRASERSex: FDOB: 1975Age: 41 yrAc count No: [id number]: [id number] Date: 17:16 10/12/2017Address: [address] [address] QVK ISTRATION ED Number: [id number]: Marital Status: SFinancial Class: MPPS TRIA GE Priority: 3 - UrgentComplaint: Leg PainComplaint: Leg SwellingStated Complaint : LEG PAIN. RIGHT LEG SWELLINGSTARTING YESTERDAY W/ PAIN TODAY. HX OF DVTArrival Date: 10/12/2017 17:16Triage Date: 10/12/2017 17:36Mode of Arrival: *Privately Owned VehicleTransfer From: * HomeWC: NLanguage: EnglishTran sport: Ambulatory/Walk In BED=== D42 In: 10/12/2017 17:43:40 10/12/201717:43:40 VLCD42 (Removed From) Out: 10/12/2017 20:18:25010/12/2017 20:18:25 JLTA [facility] PATIENT NAME: RICHARD FRASER [id number] [facility] [address] Morel MEDICAL REC #: [id number], [place] [address] DEPARTMENT [facility] EMERGENCY DEPARTMENT PHYSICIAN =PROVIDERS LINDA Alves Provider Contact: 10/12/201718:04:40 LFDEnd:DO Bryce Lemons Provider Contact: 10/12/201718:04:43 EDSEnd:HAILEE SCHAFFER Provider Contact: 0 10/12/201719:11:54 JLTAEnd: TRIAGE HISTORY A LLERGIESAllergic To: amoxil - Hives 10/12/2017 17:40 ATVAllergic To: tylenol - liver problems 02/201817:40 ATVAllergic To: compazine - lock jaw 10/12/2017 17:40 ATVCURRENT MEDSName: does no t have a list 10/12/2017 19:12 JLTAILLNESSIllness: Other Medical LOW VITAMIN D/B12/FOLIC ACID02/2018 17:40 ATVIllness: Other Medical NJGLPNHUAOZBFE47/07/2018 17:40 ATVIllness: Other Medical PO WAOABCDUWBUYA88/07/2018 17:40 ATVIllness: Other Medical CHRONIC PAIN 10/12/2017 17:40ATVIllness: Other Medical LOW POTASSIUM 02/2018 17:40 [facility] PATIENT NAME: RICHARD FRASER [id number] [facility] [address] [place]l MEDICAL REC #: [id number], [place] [address] 2EMERGENCY DEPARTMENT CHART EMERGENCY DEPARTMENT PHYSICIANATVIllness: Other Medical DIVERTICULITIS 10/12/201717:40 ATVIllness: Other Medical migraines 10/12/2017 17:40 ATVIllness: Other Medical an emic 10/12/2017 17:40 ATVIllness: Other Medical mass on her right ovary10/12/2017 17:40 ATVIll ness: Other Medical HIV 10/12/2017 17:40 ATVIllness: Depression 10/12/2017 17:40 ATVIllness: Fibromyalgia 10/12/2017 17:40 ATVIllness: Anemia: Iron Deficiency 10/12/2017 17:40 ATVIllness: NIDDM 10/12/2017 17:40 ATVIllness: Anxiety 10/12/2017 17:40 ATVPAST SURGERY HISTSurgery: Tandamp ;A -age- 0310/12/2017 17:40 ATVSurgery: 7 hernia repairs 10/12/2017 17:40 ATVSurgery: trigger fingers 10/12/2017 17:40 ATVSurgery: cold knife surgery 10/12/2017 17:40 ATVSurgery: Hysterectomy- 17:40 ATVSurgery: RT SHOULDER 10/12/2017 17:40 ATVPAST SOCIAL HISTSocial History: Lives wi th family or significant other10/12/2017 17:40 ATVSocial History: Alcohol - None 10/12/2017 17:40 ATVS ocial History: Recreational Drugs - None 10/12/201717:40 ATV [facility] PATIENT NAME: RICHARD FRASER [facility] [address] Morel MEDICAL REC #: [id number], [place] [address] [facility] DEPARTMENT CHART EMERGENCY DEPARTMENT PHYSICIANSocial History: Smoker-1 PPD 10/12/2017 17:4 0 ATVSocial History: Denies Domestic Violence 10/12/201717:40 ATVSocial History: Denies thoughts of self harm.10/12/2017 17:40 ATVSocial History: Have you traveled in the past month?Where NO 10/13/19 17:40 ATVIMMUNIZATIONSImmunization: Flu Vaccine- no 10/12/2017 17:40 ATVSELF TREATMENTAid: *No Tr eatment Prior to Arrival 10/12/2017 17:40 ATV NURSING ASSESSMENT ASSESSMENT NOTES 10/12/2017 19:12 pt to US at this time. 10/12/201719:12 JLTA10/12/2017 19:15 pt is alert and oriented x3. ptreports her left leg was swollen yesterday. pt reportsthe pain started today. pt has a hx of blood clots.movement, sensat ion, and pulse is present. I did notobserve edema. 10/12/2017 19:16 JLTA10/12/2017 20:08 gown on bed belongs are not in room.pt left without d/c instructions. 10/12/2017 20:08 JLTA ==TREATMENT 10/12/2017 19:13 Hourly Rounding - Rounding 10/12/201719:15 JLT AElimination/Toileting NPain 9Position Comfortable YSafe Environment Y [facility] PATIENT NAME: RICHARD FRASER [facility] [facility] REC #: [id number], [place] [address] [facility] DEPARTMENT CHART EMERGENCY DEPARTMENT PHYSICIANAssessment Note right legFall Risk Change N0 018 19:13 Patient Interaction - Allergy Band onPt. 10/12/2017 19:15 JLTA10/12/2017 19:13 Patient Interaction - Call lightplaced within reach. 10/12/2017 19:15 JLTA10/12/2017 19:13 Patient Interaction - Introduce selfto Patient. 10/12/2017 19:15 JLTA10/12/2017 19:14 Patient Interaction - Name Band on Pt10/12/2017 19:15 JLTA10/12/2017 19:14 Primary DOC Guide - A. 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 Fall RiskAssessment (Age andlt;65) 10/12/2017 19:15 JLTAHistory of Falling in last 3 months? Yes (1)Confusion or Disorientati on? No (0)Intoxicated or Sedated? No (0)Impaired Gait? No (0)Mobility Assist Device Used? No (0)Al tered Elimination? No (0)Fall Risk Score 1-2 Points = Low Risk. 3-4 Points =Moderate Risk. 5 or more points = High Risk. 1Fall Score Greater andgt;= 3? No10/12/2017 19:14 Primary DOC Guide - E. Family ViolenceAssessment 10/12/2017 19:15 JLTAWithin the past year, has anyone ever pushed, shoved,s lapped, choked, hit, punched or kicked you: NoWithin the past year, has anyone ever pressured or [facility] PATIENT NAME: RICHARD FRASER [address] [facility] [address] [place]l MEDICAL REC #: [id number], [place] [address] [facility] DEPARTMENT CHART EMERGENCY DEPARTMENT PHYSICIANforced you to have sexual activities when you d id not wantto: NoDo you feel safe and well cared for: YesIs there a partner from a previous or c urrentrelationship that is making you feel unsafe now: NoFamily Violence Clinical Observation All Neg ative Umoorc7510/12/2017 19:14 Primary DOC Guide - D. PsychosocialAssessment 10/12 19:15 JLTAOver the Last 2 weeks, how often have you had littleinterest or pleasure i n doing things (0) Not at AllIs Psychosocial Assessment Score 3 or more? If score is3 or more please consult ED Navigator! NoTotal Psychosocial Assessment Score 1Over the last 2 weeks, how often have you been feelingdown, depressed or hopeless (1) Several Days MEDICATIONS IV=== I AND O VITALS VS-ROUTINE Time: 10/12/2017 17:36B/P: 1 44/94 - *Right Forearm - Sitting - MachinePulse: 113 - Monitor Resp: 18Sa02: 98 Room Air Temp: 98.80 F - Oral10/12/2017 17:40 ATVVS-Pain Time: 10/12/2017 17:36 Pain Level: 10010/12/2017 17:40 AT VVS-GCS Time: 10/12/2017 17:36 Visual: 4 Verbal: 5 Motor:6 GCS Total: 15 10/12/2017 17:40 ATVVS-HT/WT Time: 10/12/2017 17:36 Ht: 172.7 cm StatedWeight: 106.5 kg Stated 10/12/2017 17:40 ATVVS-Visua l Time: 10/12/2017 17:36 10/12/2017 17:40 ATVVS-FHT Time: 10/12/2017 17:36 10/12/2017 17:40ATVVS- Notes Time: 10/12/2017 17:36 MAP 114 10/12/201717:40 ATV [facility] PATIENT NAME: RICHARD FRASER [address] [facility] [address] [place] MEDICAL REC #: [id number], [place] [address] DEPARTMENT CHART EMERGENCY DEPARTMENT PHYSICIAN =ORDERS Discharge patient 10/12/2017 20:10N/AOrdered: 10/12/2017 19:55 By . OtherR eviewed: 10/12/2017 20:10 By . OtherPhenergan (IM)*(25mg/ml) DOSE:12.5 mgIM 10/12/2017 19:11N/AOrde red: 10/12/2017 18:10 By Martin AlvesCompleted Time: 10/12/2017 19:11 By Martin AlvesNoted Time: 02/2018 19:02 JLTADuplex venous lower limb 10/12/2017 19:46N/AOrdered: 10/12/2017 18:10 By Martin Zepedapleted Time: 10/12/2017 19:45 By Martin AlvesQuestion: How is patient transported? (A = Am bulatory, B =Bed, C = Carry, CR = Crib, P = Portable, S = Stretcher, W =Wheelchair, X = Wide Wheelc hair, XT = Trauma X RM17 (EDShirley))Answer: STRETCHERQuestion: Right or Left?Answer: RIGHTMorphine ( IM)*(4mg/ml) DOSE:4 mgIM 10/12/2017 19:11N/AOrdered: 10/12/2017 18:10 By Martin Thackered Time: 10/12/2017 19:11 By Martin Veliz Time: 10/12/2017 19:02 JLTA DISC HARGE Diagnosis: right leg pain without evidence of DVT,bakers cyst 10/12/2017 1 9:55Disposition: Time: 10/12/2017 19:55Discharge Time: 10/12/2017 20:18Type: DischargeCondit ion: Stable for admission/discharge/transferafter emergency evaluation/treatment Category: *NOTAPPLICABLE [facility] PATIENT N ERMELINDA: RICHARD FRASER32Jenny Dominique Morel MEDICAL REC #: [id number], [place] [address] DE[facility] CHART EMERGENCY DEPARTMENT PHYSICIANReferral: 10/12/2017 19:55Admit Physician: . Other PRESCRIPTIONS CH ARGES SIGN ATURE Martin MENDENHALL RN JIM LUBIN RN [facility] PATIENT NAME: RICHARD FRASER Dominique Morel MEDICAL REC #: [id number], [place] [address] [facility] DEPARTMENT CHART EMERGENCY DEPARTMENT PHYSICIAN ED This is a preliminary report only, as the practitioner review and authentication has not occurred. Normal 10-13-19 [id number]a microscopic on 2 BACTERIA 2+ NONE /HPF Normal 08-28-2017 [facility] [place] ([id number]) Comment: Order Comment: Donalds: M Performed By: #### L600.0000 1, L600.19469 ####[facility] [id number] [facility], [place] [address]Tt# [phone] EPITH CELLS 20 0-5 EPI/HPF High 08-28-2017 [facility] ([id number]) Comment: Order Comment: Donalds: M Performed By: #### L600.0000 1, L600.27785 ####[facility] [id number] [facility], [place] [address]Sd# [phone] MUCUS 2+ /HPF Normal 08-28-2017 [facility] (12016) Comment: Order Comment: Donalds: M Performed By: #### L600.0000 1, L600.46944 ####[facility] [id number] [facility], [place] [address]Te# [phone] UA RBC 3 0-3 RBC/HPF Normal 08-28-2017 [facility] (26995) Comment: Order Comment: Donalds: M Performed By: #### L600.0000 1, L600.10674 ####[facility] [id number] [facility], [place] [address]By# [phone] UA WBC 9 0-5 WBC/HPF High 08-28-2017 [facility] (13182) Comment: Order Comment: Donalds: M Performed By: #### L600.0000 1, L600.44245 ####[facility] [id number] [facility], [place] [address]Cz# [phone] VOL OF UR SPUN 8 ML Normal 08-28-2017 [facility] ([id number]) Comment: Order Comment: Donalds: M Performed By: #### L600.0000 1, L600.34230 ####[facility] [id number] [facility], [place] [address]In# [phone] ua complete on 2017 Color Nom (U) DK YELLOW Normal 08-28-2017 [facility] ([id number]) Comment: Order Comment: Donalds: M Performed By: #### L600.0000 1, L600.17855 ####[facility] [id number] [facility]ael[facility] [place], [place] [address]Qe# [phone] Glucose mass conc (U) NEGATIVE NORMAL mg/dL Normal 08-28-19 [facility] (00 000) Comment: Order Comment: Donalds: M Performed By: #### L600.0000 1, L6.01704 ####[facility] [id number] [facility]ILLMikaela [facility] [place], [place] [address]Wf# [phone] UA APPEARANCE CLOUDY CLEAR Normal 08-28-2017 [facility] ([id number]) Comment: Order Comment: Donalds: M Performed By: #### L600.0000 1, L6.02594 ####[facility] [id number] [facility]aela [facility] [place], [place] [address]Qx# [phone] UA BILIRUBIN SMALL NEGATIVE Normal 08-28-2017 [facility] ([id number]) Comment: Order Comment: Donalds: M Result Comment: Ictotest not performed. Result not confirmed. Performed By: #### L600.0000 1, L600.57542 ####[facility] [id number] [facility]aela [facility] [place], [place] [address]Zx# [phone] UA BLOOD NEGATIVE NEGATIVE Normal 08-28-2017 [facility] ([id number]) Comment: Order Comment: Donalds: M Performed By: #### L600.0000 1, L6.74116 ####[facility] [id number] [facility]aela [facility] [place], [place] [address]Rw# [phone] UA COMMENT UA MICROSCOPIC N Normal 08-28-2017 [facility] (06792) Comment: Order Comment: Donalds: M Performed By: #### L600.0000 1, L600.94010 ####[facility] [id number] [facility]aela [facility] [place], [place] [address]Zg# [phone] UA KETONE TRACE NEGATIVE Normal 08-28-2017 [facility] ([id number]) Comment: Order Comment: Donalds: M Performed By: #### L600.0000 1, L6.59537 ####[facility] [id number] [facility] [place] [place], [place] [address]Xx# [phone] UA LK ESTERASE NEGATIVE NEGATIVE Normal 08-28-2017 [facility] (40205) Comment: Order Comment: Donalds: M Performed By: #### L600.0000 1, L600.90614 ####[facility] [id number] [facility] [place] [place], [place] [address]Ts# [phone] UA NITRITE NEGATIVE NEGATIVE Normal 08-28-2017 [facility] (26630) Comment: Order Comment: Donalds: M Performed By: #### L600.0000 1, L600.24772 ####[facility] [id number] [facility] [place], [place] [address]Iz# [phone] UA PH 5.5 5-6 Normal 08-28-2017 [facility] ([id number]) Comment: Order Comment: Donalds: M Performed By: #### L600.0000 1, L6.17827 ####[facility] [id number] [facility] [place], [place] [address]Ea# [phone] UA PROTEIN TRACE NEGATIVE Normal 08-28-2017 [facility] (94877) Comment: Order Comment: Donalds: M Performed By: #### L600.0000 1, L600.83240 ####[facility] [id number] [facility] [place] [place], [place] [address]Ls# [phone] UA SPEC GRAV 1.025 1.005-1.030 Normal 08-28-2017 [facility] (73733) Comment: Order Comment: Donalds: M Performed By: #### L600.0000 1, L600.89849 ####[facility] [id number] [facility] [place] [place], [place] [address]Je# [phone] UA UROBILINOGEN 2.0 NORMAL MG/DL Normal 08-28-2017 [facility] ([id number]) Comment: Order Comment: Donalds: M Performed By: #### L600.0000 1, L600.56615 ####[facility] [id number] [facility] [place], [place] [address]Yy# [phone] gfr est on IF AMER Greater than 60 Normal 08-28-[address] [place] [address] ([address]) Comment: Order Comment: Donalds: M Performed By: #### L500.0180 5, L500.61390 ####[facility] [id number] [facility] [place], [place] [address]Qh# [phone] IF non-AFR AMER Greater than 60 Normal 08-28-19 18 [facility] (26271) Comment: Order Comment: Donalds: M Performed By: #### L500.0180 5, L500.25451 ####[facility] [id number] [facility] [place], [place] [address]Dj# [phone] ed doc on 2017-08-09 1 ED PHYSICIA N ASSESSMENT RECORDS: FlexChartDataEvent Time: 08/28/2017 00:10Status: SignedMercy Medical Normal 08-28-2017 [facility] DOC Delbert Fraser [[id number]]Attending Cjsulbeit38 / F / 1975Chart (V2b)Chart created at 08/28/2017 00:07 by [facility] Danette closed at 03:24Entry in Emergency Department at 08/27/2017 22:01Patient Name: Richard Fraser Record Number: Toi [id number]: 08/28/2017 0 0:07Entered Department at: 08/27/2017 22:01 Patient Seen at:08/27/2017 23:35 PCP:Caleb Fortune Complaint:Urinary [place] difficulty x 2 days. Lower b ackpain. Seen here yesterdayTemperature: 99.7 F (37.6 C). Pulse: 113. Respiratory Rate:18. Blood-pressure:114/69. Oxygen (60025) Saturation: 94%.History of P resent Illness:Patient is complaining of inability to urinate for the last2 days. The patients had a viral syndromediagnosed yesterday was seen here her influenza screen wasnegative. The patient did not have an IVstarted she went home and slept all day hasvioleta drankanything slept th e entire time kate had anythingtoday. Patient is here because she hasnt urinated sinceshe kate drank anything in 36 hours. Thepatient states she s got body achiness everywhere the rashthat she had yesterday is now gone. The [facility] PATIENT NAME: RICHARD FRASER [address] [facility] [address] Morel MEDICAL REC #: [id number], [place] [address] DEPARTMENT CHART EMERGENCY DEPARTMENT PHYSICIANpatient has a history of fibromyalgia anxi ety is a historyof chronic HIV migraines anemia liverproblems. She also has chronic pain syndrome.HPI Elements: Onset: 2 Days ago; Timing: Gradual; L ocation:body aches dehydration oliguria; Quality:Aching; Severity: maximum Mild, now Mild; Context: At Rest;Exacerbated by: Nothing; Alleviated by:N othing Associated symptoms: cough.Review of Systems. All other systems reviewed and negative..Past History, Medications, Allergies, Social History an dFamily History reviewed in nurses note.Medications: Reviewed RN Note.klonopin ,albuterol ,bactrim ,bentyl ,from patient memory 08.26.17Allergies: Rev iewed RN Noteamoxil(Hives), tylenol(liver problems), compazine(lock jaw)amoxil(Hives), tylenol(liver problems),compazine(lock jaw )Social History: Reviewed RN Note.Family History: Reviewed RN NotePhysical Examination: General: Alert; nontoxic. HEENT:Normal ENT inspection. Eyes:Lids Normal; . Oropharynx / Throat: Normal Pharynx.Neck: No Lymphadenopathy, NoMeningismus and Supple Respiratory: No Resp Distress andNormal B reath Sounds Cardio-Vascular: No murmur,No rub and RRR Abdomen: Normal Bowel Sounds, Non-tender andSoft Back: No CVA tenderness, No MidlineTender ness and Non-tender Extremity: No edema and NormalEqual pulses Neurological: Alert, Oriented X3and No Gross Weakness Skin: No rash, No Petechiae, Warm andDry; dry mucosa Psychological: Mood/AffectNormal and Normal Memory/Judgment [facility] PATIENT NAME: RICHARD FRASER [facility] [address] Morel MEDICAL REC #: [id number], [place] [address] DEPARTMENT CHART EMERGENCY DEPARTMENT PHYSICIANBMP, information as of 08/28/2017 , 0:07 am138 --------+--------+--------andlt; 95 Anion Gap = 73.2* BUN/CREA: 17; CALCIUM TOTAL: 8.1 Mg/DlUA COMPLETE, UA MICROSCOPIC, information as of 08/28/2017,0:07 am+ + + + + +---------+pH 5.5 + + + + +-------- --+---------+Ket TRACE + + + + + +---------++ + + + + +---------++ +- ---------+ +------- ---+ +---------+EPITH CELLS: 20 Epi/Hpf; MUCUS: 2+ /Hpf; UA COMMENT: UaMicroscopic; VOL OF UR SPUN: 8 MlMedical Decision MakingPatient has u rinated she was severely dehydrated. She needsto drink 70+ ounces of fluid today given heran anti-medic her urinalysis is contaminated does eboni aguilar in it but it is indeed contaminated. Iwill place her on a short course of antibiotics as well.She is in stable condition for discharge Illc all a presumptive UTI and acute dehydration and of upperrespiratory infection. [facility] PATIENT NAME: RICHARD FRASER [facility] More[address] [facility] REC #: [id number], [place] [address] DEPARTMENT CHART EMERGENCY DEPARTMENT PHYSICIANRe-Evaluation:03:23 : Symptoms Improved. Examination Improved.Additional Information: Discussed Results, Diagnosis andFollow-Up with Patient.Clinical Impression: 1. acute URI with cough2. acute presumptive UTI3. acute dehydrationDisposition: Discharged *Home at 28 Aug 2017, 03:23.Condition: StableALVAREZ c ompleted.I was the primary ED attending..Patient transported to ED by EMS with medical direction bySCEP physician (not applicable for EMT squads).. at03:24: Discharge ReportEvent Time: 08/28/2017 03:26===DISCHARGE REPORT===: FlexChartDataEvent Time: 08/28/2017 00:10: Discharge ReportEvent Time: 08/28/2017 03:26Status: DraftReasons to Return to the ER:You must return to the ER for any new, worsening orchanging symptoms, or if you feel more ill or sick inany way. This is the most important thing to remember. [facility] PATIENT NAME: RICHARD FRASER [facility] Dr Diamond Morel MEDICAL REC #: [id number], [place] [address] DEPARTMENT CHART EMERGENCY DEPARTMENT PHYSICIANFollow-up:The care you received in the ER was given on an emergencybasis only, and it is often not possible tocompletely treat or diagnose a problem in a single ERvisi t. You must see your follow-up doctor for arecheck within a week unless you receive instructions witha different timeframe for follow-up. Ple asefollow all your discharge instructions.Medications:Unless the ER doctor tells you differently, you should takeall your regular medications and any newmedications prescribed today. Because it is not possiblefor the ER doctor to review all of yourmedication side effects or interactions, you must reviewpossible side effects and interactions with yourpharmacist when you get your prescriptions filled.EKG and Radiology Results:A cardiolo gist or radiologist will review any EKG orradiology results provided by the ER doctor. We willcontact you if the results in the final EKG or radiolog yreports require a change in treatment.Culture Results:Cultures may have been ordered during your ER visit. Wewill contact you if the culture r esults require achange in treatment.Referrals:Most referrals to specialists come from the on-call listYou should make your regular doctor aware of anyreferrals before you schedule the appointment so that theyare aware and can make suggestionsDIAGNOSIS:acute URI with cough, acute presumptive UTI, acutedehydrationINSTRUCTIONS: [facility] PATIENT NAME: RICHARD FRASER [id number] [facility] [address] Diamond Morel MEDICAL REC #: [id number], [place] [address] DEPARTMENT CHART EMERGENCY DEPARTMENT PHYSICIANplan 70+ ounces of water per day you must stay awake longenough to get this accomplished. Take Zyimvwp579 mg every 4 hours as needed for fever and discomfort.Use the Zofran for the nausea. Easy Tessalon.Perles for cough.A urinary tract infection (or UTI) is the medical name walt infection of the bladder or kidney. Both ofthese infections are caused by bacteria. Bladder infections(also called cystitis) may cause pain withurination, blood in the urine, increased frequency ofurination or increased urge to urinate. They mayalso cause low grade fevers (under 102.5 degrees) or painand spasm of the bladder. Kidney infections(also called pyelonephritis) may cause severe pain in theflanks or back, as well as nausea, vomiting,muscle ache s and high fevers. It is also not uncommon tohave an infection that is a combination ofbladder and kidney infections, with some symptoms of both.A ntibiotics are used to treat urinary infections. Thedoctor may also use medications to help with thepain and nausea. While you are sick you shoul d try andrest, drink plenty of fluids, and avoid alcohol.Isee-fpu-gexjmdd ibuprofen (if you are not ) oracetaminophen may be used for aches, pains andfever. You should avoid aspirin unless you are taking thismedication for another reason. You must useall of your regular medic ations plus all the medicationsthat were given to you today.UNLESS THE ER DOCTOR GIVES YOU OTHER INSTRUCTIONS, YOU MUSTSEE YOUR FOLLOW-UP DOCTO R FOR RECHECK WITHIN2 TO 3 DAYSYOU MUST RETURN TO THE ER RIGHT AWAY FOR ANY OF THEFOLLOWING:New or increasing fever or chillsNew orincreasing flank or abdominal painNew or increasing nauseaor vomitingNew or increasing weakness,dizziness or confusionNew or increasing blood in the urineREFERRJuan Fortune MD, Phone: , fax: [phone] [facility] PATIENT NAME: RICHARD FRASER A1Annette [facility] [address] Morel MEDICAL REC #: [id number], [place] [address] DEPARTMENT CHART EMERGENCY DEPARTMENT PHYSICIANPlease call the abo ve number to schedule a follow-upappointment.2-3 daysMEDICATIONSWe have given you these prescriptions that you must filland start taking:Zofran 4 mg Tab, count:8, Dose = 1, count:8, every 6hours, count:8Tessalon 200 mg capsule, count:15, Dose = 1, count:15, 3times a day, count:15,when necessa ry, count:15EXCUSED ABSENCE FROM WORK AND SCHOOL.Please excuse the above named patient from work/schooluntil cleared by a physician.My signature bel ow indicates that I have received andunderstand the oral instructions regarding mymedical problem. I also acknowledge receipt of this writteninstr uction sheet including a list of majortests and procedures ordered during my visit. I willarrange for follow-up care as indicated by theseinstructio ns and referrals.This signed original will be kept in my medical record.Your signature below indicates consent for Case Managementto contact [facility] providers [facility] to meet your ongoing healthcare needs. This willallow forcontinuity of care once you leave [facility]. This exchange of informationwillinclude, but not be limited to, disclosure of yourpatient information and possible release of records. DEMOGRAPHICS [employer]gisoft Patient: RICHARD FRASERSex: FDOB: 1975Age: 41 yr [facility] PATIENT NAME: RICHARD FRASER A[address] [facility] [address] Morel MEDICAL REC #: [id number], [place] [address] DEPARTMENT CHART EMERGENCY DEPARTMENT PHYSICIANAccount No: [id number]: [id number] egistration Date: 22:08/27/2017Address: [address]: [place] [address] MZO ISTRATION ED Number: [id number]: [facility] Status: SFinancial Class: MPPS TRIA GE Priority: 3 - UrgentComplaint: Urination, Unable toStated Complaint: Urinary difficulty x 2 days. Lowerback pain. Seen here ye sterdayArrival Date: 08/27/2017 22:01Triage Date: 08/27/2017 22:02Mode of Arrival: *Privately Owned VehicleWC: NLanguage: EnglishTransport: Ambulatory/Walk In BED A07 In: 08/27/2017 23:31:51 08/27/201723:31:51 RCBA07 (Removed From) Out: 08/28/19 18 04:18:48008/28/2017 04:18:48 AMJ PROVIDERS DO Matty Cavanaugh Provider Contact: 08/27/201723:35:01 CKEnd:HAILEE WHALEN Provider Contact: 08/27/2017 23:38:25AMJ [facility] PATIENT NAME: RICHARD FRASER A[address] [facility] [address] Morel MEDICAL REC #: [id number], [place] [address] DEPARTMENT CHART EMERGENCY DEPARTMENT PHYSICIANEnd: =====TRIAGE HISTORY ALLERGIESAllergic To: amoxil - Hives 08/27/2017 22:06 VDPAAllergic To: tylenol - liver problems 08/27/201722: 06 VDPAAllergic To: compazine - lock jaw 08/27/2017 22:06VDPACURRENT MEDSName: bactrim 08/27/2017 22:07 VDPAName: bentyl 08/27/2017 22:07 VDPAName: f rom patient memory 1.19.18 08/27/2017 22:07 VDPAName: klonopin 08/27/2017 22:07 VDPAName: albuterol 08/27/2017 22:07 VDPAILLNESSIllness: Other Me dical liver problems 08/27/201722:06 VDPAIllness: Other Medical HIV 08/27/2017 22:06 VDPAIllness: Other Medical mass on her right ovary08/27/2017 22 :06 VDPAIllness: Other Medical anemic 08/27/2017 22:06 VDPAIllness: Other Medical migraines 08/27/2017 22:06 VDPAIllness: Other Medical D IVERTICULITIS 08/27/201722:06 VDPAIllness: Other Medical LOW POTASSIUM 08/27/2017 22:06VDPA [facility] PATIENT NAME: RICHARD FRASER A[address] [facility] [address] [facility] REC # : [id number], [place] [address] DEPARTMENT CHART EMERGENCY DEPARTMENT PHYSICIANIllness: Other Medical CHRONIC PAIN 0 08/27/2017 22:06VDPAIllness: Depression 08/27/2017 22:06 VDPAIllness: Fibromyalgia 08/27/2017 22:06 VDPAIllness: Anemia: Iron Deficiency 08/27/2017 2 2:06 VDPAIllness: NIDDM 08/27/2017 22:06 VDPAIllness: Anxiety 08/27/2017 22:06 VDPAPAST SURGERY HISTSurgery: Tandamp;A -age- 0108/27/2017 22:06 VDPAS urgery: 7 hernia repairs 08/27/2017 22:06 VDPASurgery: trigger fingers 08/27/2017 22:06 VDPASurgery: cold knife surgery 08/27/2017 22:06 VDPASurgery : Hysterectomy- 08/27/2017 22:06 VDPASurgery: RT SHOULDER 08/27/2017 22:06 VDPAPAST SOCIAL HISTSocial History: Lives with family or significant o ther08/27/2017 22:06 VDPASocial History: Alcohol - None 08/27/2017 22:06 VDPASocial History: Recreational Drugs - None 08/27/201722:06 VDPASocial H istory: Smoker-1 PPD 08/27/2017 22:06 VDPASocial History: Denies Domestic Violence 08/27/201722:06 VDPASocial History: Denies thoughts of self harm .08/27/2017 22:06 VDPASocial History: Have you traveled in the past month?Where NO 08/27/2017 22:06 VDPA [facility] PATIENT NAME: RICHARD FRASER A[address] [facility] [address] Morel MEDICAL REC # : [id number], [place] [address] DEPARTMENT CHART EMERGENCY DEPARTMENT PHYSICIANIMMUNIZATIONSImmuni zation: Flu Vaccine-no 08/27/2017 22:06 VDPA NURSING ASSESSMENT ASSESSMENT NOTES 08/28/2017 00:30 Patient appears drowsy, reports unableto pee for 2 days. Patient reports also feels sick andhas had a cough for a few days. Skin hot and dry, flushedface. Resp even and unlabored. 08/28/2017 01:25 AMJ08/28/2017 01:10 no n-stock med form faxed to edawctmu90/21/2018 01:15 AMJ08/28/2017 01:19 patient asked if she is able tourinate. Patient replies I dont have to. Jhonny quevedo she now has 1 liter of IVF infused, will askpatient in approx. 10 minutes to provide a urine sample.08/28/2017 01:20 AMJ0 08/28/2017 01:30 Patient declined to answer additionprimary DOC guide questions. States Im so sick.08/28/2017 04:15 AMJ08/28/2017 02:31 ambulate d to bathroom for urine ycmavf7008/28/2017 02:31 KRL08/28/2017 03:45 Dr Ewing made aware of kuro603.0, new orders received. Proceed with D/C 0 08/28/201704:13 AMJ TREATMENT 08/28/2017 01:21 Primary DOC Guide - A. 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 Morel MEDICAL REC #: [id number], [place] [address] DEPARTMENT CHART EMERGENCY DEPARTMENT PHYSICIANTB Screening All NegativeLatex Allergy Screen All NegativeTravel History - Traveled outside of the state in thelast 30 days NoTravel History - Had contact with a person who hastraveled outsi de the state in the last 30 days No08/28/2017 01:21 Primary DOC Guide - B. Fall RiskAssessment (Age andlt;65) 08/28/2017 01:22 AMJHistory of Falling in last 3 months? No (0)Confusion or Disorientation? No (0)Intoxicated or Sedated? No (0)Impaired Gait? No (0)Mobility Assist Device Used? No (0)Al tered Elimination? No (0)Fall Risk Score 1-2 Points = Low Risk. 3-4 Points =Moderate Risk. 5 or more points = High Risk. 0Fall Score Greater andgt;= 3? No08/28/2017 04:04 Admit/Discharge - Ambulated withsteady gait home 08/28/2017 04:05 AMJ08/28/2017 04:05 Admit/Discharge - Discharge 08/28/201704:05 AM08/28/2017 04:05 Admit/Discharge - *Dischargeinstructions/tests andamp; procedures/med list reviewed andprovided; prescriptions given to caregiver 08/28/2017 04:05AMJ MEDICATIONS I V IV Fluid: B 08/28/2017 00:35 08/28/2017 00:35AMJLine #: 1 Rate: ml/h r Location: mid forearmrightNdl Gauge: 22 # Attempts: 2Notes: Blood work drawn with IV start. Iv site free ofedema or rednessIV Fluid: S 8 01:07 08/28/2017 04:08 [facility] PATIENT NAME: RICHARD FRASER [id number]l [facility] REC #: [id number], [place] [address] DEPARTMENT CHART EMERGENCY D EPARTMENT PHYSICIANAMJLine #: 1 Fluid: 0.9% NS 1000cc bagRate: ml/hr 999 Location: mid forearm rightNdl Gauge: 22 # Attempts: 2Amt: 1000IV Fluid : D 08/28/2017 02:07 08/28/2017 04:08AMJLine #: 1 Fluid: 0.9% NS 1000cc bagRate: ml/hr 999 Location: mid forearm rightNdl Gauge: 22 # Attempt s: 2IV Fluid: S 08/28/2017 02:17 08/28/2017 04:08AMJLine #: 1 Rate: ml/hr Location: mid forearmrightNdl Gauge: 22 # Attempts: 2Amt: 1000IV Fluid : D 08/28/2017 03:17 08/28/2017 04:08AMJLine #: 1 Rate: ml/hr Location: mid forearmrightNdl Gauge: 22 # Attempts: 2IV Fluid: E 08/28/2017 04:07 04:08AMJLine #: 1 Rate: ml/hr Location: mid forearmrightNdl Gauge: 22 # Attempts: 2Notes: IV site dcd, free of edema or redness.Pressure dr essing applied I AND O RHUTRL6308/28/2017 04:14 I.V. (cc) Amt: 2000 08/28/201704:14 EUPABTTGC71/21/2018 04:14 *Urine (cc) Amt: 50 08/28/201704:1 4 AMJ VITALS [facility] PATIENT NAME: RICHARD FRASER[address] [facility] [address] Morel MEDICAL REC #: [id number], [place] [address] DEPARTMENT CHART EMERGENCY DEPARTMENT PHYSICIAN =VS-ROUTINE Time: 08/27/2017 22:02B/P: 114/69 - Left Upper Arm - Sitting - MachinePulse: 113 - Monitor Resp: 18Sa02: 94 Room Air Temp: 99.70 F - O 08/27/2017 22:06 VDPAVS-Pain Time: 08/27/2017 22:02 Pain Level: 10008/27/2017 22:06 VDPAVS-GCS Time: 08/27/2017 22:02 Visual: 4 Verbal: 5 Motor:6 GCS Total: 15 08/27/2017 22:06 VDPAVS-HT/WT Time: 08/27/2017 22:02 Ht: 160 cm StatedWeight: 102 kg Stated 08/27/2017 22:06 VDPAVS-Visual Time: 22:02 08/27/2017 22:06 VDPAVS-FHT Time: 08/27/2017 22:02 08/27/2017 22:06VDPAVS-Notes Time: 08/27/2017 22:02 map 85 08/27/201722:06 VDPAV S-ROUTINE Time: 08/28/2017 01:19B/P: 107/66 - Left Upper Arm - Lying - Machine Pulse:104 - Monitor Resp: 22Sa02: 95 Room Air Temp: 99.10 F - O 08/28/2017 01:19 AMJVS-Pain Time: 08/28/2017 01:19 08/28/2017 01:19AMJVS-GCS Time: 08/28/2017 01:19 Visual: 4 Verbal: 5 Motor:6 GCS Total: 15 08/09 01:19 AMJVS-HT/WT Time: 08/28/2017 01:19 08/28/2017 01:19 AMJVS-Visual Time: 08/28/2017 01:19 08/28/2017 01:19 AMJVS-FHT Time: 08/28/2017 0 1:19 08/28/2017 01:19AMJVS-Notes Time: 08/28/2017 01:19 MAP 83 08/28/201701:19 AMJVS-ROUTINE Time: 08/28/2017 03:38B/P: 121/60 - - Lying - Machine P ulse: 107 - MonitorResp: 18Sa02: 95 Room Air 08/28/2017 04:09 AMJVS-Pain Time: 08/28/2017 03:38 08/28/2017 04:09AMJVS-GCS Time: 018 03:38 Visual: 4 Verbal: 5 Motor:6 GCS Total: 15 08/28/2017 04:09 AMJVS-HT/WT Time: 08/28/2017 03:38 08/28/2017 04:09 AMJVS-Visual Time: 8 03:38 08/28/2017 04:09 AMJVS-FHT Time: 08/28/2017 03:38 08/28/2017 04:09AMJ [facility] PATIENT NAME: RICHARD FRASER [id number] [facility] [address] Morel MEDICAL REC # : [id number], [place] [address] DEPARTMENT CHART EMERGENCY DEPARTMENT PHYSICIANVS-Notes Time: 08/28/2017 03:38 MAP 8 0 08/28/201704:09 AMJVS-ROUTINE Time: 08/28/2017 03:38 Temp: 100.00 F -Oral 08/28/2017 04:13 AMJVS-Pain Time: 08/28/2017 03:38 08/28/2017 04:13AMJVS- GCS Time: 08/28/2017 03:38 08/28/2017 04:13 AMJVS- HT/WT Time: 08/28/2017 03:38 08/28/2017 04:13 AMJVS-Visual Time: 08/28/2017 03:38 08/28/2017 04:13 AMJVS-FHT Time: 08/28/2017 03:38 08/28/2017 04:13AMJVS-Notes Time: 08/28/2017 03:38 08/28/2017 04:13 AMJ ORDER S Toradol (IV)*(30mg/ml) DOSE: 30 mgIV 08/28/2017 04:06N/AOrdered: 08/28/2017 03:59 By Matty Ochoa Time: 04:06 By Matty Harvey patient 08/28/2017 03:29N/AOrdered: 08/28/2017 03:24 By . OtherReviewed: 08/28/2017 03:29 By . Other* NONSTOCK MED: goldie pearls 200mg po08/28/2017 01:52N/AOrdered: 08/28/2017 01:10 By Matty CavanaughCompletignacio Time: 08/28/2017 01:52 By Matty de diosNotignacio Time: 08/28/2017 01:12 AMJEXTERN ORDER: GFRP 08/28/2017 00:53NoneOrdered: 08/28/2017 00:53 Completed Time:08/28/2017 00:53 Result s Time: 08/28/2017 00:53BMP 08/28/2017 00:53N/AOrdered: 08/28/2017 00:06 By Matty Ochoa Time: 08/28/2017 00:53 By Matty heller Time: 08/28/2017 00:34 AMJ [facility] PATIENT NAME: RICHARD FRASER [id number] [facility] REC #: [id number], [place] [address] DEPARTMENT CHART EMERGENCY D EPARTMENT PHYSICIANResults Time: 08/28/2017 00:53IV NS bolus 1L over 30 min 08/28/2017 03:44N/AOrdered: 08/28/2017 00:06 By Matty Barrientos d Time: 08/28/2017 03:44 By Matty Donaldson Time: 08/28/2017 00:14 AMJIV NS bolus 1L over 30 min 08/28/2017 00:35N/AOrdered: 08/28/2017 00:06 By Matty Ochoa Time: 08/28/2017 00:34 By Matty Donaldson Time: 08/28/2017 00:13 AMJ*Other Nurse: only one IV but two l iters08/28/2017 00:35N/AOrdered: 08/28/2017 00:06 By Matty Maldonadoed Time: 08/28/2017 00:34 By Matty Donaldson Time: 2017 00:13 AMJUA ccms (cath if unable to void in 30 mins) 08/28/201703:03N/AOrdered: 08/28/2017 00:06 By Matty Ochoa Time: 03:03 By Matty Donaldson Time: 08/28/2017 02:37 JJFQuestion: Lab Urine Specimen TypeAnswer: Clean CatchQuestion: Also Culture, if indicated by UA results (Y or N)Answer: NOResults Time: 08/28/2017 03:02Toradol (IV)*(30mg/ml) DOSE: 30 mgIV 08/28/2017 00:35N/AOrdered: 08/28/2017 00:06 By Matty Ochoa Time: 08/28/2017 00:34 By Matty Donaldson Time: 08/28/2017 00:14 AMJ DISCH ARGE Diagnosis: acute URI with cough, acute presumptiveUTI, acute dehydration 08/28/2017 03:26 [facility] PATIENT NAME: RICHARD FRASER [address] [facility] [address] Morel MEDICAL REC # : [id number], [place] [address] DEPARTMENT CHART EMERGENCY DEPARTMENT PHYSICIANCANCELLED DIAGNOSESDiagnosis Name: acu te URI with cough, acute presumptiveUTI, acute dehydrationDiagnosis Name: acute URI with cough, acute presumptiveUTI, acute dehydrationDiagnosis N ermelinda: acute URI with cough, acute presumptiveUTI, acute dehydrationDisposition: Time: 08/28/2017 03:24By: Matty Harvey Time: 04:18Type: DischargeCondition: Stable for admission/discharge/transferafter emergency evaluation/treatment Category: *NOTAPPLICABLEConc urred: 08/28/2017 03:29 Referral:08/28/2017 03:26 PRESCRIPTIONS Zofran 4 mg Tab 08/28/2017 03:24SI q6h N auseaDispense: 8 / Refills:Tessalon 200 mg capsule 08/28/2017 03:25SI tidAdditional Instructions: when necessaryDispense: 15 / Refills: CHARGES 0.9% NS 1000cc bag QTY @ 1 08/28/2017 04:08 AMJAuto Generated Charge SI GNATURE Matty Afshan DO CKRobert Patrick Tech3 Sage FINNEGAN RN JBFVANGEL CONRAD RN VDPAKOBY Doughetry JJFKENMARCIAL AQUINO RN KRL [facility] PATIENT NAME: [facility]ER [facility]l MEDICAL REC #: [id number], [place] [address] DEPARTMENT CHART EMERGENCY D EPARTMENT PHYSICIAN [facility] PATIENT NAME: RICHARD FRASER [facility]ique [facility]l MEDICAL REC #: [id number], [place] [address] DEPARTMENT CHART EMERGENCY DEPARTMENT PHYSICIAN ED This is a preliminary report only, as the practitioner review and authentication has not occurred. Normal 08-28-19 18 [facility] at[facility] [place] n ([id number]) bmp on 2017-08-28 Anion gap 3 molar conc 7 5-16 MMOL/L Normal 018 [facility] (19815) Comment: Order Comment: Donalds: M Performed By: #### L500.0180 5, L500.69700 ####[facility] [id number] [facility], [place] [address]Ls# [phone] Calcium mass conc 8.1 8.5-10.1 MG/DL Low 08-28-2017 [facility] (37631) Comment: Order Comment: Donalds: M Performed By: #### L500.0180 5, L500.40967 ####[facility] [id number] [place], [place] [address]Tg# [phone] Chloride molar conc 103 98-107 MMOL/L Normal 08-28-2017 [facility] (89429) Comment: Order Comment: Donalds: M Performed By: #### L500.0180 5, L500.74847 ####[facility] [id number] [place], [place] [address]Yh# [phone] CO2 molar conc 28 21-32 MMOL/L Normal 08-28-2017 [facility] (12322) Comment: Order Comment: Donalds: M Performed By: #### L500.0180 5, L500.55997 ####[facility] [id number] [place], [place] [address]Hb# [phone] Creatinine mass conc 0.579 0.510-0.950 MG/DL Normal [address] [place] [address] (00 000) Comment: Order Comment: Donalds: M Result Comment: Patients rec eiving either N-Acetylcysteine (NAC) orMetamizole prior to venipu ncture, may have falsely depressedresults. Performed By: #### L500.0180 5, L500.27113 ####[facility] [id number] [place], [place] [address]Ah# [phone] Glucose mass conc 95 70-100 MG/DL Normal 08-28-2017 [facility] (41848) Comment: Order Comment: Donalds: Result Comment: 70-100- Norm al Fasting; 100-125 Impaired Fasting; greaterthan 126 on more than one result- Diabetes. ADA guidelines.Results may be falsely elevated afte r the administration ofSulfapyridine.Results may be falsely depressed after t he administration ofSulfasalazine. Performed By: #### L500.0180 5, L500.10932 ####[facility] [id number] [facility]ael[facility] [place], [place] [address]Qr# [phone] Potassium molar conc 3.2 3.5-5.1 MMOL/L Low 8 [facility] (85707) Comment: Order Comment: Donalds: M Performed By: #### L500.0180 5, L500.43246 ####[facility] [id number] [facility] [place], [place] [address]La# [phone] Sodium molar conc 138 136-145 MMOL/L Normal 08-28-2017 [facility] (21711) Comment: Order Comment: Donalds: M Performed By: #### L500.0180 5, L500.99719 ####[facility] [id number] [facility]Mikaela [place], [place] [address]Ec# [phone] Urea nitrogen mass conc 10 7-26 MG/DL Normal 2017 [facility] (31058) Comment: Order Comment: Donalds: M Performed By: #### L500.0180 5, L500.90735 ####[facility] [id number] [facility]ikaela [place], [place] [address]Zr# [phone] Urea nitrogen/Creatinine mass 17 15-24 mg/mg Normal 08-28-2017 [facility] (00 000) Comment: Order Comment: Donalds: M Performed By: #### L500.0180 5, L500.38398 ####[facility] [id number] [facility]IR[facility]ILLM[facility]aela [place], [place] [address]Io# [phone] ed doc on 2017-08-09 0 ED PHYSICIA N ASSESSMENT RECORDS: FlexChartDataEvent Time: 08/26/2017 22:45 NMHStatus: [facility] Normal 08-27-2017 [facility] DOC [[id number]]Mid -Level Chart (V2b)40 / / 05/05/1977Chart created at 08/26/2017 22:23 by J[facility] closed at 08/26/2017 Medical 22:41Entry in Emergency Depa rtment at 08/26/2017 18:47,departure at 08/26/2017 23:10Patient Name: Richard Fraser Record Number: [id number]: 08/26/2017 Center 22:23Entered Department at: 08/26/2017 18:47 Patient Seen at:08/26/2017 19:45 Historian: PatientPCP: DR TIM Shelton Complaint:PATIENT REPORTS COUGH , [place] DIFFICULTYBREATHING THAT STA RTED LAST NIGHT. RASH TO ABDOMEN. +HIV. SORE THROAT AND RIB PAINNursing triage/initial assessment reviewed and confirmedand Initial ([id number]) Vital Signs reviewed.Tempera ture: 98.4 F (36.9 C). Pulse: 104. Respiratory Rate:26. Blood-pressure:123/70. Oxygen Saturation: 99%.History of Present Illness:41-Year-old female p atient ambulates in the ED withcomplaints of difficulty breathing, cough, rash allover her body, sore throat, rib pain since last night. Sheis HIV positive wi th her last CD4 count [id number] earlier this year. She is currently taking Bactrim. [facility] PATIENT NAME: RICHARD FRASER A[address] [facility] [address] Morel MEDICAL REC #: [id number] [id number] DEPARTMENT CHART EMERGENCY DEPARTMENT PHYSICIANDenies fevers or chills. Denies any othercomplaints. Denies drug use.Review of Systems. All other systems reviewed and negative..Past History, Medications, Allergies, Social History andFamily History reviewed in nurses n ote.Medications: Reviewed RN Note.klonopin,ALBUTEROL SULFATE ,bactrim ,bentyl,partial list 1.19.18 vdpAllergies: Reviewed RN Noteamoxil(Hives), tylenol(l iver problems), compazine(lock jaw)Social History: Reviewed RN Note.Family History: Reviewed RN NotePhysical Examination: General: Alert and Well Developed;Pat ient appears in no acute distress does notappear to be ill. Not making good eye contact. Appearsnervous. HEENT: Normal ENT inspection. Neck: NoLymphadenopathy, No Meningismus and Supple Respiratory: NoResp Distress, Chest non-tender and NormalBreath Sounds; no pleuritic chest pain and her right rib.She complains of it is r eproducible. Nocrackles, wheezes Cardio-Vascular: No murmur and No rub;tachycardia Abdomen: Non-tender Back: No CVAtenderness, No Midline Tenderness and Non-t sarah Extremity:No Calf Tenderness, No edema and Normal Equalpulses Neurological: No Gross Weakness Skin: Warm and Dry;Red blanchable nonpruritic maculopapular ra shthroughout her abdomen upper and lower extremities. This issparing of her palms and soles. This is notin her hairline. Psychological: figity, anxio us, fleeting,evasiveCBC W/DIFF, information as of 08/26/2017, 8:09 pm88.7/ 13.0 / [facility] PATIENT NAME: RICHARD FRASER [facility] Morel MEDICAL REC #: [id number] [address] DEPARTMENT CHART EMERGENCY DEPARTMENT PHYSICIAN6.9 andgt;------andlt; 186/ 37.0 /N:59.4BASO ABS: 0.00 K/Cu M m; BASOPHIL %: 0.4 %; EOS ABS: 0.10K/Cu Mm; EOSINOPHIL %: 1.2 %; IMMATR GRAN ABS:0.00 K/Cu Mm; IMMATURE GRAN %: 0.3 %; LYMPH %: 28.9 %;LYMPH ABS: 2.00 K/Cu Mm; M CHC: 35.1 Gm/Dl; MONOABS: 0.70 K/Cu Mm; MONOCYTE %: 9.8 %; MPV: 9.6; NEUTROPHILABS: 4.10 K/Cu Mm; NRBC: 0.0 %; RBC: 4.17 M/CuMm; RDW: 14.5BMP, information as of 0 08/26/2017, 8:09 pm139 --------+--------+--------andlt; 123* Anion Gap = 83.5 BUN/CREA: 27; CALCIUM TOTAL: 8.6 Mg/DlGLUCOSE METER, information as of 08/26/2017 , 8:16 pmGLUCOSE METER: 138 Mg/DlImaging Study Obtained:CHEST PA/AP LATERALImaging Study Obtained:CHEST PA/AP andamp; LATERAL, Status:Signed Report Availab leCHEST PA/AP andamp; LATERALOrdering Physician: Jovanni Lopez08/26/2017 7:44 PMPA AND LATERAL CHESTClinical Statement: Cough and congestion history of HIVComparison: NoneFINDINGS: No consolidation, effusion or congestion isshown. Theheart, hilar and mediastinal contours are maintained.IMPRESSION:No acu te radiographic cardiopulmonary process. [facility] PATIENT NAME: RICHARD FRASER [facility]ique [facility]l [facility] HOSPITAL REC #: [id number], [place] [address] DEPARTMENT CHART EMERGENCY DEPARTMENT PHYSICI AN ---- Electronic Signature on File ----Signed By: Lanette [email or web address]: 08/26/2017 8:00 PMSigned: 08/08 8:01 PMReported By: ELSA REDDY M.D.Radiology: Interpreted by Radiologist.Medical Decision [id number] patient was evaluated here for cough as well asrash. She was very anxious and talking veryquickly. Fleeting eye ocntact. She is fidgety and wastachycardic on initial vitals as well as repeat.workup was to assess for pneumonia and rash etiology. shewas high risk secondary to her HIV. Due to heraffect I did get a urine drug screen as I was suspectingpotentially sh e was going through withdrawalswhich would explain her tachycardia. she is not hypoxic.Urinalysis was also ordered as I wanted toevaluate renal etiology of her rash. this was neverobtained during her stay.CBC, BMP, chest x-ray were all unremarkable. Fingerstickglucose was ordered as well during her stay asshe reques arron this. this was unremarkable. Apparentlyrecently she did have a diagnosis of diabetes byher PCP and she is awaiting follow-up with endocrinology.She thought ma ybe her sugars were off.My attending Dr. Bray, also evaluated this patient. herrash possibly secondary to Bactrim. She isstable and wants to go home. She wa s told to stop Bactrimas her CD4 was 420. no sign of pneumonia andinfluenza screen negative. I discussed this with myattending who determined disposition. see his note.Additional Information: Discussed Results, Diagnosis andFollow-Up with Patient. [facility] PATIENT NAME: RICHARD FRASER A[address] [facility] [address] Morel MEDICAL REC #: [id number] [place] [address] DEPARTMENT CHART EMERGENCY DEPARTMENT PHYSICIANClinical Impression:1. rash possibly secondary to Bactrim2. cough unspecifiedElectronically signed by Jovanni Colón PA-C on08/26/2017 at 22:41Direct patient care supervision and electronicdocumentation revi ew by Brad Bray on 08/26/201723:31.: Discharge ReportEvent Time: 08/26/2017 22:42===DISCHARGE REPORT===: FlexChartDataEvent Time: 08/26/2017 22:45 NMH: Discharge ReportEvent Time: 08/26/2017 22:42Status: DraftReasons to Return to the ER:You must return to the ER for any new, worsening orchanging symptoms, or if y ou feel more ill or sick inany way. This is the most important thing to remember.Follow-up:The care you received in the ER was given on an emergencybasis only, a nd it is often not possible tocompletely treat or diagnose a problem in a single ERvisit. You must see your follow-up doctor for arecheck within a week unles s you receive instructions witha different timeframe for follow-up. Pleasefollow all your discharge instructions.Medications:Unless the ER doctor tells you diff erently, you should takeall your regular medications and any newmedications prescribed today. Because it is not possiblefor the ER doctor to review all of yourmedication side effe cts or interactions, you must review [facility] PATIENT NAME: RICHARD FRASER A[address]Annet[address] [facility] [address] Morel MEDICAL REC #: [id number], [place] [address] DEPARTMENT CHART EMERGENCY DEPARTMENT PHYSICIANpossible side effects and interactions with yourpharmacist when you get your prescriptions filled.EKG and Radiology Results:A manager human capital or radiologist will review any EKG orradiology results provided by the ER doctor. Sanaz pickett willcontact you if the results in the final EKG or radiologyreports require a change in treatment.Culture Results:Cultures may have been ordered during your ER visit. Wewill contact you if the culture results require achange in treatment.Referrals:Most referrals to specialists come from the on-call listYou should make your regular doctor aware of anyreferrals before you schedule the appointment so that theyare aware and can make suggestionsDIAGNOSIS:rash po ssibly secondary to Bactrim, cough unspecifiedINSTRUCTIONS:should your symptoms worsen or you have any concerns pleasereport back. over-the counter cough and c oldmeds. Stop Bactrim and monitor for improvement of rash in2-3 days. If not or symptoms worsen please comeback or see your PCP.REFERRALYour regular doc tor(s)Please call the above number to schedule a follow-upappointment.next weekMEDICATIONS [facility] PATIENT NAME: RICHARD FRASER A[address]Lukas[address] [facility] [address] Morel MEDICAL REC #: [id number] [id number] DEPARTMENT CHART EMERGENCY DEPARTMENT PHYSICIANWe have given you these prescriptions that you must filland start taking:NoneEXCUSED ABSENCE FROM WORK AND SCHOOL.The above named patient was seen in the EmergencyDepartment.My signature below indicates that I have received andunderstand the oral instructions regarding mymedical problem. I also acknowledge receipt of this writteninstruction sheet including a list of majortes ts and procedures ordered during my visit. I willarrange for follow-up care as indicated by theseinstructions and referrals.This signed original will be kept in my medical record.Your signature below indicates consent for Case Managementto contact [facility] providers in aneort to meet your ongoing [facility] are needs. This willallow forcontinuity of care once you leave theEmergency Department. This exchange of informationwillinclude, but not be limited to, disclosur e of yourpatient information and possible release ofrecords. DEMOGRAPHICS Emergisoft Patient: RICHARD FRASERSex: FDOB: Age: 41 yrAccount No: [id number]: [id number] Date: 18:47 08/26/2017Address: [address]: [place] [address] REGISTRATION ED Number: [id number]: Marital Status: S [facility] PATIENT NAME: RICHARD FRASER A[address] [facility] [address] Morel MEDICAL REC #: [id number] [place] [address] DEPARTMENT CHART EMERGENCY DEPARTMENT PHYSICIANFinancial Class: MPPS TRIA GE Priority: 3 - UrgentComplaint: Cough and CongestionComplaint: Sore ThroatStated Complaint: PATIENT REPORTS COUGH , DIFFICULTYBREATHING THAT S TARTED LAST NIGHT. RASH TO ABDOMEN. + HIV.SORE THROAT AND RIB PAINArrival Date: 08/26/2017 18:47Triage Date: 08/26/2017 18:48Mode of Arrival: *Privately Owned Ve hicleTransfer From: * HomeWC: NLanguage: EnglishTransport: Ambulatory/Walk In BED A11 In: 08/26/2017 18:55:32 08/26/19 1818:55:32 VDPA11 (Removed From) Out: 08/26/2017 19:00:14008/26/2017 19:00:14 JLMBA10 In: 08/26/2017 19:00:14 08/26/201719:00:14 JLMBA10 (Removed From) Out: 08/26/2017 23:10:27008/26/2017 23:10:27 VDPA PROVIDERS LINDA Colón Provider Contact:08/26/2017 19:20:21 NMHEnd:MD Brad Bray Provider Contact: 08/26/201719:44:40 BAMEnd:HAILEE CONRAD Provider Contact: 08/26/201720:20:44 VDPA [facility] PATIENT NAME: RICHARD FRASER [address] [facility] [address]l MEDICAL REC #: [id number] [place] [address] DEPARTMENT CHART EMERGENCY DEPARTMENT PHYSICIANEnd: TRIAGE HISTORY A LLERGIESAllergic To: amoxil - Hives 08/26/2017 18:54 VDPAllergic To: tylenol - liver problems 08/26/201718:54 VDPAllergic To: compazine - lock jaw 018 18:54 VDPCURRENT MEDSName: klonopin 08/26/2017 19:13 VDPAName: ALBUTEROL SULFATE 08/26/2017 19:13 VDPAName: bactrim 08/26/2017 19:13 VDPAName: bentyl 08/26 19:14 VDPAName: partial list 1.18 vdp 08/26/2017 19:14 VDPAILLNESSIllness: Other Medical CHRONIC PAIN08/26/2017 18:54 VDPIllness: Other Medical LO W ICICVHQGJ88/19/2018 18:54 VDPIllness: Other Medical ZPHZTTHBBLBCNL73/19/2018 18:54 VDPIllness: Other Medical migraines 08/26/2017 18:54 VDPIllness: Other Medi khloe anemic 08/26/2017 18:54 VDPIllness: Other Medical mass on her right ovary08/26/2017 18:54 VDPIllness: Other Medical HIV 08/26/2017 18:54 VDPIllness: Other Medi khloe liver problems 08/26/2017 [facility]ENTER PATIENT NAME: RICHARD FRASER0 Dominique Morel [facility] REC #: [id number], [place] [address] DEPARTMENT CHART EMERGENCY DEPARTMENT CAYPXADZZ82:54 VDPIllness: D epression 08/26/2017 18:54 VDPIllness: Fibromyalgia 08/26/2017 18:54 VDPIllness: Anemia: Iron Deficiency 08/26/2017 18:54 VDPIllness: NIDDM 08/26/2017 18:54 VDPIl lness: Anxiety 08/26/2017 18:54 VDPPAST SURGERY HISTSurgery: Tandamp;A -age- 0108/26/2017 18:54 VDPSurgery: 7 hernia repairs 08/26/2017 18:54 VDPSurgery: trigger fi ngers 08/26/2017 18:54 VDPSurgery: cold knife surgery 08/26/2017 18:54 VDPSurgery: Hysterectomy- 08/26/2017 18:54 VDPSurgery: RT SHOULDER 08/26/2017 18:54 VD PPAST SOCIAL HISTSocial History: Lives with family or significant other08/26/2017 18:54 VDPSocial History: Alcohol - None 08/26/2017 18:54 VDPSocial History: Rec reational Drugs - None 08/26/201718:54 VDPSocial History: Smoker-1 PPD 08/26/2017 18:54 VDPSocial History: Denies Domestic Violence 08/26/201718:54 VDPSocial Hi story: Denies thoughts of self harm.08/26/2017 18:54 VDPSocial History: Have you traveled in the past month?Where NO 08/26/2017 18:54 VDPIMMUNIZATIONS [facility] PATIENT NAME: RICHARD FRASER [address] [facility] [address]l MEDICAL REC #: [id number], [place] [address] DEPARTMENT CHART EMERGENCY DEPARTMENT PHYSICIANImmunization: Flu Vaccine-no 08/26/2017 18:54 VDPSELF TATIANA ATMENTAid: *No Treatment Prior to Arrival 08/26/2017 18:54 VDP NURSING ASSESSMENT ASSESSMENT NOTES 08/26/2017 19:11 patient presents with c/o rash onabdomen and a dry hacky cough that started today. Sh edenies chest pain. Her lungs are clear bilaterally. Esau walekr;Ox3. 08/26/2017 19:12 VDPA08/26/2017 19:12 patient presents with c/o cough andcongestion that started yesterday with chills that startedtoday. His lungs are clear, respirations are equal andunlabored. Patient is Aandamp;Ox.3. 08/26/2017 19:13 VDPA TREATMENT 08/26/2017 20:17 POC testing results and criticalvalues - POC Glucometer (FSBS) 138 08/26/201720:17 VDPA08/26/19 18 20:18 Hourly Rounding - Rounding 08/26/201720:18 VDPAElimination/Toileting NPain 10Position Comfortable YSafe Environment YAssessment Note pt provided water. Updated on poc,verbalizes understandingFall Risk Change N008/26/2017 20:18 Primary DOC Guide - A. 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 Morel MEDICAL REC # : [id number], [place] [address] DEPARTMENT CHART EMERGENCY DEPARTMENT PHYSICIANprocessing plant NoTB Screening All Negative Excep tLatex Allergy Screen All Negative ExceptTravel History - Traveled outside of the state in thelast 30 days NoTravel History - Had contact with a person who willson straveled outside the state in the last 30 days No08/26/2017 20:18 Primary DOC Guide - B. Fall RiskAssessment (Age andlt;65) 08/26/2017 20:20 VDPAHistory of Falling in last 3 months? No (0)Confusion or Disorientation? No (0)Intoxicated or Sedated? No (0)Impaired Gait? No (0)Mobility Assist Device Used? No (0)Al tered Elimination? No (0)Fall Risk Score 1-2 Points = Low Risk. 3-4 Points =Moderate Risk. 5 or more points = High Risk. 0Fall Score Greater andgt;= 3? No 018 20:19 Primary DOC Guide - D. PsychosocialAssessment 08/26/2017 20:20 VDPAOver the Last 2 weeks, how often have you had littleinterest or pleasure i n doing things (0) Not at AllIs Psychosocial Assessment Score 3 or more? If score is3 or more please consult ED Navigator! NoTotal Psychosocial Assessment Scor e 0Over the last 2 weeks, how often have you been feelingdown, depressed or hopeless (0) Not at All08/26/2017 20:20 Primary DOC Guide - E. Family ViolenceAssessme nt 08/26/2017 20:20 VDPAWithin the past year, has anyone ever pushed, shoved,slapped, choked, hit, punched or kicked you: NoWithin the past year, has anyone ever p ressured orforced you to have sexual activities when you did not wantto: NoDo you feel safe and well cared for: YesIs there a partner from a previous or currentre lationship that is making you feel unsafe now: NoFamily Violence Clinical Observation All Negative Kxqpsd9008/26/2017 23:09 Admit/Discharge - *Discharge instructions/tests andamp; procedures/med list reviewed andprovided; prescriptions given to patient 08/26/2017 23:09VDPA [facility] PATIENT NAME: RICHARD FRASER [address] [facility] [address] [facility] MEDICAL REC #: [id number] [address] [place] [address] DEPARTMENT CHART EMERGENCY DEPARTMENT AMOHPPLDA73/19/2018 23:09 Admit/Discharge - Ambulated withsteady gait ho me 08/26/2017 23:09 VDPA MEDICATIONS IV=== Fluid: B 08/26/2017 20:12 08/26/2017 20:12VDPALine #: 1 Rate: ml/hr Location: antecubitalfossa leftNdl Gauge: 20 # Attempts: 1Notes: inserted by Floresita castillo, flushes well dobx97pl nsIV Fluid: E 08/26/2017 23:09 08/26/2017 23:10VDPALine #: 1 Rate: ml/hr Location: antecubitalfossa leftNdl Gauge: 20 # Attempts: 1Notes: cath removed intact, bleeding sto pped, dressingapplied. I AND O VITALS VS-ROUTINE Time: 08/26/2017 18:48B/P: 123/70 - Right Upper Arm - Sitting - Pulse: 104- Monitor Resp: 26Sa02: 99 Room Air Temp: 98.40 F - Oral08/26/2017 18:54 VDPVS-Pain Time: 08/26/2017 18:48 Pain Level: 1001 18:54 VDPVS-GCS Time: 08/26/2017 18:48 Visual: 4 Verbal: 5 Motor:6 GCS Total: 15 08/26/2017 18:54 VDPVS-HT/WT Time: 08/26/2017 18:48 Ht: 68 in. StatedWeight: 225 lbs Stated 08/26/2017 18:54 VDPVS-Visual Time: 08/26/2017 18:48 08/26/2017 18:54 VDPVS-FHT Time: 08/26/2017 18:48 08/26/2017 18:54 [facility] PATIENT NAME: RICHARD FRASER [id number] [facility] [address] [place]l MEDICAL REC #: [id number] [address] DEPARTMENT CHART EMERGENCY DEPARTMENT PHYSICIANVDPVS-Notes Time: 08/26/2017 18:48 MAP 92 08/26/201718:54 VDPVS-ROUTINE Time: 08/26/2017 19:37B/P: 135/80 - Left Upper Arm - Sitting - MachinePulse: 108 - Monitor Resp: 20Sa02: 98 Room Air 08/26/2017 19:37 JRHCVS-Pain Time: 08/26/2017 19:37 Pain Level: 1001 19:37 JRHCVS-GCS Time: 08/26/2017 19:37 Visual: 4 Verbal: 5 Motor:6 GCS Total: 15 08/26/2017 19:37 JRHCVS-HT/W T Time: 08/26/2017 19:37 08/26/2017 19:37 JRHCVS- Visual Time: 08/26/2017 19:37 08/26/2017 19:37 JRHCVS-FHT Time: 08/26/2017 19:37 08/26/2017 19:37JRHCVS-Notes Time: 08/26/2017 19:37 MAP 101 08/26/201719:37 JRHCVS-ROUTINE Time: 08/26/2017 23:08B/P: 130/89 - Left Upper Arm - Lying - Machine Pulse:74 - Monitor Resp: 18S a02: 98 Room Air 08/26/2017 23:09 VDPAVS-Pain Time: 08/26/2017 23:08 Pain Level: 10008/26/2017 23:09 VDPAVS-GCS Time: 08/26/2017 23:08 Visual: 4 Verbal: 5 Mo tor:6 GCS Total: 15 08/26/2017 23:09 VDPAVS-HT/WT Time: 08/26/2017 23:08 08/26/2017 23:09 VDPAVS-Visual Time: 08/26/2017 23:08 08/26/2017 23:09 VDPAVS-FHT Time: 08/26/2017 23:08 08/26/2017 23:09VDPAVS-Notes Time: 08/26/2017 23:08 map 95 08/26/201723:09 VDPA ORDE RS Discharge patient 08/26/2017 22:45N/AOrdered: 08/26/2017 22:41 By . OtherReviewed: 08/26/2017 22:45 By . OtherEXTERN ORDER: GFRP 08/08 20:43NoneOrdered: 08/26/2017 20:43 Completed Time:08/26/2017 20:43 Results Time: 08/26/2017 20:43 [facility] PATIENT NAME: RICHARD FRASER A1Lukas[address] [facility] [address] [facility]l MEDICAL REC #: [id number] [address] DEPARTMENT CHART EMERGENCY DEPARTMENT PHYSICIANEXTERN ORDER: POCGLU 08/26/2017 20:23NoneOrdered: 08/26/2017 20:23 Completed Time:08/26/2017 20:23 Results Time: 08/26/2017 20:23Influenza Screen 08/26/2017 20:43N/AOrdered: 08/26/2017 20:04 By Jovanni Haasompleted Time: 08/26/2017 20:43 By FatemehNoted Time: 08/26/2017 20:12 VDPAQuestion: Moise Source NTAnswer: NasopharyngealQuestion: Moise Description NTAnswer: Sw abResults Time: 08/26/2017 20:43CXR PA and lateral 08/26/2017 20:02N/AOrdered: 08/26/2017 19:42 By Jovanni Lernerleted Time: 08/26/2017 20:02 By Jovanni LopeztIndication: Cough and Congestion, h/o HIVNoted Time: 08/26/2017 19:54Question: Are you or think you might be ?Answer: NOQuestion: How is patient transported? (A = Ambulatory, B =Bed, C = Carry, CR = Crib, P = Portable, S = Stretcher, W =Wheelchair, X = Wide Wheelchair, XT = Trauma X RM 17 (EDOnly))Answer: AMBULATORYFingerstick glucose 08/26/2017 20:17N/AOrdered: 08/26/2017 19:42 By Jovanni Haasompleted Time: 08/26/2017 20:17 By Jovanni Giron ccms (cath if unable to void in 30 mins) 08/26/201719:44N/AOrdered: 08/26/2017 19:42 By Jovanni ColónQuestion: Lab Urine Specimen TypeAnswer: C lean CatchQuestion: Also Culture, if indicated by UA results (Y or N) [facility] PATIENT NAME: RICHARD FRASER A[address] Morel MEDICAL REC #: [id number] [place], [place] [address] DEPARTMENT CHART EMERGENCY DEPARTMENT PHYSICIANAnswer: NODrug screen basic panel (cath if unable to void in 30mins) 08/26/2017 19:44N/AOrdered: 08/26/2017 19:42 By Jovanni LopeztIV hep lock 08/26/2017 20:12N/AOrdered: 08/26/2017 19:42 By Jovanin Haasompleted Time: 08/26/2017 20:11 By IantBMP 08/26/2017 20:43N/AOrdered: 08/26/2017 19:42 By Jovanni Haasompleted Time: 08/26/2017 20:43 By Jovanni ColónNoted Time: 08/26/2017 20:12 VDPAResults Time: 08/26/2017 20:43CBC with diff 08/26/2017 20:23N/AOrdered: 08/26/2017 19:42 By Jovanni Haasompleted Time: 08/26/2017 20:23 By FatemehNoted Time: 08/26/2017 20:12 VDPAResults Time: 08/26/2017 20:23*Repeat vitals and re-assess 08/26/2017 19:36N/ AOrdered: 08/26/2017 19:28 By Jovanni Haasompleted Time: 08/26/2017 19:36 By Fatemeh DISCHARGE Diagnosis: rash possibly secondary to Bactrim, coughunspecified 08/26/2017 22:42Disposition: Time: 08/26/2017 22:41Discha rge Time: 08/26/2017 23:10Type: DischargeCondition: Stable for admission/discharge/transferafter emergency evaluation/treatment Category: *NOTAPPLICABLE [facility] PATIENT NAME: RICHARD FRASER Dominique Morel MEDICAL REC #: [id number], [place] [address] DEPARTMENT CHART EMERGENCY DEPARTMENT PHYSICIANReferral: 08/26/2017 22:42Admit Physician: . Other PRESCRIPTIONS CH ARGES SIGNATURE Bradle y Katarina Bennetthot WIAdal [facility] PATIENT NAME: RICHARD FRASER Dominique Morel MEDICAL REC #: [id number] [place], [place] [address] DEPARTMENT CHART EMERGENCY DEPARTMENT PHYSICIAN ED This is a preliminary report only, as the practitioner review and authentication has not occurred. Normal 08-27-19 18 [facility] at[facility] [place] n ([address]) influenza ag on 201 03-08-19 INFLUENZA AG A negative test is presumptive Normal 08-26-2017 [facility] and it is recommended [facility] theseresults be confirmed by (78569) viral culture or an FDA-clearedinfluenza A and B molecular assay. Negative results do notpreclude influenza virus infections and should not be usedas the sole basis for treatment or other patient managementdecisions. If influenza is circulating in the community, a diagnosisshould be based on clinical presentation. RESULTS CALLED TO REUBEN IN EDAT 203808/26/17 BY BRIANNA DAVIS.EIA RESULT PRESUMPTIVE NEGATIVE FOR INFLUENZA A AND B. Comment: Order Comment: Donalds: MWhat is the source? NASOPHARYNGEAL Performed By: #### M400.0058 0 ####[facility] [id number] [place], [place] [address]Px# glucose meter on 25-08-18 Glucose mass conc 138 70-115 MG/DL High 08-26-2017 [facility] ([address]) gfr est on IF AMER Greater than 60 Normal 08-26-[address] [place] [address] ([address]) Comment: Order Comment: Donalds: M Performed By: #### L500.0180 5, L500.30699 ####[facility] [id number] [place], [place] [address]Hd# [phone] IF non-AFR AMER Greater than 60 Normal 08-26-[address] [place] [address] ([address]) Comment: Order Comment: Donalds: M Performed By: #### L500.0180 5, L500.20924 ####[facility] [id number] [place], [place] [address]Ih# [phone] chest pa/ap and lateral on 2017-08-26 Cholesterol CHEST PA/AP & LATERALOrdering Physician: Jovanni Rivera Normal 08-26-2017 [facility] mass conc PAC [facility]08/26/2017 7:44 PMPA AND LATERAL Medical CHESTClinical Statement: Cough and congestion history Center of HIVComparison: NoneFINDINGS: No consolidation, [place] effusion or congestion is shown. Theheart, hilar and (59540) mediastinal contours are maintained.IMPRESSION:No acute radiographic cardiopulmonary process. ---- Electronic Signature on File ----Signed By: Lanette [email or web address]: 08/26/2017 8:00 PMSigned: 08/26/2017 8:01 PM Reported By: ELSA REDDY M.D. Signed By: ELSA REDDY M.D. cbc w/diff on 08-26 BASO ABS 0.00 0-0.2 K/CU MM Normal 08-26-2017 [facility] [place] ([address]) Comment: Order Comment: Donalds: M Performed By: #### L200.0005 0 ####[address] [address]Hw# Basophils/100 WBC Auto (Bld) 0.4 0-2 % Normal 0 08-26-2017 [facility] [place] ([address]199) Comment: Order Comment: Donalds: M Performed By: #### L200.0005 0 ####[facility] [id number] [place] [address]Za# EOS ABS 0.10 0-0.5 K/CU MM Normal 08-26-2017 [facility] [place] ([address]) Comment: Order Comment: Donalds: M Performed By: #### L200.0005 0 ####[address] [address]Yh# [phone] Eosinophils/100 WBC Auto (Bld) 1.2 0-5 % Normal 08-26-2017 [facility] [place] (00 000) Comment: Order Comment: Donalds: M Performed By: #### L200.0005 0 ####[address] [address]Ll# [phone] Erythrocyte distribution 14.5 11-14.5 % Normal 08-26 [facility] width Auto Ratio (RBC) [place] ([address]) Comment: Order Comment: Donalds: M Performed By: #### L200.0005 0 ####[facility] [id number] [place], [place] [address]Ww# Hematocrit Auto Volume 37.0 35.0-47.0 % Normal 018 [facility] Fraction (d) [place] n (130[address]) Comment: Order Comment: Donalds: M Performed By: #### L200.0005 0 ####[address] [address]Oz# Hemoglobin mass conc 13.0 11.5-15.5 G/DL Normal 8 [facility] ([facility]) [place] ( 000) Comment: Order Comment: Donalds: M Performed By: #### L200.0005 0 ####[address] [address]Nz# [phone] IMMATR GRAN ABS 0.00 Less than 2 K/CU MM Normal 08-26-2017 [facility] ( 000) Comment: Order Comment: Donalds: M Performed By: #### L200.0005 0 ####[address] [address]Ls# [phone] IMMATURE GRAN % 0.3 Less than 2 % Normal 08-26-2017 [facility] ([address]377) Comment: Order Comment: Donalds: M Performed By: #### L200.0005 0 ####[address] [address]Gj# [phone] Lymphocytes Auto #/vol 2.00 0.9-4.4 K/CU MM Normal [address] [place] [address] ([facility]) [place] (00 000) Comment: Order Comment: Donalds: M Performed By: #### L200.0005 0 ####[address] [address]Ce# Lymphocytes/100 WBC Auto (d) 28.9 20-40 % Normal 08-26-2017 [facility] (00 000) Comment: Order Comment: Donalds: M Performed By: #### L200.0005 0 ####[facility] [id number] [place], [place] [address]Ov# MCHC Auto mass conc 35.1 32.0-36.0 GM/DL Normal 08-26-2017 [facility] ([facility]) [place] (00 000) Comment: Order Comment: Donalds: M Performed By: #### L200.0005 0 ####[address] [address]Jv# MCV Auto Entitic volume 88.7 80.0-99.0 fl Normal 2017 [facility] ([facility]) [place] (00 000) Comment: Order Comment: Donalds: M Performed By: #### L200.0005 0 ####[address] [address]Gy# [phone] MONO ABS 0.70 0.1-1.1 K/CU MM Normal 08-26-2017 [facility] [place] ([address]) Comment: Order Comment: Donalds: M Performed By: #### L200.0005 0 ####[address] [address]Bq# [phone] Monocytes/100 WBC Auto (Bld) 9.8 2-10 % Normal 0 08-26-2017 [facility] ([address]) Comment: Order Comment: Donalds: M Performed By: #### L200.0005 0 ####[address] [address]Sr# [phone] NEUTROPHIL ABS 4.10 2.0-8.3 K/CU MM Normal 08-26-2017 [facility] ([address]14) Comment: Order Comment: Donalds: M Performed By: #### L200.0005 0 ####[address] [address]Ax# [phone] Neutrophils/100 WBC Auto (Bld) 59.4 45-75 % Normal 08-26-2017 [facility] (00 000) Comment: Order Comment: Donalds: M Performed By: #### L200.0005 0 ####[facility] [id number] [place], [place] [address]Vq# Nucleated RBC/100 WBC 0.0 Less than 1 % Normal 2017 [facility] Ratio (Bld) [place] ( [address]) Comment: Order Comment: Donalds: M Performed By: #### L200.0005 0 ####[address] [address]Ay# Platelet mean volume Auto 9.6 9.4-12.4 fL Normal 08-08 [facility] Entitic volume ([facility]) [place] ([address]) Comment: Order Comment: Donalds: M Performed By: #### L200.0005 0 ####[address] [address]Af# Platelets Auto #/vol 186 150-450 K/CU MM Normal 8 [facility] ([facility]) [place] (00 000) Comment: Order Comment: Donalds: M Performed By: #### L200.0005 0 ####[address] [address]Ff# RBC Auto #/vol (Bld) 4.17 3.90-5.30 M/CU MM Normal 8 [facility] (00 000) Comment: Order Comment: Donalds: M Performed By: #### L200.0005 0 ####[address] [address]Bq# WBC Auto #/vol (d) 6.9 4.5-11.0 K/CU MM Normal 8 [facility] (00 000) Comment: Order Comment: Donalds: M Performed By: #### L200.0005 0 ####[address] [address]Qi# bmp on 2017-08-26 Anion gap 3 molar conc 8 5-16 MMOL/L Normal 018 [facility] (76547) Comment: Order Comment: Donalds: M Performed By: #### L500.0180 5, L500.64491 ####[facility] [id number] [facility], [place] [address]Sr# [phone] Calcium mass conc 8.6 8.5-10.1 MG/DL Normal 08-26-2017 [facility] ([address]) Comment: Order Comment: Donalds: M Performed By: #### L500.0180 5, L500.27186 ####[facility] [id number] [facility], [place] [address]Sk# [phone] Chloride molar conc 105 98-107 MMOL/L Normal 08-26-2017 [facility] (99024) Comment: Order Comment: Donalds: M Performed By: #### L500.0180 5, L500.36642 ####[facility] [id number] [facility], [place] [address]Dc# [phone] CO2 molar conc 27 21-32 MMOL/L Normal 08-26-2017 [facility] (63574) Comment: Order Comment: Donalds: M Performed By: #### L500.0180 5, L500.33078 ####[facility] [id number] [facility], [place] [address]Rt# [phone] Creatinine mass conc 0.692 0.510-0.950 MG/DL Normal [address] [place] [address] (00 000) Comment: Order Comment: Donalds: M Result Comment: Patients rec eiving either N-Acetylcysteine (NAC) orMetamizole prior to venipu ncture, may have falsely depressedresults. Performed By: #### L500.0180 5, L500.17996 ####[facility] [id number] [facility], [place] [address]Wn# [phone] Glucose mass conc 123 70-100 MG/DL High 08-26-2017 [facility] (06949) Comment: Order Comment: Donalds: M Result Comment: 70-100- Norm al Fasting; 100-125 Impaired Fasting; greaterthan 126 on more than one result- Diabetes. ADA guidelines.Results may be falsely elevated afte r the administration ofSulfapyridine.Results may be falsely depressed after t he administration ofSulfasalazine. Performed By: #### L500.0180 5, L500.49684 ####[facility] [id number] [facility] [address]Ua# [phone] Potassium molar conc 3.5 3.5-5.1 MMOL/L Normal 8 [facility] (90290) Comment: Order Comment: Donalds: M Result Comment: Slight Hemol ysis, Result may be falsely increased. Performed By: #### L500.0180 5, L500.74869 ####[facility] [id number] [facility], [place] [address]Fs# [phone] Sodium molar conc 139 136-145 MMOL/L Normal 08-26-2017 [facility] (08634) Comment: Order Comment: Donalds: M Performed By: #### L500.0180 5, L500.94243 ####[facility] [id number] [place] [address]Df# [phone] Urea nitrogen mass conc 19 7-26 MG/DL Normal 2017 [facility] (19708) Comment: Order Comment: Donalds: M Performed By: #### L500.0180 5, L500.04446 ####[facility] [id number] [place] [address]Hk# [phone] Urea nitrogen/Creatinine mass 27 15-24 mg/mg High 08-26-2017 [facility] ratio [place] (00 000) Comment: Order Comment: Donalds: Performed By: #### L500.0180 5, L500.70630 ####[facility] [id number] [facility], [place] [address]Ri# [phone] xr hand complete right on 2017-02-19 XR HAND COMPLETE ORIGINALXR HAND COMPLETE Normal 02-19-2017 [facility] RIGHT RIGHT, 3 views [facility] ([id number]) STATEMENT: Contusion COMPARISON: 09/06/2013 FINDINGS: No acute fracture or dislocation is identified. The joint spaces are maintained. There is no radiopaque foreign body. Soft tissue swelling noted in the hyperthenar region. Cortical remodeling affects the diaphysis of the fifth metacarpal, unchanged from prior exam. This presumably reflects sequela of remote healed trauma. IMPRESSION: No acute fracture or dislocation. Interpreted By: Malachi Harrell DOPreliminary Report By: Malachi Harrell DOElectronically Signed By: Malachi Harrell DO Dictated Date: 02/19/2017 12:26:31 AM Prelim Date: 02/19/2017 12:26:31 AM Sign Date: 02/19/2017 12:27:43 AM No panel information on 2001-06-16 CONVERTED ELECTRONIC ALLIE WINSLWO M.D., PATHOLOGIST 06-16-2001 [facility] SIGNATURE (Electronic signature on file) ([id number]) Final Signed Out: 06/16/2001 11:23 CONVERTED FINAL SPECIMEN ADEQUACY 2000 [facility] DIAGNOSIS SATISFACTORY FOR EVALUATION ([id number]) GENERAL CATEGORIZATION EPITHELIAL CELL ABNORMALITY DESCRIPTIVE DIAGNOSIS RARE ATYPICAL SQUAMOUS CELLS OF UNDETERMINED SIGNIFICANCE, F AVOR A DYSPLASTIC PROCESS. FUNGAL ORGANISMS MORPHOLOGICALLY CONSISTENT WITH ABEBA SPE CIES. PREDOMINANCE OF COCCOBACILLIARY ORGANISMS CONSISTENT WITH A SHIFT IN VAGINAL EVELINE. HORMONAL EVALUATION HORMONAL PATTERN COMPATIBLE WITH AGE AND HISTORY CONVERTED ORDERING Ordering Provider: CHEL 06-16-2001 [facility] PROVIDER ISHAAN ([id number]) CONVERTED PAP The Pap test serves as a scr eening tool for early detection of cervical cancer. The Pap test does not represent a final diagnostic test for cervical cancer. Furthermore, the Pap test was not designed to 06-16-2001 [facility] DISCLAIMER screen for other malignancies (endometrial, ovarian (62334) cancer, etc....). False nega tives and false positives have occurred. If clinically indicated, further patient evaluation is recommended. No panel information on 2001-01-24 CONVERTED ELECTRONIC KIRSTY LEON, SUPERVISORY TERRAZZO HELPER 01-24-2001 [facility] SIGNATURE (Electronic signature on file) ([id number]) Final Signed Out: 01/24/2001 09:58 CONVERTED FINAL SPECIMEN ADEQUACY 2000 [facility] DIAGNOSIS SATISFACTORY FOR CYTOLOGIC EVALUATION BUT LIMITED BY: ([id number]) NO ENDOCERVICAL COMPONENTS. GENERAL CATEGORIZATION BENIGN CELLULAR CHANGES DESCRIPTIVE DIAGNOSIS FEATURES MORPHOLOGICALLY CONSISTENT WITH TRICHOMONAS VAGINAL IS. HORMONAL EVALUATION HORMONAL PATTERN COMPATIBLE WITH AGE AND HISTORY CONVERTED ORDERING Ordering Provider: CHEL 01-24-2001 [facility] PROVIDER ISHAAN ([id number]) CONVERTED PAP The Pap test serves as a scr eening tool for early detection of cervical cancer. The Pap test does not represent a final diagnostic test for cervical cancer. Furthermore, the Pap test was not designed to 01-24-2001 [facility] DISCLAIMER screen for other malignancies (endometrial, ovarian (42571) cancer, etc....). False nega tives and false positives have occurred. If clinically indicated, further patient evaluation is recommended. No panel information on 2000-08-24 CONVERTED ELECTRONIC KATHY RUSS M.D., PATHOLOGIST 08-24-2000 [facility] SIGNATURE (Electronic signature on file) ([id number]) Final Signed Out: 08/24/2000 16:20 CONVERTED FINAL A) CERVIX, CONIZATION - ASIA RE SQUAMOUS DYSPLASIA. MARKED ACUTE AND 08-24-2000 [facility] DIAGNOSIS CHRONIC INFLAMMATION. NEGATIVE MARGINS OF EXCISION. ([id number]) COMMENT: Focally the margins, particularly the endocervical margin, are disrupted and the mucosa is denuded in these areas. However where the margin can be clearly visualized, there is no evidence of in volvement by the dysplastic process. Nevertheless close follow-up is rec ommended for this patient. B) ENDOCERVIX, CURETTAGE - ACUTELY INFLAMED MUCOUS. ENDOC ERVICAL MUCOSA IS NOT IDENTIFIED. CONVERTED ORDERING Ordering Provider: [facility] PROVIDER [facility] ([phone]) No panel information on 2000-07-21 CONVERTED ELECTRONIC MOY FERRARA M.D. 1 09-21-1999 [facility] SIGNATURE (Electronic signature on file) ([id number]) Final Signed Out: 07/21/2000 12:25 CONVERTED FINAL A. CERVICAL BIOPSY (12 O'CL OCK): MODERATE TO SEVERE DYSPLASIA WITH 07-21-2000 [facility] DIAGNOSIS EXTENSIVE ASSOCIATED HUMAN PAPILLOMA VIRUS EFFECT. ([id number]) EXTENSIVE CHRONIC ENDOCERVICITIS. COMMENT: Specimen A was also reviewed by Dr. Jessi Barber who agrees with the diagnosis. B. ENDOCERVICAL CURETTAGE: SCANT, UNREMARKABLE ENDOCERVICA L EPITHELIUM. CONVERTED ORDERING Ordering Provider: [facility] PROVIDER JEFF VALDEZ ([phone]) No panel information on 2000-05-27 CONVERTED ELECTRONIC ALLIE WINSLOW M.D., PATHOLOGIST 05-27-2000 [facility] SIGNATURE (Electronic signature on file) ([id number]) Final Signed Out: 05/27/2000 10:38 CONVERTED FINAL SPECIMEN ADEQUACY 1999 [facility] DIAGNOSIS SATISFACTORY FOR EVALUATION ([id number]) GENERAL CATEGORIZATION EPITHELIAL CELL ABNORMALITY DESCRIPTIVE DIAGNOSIS ATYPICAL SQUAMOUS CELLS OF UNDETERMINED SIGNIFICANCE, FAVOR A DYSPLASTIC PROCESS. REACTIVE CELLULAR CHANGES ASSOCIATED WITH INFLAMMATION. HORMONAL EVALUATION HORMONAL PATTERN COMPATIBLE WITH AGE AND HISTORY CONVERTED ORDERING Ordering Provider: [facility] PROVIDER JEFF VALDEZ ([phone]) CONVERTED PAP The Pap test serves as a scr eening tool for early detection of cervical cancer. The Pap test does not represent a final diagnostic test for cervical cancer. Furthermore, the Pap test was not designed to 05-27-2000 [facility] DISCLAIMER screen for other malignancies (endometrial, ovarian (13535) cancer, etc....). False nega tives and false positives have occurred. If clinically indicated, further patient evaluation is recommended. Encounters Date Type Reason Provider Location 12-01-2018 Emergency Headache UNKNOWN PROVIDER Carla Johnson department patient [facility] (66304) visit Tong GAMBINO 10-13-2017 Emergency PROVIDER UNKNOWN [facility] 10-12-2017 Emergency PROVIDER UNKNOWN [facility] visit 08-28-2017 Emergency PROVIDER UNKNOWN [facility] visit 08-26-2017 Emergency COUGH,CONGESTION, Emergency Facility:[facility] department patient SOB/CAR Physicians Lino [facility] visit PROVIDER UNKNOWN 06-07-2018 Patient encounter [place] [facility] PROVIDER UNKNOWN [facility] [address] 03-15-2018 Patient encounter Alejo Rodney Messi Fac ility[facility] procedure P [facility] 03-01-2018 Patient encounter Messi P Katie Faci [facility]ity[facility] procedure PROVIDER UNKNOWN Medical [address] [facility] 01-24-2018 Patient encounter Cyst of kidney, Mariella Kefalas [facility] procedure acquired UNKNOWN PROVIDER System (000 00) Tim Fortune 06-14-2001 - Patient encounter [facility] 06-14-2001 procedure 01-18-2001 - Patient encounter [facility] 01-18-2001 procedure 08-22-2000 - Patient encounter Sandrine rosen [facility] 08-22-2000 procedure 07-18-2000 - [facility] Ap 05-18-2000 - [facility] 05-18-2000 procedure Ap 06-14-2001 Results Only Chel Francois [facility] 01-18-2001 Results Only Chel Francois [facility] 08-22-2000 Results Only Gonzales [facility] 07-18-2000 Results Only Conversion [facility] 05-18-2000 Results Only Conversion [facility] Procedures Procedure Name Date Provider Location CONVERTED CYTOLOGY CASING MIXER 06-14-2001 Chel Rivera [facility] ([id number]) CONVERTED CYTOLOGY CASING MIXER 01-18-2001 Chel Rivera [facility] ([id number]) CONVERTED SURGICAL PATHOLOGY 08-22-2000 [facility] (59425) CONVERTED SURGICAL PATHOLOGY 07-18-2000 Conversion [facility] ([id number]) CONVERTED PATHOLOGY 05-18-2000 Conversion [facility] ([id number]) PROCEDURE Plan of Treatment Plan Description Date Location DTAP,TDAP,TD (2 - Td) DTAP,TDAP,TD (2 - Td) 06-06-2023 - [facility] 06-06-2023 ([id number]) TWO PNEUMOVAX 5 YEARS TWO PNEUMOVAX 5 YEARS 06-01-2021 - [facility] APART PRIOR TO AGE 65 APART PRIOR TO AGE 65 06-01-2021 ([phone]) (#2) (#2) ID HEPATITIS B SURFACE ID HEPATITIS B SURFACE 05-16-2021 [facility] ANTIBODY ANTIBODY 05-16-2021 ([id number]) ID HEPATITIS C ANTIBODY ID HEPATITIS C ANTIBODY 05-16-2021 - [facility] 05-16-2021 ([id number]) INFLUENZA (#1) INFLUENZA (#1) 2020 - [facility] 04-08-2020 ([id number]) ID SYPHILIS SCREENING ID SYPHILIS SCREENING 05-16-2019 - [facility] 05-16-2019 ([id number]) ID TB TESTING ID TB TESTING 05-16-2019 - [facility] 05-16-2019 ([id number]) ID URINALYSIS ID URINALYSIS 05-16-2019 - [facility] 05-16-2019 ([id number]) SERUM CREATININE SERUM CREATININE 05-16-2019 - [facility] 05-16-2019 ([id number]) ID VIRAL LOAD ID VIRAL LOAD 11-14-2018 - [facility] 11-14-2018 ([id number]) ID CD4 COUNT ID CD4 COUNT 11-14-2018 - [facility] 11-14-2018 ([id number]) MENINGOCOCCAL CONJUGATE MENINGOCOCCAL CONJUGATE 08-11-2018 - [facility] (2 - Risk 2-dose series) (2 - Risk 2-dose series) 08-11-2018 (60083) LDL CHOLESTEROL LDL CHOLESTEROL 04-12-2018 - [facility] 04-12-2018 ([id number]) ID LIPID PROFILE ID LIPID PROFILE 04-12-2018 - [facility] 04-12-2018 ([id number]) MAMMOGRAM MAMMOGRAM 2016 - [facility] 2016 ([id number]) HBA1C HBA1C 06-30-2007 - [facility] 06-30-2007 ([id number]) HPV TESTING HPV TESTING 2006 - [facility] 2006 (31909) PAP TESTING PAP TESTING 1997 - [facility] 1997 (18407) ANNUAL PCP TEAM CHRONIC ANNUAL PCP TEAM CHRONIC 1994 - [facility] DISEASE VISIT DISEASE VISIT 1994 (27544) ID HIV COUNSELING ID HIV COUNSELING 1994 [facility] 1994 ([id number]) ID DENTAL VISIT/REFERRAL ID DENTAL VISIT/REFERRAL 1994 - [facility] 1994 ([id number]) DIABETIC FOOT EXAM DIABETIC FOOT EXAM 1986 - [facility] 1986 (79040) URINE ALBUMIN:CREATININE URINE ALBUMIN:CREATININE 1986 - [facility] RATIO RATIO 1986 (94011) DILATED RETINAL EXAM DILATED RETINAL EXAM 1986 - [facility] 1986 (50888) Payers Payer Name Policy Number Location Medicaid [facility] ([id number]) MEDICAID [facility] [id number] [facility] ([id number]) Medicare [facility] ([id number]) MEDICARE [id number] [facility] ([id number]) [id number] [facility] ([id number]) [id number] [facility] ([id number]) [id number] [facility] ([id number]) [id number] [facility] (93638) [id number] [facility] (49968) [id number] [facility] (11340) [id number] [facility] (40165) [id number] [facility] ([id number]) [id number] [facility] (13866) [id number] [facility] ([id number]) The following information is from the original human readable contentNo Payer Records FoundNo Payer Records FoundNo Payer Records FoundNo Payer Records FoundNo Payer Records FoundNo Payer Records FoundNo Payer Records FoundNo Payer Records FoundNo Payer Records Found Social History Type Social History Description Date Locat ion Tobacco smoking status NHIS Unknown if ever smoked [facility] (87447) Sex Assigned At Not on file [facility] (27624) The following information is from the original human readable contentNo Social History Records FoundNo Social History Records FoundNo Social History Records FoundNo Social History Records FoundNo Social History Records FoundNo Social History Records FoundNo Social History Records FoundNo Social History Records FoundNo Social History Records FoundNo Social History Records FoundNo Social History Records FoundNo Social History Records FoundNo Social History Records Found History of Past Illness Problem Noted Date Resolved Date CALCULUS OF URETER 03/04/2009 05/16/2018 Restless legs syndrome (RLS) 03/04/2009 05/16/2018 Myalgia and myositis, unspecified 03/04/20092017 HYPERSPLENISM 03/04/2009 05/16/2018 Migraine with aura, without mention of intractable migraine 03/04/2009 05/16/2018 without mention of status migrainosus Other and unspecified ovarian cyst 03/04/200905/16 Abdominal pain, unspecified site 03/04/2009 018 CALCULUS OF KIDNEY 05/27/2008 05/16/2018 Osteoarthrosis, unspecified whether generalized or 7 05/16/2018 localized, other specified sites Depressive disorder, not elsewhere classified 09/26/2006 05/16/2018 Anxiety state, unspecified 09/26/2006 05/16/2018 Unspecified asthma(493.90) 09/26/2006 05/16/2018 Unspecified disorder of liver 09/26/2006 05/16/2018 GENITAL HERPES 06/08/2006 05/16/2018 Advance Directives No Advanced Directives Records Found Documents on File Type Date Recorded Patient [place] Work[employer] Explanati on Advance Directive(s) 12/23/2016 2:48 PM Summary Purpose Family History No Family History Records FoundNo Family History Records FoundNo Family History Records FoundNo Family History Records FoundNo Family History Records FoundNo Family History Records FoundNo Family History Records Found Additional Source Comments FOR RECORDS PERTAINING TO PATIENTS WHO ARE OR HAVE BEEN ENROLLED IN A CHEMICAL DEPENDENCY/SUBSTANCE ABUSE PROGRAM, SOME INFORMATION MAY BE OMITTED. This clinical summary was aggregated from multiple sources. Caution should be exercised in using it in the provision of clinical care. This summary normalizes information from multiple sources, and as a consequence, information in this document may materially changethe coding, format and clinical context of patient data. In addition, data may be omittedin some cases. CLINICAL DECISIONS SHOULD BE BASED ON THE PRIMARY CLINICAL RECORDS. [facility] provides no warranty or guarantee of the accuracy or completeness of information in this document. UNRECOGNIZED CONTENT PROVIDED BELOW FOR UNRECOGNIZED SECTION Source Comments In the event this information is protected by the Federal Confidentiality of Alcohol and Drug Abuse Patient Records regulations: The Federal rules restrict any use of the information to criminally investigate or prosecute any alcohol or drug abuse patient.[facility] Hospital[facility] the event this information is protected by the Federal Confidentiality of Alcohol and Drug Abuse Patient Records regulations: The Federal rules restrict any use of the information to criminally investigate or prosecute any alcohol or drug abuse patient.[facility] HospitalIn the event this information is protected by the Federal Confidentiality of Alcohol and Drug Abuse Patient Records regulations: The Federal rules restrict any use of the information to criminally investigate or prosecute any alcohol or drug abuse patient.[facility] HospitalIn the event this information is protected by the Federal Confidentiality of Alcohol and Drug Abuse Patient Records regulations: The Federal rules restrict any use of the information to criminally investigate or prosecute any alcohol or drug abuse patient.[facility] HospitalIn the event this information is protected by the Federal Confidentiality of Alcohol and Drug Abuse Patient Records regulations: The Federal rules restrict any use of the information to criminally investigate or prosecute any alcohol or drug abuse patient.[facility] UNRECOGNIZED CONTENT PROVIDED BELOW FOR UNRECOGNIZED SECTION INFORMATION SOURCE DATE CREATED AUTHOR AUTHOR'S ORGANIZATIO N 02/01/2018 [facility] ation DATE CREATED AUTHOR AUTHOR'S ORGANIZATIO N 12/09/2018 [facility] DATE CREATED AUTHOR AUTHOR'S ORGANIZATIO N 05/27/2019 [facility] Fortunato veland DATE CREATED AUTHOR AUTHOR'S ORGANIZATIO N 09/11/2019 [facility] DATE CREATED AUTHOR AUTHOR'S ORGANIZATIO N 10/12/2019 [facility] DATE CREATED AUTHOR AUTHOR'S ORGANIZATIO N 07/17/2018 [facility] DATE CREATED AUTHOR AUTHOR'S ORGANIZATIO N 05/23/2020 [facility] ([place])
== END ==
PROVIDERS: PCP Internal Medicine; Visit Provider Internal Medicine Infectious Disease
DX: B20 Human immunodeficiency virus [HIV] disease (principal)
CPT/HCPCS: 36415; 80048; 80076; 85027; 86361; 87536

== ENCOUNTER 2020-01-26 23:53 | Emergency (ER) | payer MEDICARE, MEDICAID, SELFPAY ==
[2020-01-26 23:54] VITALS: BP 125/71; PULSE 91; RESP 15; TEMP 37.1; O2SAT 99; BMI 35.7
--- NOTE | 2020-01-27 00:09 | ED.VIS.GEN ---
History of Present Illness Chief Complaint: Headache Informant: Patient Narrative: Stated she has had daily migraine since September. She comes in tonight as her migraine is worse. Is a frontal achy discomfort. She gets nausea with it. This is been since they switched her HIV medications to new medications. Denies any fevers or chills. She otherwise does not feel sick. Current severity is moderate. - Past Medical History (1) Bigeminal rhythm Status: Acute (2) Dizziness Status: Acute (3) Headache Status: Acute (4) History of shingles Status: Acute (5) Migraine Status: Acute (6) Anxiety Status: Chronic (7) Arthritis Status: Chronic (8) Asthma Status: Chronic (9) Bipolar 1 disorder Status: Chronic (10) CHF (congestive heart failure) Status: Chronic (11) Depression Status: Chronic (12) Dermatitis Status: Chronic (13) Diabetes mellitus Status: Chronic (14) Diverticulosis Status: Chronic (15) Enlargement, spleen Status: Chronic (16) Fibromyalgia Status: Chronic (17) GERD (gastroesophageal reflux disease) Status: Chronic (18) HIV (human immunodeficiency virus infection) Status: Chronic (19) HIV exposure Status: Chronic (20) 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 (21) Herpes Status: Chronic (22) Hiatal hernia Status: Chronic (23) History of alcoholism Status: Chronic (24) History of blood transfusion Status: Chronic (25) History of drug abuse Status: Chronic (26) History of kidney stones Status: Chronic (27) Hypertension Status: Chronic (28) Insomnia Status: Chronic (29) Neuropathy Status: Chronic (30) Obesity Status: Chronic (31) Osteoarthritis Status: Chronic (32) Polyneuropathy Status: Chronic (33) Seasonal allergies Status: Chronic (34) Type 2 diabetes mellitus Status: Chronic (35) Vitamin B12 deficiency Status: Chronic (36) Vitamin D deficiency Status: Chronic Past Medical History - Allergies and Home Meds Allergies/Adverse Reactions: Allergies Iodinated Contrast Media [Iodinated Contrast- Oral and IV Dye] Allergy (Unknown, Verified 11/28/19 15:13) Hives pt states only when she has both together-no reaction to solely IV contrast. amoxicillin Allergy (Verified 11/28/19 15:13) Hives hydrocodone [From Vicodin] Allergy (Verified 11/28/19 15:13) Unknown methylprednisolone [From Medrol] Allergy (Verified 11/28/19 15:13) Hives moxifloxacin Allergy (Verified 11/28/19 15:13) Shortness of breath prochlorperazine [From Compazine] Allergy (Verified 11/28/19 15:13) Other prochlorperazine edisylate [From Compazine] Allergy (Verified 11/28/19 15:13) Other prochlorperazine maleate [From Compazine] Allergy (Verified 11/28/19 15:13) Other acetaminophen [From Tylenol] Adverse Reaction (Verified 11/28/19 15:13) Other sumatriptan [From Imitrex] Adverse Reaction (Verified 11/28/19 15:13) Hives A MIGRAINE MED Allergy (Uncoded 11/28/19 15:13) Other Primary Care Physician: Juan Manuel Maldonado MD [Primary Care Provider] - Prior records reviewed: Yes Past Medical History: - - See problem list Surgical History: appendectomy, hysterectomy, tonsillectomy, - - cardiac cath, shoulder surgery, trigger finger surgery, arthroscopic knee surgery Smoking Status: Former smoker Alcohol: None Drugs: None - Family History Maternal Family History: Family History (Last Reviewed 09/19/19 @ 14:46 by Orly Galdamez) Other Alcoholism Anxiety and depression Arthritis Asthma Breast cancer CVA (cerebral vascular accident) Cancer Diabetes Heart disease Hyperlipemia Hypertension Kidney disease Myocardial infarction Seizures Family History: Reports: COPD Paternal Family History: Family History (Last Reviewed 09/19/19 @ 14:46 by Orly Galdamez) Other Alcoholism Anxiety and depression Arthritis Asthma Breast cancer CVA (cerebral vascular accident) Cancer Diabetes Heart disease Hyperlipemia Hypertension Kidney disease Myocardial infarction Seizures Family History: Reports: COPD Review of Systems General: Denies: Chills, Fever, Sweats Eyes: Denies: Visual changes - bilaterally, Diplopia ENT: Denies: Rhinorrhea, Sore throat Cardiovascular: Denies: Chest pain, Palpitations Respiratory: Denies: Dyspnea, Cough, Dyspnea on exertion Gastrointestinal: Reports: Nausea, Vomiting. Denies: Abdominal pain, Diarrhea, Melena, Hematochezia Genitourinary: Denies: Dysuria, Hematuria, Frequency Musculoskeletal: Denies: Back pain, Extremity Pain Skin: Denies: Rash, Wounds Neurological: Reports: Headache. Denies: Weakness, Numbness Physical Exam General: Well nourished, Well developed, No Acute Distress Head: Normocephalic, Atraumatic Eyes: Perrl, EOMI ENT: Moist mucous membranes, No rhinorrhea Neck: Supple, Nontender Cardiovascular: Regular rate, Regular rhythm, No murmurs Respiratory: No distress, CTA bilaterally, Chest nontender Abdomen: Soft, Nontender, Nondistended, Normal bowel sounds Back: Nontender, Normal Inspection Extremities: Nontender, No edema Skin: Normal color, No rash Neurological: Alert, Oriented x3, Cranial nerves II-XII grossly intact, Normal Strength, Normal Sensation Psychological: Normal affect, Normal Mood Diagnostic/Tx/Re-eval - Medical Decision Making Patient given IV fluids Phenergan and Toradol Benadryl.. On reevaluation the patient feels much better resting comfortably. This appears to be a chronic problem secondary to her medications. I do not feel she has a intracerebral abscess or is toxic. I do not feel she has encephalitis or head bleed. I do not feel she needs a CT head or imaging. She will follow-up as an outpatient for her chronic migraines ED Disposition - Plan for ED Patient: Disposition: Home or Assisted Living Diagnosis: Migraine headache Instructions: ED, Migraine (Classical) Referrals: Juan Manuel Maldonado MD [Primary Care Provider] -
[2020-01-27] MEDS: 0.9% Normal Saline 1,000 ML 999 ML IV (00:52)
[2020-01-27] MEDS: proMETHazine 25 MG/ML Syringe 6.25 MG IV (00:53)
[2020-01-27] MEDS: Ketorolac 30 MG/ML Syringe IV (00:54)
[2020-01-27] MEDS: DiphenhydrAMINE 50 MG/ML Syringe 25 MG IV (00:57)
== END 2020-01-27 02:22 | disposition home or self-care (01) ==
PROVIDERS: Emergency Provider Emergency Medicine; PCP Internal Medicine
DX: G43.909 Migraine, unspecified, not intractable, without status migrainosus (principal); B20 Human immunodeficiency virus [HIV] disease; A63.0 Anogenital (venereal) warts; I11.0 Hypertensive heart disease with heart failure; I50.9 Heart failure, unspecified; R11.0 Nausea; R42 Dizziness and giddiness; E11.40 Type 2 diabetes mellitus with diabetic neuropathy, unspecified; M19.90 Unspecified osteoarthritis, unspecified site; J45.909 Unspecified asthma, uncomplicated; M79.7 Fibromyalgia; G47.00 Insomnia, unspecified; E53.8 Deficiency of other specified B group vitamins; E55.9 Vitamin D deficiency, unspecified; K21.9 Gastro-esophageal reflux disease without esophagitis; F31.9 Bipolar disorder, unspecified; F41.9 Anxiety disorder, unspecified; E66.9 Obesity, unspecified; Z79.899 Other long term (current) drug therapy; Z87.891 Personal history of nicotine dependence
CPT/HCPCS: 96361; 96374; 96375; 99283; J7030; A4216

== ENCOUNTER 2020-02-16 08:41 | Emergency (ER) | payer MEDICARE, MEDICAID, SELFPAY ==
[2020-02-16 08:42] VITALS: BP 116/62; PULSE 91; RESP 64; TEMP 36.8; O2SAT 99; BMI 37.3
--- NOTE | 2020-02-16 09:02 | EKG12_ITS ---
Test Reason : CP Blood Pressure : / mmHG Vent. Rate : 089 BPM Atrial Rate : 089 BPM P-R Int : 124 ms QRS Dur : 086 ms QT Int : 420 ms P-R-T Axes : 025 018 052 degrees QTc Int : 511 ms Sinus rhythm with frequent Premature ventricular complexes in a pattern of bigeminy Otherwise normal ECG Confirmed by LOLA ROSADO, DANIELE ([id number]), desk editor REUBEN THOMAS ([id number]) on 02/18/2020 1:04:37 PM Referred By: ANGELIC Confirmed By:DANIELE DAVILA MD
--- NOTE | 2020-02-16 09:02 | RAD_ITS ---
STUDY: X-RAY CHEST REASON FOR EXAM: Female, 44 years old. Chest pain since 7:30 this morning TECHNIQUE: Frontal view COMPARISON: November 28, 2019. FINDINGS: The lungs are clear and expanded. There is no demonstrated pleural abnormality. Normal size heart. Normal mediastinum and donta. Normal visualized pulmonary arteries. Normal visualized aortic arch and descending thoracic aorta. Normal visualized thoracic spine. Normal visualized ribs, clavicles, and shoulders. There is no demonstrated abnormality of the visualized soft tissue structures of the upper abdomen. RAD/Chest 1 View (Portable) IMPRESSION: Normal x-ray examination of the chest. Electronically Signed: Igor Hammond DO at 9:36 EDT Tel [phone], Service support ,
--- NOTE | 2020-02-16 09:04 | ED.VISSUMM ---
- ER Visit Summary Date of Service: 02/16/20 Chief Complaint: Chest pain History of Present Illness: The patient is a [address] Maldonado, Dr. 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 Reports that his 730 this morning while at rest she had the onset of substernal chest pain that she describes as a sharp burning pain. Radiates to her right chest. There is no radiation to her neck, back, or shoulders. Reports is 9 at 10 at worst and 7-10 currently. Is worsened by nothing including exertion, movement, or breathing. Is also relieved by nothing. She does report that she feels short of breath with this. She denies any nausea, vomiting, diaphoresis. 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 She is not anticoagulated this time. Reports that her sisters had DVTs as well. She denies any recent travel. No change in her chronic ankle swelling. No calf pain. Physical Examination: Vitals: Stable. Afebrile. General: Well-nourished and well-developed. Head: Normocephalic atraumatic. Neck: Supple, no lymphadenopathy. No JVD. Nontender. Cardiovascular: Regular rate and rhythm. No murmurs. Respiratory: No respiratory distress. Clear to auscultation bilaterally. Moderate tenderness palpation of the costochondral margin bilaterally does reproduce her pain. Abdominal: Soft, nontender, nondistended, normal bowel sounds. No guarding, rebound, or peritoneal signs. Back: Nontender. Extremities: Nontender, no edema. Skin: Normal color, no rash. Neurologic: Alert and oriented ?3. Cranial nerves II through XII are intact. Normal strength and sensation. Psych: Normal affect. Test Results: EKG shows ventricular bigeminy at a rate of 89. Nonspecific ST changes. This is unchanged from June 212018. CBC shows a white count of 3.8 with an H&H of 11.4 and 35.4, platelets of 97. Chem-7 shows a glucose 197. Troponin is negative. D-dimer is negative. Clinical Impression(s) from Imaging Studies Chest X-Ray 02/16/20 09:02 IMPRESSION: Normal x-ray examination of the chest. Electronically Signed: Igor Hammond DO at 9:36 EDT Tel [phone], Service support , Emergency Department Course and Treatment: Chart review shows patient had a heart catheterization June 012018 that shows normal coronary arteries. She was given a dose of Toradol IV. She is resting more comfortably. Treatment Plan: Patient at this time has atypical chest pain. I feel that she is a suitable candidate for further outpatient evaluation. She will be discharged with symptomatic care. Instructed use Tylenol and/or ibuprofen as needed for pain. Follow-up with her primary care physician in 3 to 5 days if not improving. Return to the emergency department for any worsening symptoms. Disposition: To home in improved and stable condition. Impression: 1. Atypical chest pain. 2. Pancytopenia, chronic. This note was generated with [employer] dictation software. It may contain incorrect words, spelling, and punctuation that were not noted in review of the chart prior to signing ED Disposition - Plan for ED Patient: Instructions: ED Chest Pain Atypical Unkn Cause Referrals: Juan Manuel Maldonado MD [Primary Care Provider] - 3-5 Days if not improving
[2020-02-16 09:14] LABS: Absolute Lymphocyte Count 1.06 X10^3/uL (0.83-4.51); Absolute Neutrophil Count 2.3 X10^3/uL (2.0-7.7); Basophil# 0.03 X10^3/uL; Basophil% 0.8 % (0-1); Eosinophil# 0.18 X10^3/uL; Eosinophils% 4.8 % (0-5); Hematocrit 35.4 % (37-47); Hemoglobin 11.4 g/dL (12.0-15.0); Lymphocyte # 1.06 X10^3/ul (4.0); Lymphocyte % 28.1 % (19-41); Mean Corp Hgb Conc 32.2 g/dL (32-36); Mean Corpuscular Hgb 30.1 pg (27.0-32.0); Mean Corpuscular Volume 93.4 fL (81-99); Monocyte# 0.23 X10^3/uL; Monocyte% 6.1 % (0-10); NRBC Flagged by Analyzer 0 % (0-5); Neutrophil # 2.26 X10^3/uL (2.7-7.7); Neutrophil % 59.9 % (47-70); POSITIVE COUNT YES; Platelet Count 97 K/mm3 (150-450); RBC Distribution Width CV 13.7 % (11.6-14.6); RBC Distribution Width SD 46.8 fl (35.1-43.9); Red Blood Count 3.79 M/mm3 (4.2-5.4); White Blood Count 3.8 K/mm3 (4.4-11.0)
[2020-02-16 09:22] LABS: D-Dimer Quantitative (DVT/PE) <= 0.27 FEU/ug/m (0.27-0.49)
[2020-02-16 09:25] LABS: Anion Gap 5 (5-15); BUN 11 mg/dL (7-18); BUN/Creat Ratio 12.5 RATIO (10-20); Calcium,Total 8.6 mg/dL (8.5-10.1); Chloride 107 mmol/L (98-107); Creatinine, Serum 0.88 mg/dL (0.55-1.02); EST Glomerular Filtration Rate 75 mL/min (>60); Est Glom Filt Rate - Afr Amer 90 mL/min (>60); Estimated Creatinine Clearance 77.17 ml/min; Glucose 197 mg/dL (74-106); Potassium 3.8 mmol/L (3.5-5.1); Sodium Level 139 mmol/L (136-145)
[2020-02-16] MEDS: Ketorolac 15 MG/ML Vial IV (09:47)
[2020-02-16] MEDS: 0.9% Normal Saline 1,000 ML 1000 ML IV (09:47)
[2020-02-16 09:49] VITALS: BP 108/52; PULSE 79; RESP 20; O2SAT 99
[2020-02-16 10:41] VITALS: BP 116/58; PULSE 71; RESP 16; O2SAT 99
== END 2020-02-16 10:43 | disposition home or self-care (01) ==
LOC: ED 09:10
PROVIDERS: Emergency Provider Emergency Medicine; PCP Internal Medicine
DX: R07.89 Other chest pain (principal); D61.818 Other pancytopenia; E11.9 Type 2 diabetes mellitus without complications; I10 Essential (primary) hypertension; M79.89 Other specified soft tissue disorders; J45.909 Unspecified asthma, uncomplicated; M19.90 Unspecified osteoarthritis, unspecified site; Z79.899 Other long term (current) drug therapy; Z87.891 Personal history of nicotine dependence; Z86.718 Personal history of other venous thrombosis and embolism
CPT/HCPCS: 71045; 80048; 84484; 85025; 85379; 93005; 96361; 96374; 99284

== ENCOUNTER 2020-05-22 21:21 | Inpatient (IN) | payer MEDICARE, MEDICAID, SELFPAY ==
[2020-05-22 21:22] VITALS: BP 147/88; PULSE 106; RESP 17; TEMP 35.9; O2SAT 100; BMI 35.1
[2020-05-22 22:24] VITALS: BP 129/66; PULSE 108; RESP 15; O2SAT 99
[2020-05-23] VITALS (7 sets, daily range): BP systolic 104–139; BP diastolic 46–71; PULSE 75–108; RESP 14–18; TEMP 35.9–37.2; O2SAT 96–100; BMI 35.5
[2020-05-23 00:42] LABS: Absolute Lymphocyte Count 1.77 X10^3/uL (0.83-4.51); Absolute Neutrophil Count 2.8 X10^3/uL (2.0-7.7); Basophil# 0.03 X10^3/uL; Basophil% 0.6 % (0-1); Eosinophil# 0.26 X10^3/uL; Hematocrit 39.2 % (37-47); Hemoglobin 13.2 g/dL (12.0-15.0); Lymphocyte # 1.77 X10^3/ul (4.0); Lymphocyte % 33.8 % (19-41); Mean Corp Hgb Conc 33.7 g/dL (32-36); Mean Corpuscular Hgb 30.1 pg (27.0-32.0); Mean Corpuscular Volume 89.3 fL (81-99); Mean Platelet Vol. 9.4 fl (6.2-12.0); Monocyte# 0.33 X10^3/uL; Monocyte% 6.3 % (0-10); NRBC Flagged by Analyzer 0 % (0-5); Neutrophil # 2.83 X10^3/uL (2.7-7.7); Neutrophil % 54.1 % (47-70); Platelet Count 126 K/mm3 (150-450); RBC Distribution Width CV 14.2 % (11.6-14.6); RBC Distribution Width SD 46.4 fl (35.1-43.9); Red Blood Count 4.39 M/mm3 (4.2-5.4); White Blood Count 5.2 K/mm3 (4.4-11.0)
[2020-05-23] MEDS: 0.9% Normal Saline 1,000 ML 1000 ML IV (00:43)
[2020-05-23] MEDS: Morphine 4 MG/ML Syringe IV ×2 (00:43→02:10)
--- NOTE | 2020-05-23 00:48 | ED.RN ---
spoke with lab about getting labwork, they are going to send up a tech.
--- NOTE | 2020-05-23 00:58 | HP.PCM_ITS ---
Problem List (1) HSV (herpes simplex virus) infection Status: Acute (2) Headache Status: Chronic (3) Migraine Status: Chronic (4) Dizziness Status: Chronic (5) Dermatitis Status: Chronic (6) Type 2 diabetes mellitus Status: Chronic (7) Bipolar 1 disorder Status: Chronic (8) Neuropathy Status: Chronic (9) Arthritis Status: Chronic (10) Osteoarthritis Status: Chronic (11) HIV (human immunodeficiency virus infection) Status: Chronic (12) Bigeminal rhythm Status: Resolved (13) Hypertension Status: Chronic (14) GERD (gastroesophageal reflux disease) Status: Chronic (15) Seasonal allergies Status: Chronic (16) History of alcoholism Status: Chronic (17) History of drug abuse Status: Chronic (18) History of blood transfusion Status: Chronic (19) History of kidney stones Status: Chronic (20) History of shingles Status: Resolved (21) Herpes Status: Chronic (22) HIV exposure Status: Chronic (23) 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 (24) Vitamin B12 deficiency Status: Chronic (25) Vitamin D deficiency Status: Chronic (26) CHF (congestive heart failure) Status: Chronic (27) Polyneuropathy Status: Chronic (28) Insomnia Status: Chronic (29) Enlargement, spleen Status: Chronic (30) Fibromyalgia Status: Chronic (31) Hiatal hernia Status: Chronic (32) Anxiety Status: Chronic (33) Obesity Status: Chronic (34) Diverticulosis Status: Chronic (35) Depression Status: Chronic (36) Diabetes mellitus Status: Chronic (37) Asthma Status: Chronic History of Present Illness Date of Admission: 05/23/20 Chief Complaint: rash The patient is a 44 year old F developed a rash several days ago evolving her face and neck. Initially diagnosed with cellulitis and received doxycycline. 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 Got worse spread to her chest and arms. Presented to the emergency room. Emergency room physician spoke with infectious disease who advised IV acyclovir with consultation to infectious disease. Patient very unhappy about being admitted reluctantly provided details. [] Past Medical History Past Medical History (Chronic Problems): Chronic Problems (Last Reviewed 09/19/19 @ 14:46 by Orly Galdamez) Headache (Chronic) Migraine (Chronic) Dizziness (Chronic) Dermatitis (Chronic) Type 2 diabetes mellitus (Chronic) Bipolar 1 disorder (Chronic) Neuropathy (Chronic) Arthritis (Chronic) Osteoarthritis (Chronic) HIV (human immunodeficiency virus infection) (Chronic) Hypertension (Chronic) GERD (gastroesophageal reflux disease) (Chronic) Seasonal allergies (Chronic) History of alcoholism (Chronic) History of drug abuse (Chronic) History of blood transfusion (Chronic) History of kidney stones (Chronic) Herpes (Chronic) HIV exposure (Chronic) 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) Vitamin B12 deficiency (Chronic) Vitamin D deficiency (Chronic) CHF (congestive heart failure) (Chronic) Polyneuropathy (Chronic) Insomnia (Chronic) Enlargement, spleen (Chronic) Fibromyalgia (Chronic) Hiatal hernia (Chronic) Anxiety (Chronic) Obesity (Chronic) Diverticulosis (Chronic) Depression (Chronic) Diabetes mellitus (Chronic) Asthma (Chronic) Medical History: Medical History (Last Reviewed 05/23/20 @ 01:[address] Carlton Soria DO) Hypertension (Chronic) I10 GERD (gastroesophageal reflux disease) (Chronic) K21.9 Seasonal allergies (Chronic) J30.2 History of alcoholism (Chronic) F10.21 History of drug abuse (Chronic) Z87.898 History of blood transfusion (Chronic) Z92.89 History of kidney stones (Chronic) Z87.442 Herpes (Chronic) B00.9 HIV exposure (Chronic) Z20.6 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) B97.7 Vitamin B12 deficiency (Chronic) E53.8 Vitamin D deficiency (Chronic) E55.9 CHF (congestive heart failure) (Chronic) I50.9 Polyneuropathy (Chronic) G62.9 Insomnia (Chronic) G47.00 Enlargement, spleen (Chronic) R16.1 Fibromyalgia (Chronic) M79.7 Hiatal hernia (Chronic) K44.9 Anxiety (Chronic) F41.9 Obesity (Chronic) E66.9 Diverticulosis (Chronic) K57.90 Depression (Chronic) F32.9 Diabetes mellitus (Chronic) E11.9 Asthma (Chronic) J45.909 Arthritis M19.90 Back pain M54.9 Cancer C80.1 HIV (human immunodeficiency virus infection) B20 Hemorrhoids K64.9 Kidney disease N28.9 History of myocardial infarct at age less than 60 years (Inactive) I25.2 Allergies Iodinated Contrast Media [Iodinated Contrast- Oral and IV Dye] Allergy (Unknown, Verified 05/22/20 21:25) Hives pt states only when she has both together-no reaction to solely IV contrast. amoxicillin Allergy (Verified 05/22/20 21:25) Hives hydrocodone [From Vicodin] Allergy (Verified 05/22/20 21:25) Unknown methylprednisolone [From Medrol] Allergy (Verified 05/22/20 21:25) Hives moxifloxacin Allergy (Verified 05/22/20:25) Shortness of breath prochlorperazine [From Compazine] Allergy (Verified 05/22/20 21:25) Other prochlorperazine edisylate [From Compazine] Allergy (Verified 05/22/20 21:25) Other prochlorperazine maleate [From Compazine] Allergy (Verified 05/22/20 21:25) Other acetaminophen [From Tylenol] Adverse Reaction (Verified 05/22/20:) Other sumatriptan [From Imitrex] Adverse Reaction (Verified 05/22/20:25) Hives A MIGRAINE MED Allergy (Uncoded 05/22/20 21:25) Other Home Medications: Ambulatory Orders Medication Instructions Recorded folic acid 400 mcg tablet 0.4 mg PO DAILY 12/07/18 melatonin 3 mg tablet 3 mg PO HS PRN 12/07/18 dicyclomine 10 mg capsule 10 mg PO TIDAC PRN cap 12/20/18 Cyanocobalamin (Vitamin B-12) 500 mcg PO DAILY 05/31/19 [Vitamin B-12] Multivitamin [Daily Multiple 1 ea PO DAILY 05/31/19 Vitamin] albuterol sulfate 90 mcg/actuation 2 puff INHALATION Q6H PRN #18 g 06/18/19 aerosol inhaler Loratadine 10 mg PO DAILY PRN 09/09/19 Sennosides/Docusate Sodium [Senna 2 tab PO DAILY PRN 09/09/19 Plus 8.6-50 mg Softgel] beclomethasone dipropionate 80 1 inh INHALATION BID g 09/19/19 mcg/actuation HFA breath activated aerosol calcium carbonate 215 mg calcium 215 mg PO BID 09/19/19 (500 mg) chewable tablet cholecalciferol (vitamin D3) 1,250 50,000 unit PO .COMPLEX cap 09/19/19 mcg (50,000 unit) capsule pantoprazole 40 mg tablet,delayed 40 mg PO DAILY 09/19/19 release Fluconazole [Diflucan] 100 mg PO DAILY 11/28/19 Magnesium 250 mg PO DAILY 11/28/19 Ondansetron HCl [Zofran] 4 mg PO TID 11/28/19 Bictegrav/Emtricit/Tenofov Ala 1 ea PO DAILY 02/16/20 [Biktarvy 50-200-25 mg Tablet] Valacyclovir HCl [Valtrex] 1,000 mg PO TID #30 tab 05/21/20 Surgical History: Surgical History (Last Reviewed 05/23/20 @ 01:[address] Carlton Soria DO) History of 2 sections Z98.891 History of D&C Z98.890 x2 History of appendectomy Z90.49 History of cholecystectomy Z90.49 History of colonoscopy Z98.890 x3 History of endoscopy Z98.890 x5 History of hernia repair Z98.890, Z87.19 x3 History of hysterectomy Z90.710 History of left knee surgery Z98.890 x3 History of liver biopsy Z98.890 x3 History of shoulder surgery Z98.890 History of tonsillectomy Z90.89 History of tubal ligation Z98.51 Hx of right knee surgery Z98.890 x3 Surgical History: appendectomy, hysterectomy, tonsillectomy, - - cardiac cath, shoulder surgery, trigger finger surgery, arthroscopic knee surgery Psychiatric History: No pertinent psych hx [employer] History: endometriosis Smoking Status: Former smoker Tobacco Use: Cigarettes - *Family History Maternal Family History: Family History (Last Reviewed 05/23/20 @ 01:[address] Carlton Soria DO) Other Alcoholism Anxiety and depression Arthritis Asthma Breast cancer CVA (cerebral vascular accident) Cancer Diabetes Heart disease Hyperlipemia Hypertension Kidney disease Myocardial infarction Seizures History Items: COPD Paternal Family History: Family History (Last Reviewed 05/23/20 @ 01:[address] Carlton Soria DO) Other Alcoholism Anxiety and depression Arthritis Asthma Breast cancer CVA (cerebral vascular accident) Cancer Diabetes Heart disease Hyperlipemia Hypertension Kidney disease Myocardial infarction Seizures History Items: COPD Review of Systems Constitutional: Reports: - - Denies any exposure to anyone with COVID-19. Denies: Anorexia, Night Sweats, Malaise, Weakness Eyes: Denies: Blurred vision, Double vision HEENT: Denies: Head Aches, Sinus Congestion, Sinus Drainage Cardiovascular: Denies: Chest Pain, Palpitations Respiratory: Denies: Cough, Shortness of breath at rest, Sputum production Gastrointestinal: Reports: Abdominal Pain - Chronic Genitourinary: Denies: Dysuria Skin: Reports: - - Vesicular lesions involving face neck arms chest and back Neurological: Denies: Numbness, Tingling, Focal weakness Psychiatric: Denies: Anxiety, Depression Hematologic/ Lymphatic: Denies: Easy Bruising, Easy Bleeding, Hx of blood clot Comment: All review of systems were negative except as mentioned above in the history of present illness and the other review of systems. VTE Information - Inpt Only VTE Present on Admission: No VTE Mechan Device Prophylaxis: None VTE Pharm Prophylaxis ordered?: Yes - Physical Exam Vitals/I&O's: Vital Signs Temp Pulse Resp BP Pulse Ox 35.9 C L 108 H 15 129/66 H 99 05/22/20 21:22 05/22/20 22:24 05/22/20 22:24 05/22/20 22:24 05/22/20 22:24 Oxygen Delivery Method Room Air Weight: 98.6 kg Body Mass Index (BMI) 35.1 Finger Stick Blood Glucose 157 General: Alert, Cooperative, No apparent distress HEENT: Atraumatic, Normocephalic Oral: - - Wearing a mask, did not remove. Neck: No Nodes, Thyroid Normal Size and Texture Lungs: Clear to auscultation, Normal air movement, No rhonchi, No wheeze Cardiovascular: Regular rate, Regular Rhythm, Normal S1, Normal S2, No murmurs Abdomen: Bowel Sounds Present, Soft, Non Tender, Non-Distended, No Hepato- splenomegaly Extremities: No edema, No Calf Tenderness Skin: - - Vesicular lesions some open some closed. Involving face, neck and chest. No surrounding erythema to suggest cellulitis. Musculoskeletal: No Tenderness to Palpation of Joints or Extremities, No Muscle Wasting Psych/Mental Status: Appropriate, Flat Affect Laboratory Results 05/23/20 00:30: WBC 5.2, RBC 4.39, Hgb 13.2, Hct 39.2, MCV 89.3, MCH 30.1, MCHC 33.7, RDW Std Deviation 46.4 H, RDW Coeff of Vladimir 14.2, Plt Count 126 L, MPV 9.4, Immature Gran % (Auto) 0.200, Neut % (Auto) 54.1, Lymph % (Auto) 33.8, [place] % (Auto) 6.3, Eos % (Auto) 5.0, Baso % (Auto) 0.6, Absolute Neuts (auto) 2.8, Absolute Lymphs (auto) 1.77, Nucleated RBC % 0 05/23/20 00:30: Sodium Pending, Potassium Pending, Chloride Pending, Carbon Dioxide Pending, Anion Gap Pending, BUN Pending, Creatinine Pending, Est GFR (MDRD) Af Amer Pending, Est GFR (MDRD) Non-Af Pending, BUN/Creatinine Ratio Pending, Glucose Pending, Calcium Pending 05/23/20 00:30: Lactic Acid Pending Current Medications Acyclovir Sodium 590 mg/ (Dextrose) 261.8 mls @ 250.2 mls/hr IV Q8 ABIMAEL Assessment/Plan All Active Problems (Last Reviewed 09/19/19 @ 14:46 by Orly Galdamez) HSV (herpes simplex virus) infection (Acute) Bigeminal rhythm (Resolved) History of shingles (Resolved) 1. Disseminated herpes infection: Unclear if HSV 1 versus HSV 2 or VZV. Continue with acyclovir. Consult infectious disease. No clinical evidence of cellulitis at this time but could develop at any point. If patient does develop areas concerning for cellulitis would advise appropriate antibiotic usage. But no antibiotics indicated at this time. 2. HIV: Patient states that it is negative. Last CD4 count back in January. CD4 count has been checked no known exposure to anyone with COVID-19 nor does she have any symptoms concerning for COVID. Continue with fluconazole and Biktarvy. 3. Diabetes mellitus type 2: not on any home meds. Will check back her blood sugars. Sliding scale if continues to be elevated. 4. VTE prophylaxis: Moderate risk. LMWH Inpatient E&M: 82302 Init Hosp L2
[2020-05-23] MEDS: DEXTROSE 5% IV ×4 (01:03→21:04)
[2020-05-23] MEDS: ACYCLOVIR IV ×4 (01:03→21:04)
[2020-05-23 01:29] LABS: International Normalized Ratio 1.1; Prothrombin Time (Protime)PT. 13.9 SECONDS (11.7-14.9)
[2020-05-23 01:30] LABS: Partial Thromboplast Time 32.7 Seconds (24.1-36.2)
[2020-05-23 01:35] LABS: Anion Gap 4 (5-15); BUN 25 mg/dL (7-18); BUN/Creat Ratio 28.4 RATIO (10-20); Calcium,Total 9.4 mg/dL (8.5-10.1); Chloride 110 mmol/L (98-107); Creatinine, Serum 0.88 mg/dL (0.55-1.02); EST Glomerular Filtration Rate 74 mL/min (>60); Est Glom Filt Rate - Afr Amer 90 mL/min (>60); Estimated Creatinine Clearance 77.17 ml/min; Glucose 95 mg/dL (74-106); Potassium 3.6 mmol/L (3.5-5.1); Sodium Level 140 mmol/L (136-145)
--- NOTE | 2020-05-23 01:46 | ED.VIS.GEN ---
History of Present Illness Chief Complaint: Rash Informant: Patient Onset: Days Context: Gradual Onset Timing: Continuous Narrative: Patient is a 44-year-old female with history of HIV, currently on antiretroviral therapy, GERD, bipolar disorder, diabetes mellitus, fibromyalgia, anxiety, CHF, polyneuropathy and history of shingles presenting for worsening rash and pain on her face. Patient developed a rash on her face on Tuesday and was diagnosed with a staph infection. She started on doxycycline. She followed up with her infectious disease doctor, Dr. Garnett, who felt that the rash is actually more consistent with shingles. She was started on acyclovir. Patient has continued to have worsening of her rash as well as worsening pain of her face. She last took Motrin at 5 PM today with no help with her symptoms. She also rash around her face, neck and chest. She also has on her arms. She did she does have a history of difficult shingles required admission in the past for pain control. Patient denies any other complaints at this time. She denies any fever chills, chest pain or difficulty breathing. Denies any GI or symptoms. She states she is not concerned for because she is had a hysterectomy. Past Medical History - Allergies and Home Meds Allergies/Adverse Reactions: Allergies Iodinated Contrast Media [Iodinated Contrast- Oral and IV Dye] Allergy (Unknown, Verified 05/22/20 21:25) Hives pt states only when she has both together-no reaction to solely IV contrast. amoxicillin Allergy (Verified 05/22/20 21:25) Hives hydrocodone [From Vicodin] Allergy (Verified 05/22/20 21:25) Unknown methylprednisolone [From Medrol] Allergy (Verified 05/22/20 21:25) Hives moxifloxacin Allergy (Verified 05/22/20 21:25) Shortness of breath prochlorperazine [From Compazine] Allergy (Verified 05/22/20 21:25) Other prochlorperazine edisylate [From Compazine] Allergy (Verified 05/22/20 21:25) Other prochlorperazine maleate [From Compazine] Allergy (Verified 05/22/20 21:25) Other acetaminophen [From Tylenol] Adverse Reaction (Verified 05/22/20 21:25) Other sumatriptan [From Imitrex] Adverse Reaction (Verified 05/22/20 21:25) Hives A MIGRAINE MED Allergy (Uncoded 05/22/20 21:25) Other Primary Care Physician: Jarod Dunn DO [Primary Care Provider] - Past Medical History: - - HIV, currently on antiretroviral therapy, GERD, bipolar disorder, diabetes mellitus, fibromyalgia, anxiety, CHF, polyneuropathy and history of shingles Surgical History: appendectomy, hysterectomy, tonsillectomy, - - cardiac cath, shoulder surgery, trigger finger surgery, arthroscopic knee surgery Smoking Status: Former smoker - Family History Maternal Family History: Family History (Last Reviewed 05/23/20 @ 01:[address] Carlton Soria DO) Other Alcoholism Anxiety and depression Arthritis Asthma Breast cancer CVA (cerebral vascular accident) Cancer Diabetes Heart disease Hyperlipemia Hypertension Kidney disease Myocardial infarction Seizures Family History: Reports: COPD Paternal Family History: Family History (Last Reviewed 05/23/20 @ 01:[address] Carlton Soria DO) Other Alcoholism Anxiety and depression Arthritis Asthma Breast cancer CVA (cerebral vascular accident) Cancer Diabetes Heart disease Hyperlipemia Hypertension Kidney disease Myocardial infarction Seizures Family History: Reports: COPD Review of Systems General: Reports: Malaise. Denies: Chills, Fever, Sweats Eyes: Denies: Visual changes - bilaterally, Diplopia ENT: Denies: Rhinorrhea, Sore throat Cardiovascular: Denies: Chest pain, Palpitations Respiratory: Denies: Dyspnea, Cough, Dyspnea on exertion Gastrointestinal: Denies: Abdominal pain, Nausea, Vomiting, Diarrhea, Melena, Hematochezia Genitourinary: Denies: Dysuria, Hematuria, Frequency Musculoskeletal: Denies: Back pain, Extremity Pain Skin: Reports: Rash. Denies: Wounds Neurological: Denies: Headache, Weakness, Numbness Physical Exam Vital Signs/Narrative: Vital Signs Pulse Resp BP Pulse Ox 05/22/20 22:24 108 H 15 129/66 H 99 Inital Vital Signs reviewed: Yes General: Well nourished, Well developed, No Acute Distress Head: Normocephalic, Atraumatic Eyes: Perrl, EOMI ENT: Moist mucous membranes, No rhinorrhea, TM's clear, - - No oral lesions noted. Began tenderness palpation of the lower part of the face with even light palpation. Neck: Supple, Nontender, No lymphadenopathy, No JVD Cardiovascular: Regular rate, Regular rhythm, No murmurs Respiratory: No distress, CTA bilaterally, Chest nontender Abdomen: Soft, Nontender, Nondistended, Normal bowel sounds Back: Nontender, Normal Inspection Extremities: Nontender, No edema Skin: Normal color, Rash - Patient is scattered crusted/ulcerated lesions over her face, including the tip of her nose, bilateral labial folds, cheeks and right lower eyelid. She also has an ulcerated lesion over her right ear. In addition patient has lesions over her chest, neck and bilateral lower arms. A lot of the lesi Neurological: Alert, Oriented x3, Cranial nerves II-XII grossly intact, Normal Strength, Normal Sensation Psychological: Normal affect, Normal Mood Diagnostic/Tx/Re-eval Laboratory Data 05/23/20 05/23/20 05/23/20 00:30 00:50 00:50 WBC 5.2 RBC 4.39 Hgb 13.2 Hct 39.2 MCV 89.3 MCH 30.1 MCHC 33.7 RDW Std Deviation 46.4 H RDW Coeff of Vladimir 14.2 Plt Count 126 L MPV 9.4 Immature Gran % (Auto) 0.200 Neut % (Auto) 54.1 Lymph % (Auto) 33.8 [place] % (Auto) 6.3 Eos % (Auto) 5.0 Baso % (Auto) 0.6 Absolute Neuts (auto) 2.8 Absolute Lymphs (auto) 1.77 Nucleated RBC % 0 PT 13.9 INR 1.1 APTT 32.7 Sodium 140 Potassium 3.6 Chloride 110 H Carbon Dioxide 26.0 Anion Gap 4 L BUN 25 H Creatinine 0.88 Estim Creat Clear Calc 77.17 Est GFR (MDRD) Af Amer 90 Est GFR (MDRD) Non-Af 74 BUN/Creatinine Ratio 28.4 H Glucose 95 Lactic Acid Calcium 9.4 05/23/20 00:50 WBC RBC Hgb Hct MCV MCH MCHC RDW Std Deviation RDW Coeff of Vladimir Plt Count MPV Immature Gran % (Auto) Neut % (Auto) Lymph % (Auto) [place] % (Auto) Eos % (Auto) Baso % (Auto) Absolute Neuts (auto) Absolute Lymphs (auto) Nucleated RBC % PT INR APTT Sodium Potassium Chloride Carbon Dioxide Anion Gap BUN Creatinine Estim Creat Clear Calc Est GFR (MDRD) Af Amer Est GFR (MDRD) Non-Af BUN/Creatinine Ratio Glucose Lactic Acid 1.1 Calcium - Medical Decision Making Evaluate for worsening pain and rash to her face. She was previously diagnosed with shingles and started on acyclovir by her infectious disease doctor. Patient's history is complicated she does have HIV. Patient is given morphine for pain control. Discussed with her infectious disease doctor who is concern for disseminated shingles and need for admission for IV acyclovir. Patient likely also need admission for pain control she is required multiple dose of IV morphine in the ER. Patient is hemodynamically stable and otherwise well-appearing. She is not have any neurologic symptoms involvement of the mucosal membranes concerning for Brayan Ced syndrome/TENS. Patient is agreeable with plan of care. ED Disposition - Plan for ED Patient: Disposition: Acute Care Hospital [facility] Diagnosis: Disseminated zoster, HIV (human immunodeficiency virus infection) Referrals: Jarod Dunn DO [Primary Care Provider] -
[2020-05-23 01:50] LABS: Lactic Acid 1.1 mmol/L (0.4-1.9)
--- NOTE | 2020-05-23 03:24 | NURSING ---
Patient requesting Phenergan with her narcotic medications, states that she cannot have Zofran because of history of bigeminy. Dr. Soria notified and gave telephone order for Phenergan 12.5mg PO Q6H PRN nausea. 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 Dr. Soria states that it is fine for her to be med/surg status with no telemetry.
[2020-05-23] MEDS: proMETHazine 25 MG Tablet 12.5 MG PO ×3 (06:04→21:04)
[2020-05-23] MEDS: oxyCODONE 5 MG Tablet 10 MG PO ×3 (06:05→21:03)
[2020-05-23] MEDS: Budesonide Respules 0.5 MG/2 ML AMPUL.NEB. INHALATION ×2 (07:54→20:27)
--- NOTE | 2020-05-23 11:38 | CASEMGMT ---
HAILEE DONALD assessment: Phone interview with patient for initial transition planning/care coordination assessment as pt is in contact and airborne precautions at this time. HAILEE DONALD introduced self and role at [facility], pt voices understanding and consents to assessment at this time. Pt's is short with answers and has to be asked some questions multiple times. Pt is A/Ox4 at this time and answers all questions appropriately at this time. Care providers, pharmacy, and demographics verified/updated at this time. Presentation: Rash on face, burning painful last ibuprofen 1700 Admitting dx: Shingles PCP: Shaun Specialists: PARVEEN Garnett Preferred Pharmacy: [facility] Insurance: [employer]SC/CRSC Prescription Benefit: [employer] Living Will/HPOA: Pt states has LW/HPOA and is aware that they are not on file at [facility] at this time. Pt sates her mom, Stephie Fraser, is HPOA. LNOK: Stephie Fraser, mother/HPOA Living Arrangements: Pt states lives with family in a duplex with 10 steps in home and states no concerns at home at this time. Pt states is normally independent with ADL's. Transportation: Pt states drives self and states no transportation concerns at this time. DME/HHC: Pt states no current DME or need for any at this time. Pt states has had HHC in the past, but has not been to SNF in the past. Pt states no concerns with going home at time of discharge. Pt states is on disability. Pt states quit smoking cigarettes last May and does not drink ETOH. Pt states no further concerns/needs at this time. CM to follow for any further discharge planning/needs. Advised pt to ask for CM if any further questions/concerns/needs arise, voices understanding. Pt Goal: Home Plan: [place] HAILEE DONALD
[2020-05-23] MEDS: Folic Acid 1 MG Tablet 0.5 MG PO (12:00)
[2020-05-23] MEDS: Cyanocobalamin 500 MCG Tablet PO (12:00)
[2020-05-23] MEDS: Multivitamins,Therapeutic Tablet 1 TABLET PO (12:01)
[2020-05-23] MEDS: Pantoprazole Sodium 40 MG Tablet PO (12:01)
[2020-05-23] MEDS: Enoxaparin 40 MG/0.4 ML Syringe SC (12:03)
[2020-05-23] MEDS: Fluconazole 100 MG Tablet PO (12:05)
[2020-05-23] MEDS: Magnesium Chloride 64 MG Delay Rel.Tablet PO (12:05)
[2020-05-23] MEDS: Calcium Carbonate 500 MG Tablet PO (12:06)
[2020-05-23 12:41] LABS: Bedside Glucose 108 mg/dL (70-110)
[2020-05-23] MEDS: BACITRACIN 15 GM Tube 1 APPLIC TOPICAL ×3 (14:10→21:04)
--- NOTE | 2020-05-23 16:53 | PCM.HP.ID ---
Problem List (1) Disseminated zoster Status: Acute Reason for Consult: disseminated zoster Consulted by: Dr. Green History of Present Illness: The patient is a 44 year old F with HIV, well controlled on biktarvy, reports med compliance, admitted last night with about a week of progressive painful/burning ulcers that start as clear vesicles, then open, then scab. Feels like prior shingles. Saw me in the office days ago, dx with disseminated zoster, given valtrex 1gm tid, skin worsened, came to ED, admitted on iv acyclovir. Feeling better today, still with new lesions coming up. No fever, no neck pain, no vision changes, no hearing changes. Full ROS performed and neg except as noted above. - Medical History Past Medical History (Chronic Problems): Chronic Problems (Last Reviewed 05/23/20 @ 01:[address] Carlton Soria, DO) Headache (Chronic) Migraine (Chronic) Dizziness (Chronic) Dermatitis (Chronic) Type 2 diabetes mellitus (Chronic) Bipolar 1 disorder (Chronic) Neuropathy (Chronic) Arthritis (Chronic) Osteoarthritis (Chronic) HIV (human immunodeficiency virus infection) (Chronic) Hypertension (Chronic) GERD (gastroesophageal reflux disease) (Chronic) Seasonal allergies (Chronic) History of alcoholism (Chronic) History of drug abuse (Chronic) History of blood transfusion (Chronic) History of kidney stones (Chronic) Herpes (Chronic) HIV exposure (Chronic) 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) Vitamin B12 deficiency (Chronic) Vitamin D deficiency (Chronic) CHF (congestive heart failure) (Chronic) Polyneuropathy (Chronic) Insomnia (Chronic) Enlargement, spleen (Chronic) Fibromyalgia (Chronic) Hiatal hernia (Chronic) Anxiety (Chronic) Obesity (Chronic) Diverticulosis (Chronic) Depression (Chronic) Diabetes mellitus (Chronic) Asthma (Chronic) Allergies/Adverse Reactions: Allergies Iodinated Contrast Media [Iodinated Contrast- Oral and IV Dye] Allergy (Unknown, Verified 05/22/20 21:25) Hives pt states only when she has both together-no reaction to solely IV contrast. amoxicillin Allergy (Verified 05/22/20 21:25) Hives hydrocodone [From Vicodin] Allergy (Verified 05/22/20 21:25) Unknown methylprednisolone [From Medrol] Allergy (Verified 05/22/20 21:25) Hives moxifloxacin Allergy (Verified 05/22/20 21:25) Shortness of breath prochlorperazine [From Compazine] Allergy (Verified 05/22/20 21:25) Other prochlorperazine edisylate [From Compazine] Allergy (Verified 05/22/20 21:25) Other prochlorperazine maleate [From Compazine] Allergy (Verified 05/22/20 21:25) Other acetaminophen [From Tylenol] Adverse Reaction (Verified 05/22/20 21:25) Other sumatriptan [From Imitrex] Adverse Reaction (Verified 05/22/20 21:25) Hives A MIGRAINE MED Allergy (Uncoded 05/22/20 21:25) Other Home Medications: Ambulatory Orders Medication Instructions Recorded folic acid 400 mcg tablet 0.4 mg PO DAILY 12/07/18 melatonin 3 mg tablet 3 mg PO HS PRN 12/07/18 dicyclomine 10 mg capsule 10 mg PO TIDAC PRN cap 12/20/18 Cyanocobalamin (Vitamin B-12) 500 mcg PO DAILY 05/31/19 [Vitamin B-12] Multivitamin [Daily Multiple 1 ea PO DAILY 05/31/19 Vitamin] albuterol sulfate 90 mcg/actuation 2 puff INHALATION Q6H PRN #18 g 06/18/19 aerosol inhaler Loratadine 10 mg PO DAILY PRN 09/09/19 Sennosides/Docusate Sodium [Senna 2 tab PO DAILY PRN 09/09/19 Plus 8.6-50 mg Softgel] beclomethasone dipropionate 80 1 inh INHALATION BID g 09/19/19 mcg/actuation HFA breath activated aerosol calcium carbonate 215 mg calcium 215 mg PO BID 09/19/19 (500 mg) chewable tablet cholecalciferol (vitamin D3) 1,250 50,000 unit PO .COMPLEX cap 09/19/19 mcg (50,000 unit) capsule pantoprazole 40 mg tablet,delayed 40 mg PO DAILY 09/19/19 release Fluconazole [Diflucan] 100 mg PO DAILY 11/28/19 Magnesium 250 mg PO DAILY 11/28/19 Ondansetron HCl [Zofran] 4 mg PO TID 11/28/19 Bictegrav/Emtricit/Tenofov Ala 1 ea PO DAILY 02/16/20 [Biktarvy 50-200-25 mg Tablet] Valacyclovir HCl [Valtrex] 1,000 mg PO TID #30 tab 05/21/20 - Social History SMOKING STATUS:: Former smoker Vital Signs Temp Pulse Resp BP Pulse Ox 98.7 F 75 18 104/46 L 96 05/23/20 12:16 05/23/20 12:16 05/23/20 12:16 05/23/20 12:16 05/23/20 12:16 Oxygen Delivery Method Room Air Weight: 99.8 kg Body Mass Index (BMI) 35.5 Finger Stick Blood Glucose 157 Laboratory Tests Past 24 Hrs 05/23/20 05/23/20 05/23/20 00:30 00:50 00:50 WBC 5.2 RBC 4.39 Hgb 13.2 Hct 39.2 MCV 89.3 MCH 30.1 MCHC 33.7 RDW RDW Std Deviation 46.4 H RDW Coeff of Vladimir 14.2 Plt Count 126 L MPV 9.4 Immature Gran % (Auto) 0.200 Neut % (Auto) 54.1 Lymph % (Auto) 33.8 [place] % (Auto) 6.3 Eos % (Auto) 5.0 Baso % (Auto) 0.6 Absolute Neuts (auto) 2.8 Absolute Lymphs (auto) 1.77 Immature Gran % Neutrophils % Lymphocytes % Monocytes % Eosinophils % Basophils % Nucleated RBC % 0 Immature Gran # Neutrophils # Lymphocytes # Monocytes # Eosinophils # Basophils # Nucleated RBCs Immature Blood Cells PT 13.9 INR 1.1 APTT 32.7 Sodium 140 Potassium 3.6 Chloride 110 H Carbon Dioxide 26.0 Anion Gap 4 L BUN 25 H Creatinine 0.88 Estim Creat Clear Calc 77.17 Est GFR (MDRD) Af Amer 90 Est GFR (MDRD) Non-Af 74 BUN/Creatinine Ratio 28.4 H Glucose 95 Lactic Acid Calcium 9.4 % CD4 Cells Absolute CD4 Count HIV-1 RNA (PCR) log10 HIV-1 RNA Ultraquant PCR 05/23/20 05/23/20 05/23/20 00:50 00:50 13:05 WBC Pending RBC Pending Hgb Pending Hct Pending MCV Pending MCH Pending MCHC Pending RDW Pending RDW Std Deviation RDW Coeff of Vladimir Plt Count Pending MPV Immature Gran % (Auto) Neut % (Auto) Lymph % (Auto) [place] % (Auto) Eos % (Auto) Baso % (Auto) Absolute Neuts (auto) Absolute Lymphs (auto) Immature Gran % Pending Neutrophils % Pending Lymphocytes % Pending Monocytes % Pending Eosinophils % Pending Basophils % Pending Nucleated RBC % Immature Gran # Pending Neutrophils # Pending Lymphocytes # Pending Monocytes # Pending Eosinophils # Pending Basophils # Pending Nucleated RBCs Pending Immature Blood Cells Pending PT INR APTT Sodium Potassium Chloride Carbon Dioxide Anion Gap BUN Creatinine Estim Creat Clear Calc Est GFR (MDRD) Af Amer Est GFR (MDRD) Non-Af BUN/Creatinine Ratio Glucose Lactic Acid 1.1 Calcium % CD4 Cells Pending Absolute CD4 Count Pending HIV-1 RNA (PCR) log10 Pending HIV-1 RNA Ultraquant PCR Pending - Other Studies Radiology: [] reviewed Other Studies: [] Route of nutrition/ use of supplements: [] Nutritional Intake: [] IV Site: [] Mcconnell Catheter: [] - Physical Exam General: Alert, Oriented x3, Cooperative, No apparent distress HEENT: Atraumatic, PERRLA, EOMI Neck: Supple, No Nodes Lungs: Clear to auscultation, Normal air movement Cardiovascular: Regular rate, Regular Rhythm, No murmurs Abdomen: Soft, Non Tender, Non-Distended Extremities: No edema Skin: Ulcer/ Wound - diffuse scattered ulcers, worst in chest and face IV Site: Peripheral, without redness Musculoskeletal: No Tenderness to Palpation of Joints or Extremities Neurological: Cranial nerves II-XII grossly intact - Assessment/Plan Antibiotics: [] Assessment/Plan: [] Active and Suspected Problems (Last Reviewed 05/23/20 @ 01:[address] Carlton Soria, DO) HSV (herpes simplex virus) infection (Acute) Disseminated zoster (Acute) disseminated zoster with hiv - biktarvy not available. CD4 and VL pending. Will replace ART with raltegravir/truvada while inpatient. Cont iv acyclovir; would want to continue this as long as she is having new lesions develop. At discharge, plan will be to resume valtrex 1gm tid for 10-14 days. Will follow, thank you, d/w Dr. Green
--- NOTE | 2020-05-23 16:54 | PN_ITS ---
Patient Problems: Active and Suspected Problems (Last Reviewed 05/23/20 @ 01:[address] Carlton Soria, DO) HSV (herpes simplex virus) infection (Acute) Disseminated zoster (Acute) Subjective: Lying in bed. C/O ear pain inside ear that is new and migraine MCCURDY. Takes excedrin at home for these. 1 new lesion today noted Vitals/I&O's: Vital Signs Temp Pulse Resp BP Pulse Ox 98.7 F 75 18 104/46 L 96 05/23/20 12:16 05/23/20 12:16 05/23/20 12:16 05/23/20 12:16 05/23/20 12:16 Oxygen Delivery Method Room Air Weight: 99.8 kg Body Mass Index (BMI) 35.5 Finger Stick Blood Glucose 157 Intake and Output for Last 24 Hours 05/21/20 05/22/20 05/23/20 23:59 23:59 23:59 Intake Total 2053. / 2053. Balance 2053. / General: Alert, Oriented x3, Cooperative, No apparent distress, Well developed, Well nourished HEENT: Atraumatic, Normocephalic Oral: Moist Mucosa Neck: Supple, Trachea Midline Cardiovascular: Regular rate, Regular Rhythm, No Ectopic Activity Abdomen: Bowel Sounds Present, Soft, Non Tender, Non-Distended, Obese Extremities: No clubbing, No cyanosis, No edema, Capillary Refill Less than 3 Seconds, Peripheral Pulses Normal Skin: Rash Present - disseminated blistering lesions in various stages of healing, new lesion over R eye Musculoskeletal: No Tenderness to Palpation of Joints or Extremities, No Muscle Wasting Neurological: Cranial nerves II-XII grossly intact, Neuro grossly intact Psych/Mental Status: Agitated, Flat Affect Laboratory Results 05/23/20 00:30: WBC 5.2, RBC 4.39, Hgb 13.2, Hct 39.2, MCV 89.3, MCH 30.1, MCHC 33.7, RDW Std Deviation 46.4 H, RDW Coeff of Vladimir 14.2, Plt Count 126 L, MPV 9.4, Immature Gran % (Auto) 0.200, Neut % (Auto) 54.1, Lymph % (Auto) 33.8, [place] % (Auto) 6.3, Eos % (Auto) 5.0, Baso % (Auto) 0.6, Absolute Neuts (auto) 2.8, Absolute Lymphs (auto) 1.77, Nucleated RBC % 0 05/23/20 00:50: PT 13.9, INR 1.1, APTT 32.7 05/23/20 00:50: Sodium 140, Potassium 3.6, Chloride 110 H, Carbon Dioxide 26.0, Anion Gap 4 L, BUN 25 H, Creatinine 0.88, Estim Creat Clear Calc 77.17, Est GFR (MDRD) Af Amer 90, Est GFR (MDRD) Non-Af 74, BUN/Creatinine Ratio 28.4 H, Glucose 95, Calcium 9.4 05/23/20 00:50: Lactic Acid 1.1 05/23/20 00:50: HIV-1 RNA (PCR) log10 Pending, HIV-1 RNA Ultraquant PCR Pending 05/23/20 12:26: POC Glucose 108 05/23/20 13:05: WBC Pending, RBC Pending, Hgb Pending, Hct Pending, MCV Pending, MCH Pending, MCHC Pending, RDW Pending, Plt Count Pending, Immature Gran % Pending, Neutrophils % Pending, Lymphocytes % Pending, Monocytes % Pending, Eosinophils % Pending, Basophils % Pending, Immature Gran # Pending, Neutrophils # Pending, Lymphocytes # Pending, Monocytes # Pending, Eosinophils # Pending, Basophils # Pending, Nucleated RBCs Pending, Immature Blood Cells Pending, % CD4 Cells Pending, Absolute CD4 Count Pending Current Medications Acetaminophen (Acetaminophen 325 Mg Tablet) 650 mg PO Q6H PRN PRN PRN Reason: Pain Score 1-10/Temp > 100.7 F Albuterol Sulfate (Albuterol 2.5 Mg/3 Ml Vial.Neb.) 2.5 mg INHALATION Q4H PRN PRN PRN Reason: shortness of breath/wheezing Bacitracin (Bacitracin 15 Gm Tube) 1 applic TOPICAL 4X/DAY ABIMAEL; Protocol Last Admin: 05/23/20 14:10 Dose: 1 applicatio Documented by: Budesonide (Budesonide Respules 0.5 Mg/2 Ml Ampul.Neb.) 0.5 mg INHALATION Q12H.RT ABIMAEL Last Admin: 05/23/20 07:54 Dose: 0.5 mg Documented by: Calcium Carbonate (Calcium Carbonate 500 Mg Tablet) 500 mg PO BIDCM [facility] Last Admin: 05/23/20 12:06 Dose: 500 mg Documented by: Cyanocobalamin (Cyanocobalamin 500 Mcg Tablet) 500 mcg PO DAILY [facility] Last Admin: 05/23/20 12:00 Dose: 500 mcg Documented by: Dicyclomine HCl (Dicyclomine 10 Mg Capsule) 10 mg PO TIDAC PRN PRN Reason: cramping Emtricitabine/Tenofovir (Emtricitabine/Tenofovir 1 Tablet Tablet) 1 tablet PO QHS [facility] Enoxaparin Sodium (Enoxaparin 40 Mg/0.4 Ml Syringe) 40 mg SC DAILY [facility] Last Admin: 05/23/20 12:03 Dose: 40 mg Documented by: Fluconazole (Fluconazole 100 Mg Tablet) 100 mg PO DAILY [facility] Last Admin: 05/23/20 12:05 Dose: 100 mg Documented by: Folic Acid ([facility] Acid 1 Mg [facility]) [facility] Admin: 05/23/20 12:00 Dose: 0.5 mg Documented by: Acyclovir Sodium 590 mg/ (Dextrose) 261.8 mls @ 250.2 mls/hr IV Q8 [facility] Last Infusion: 05/23/20 15:15 Dose: Infused Documented by: Sodium Chloride () 250 mls @ 15 mls/hr IV .[id number] PRN PRN Reason: Saline Flush Sodium Chloride () 250 mls @ 15 mls/hr IV .[id number] PRN PRN Reason: Additional IVPB Infusion Ibuprofen (Ibuprofen 400 Mg Tablet) 400 mg PO Q4H PRN PRN PRN Reason: Pain Score 1-10/Temp > 100.7 F Loratadine (Loratadine 10 Mg Tablet) 10 mg PO DAILY PRN PRN Reason: ALLERGIES Magnesium Chloride (Magnesium Chloride 64 Mg Delay Rel.Tablet) 64 mg PO DAILY [facility] Last Admin: 05/23/20 12:05 Dose: 64 mg Documented by: Melatonin (Melatonin 3 Mg Tablet) 3 mg PO QHS PRN PRN Reason: SLEEP Multivitamins (Multivitamins,Therapeutic Tablet) [facility] Last Admin: 05/23/20 12:01 Dose: 1 tablet Documented by: Ondansetron HCl (Ondansetron Odt 4 Mg Tablet) 4 mg PO TID [facility] Last Admin: 05/23/20 14:11 Dose: Not Given Documented by: Oxycodone HCl (Oxycodone 5 Mg Tablet) 5 mg PO Q4H PRN PRN PRN Reason: Pain Score 4-5 Oxycodone HCl (Oxycodone 5 Mg Tablet) 10 mg PO Q4H PRN PRN PRN Reason: Pain Score 6-10 Last Admin: 05/23/20 12:02 Dose: 10 mg Documented by: Pantoprazole Sodium (Pantoprazole Sodium 40 Mg Tablet) 40 mg PO DAILY [facility] Last Admin: 05/23/20 12:01 Dose: 40 mg Documented by: Promethazine HCl (Promethazine 25 Mg Tablet) 12.5 mg PO Q6H PRN PRN PRN Reason: NAUSEA/VOMITING Last Admin: 05/23/20 12:02 Dose: 12.5 mg Documented by: Raltegravir (Raltegravir Potassium 400 Mg Tablet) 400 mg PO BID [facility] Stop: 05/30/20 10:01 Senna/Docusate Sodium (Senna/Docusate Sodium 1 Tablet) 2 tablet PO DAILY PRN PRN PRN Reason: Constipation Sodium Chloride (0.9% Saline Lock 10 Ml Syringe) 10 - 40 ml IV UD PRN PRN Reason: SALINE FLUSH Medical Necessity - Tobacco Use Smoking Status: Former smoker Tobacco Use: Cigarettes Assessment/Plan All Active Problems (Last Reviewed 05/23/20 @ 01:[address] Carlton Soria, DO) HSV (herpes simplex virus) infection (Acute) Disseminated zoster (Acute) Bigeminal rhythm (Resolved) History of shingles (Resolved) Disseminated HSV vs VZV -IV acylovir -d/w ID and pt should stay as long as she is having new lesions arise -has valcyclovir at home and may go on orals once no more new lesions noted -ID following HIV -continue HAART -counts ordered by ID and pending -follows with ID Migraine MCCURDY -will give LR at 75 cc.hr/phenergan and benadryl IV x 1 dose DM-2 -BG stable on no meds COPD/Asthma -continue home inhalers GERD -PPI DVT prophylaxis -LMWH Inpatient E&M: [id number] [facility] L[facility]
[2020-05-23] MEDS: 0.9% Saline Lock 10 ML Syringe IV (17:40)
[2020-05-23] MEDS: DiphenhydrAMINE 50 MG/ML Syringe 25 MG IV (17:40)
[2020-05-23] MEDS: proMETHazine 25 MG/ML Syringe 12.5 MG IV (17:41)
[2020-05-23 18:05] LABS: Bedside Glucose 130 mg/dL (70-110)
[2020-05-23 21:22] LABS: Bedside Glucose 192 mg/dL (70-110)
[2020-05-24] MEDS: DEXTROSE 5% IV (05:42)
[2020-05-24] MEDS: ACYCLOVIR IV (05:42)
[2020-05-24] MEDS: Budesonide Respules 0.5 MG/2 ML AMPUL.NEB. INHALATION (07:15)
[2020-05-24 08:02] LABS: Absolute Lymphocyte Count 1.45 X10^3/uL (0.83-4.51); Absolute Neutrophil Count 1.7 X10^3/uL (2.0-7.7); Basophil# 0.02 X10^3/uL; Basophil% 0.6 % (0-1); Eosinophil# 0.18 X10^3/uL; Hematocrit 34.1 % (37-47); Hemoglobin 11.1 g/dL (12.0-15.0); Lymphocyte # 1.45 X10^3/ul (4.0); Lymphocyte % 40.3 % (19-41); Mean Corp Hgb Conc 32.6 g/dL (32-36); Mean Corpuscular Hgb 29.8 pg (27.0-32.0); Mean Corpuscular Volume 91.4 fL (81-99); Mean Platelet Vol. 9.9 fl (6.2-12.0); Monocyte# 0.21 X10^3/uL; Monocyte% 5.8 % (0-10); NRBC Flagged by Analyzer 0 % (0-5); Neutrophil # 1.73 X10^3/uL (2.7-7.7); POSITIVE COUNT YES; Platelet Count 97 K/mm3 (150-450); RBC Distribution Width CV 14.3 % (11.6-14.6); RBC Distribution Width SD 47.9 fl (35.1-43.9); Red Blood Count 3.73 M/mm3 (4.2-5.4); White Blood Count 3.6 K/mm3 (4.4-11.0)
[2020-05-24 08:35] LABS: Anion Gap 2 (5-15); BUN 15 mg/dL (7-18); BUN/Creat Ratio 20.4 RATIO (10-20); Calcium,Total 8.6 mg/dL (8.5-10.1); Chloride 107 mmol/L (98-107); Creatinine, Serum 0.74 mg/dL (0.55-1.02); EST Glomerular Filtration Rate 92 mL/min (>60); Est Glom Filt Rate - Afr Amer 111 mL/min (>60); Estimated Creatinine Clearance 91.77 ml/min; Glucose 121 mg/dL (74-106); Potassium 3.8 mmol/L (3.5-5.1); Sodium Level 137 mmol/L (136-145)
[2020-05-24] MEDS: Pantoprazole Sodium 40 MG Tablet PO (09:06)
[2020-05-24] MEDS: Enoxaparin 40 MG/0.4 ML Syringe SC (09:06)
[2020-05-24] MEDS: Multivitamins,Therapeutic Tablet 1 TABLET PO (09:07)
[2020-05-24] MEDS: Calcium Carbonate 500 MG Tablet PO (09:07)
[2020-05-24] MEDS: Magnesium Chloride 64 MG Delay Rel.Tablet PO (09:07)
[2020-05-24] MEDS: Folic Acid 1 MG Tablet 0.5 MG PO (09:08)
[2020-05-24] MEDS: Cyanocobalamin 500 MCG Tablet PO (09:09)
[2020-05-24] MEDS: BACITRACIN 15 GM Tube 1 APPLIC TOPICAL (09:13)
[2020-05-24 10:13] LABS: Bedside Glucose 126 mg/dL (70-110)
--- NOTE | 2020-05-24 10:20 | DCINST_ITS ---
- Discharge Diagnoses Current Active Problems: Current Active and Chronic Problems (Last Reviewed 05/23/20 @ 01:[address] Carlton Soria, DO) HSV (herpes simplex virus) infection (Acute) Disseminated zoster (Acute) Headache (Chronic) Migraine (Chronic) Dizziness (Chronic) Dermatitis (Chronic) Type 2 diabetes mellitus (Chronic) Bipolar 1 disorder (Chronic) Neuropathy (Chronic) Arthritis (Chronic) Osteoarthritis (Chronic) HIV (human immunodeficiency virus infection) (Chronic) Hypertension (Chronic) GERD (gastroesophageal reflux disease) (Chronic) Seasonal allergies (Chronic) History of alcoholism (Chronic) History of drug abuse (Chronic) History of blood transfusion (Chronic) History of kidney stones (Chronic) Herpes (Chronic) HIV exposure (Chronic) 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) Vitamin B12 deficiency (Chronic) Vitamin D deficiency (Chronic) CHF (congestive heart failure) (Chronic) Polyneuropathy (Chronic) Insomnia (Chronic) Enlargement, spleen (Chronic) Fibromyalgia (Chronic) Hiatal hernia (Chronic) Anxiety (Chronic) Obesity (Chronic) Diverticulosis (Chronic) Depression (Chronic) Diabetes mellitus (Chronic) Asthma (Chronic) You will use the following diet at home:: Calorie/Carbohydrate Controlled (specify 1200, 1400, etc) Your food should be the consistency of: Regular Your liquids should be the consistency of: Regular/Thin Discharge Activity: Return to Normal Activity, No Restrictions, May Drive Call your doctor if you observe: - - new lesion formation Allergies/Adverse Reactions: Allergies Iodinated Contrast Media [Iodinated Contrast- Oral and IV Dye] Allergy (Unknown, Verified 05/22/20 21:25) Hives pt states only when she has both together-no reaction to solely IV contrast. amoxicillin Allergy (Verified 05/22/20 21:25) Hives hydrocodone [From Vicodin] Allergy (Verified 05/22/20 21:25) Unknown methylprednisolone [From Medrol] Allergy (Verified 05/22/20 21:25) Hives moxifloxacin Allergy (Verified 05/22/20 21:25) Shortness of breath prochlorperazine [From Compazine] Allergy (Verified 05/22/20 21:25) Other prochlorperazine edisylate [From Compazine] Allergy (Verified 05/22/20 21:25) Other prochlorperazine maleate [From Compazine] Allergy (Verified 05/22/20 21:25) Other acetaminophen [From Tylenol] Adverse Reaction (Verified 05/22/20 21:25) Other sumatriptan [From Imitrex] Adverse Reaction (Verified 05/22/20 21:25) Hives A MIGRAINE MED Allergy (Uncoded 05/22/20 21:25) Other Medications to take at Discharge folic acid 400 mcg tablet 0.4 mg PO DAILY 12/07/18 melatonin 3 mg tablet 3 mg PO HS PRN 12/07/18 dicyclomine 10 mg capsule 10 mg PO TIDAC PRN cap 12/20/18 Cyanocobalamin (Vitamin B-12) [Vitamin B-12] 500 mcg PO DAILY 05/31/19 Multivitamin [Daily Multiple Vitamin] 1 ea PO DAILY 05/31/19 albuterol sulfate 90 mcg/actuation aerosol inhaler 2 puff INHALATION Q6H PRN #18 g 06/18/19 Loratadine 10 mg PO DAILY PRN 09/09/19 Sennosides/Docusate Sodium [Senna Plus 8.6-50 mg Softgel] 2 tab PO DAILY PRN 09/09/19 beclomethasone dipropionate 80 mcg/actuation HFA breath activated aerosol 1 inh INHALATION BID g 09/19/19 calcium carbonate 215 mg calcium (500 mg) chewable tablet 215 mg PO BID 09/19/19 cholecalciferol (vitamin D3) 1,250 mcg (50,000 unit) capsule 50,000 unit PO .COMPLEX cap 09/19/19 pantoprazole 40 mg tablet,delayed release 40 mg PO DAILY 09/19/19 Fluconazole [Diflucan] 100 mg PO DAILY 11/28/19 Magnesium 250 mg PO DAILY 11/28/19 Ondansetron HCl [Zofran] 4 mg PO TID 11/28/19 Bictegrav/Emtricit/Tenofov Ala [Biktarvy 50-200-25 mg Tablet] 1 ea PO DAILY 02/16/20 Valacyclovir HCl [Valtrex] 1,000 mg PO TID #30 tab 05/21/20 Primary Care Physician: Jarod Dunn DO [Primary Care Provider] - Please follow up with your Primary Care Physician in: 1-2 nadine Test Results: Test results from this visit will be discussed in further detail at your follow- up appointment, if applicable. Please Follow Up With: Francisco Garnett MD When: as scheduled
--- NOTE | 2020-05-24 10:21 | PCM.DC.SUM ---
Discharge Date and Diagnosis - Problem List Patient Problems: Active and Suspected Problems (Last Reviewed 05/23/20 @ 01:[address] Carlton Soria DO) HSV (herpes simplex virus) infection (Acute) Disseminated zoster (Acute) Date of Admission: 05/23/20 - Primary Discharge Diagnosis Acute Problems: Active Problems (Last Reviewed 05/23/20 @ 01:[address] Carlton Soria DO) HSV (herpes simplex virus) infection (Acute) Disseminated zoster (Acute) - Secondary Discharge Diagnosis Chronic Problems: Chronic Problems (Last Reviewed 05/23/20 @ 01:[address] 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) Vitamin B12 deficiency (Chronic) Vitamin D deficiency (Chronic) CHF (congestive heart failure) (Chronic) Polyneuropathy (Chronic) Insomnia (Chronic) Enlargement, spleen (Chronic) Fibromyalgia (Chronic) Hiatal hernia (Chronic) Anxiety (Chronic) Obesity (Chronic) Diverticulosis (Chronic) Depression (Chronic) Diabetes mellitus (Chronic) Asthma (Chronic) Hospital Course and Treatment Imaging Results: None ID Operations: None Procedures: None Summary of Care Provided: Ms Fraser is a 44 year old F with HIV, who is well controlled on biktarvy and reports med compliance who presented to the ED on 05/22/2020 with about a week of progressive painful/burning ulcers that started as clear vesicles, then open and scab. She reported that it felt like prior shingles. She saw William De Paz in the office a few days ago and was diagnosed with disseminated zoster. At that time she was given valtrex 1gm tid but her skin worsened so she came to the ED. She was admitted and placed on IV acyclovir. She is now feeling better and has not noticed any new lesion since yesterday and would like to go home. The case was discussed with ID yesterday and he felt if there were no new lesions that she could be d/c and continue her Valtrex at home and f/u with him in the office. She was d/c and instructed to finish her course. At d/c her CD4 counts were pending but she was otherwise stable. Patient Problems: Active and Suspected Problems (Last Reviewed 05/23/20 @ 01:[address] Carlton Soria, DO) HSV (herpes simplex virus) infection (Acute) Disseminated zoster (Acute) Subjective: Denies new lesion formation. Feels better. MCCURDY better. Would like to go home. - Physical Exam Vitals/I&O's: Vital Signs Temp Pulse Resp BP Pulse Ox 98.1 F 71 14 104/53 L 96 05/24/20 09:00 05/24/20 09:00 05/24/20 09:00 05/24/20 09:00 05/24/20 09:00 Oxygen Delivery Method Room Air Weight: 99.8 kg Body Mass Index (BMI) 35.5 Finger Stick Blood Glucose 157 Intake and Output for Last 24 Hours 05/22/20 05/23/20 05/24/20 23:59 23:59 23:59 Intake Total 3133.03 / 3133.03 361.8 / 361.8 Balance 3133.03 / 3133.03 361.8 / 361.8 General: Alert, Oriented x3, Cooperative, No apparent distress, Well developed, Well nourished Lungs: Clear to auscultation, Normal air movement, No rhonchi, No wheeze, No rales Cardiovascular: Regular rate, Regular Rhythm, Normal S1, Normal S2, No murmurs, No Ectopic Activity, No rub noted, No Gallop Abdomen: Bowel Sounds Present, Soft, Non Tender, Non-Distended, No hernias noted Extremities: No clubbing, No cyanosis, No edema, Capillary Refill Less than 3 Seconds, Peripheral Pulses Normal Skin: Rash Present - no new lesions noted and new one from yesterday has scabbed over Neurological: Cranial nerves II-XII grossly intact, Neuro grossly intact Psych/Mental Status: Flat Affect Laboratory Results 05/23/20 12:26: POC Glucose 108 05/23/20 13:05: WBC Pending, RBC Pending, Hgb Pending, Hct Pending, MCV Pending, MCH Pending, MCHC Pending, RDW Pending, Plt Count Pending, Immature Gran % Pending, Neutrophils % Pending, Lymphocytes % Pending, Monocytes % Pending, Eosinophils % Pending, Basophils % Pending, Immature Gran # Pending, Neutrophils # Pending, Lymphocytes # Pending, Monocytes # Pending, Eosinophils # Pending, Basophils # Pending, Nucleated RBCs Pending, Immature Blood Cells Pending, % CD4 Cells Pending, Absolute CD4 Count Pending 05/23/20 17:50: POC Glucose 130 H 05/23/20 21:02: POC Glucose 192 H 05/24/20 07:40: WBC 3.6 L, RBC 3.73 L, Hgb 11.1 L, Hct 34.1 L, MCV 91.4, MCH 29.8, MCHC 32.6, RDW Std Deviation 47.9 H, RDW Coeff of Vladimir 14.3, Plt Count 97 L, MPV 9.9, Immature Gran % (Auto) 0.300, Neut % (Auto) 48.0, Lymph % (Auto) 40.3, [place] % (Auto) 5.8, Eos % (Auto) 5.0, Baso % (Auto) 0.6, Absolute Neuts (auto) 1.7 L, Absolute Lymphs (auto) 1.45, Nucleated RBC % 0 05/24/20 07:40: Sodium 137, Potassium 3.8, Chloride 107, Carbon Dioxide 28.0, Anion Gap 2 L, BUN 15, Creatinine 0.74, Estim Creat Clear Calc 91.77, Est GFR (MDRD) Af Amer 111, Est GFR (MDRD) Non-Af 92, BUN/Creatinine Ratio 20.4 H, Glucose 121 H, Calcium 8.6 05/24/20 08:58: POC Glucose 126 H Current Medications Acetaminophen (Acetaminophen 325 Mg Tablet) 650 mg PO Q6H PRN PRN PRN Reason: Pain Score 1-10/Temp > 100.7 F Albuterol Sulfate (Albuterol 2.5 Mg/3 Ml Vial.Neb.) 2.5 mg INHALATION Q4H PRN PRN PRN Reason: shortness of breath/wheezing Bacitracin (Bacitracin 15 Gm Tube) 1 applic TOPICAL 4X/DAY ABIMAEL; Protocol Last Admin: 05/24/20 09:13 Dose: 1 applicatio Documented by: Budesonide (Budesonide Respules 0.5 Mg/2 Ml Ampul.Neb.) 0.5 mg INHALATION Q12H.RT [facility] Last Admin: 05/24/20 07:15 Dose: 0.5 mg Documented by: Calcium Carbonate (Calcium Carbonate 500 Mg Tablet) 500 mg PO BIDCM [facility] Last Admin: 05/24/20 09:07 Dose: 500 mg Documented by: Cyanocobalamin (Cyanocobalamin 500 Mcg Tablet) 500 mcg PO DAILY [facility] Last Admin: 05/24/20 09:09 Dose: 500 mcg Documented by: Dicyclomine HCl (Dicyclomine 10 Mg Capsule) 10 mg PO TIDAC PRN PRN Reason: cramping Emtricitabine/Tenofovir (Emtricitabine/Tenofovir 1 Tablet Tablet) 1 tablet PO QHS [facility] Last Admin: 05/23/20 21:10 Dose: Not Given Documented by: Enoxaparin Sodium (Enoxaparin 40 Mg/0.4 Ml Syringe) 40 mg SC DAILY [facility] Last Admin: 05/24/20 09:06 Dose: 40 mg Documented by: Fluconazole (Fluconazole 100 Mg Tablet) 100 mg PO DAILY [facility] Last Admin: 05/24/20 09:09 Dose: Not Given Documented by: Folic Acid ([facility]olic Acid 1 Mg [facility]t) [facility] Admin: 05/24/20 09:08 Dose: 0.5 mg Documented by: Acyclovir Sodium 590 mg/ (Dextrose) 261.8 mls @ 250.2 mls/hr IV Q8 [facility] Last Infusion: 05/24/20 06:45 Dose: Infused Documented by: Sodium Chloride () 250 mls @ 15 mls/hr IV .[id number] PRN PRN Reason: Saline Flush Last Admin: 05/23/20 17:58 Dose: 15 mls/hr Documented by: Sodium Chloride () 250 mls @ 15 mls/hr IV .[id number] PRN PRN Reason: Additional IVPB Infusion Ibuprofen (Ibuprofen 400 Mg Tablet) 400 mg PO Q4H PRN PRN PRN Reason: Pain Score 1-10/Temp > 100.7 F Loratadine (Loratadine 10 Mg Tablet) 10 mg PO DAILY PRN PRN Reason: ALLERGIES Magnesium Chloride (Magnesium Chloride 64 Mg Delay Rel.Tablet) [facility] Last Admin: 05/24/20 09:07 Dose: 64 mg Documented by: Melatonin (Melatonin 3 Mg Tablet) 3 mg PO QHS PRN PRN Reason: SLEEP Multivitamins (Multivitamins,Therapeutic Tablet) [facility] Last Admin: 05/24/20 09:07 Dose: 1 tablet Documented by: Ondansetron HCl (Ondansetron Odt 4 Mg Tablet) 4 mg PO TID [facility] Last Admin: 05/24/20 05:42 Dose: Not Given Documented by: Oxycodone HCl (Oxycodone 5 Mg Tablet) 5 mg PO Q4H PRN PRN PRN Reason: Pain Score 4-5 Oxycodone HCl (Oxycodone 5 Mg Tablet) 10 mg PO Q4H PRN PRN PRN Reason: Pain Score 6-10 Last Admin: 05/23/20 21:03 Dose: 10 mg Documented by: Pantoprazole Sodium (Pantoprazole Sodium 40 Mg Tablet) 40 mg PO DAILY [facility] Last Admin: 05/24/20 09:06 Dose: 40 mg Documented by: Promethazine HCl (Promethazine 25 Mg Tablet) 12.5 mg PO Q6H PRN PRN PRN Reason: NAUSEA/VOMITING Last Admin: 05/23/20 21:04 Dose: 12.5 mg Documented by: Raltegravir (Raltegravir Potassium 400 Mg Tablet) 400 mg PO BID [facility] Stop: 05/30/20 10:01 Last Admin: 05/24/20 09:07 Dose: Not Given Documented by: Senna/Docusate Sodium (Senna/Docusate Sodium 1 Tablet) 2 tablet PO DAILY PRN PRN PRN Reason: Constipation Sodium Chloride (0.9% Saline Lock 10 Ml Syringe) 10 - 40 ml IV UD PRN PRN Reason: SALINE FLUSH Last Admin: 05/23/20 17:40 Dose: 20 ml Documented by: Discharge Activity: Return to Normal Activity, No Restrictions, May Drive Call your doctor if you observe: - - new lesion formation Home Medications: Medications to take at Discharge folic acid 400 mcg tablet 0.4 mg PO DAILY 12/07/18 melatonin 3 mg tablet 3 mg PO HS PRN 12/07/18 dicyclomine 10 mg capsule 10 mg PO TIDAC PRN cap 12/20/18 Cyanocobalamin (Vitamin B-12) [Vitamin B-12] 500 mcg PO DAILY 05/31/19 Multivitamin [Daily Multiple Vitamin] 1 ea PO DAILY 05/31/19 albuterol sulfate 90 mcg/actuation aerosol inhaler 2 puff INHALATION Q6H PRN #18 g 06/18/19 Loratadine 10 mg PO DAILY PRN 09/09/19 Sennosides/Docusate Sodium [Senna Plus 8.6-50 mg Softgel] 2 tab PO DAILY PRN 09/09/19 beclomethasone dipropionate 80 mcg/actuation HFA breath activated aerosol 1 inh INHALATION BID g 09/19/19 calcium carbonate 215 mg calcium (500 mg) chewable tablet 215 mg PO BID 09/19/19 cholecalciferol (vitamin D3) 1,250 mcg (50,000 unit) capsule 50,000 unit PO .COMPLEX cap 09/19/19 pantoprazole 40 mg tablet,delayed release 40 mg PO DAILY 09/19/19 Fluconazole [Diflucan] 100 mg PO DAILY 11/28/19 Magnesium 250 mg PO DAILY 11/28/19 Ondansetron HCl [Zofran] 4 mg PO TID 11/28/19 Bictegrav/Emtricit/Tenofov Ala [Biktarvy 50-200-25 mg Tablet] 1 ea PO DAILY 02/16/20 Valacyclovir HCl [Valtrex] 1,000 mg PO TID #30 tab 05/21/20 Primary Care Physician: Jarod Dunn DO [Primary Care Provider] - Please follow up with your Primary Care Physician in: 1-2 weejs Please Follow Up With: Francisco Garnett MD When: as scheduled Medical Necessity - Tobacco Use Smoking Status: Former smoker Tobacco Use: Cigarettes Meaningful Use Info Meaningful Use Diagnoses (Choose all that apply): None applicable Inpatient E&M: [id number] [facility]
[2020-05-24 12:46] LABS: Bedside Glucose 144 mg/dL (70-110)
[2020-05-26 14:08] LABS: Absolute CD4 Helper 319 /uL (359-1519); Basophils (Absolute) 0 x10E3/uL (0.0-0.2); Eosinophils 5 % (Not Estab.); Eosinophils (Absolute) 0.2 x10E3/uL (0.0-0.4); Hematocrit 33.8 % (34.0-46.6); Hemoglobin 10.9 g/dL (11.1-15.9); Immature Granulocytes 0 % (Not Estab.); Lymphs 36 % (Not Estab.); Lymphs (Absolute) 1.4 x10E3/uL (0.7-3.1); MCH 29.9 pg (26.6-33.0); MCHC 32.2 g/dL (31.5-35.7); MCV 93 fL (79-97); Monocytes 6 % (Not Estab.); Monocytes (Absolute) 0.3 x10E3/uL (0.1-0.9); Neutrophils 52 % (Not Estab.); Percent % CD4 Pos. Lymph. 22.8 % (30.8-58.5); Platelets 114 x10E3/uL (150-450); RBC Count 3.65 x10E6/uL (3.77-5.28); RDW 14.1 % (11.7-15.4); WBC Count 3.9 x10E3/uL (3.4-10.8)
[2020-05-26 14:21] LABS: Immature Granulocytes Absolute 0 x10E3/uL (0.0-0.1)
[2020-05-26 18:07] LABS: HIV-1 RNA by PCR, Quant. 20 copies/mL (.); LOG10 HIV-1 RNA 1.301 (.)
--- NOTE | 2020-05-27 15:33 | CASEMGMT ---
HAILEE DONALD Discharge Follow-up Phone Call: PRETTY: Nicolle Strata: 10 Call Date: 05/27/20 Discharge Date: 05/24/2020 Time of Call:1530 Duration: 1 min Admitting Diagnosis: Shingles AHILEE DONALD attempted to complete follow-up phone call after recent hospitalization. No answer, voice message left with return contact information.
== END 2020-05-24 16:22 | disposition home or self-care (01) | DRG 865 ==
LOC: ED 05-23 01:57 → PCU 05-23 02:23
PROVIDERS: Emergency Provider Emergency Medicine; PCP Family Medicine; Visit Provider Internal Medicine
DX: B02.7 Disseminated zoster (principal); B00.7 Disseminated herpesviral disease; Z21 Asymptomatic human immunodeficiency virus [HIV] infection status; G43.909 Migraine, unspecified, not intractable, without status migrainosus; J44.9 Chronic obstructive pulmonary disease, unspecified; I11.0 Hypertensive heart disease with heart failure; I50.9 Heart failure, unspecified; E11.42 Type 2 diabetes mellitus with diabetic polyneuropathy; M79.7 Fibromyalgia; M19.90 Unspecified osteoarthritis, unspecified site; F31.9 Bipolar disorder, unspecified; F41.9 Anxiety disorder, unspecified; K21.9 Gastro-esophageal reflux disease without esophagitis; E66.9 Obesity, unspecified; Z68.35 Body mass index [BMI] 35.0-35.9, adult; Z79.899 Other long term (current) drug therapy; Z87.891 Personal history of nicotine dependence
CPT/HCPCS: 36415; 80048; 82962; 83605; 85025; 85610; 85730; 86361; 87040; 87536; 94640; 99281; 99285; J7030; J7050; A4216

== ENCOUNTER → 2020-06-19 15:10 | Outpatient (CLI) | payer MEDICARE, MEDICAID, SELFPAY ==
[2020-05-23 03:01] VITALS: BMI 35.5
[2020-06-19 16:12] LABS: Hematocrit 37.5 % (37-47); Hemoglobin 12.7 g/dL (12.0-15.0); Mean Corp Hgb Conc 33.9 g/dL (32-36); Mean Corpuscular Hgb 30.7 pg (27.0-32.0); Mean Corpuscular Volume 90.6 fL (81-99); Mean Platelet Vol. 10.4 fl (6.2-12.0); Platelet Count 124 K/mm3 (150-450); RBC Distribution Width CV 14.3 % (11.6-14.6); RBC Distribution Width SD 47.8 fl (35.1-43.9); Red Blood Count 4.14 M/mm3 (4.2-5.4); White Blood Count 5.7 K/mm3 (4.4-11.0)
[2020-06-19 16:38] LABS: AST(SGOT) 24 U/L (15-37); Alanine Aminotransfer ALT/SGPT 31 U/L (13-56); Albumin, Serum 3.8 g/dL (3.2-5.0); Alkaline Phosphatase 173 U/L (45-117); Anion Gap 7 (5-15); BUN 12 mg/dL (7-18); BUN/Creat Ratio 12.9 RATIO (10-20); Bilirubin, Direct 0.42 mg/dL (0.00-0.30); Calcium,Total 9.1 mg/dL (8.5-10.1); Chloride 107 mmol/L (98-107); Creatinine, Serum 0.93 mg/dL (0.55-1.02); EST Glomerular Filtration Rate 70 mL/min (>60); Est Glom Filt Rate - Afr Amer 85 mL/min (>60); Globulin 4.9 g/dL (2.2-4.2); Glucose 122 mg/dL (74-106); Protein, Total 8.7 g/dL (6.4-8.2); Sodium Level 140 mmol/L (136-145)
[2020-06-21 16:08] LABS: Absolute CD4 Helper 442 /uL (359-1519); Basophils (Absolute) 0 x10E3/uL (0.0-0.2); Eosinophils 4 % (Not Estab.); Eosinophils (Absolute) 0.2 x10E3/uL (0.0-0.4); Hematocrit 38.7 % (34.0-46.6); Hemoglobin 12.7 g/dL (11.1-15.9); Immature Granulocytes 0 % (Not Estab.); Lymphs 37 % (Not Estab.); Lymphs (Absolute) 2.2 x10E3/uL (0.7-3.1); MCH 30.2 pg (26.6-33.0); MCHC 32.8 g/dL (31.5-35.7); MCV 92 fL (79-97); Monocytes 5 % (Not Estab.); Monocytes (Absolute) 0.3 x10E3/uL (0.1-0.9); Neutrophils 53 % (Not Estab.); Neutrophils (Absolute) 3.2 x10E3/uL (1.4-7.0); Percent % CD4 Pos. Lymph. 20.1 % (30.8-58.5); Platelets 121 x10E3/uL (150-450); RBC Count 4.21 x10E6/uL (3.77-5.28); RDW 14.1 % (11.7-15.4)
[2020-06-23 04:39] LABS: Immature Granulocytes Absolute 0 x10E3/uL (0.0-0.1); WBC Count 5.9 x10E3/uL (3.4-10.8)
[2020-06-23 04:43] LABS: HIV-1 RNA by PCR, Quant. < 20 copies/mL (.)
== END ==
PROVIDERS: PCP Family Medicine; Referring Provider Internal Medicine Infectious Disease; Visit Provider Internal Medicine Infectious Disease
DX: B20 Human immunodeficiency virus [HIV] disease (principal)
CPT/HCPCS: 36415; 80048; 80076; 85027; 86361; 87536

== ENCOUNTER → 2020-07-08 15:24 | Outpatient (CLI) | payer MEDICARE, MEDICAID, SELFPAY ==
[2020-05-23 03:01] VITALS: BMI 35.5
[2020-07-08 16:02] LABS: Color, Urine Yellow (Yellow); Glucose, Dipstick Normal (Normal); Ketone-Dipstick Negative (Negative); Leukocyte Esterase-Dipstick Negative /ul (Negative); Nitrite-Dipstick Negative (Negative); Occult Blood-Urine 10 /ul (Negative); Protein-Dipstick Negative (Negative); Urine Bilirubin Dipstick Negative (Negative); Urine Clarity Clear (Clear); Urine Urobilinogen Normal (Normal)
[2020-07-08 17:34] LABS: Chlamydia Trachomatis by PCR Negative (Negative); Neisserai gonorrhoeae by PCR Negative (Negative); Probe Check PASS; Sample Adequacy Control PASS; Specimen Processing Control PASS
== END ==
PROVIDERS: PCP Family Medicine; Referring Provider Internal Medicine Infectious Disease; Visit Provider Internal Medicine Infectious Disease
DX: B20 Human immunodeficiency virus [HIV] disease (principal); B97.7 Papillomavirus as the cause of diseases classified elsewhere
CPT/HCPCS: 81002; 87491; 87591

== ENCOUNTER 2020-11-03 01:05 | Emergency (ER) | payer MEDICARE, MEDICAID, SELFPAY ==
[2020-05-23 03:01] VITALS: BMI 35.5
[2020-11-03 01:05] VITALS: BP 152/69; PULSE 86; RESP 16; TEMP 36.6; O2SAT 98; BMI 38.7
--- NOTE | 2020-11-03 02:00 | RAD_ITS ---
STUDY: X-RAY - LEFT HAND REASON FOR EXAM: Female, 44 years old. injury TECHNIQUE: 3 view(s) of the hand. COMPARISON: None. FINDINGS: Normal radiocarpal articulation. Normal distal radioulnar joint. Normal visualized carpal bones. Normal carpal articulations Normal carpometacarpal articulation of the thumb. Normal second through fifth carpometacarpal joints. Normal metacarpi. Normal metacarpophalangeal joint of the thumb. Normal interphalangeal joint of the thumb. Normal proximal and distal phalanges of the thumb. Normal metacarpophalangeal joints of the second through fifth fingers. Normal proximal and distal interphalangeal joints of the second through fifth fingers. Normal phalanges of the second through fifth fingers. The soft tissue structures are unremarkable. RAD/Hand Min 3 Views IMPRESSION: Normal x-ray examination of the hand. Electronically Signed: Curry Castellano MD at 4:03 EDT Tel , Service support ,
--- NOTE | 2020-11-03 02:00 | RAD_ITS ---
STUDY: X-RAY - RIGHT HAND REASON FOR EXAM: Female, 44 years old. injury TECHNIQUE: 3 view(s) of the hand. COMPARISON: None. FINDINGS: Normal radiocarpal articulation. Normal distal radioulnar joint. Normal visualized carpal bones. Normal carpal articulations Normal carpometacarpal articulation of the thumb. Normal second through fifth carpometacarpal joints. Normal metacarpi. Normal metacarpophalangeal joint of the thumb. Normal interphalangeal joint of the thumb. Normal proximal and distal phalanges of the thumb. Normal metacarpophalangeal joints of the second through fifth fingers. Normal proximal and distal interphalangeal joints of the second through fifth fingers. Normal phalanges of the second through fifth fingers. The soft tissue structures are unremarkable. RAD/Hand Min 3 Views IMPRESSION: Normal x-ray examination of the hand. Electronically Signed: Curry Castellano MD at 4:04 EDT Tel , Service support ,
--- NOTE | 2020-11-03 02:00 | RAD_ITS ---
STUDY: X-RAY - RIGHT RADIUS AND ULNA REASON FOR EXAM: Female, 44 years old. injury TECHNIQUE: 2 view(s) of the forearm. COMPARISON: None. FINDINGS: There is no demonstrated soft tissue swelling. Normal visualized radius. Normal visualized ulna. RAD/Forearm 2 Views IMPRESSION: Normal x-ray examination of the radius and ulna. Electronically Signed: Curry Castellano MD at 4:02 EDT Tel , Service support ,
--- NOTE | 2020-11-03 02:56 | ED.VIS.FALL ---
History of Present Illness Chief Complaint: Fall Occurred: Days - 3 Mechanism/Context: Trip - going down stairs while carrying mop bucket Fall down steps #: 5-6 Usually ambulates: Without assistance Location: BUE Quality of Pain: Aching Current Severity: Severe Maximum Severity: Severe Worsened by: moving, palpation affected areas Relieved by: remaining still Associated Symptoms: Negative for: Parasthesias, Weakness, Loss of function, Inability to ambulate, Loss of consciousness, Amnesia Narrative: Patient presents saying I cannot take the pain anymore. She fell several days ago, presents having pain throughout both of her arms, worse in the right throughout the forearm up to the elbow, and into the fifth ray of the hand, on the left upper extremity it is mainly just her thumb more at the base of it. She states she has some minor bruising on her abdominal wall that is not an issue and does not want me to look at it, and also she feels like she sprained both of her ankles but she can walk on them without any difficulty. - Past Medical History (1) Anxiety Status: Chronic (2) Arthritis Status: Chronic (3) Asthma Status: Chronic (4) Bipolar 1 disorder Status: Chronic (5) CHF (congestive heart failure) Status: Chronic (6) Depression Status: Chronic (7) Fibromyalgia Status: Chronic (8) GERD (gastroesophageal reflux disease) Status: Chronic (9) HIV (human immunodeficiency virus infection) Status: Chronic (10) Hypertension Status: Chronic (11) Neuropathy Status: Chronic (12) Osteoarthritis Status: Chronic (13) Type 2 diabetes mellitus Status: Chronic Past Medical History - Allergies and Home Meds Allergies/Adverse Reactions: Allergies Iodinated Contrast Media [Iodinated Contrast- Oral and IV Dye] Allergy (Unknown, Verified 11/03/20 01:14) Hives pt states only when she has both together-no reaction to solely IV contrast. amoxicillin Allergy (Verified 11/03/20 01:14) Hives hydrocodone [From Vicodin] Allergy (Verified 11/03/20 01:14) Unknown methylprednisolone [From Medrol] Allergy (Verified 11/03/20 01:14) Hives moxifloxacin Allergy (Verified 11/03/20 01:14) Shortness of breath prochlorperazine [From Compazine] Allergy (Verified 11/03/20 01:14) Other prochlorperazine edisylate [From Compazine] Allergy (Verified 11/03/20 01:14) Other prochlorperazine maleate [From Compazine] Allergy (Verified 11/03/20 01:14) Other acetaminophen [From Tylenol] Adverse Reaction (Verified 11/03/20 01:14) Other sumatriptan [From Imitrex] Adverse Reaction (Verified 11/03/20 01:14) Hives A [facility] Allergy (Uncoded 05/22/20 21:25) Other Primary Care Physician: Jarod Dunn DO [Primary Care Provider] - As Needed Surgical History: appendectomy, hysterectomy, tonsillectomy, - - cardiac cath, shoulder surgery, trigger finger surgery, arthroscopic knee surgery Smoking Status: Current some day smoker - Family History Maternal Family History: Family History (Last Reviewed 05/23/20 @ 01:[address] Carlton Soria DO) Other Alcoholism Anxiety and depression Arthritis Asthma Breast cancer CVA (cerebral vascular accident) Cancer Diabetes Heart disease Hyperlipemia Hypertension Kidney disease Myocardial infarction Seizures Family History: Reports: COPD Paternal Family History: Family History (Last Reviewed 05/23/20 @ 01:[address] Carlton Soria DO) Other Alcoholism Anxiety and depression Arthritis Asthma Breast cancer CVA (cerebral vascular accident) Cancer Diabetes Heart disease Hyperlipemia Hypertension Kidney disease Myocardial infarction Seizures Family History: Reports: COPD Review of Systems General: Denies: Chills, Fever, Sweats Eyes: Denies: Visual changes - bilaterally, Diplopia ENT: Denies: Rhinorrhea, Sore throat Cardiovascular: Denies: Chest pain, Palpitations Respiratory: Denies: Dyspnea, Cough, Dyspnea on exertion Gastrointestinal: Denies: Abdominal pain, Nausea, Vomiting, Diarrhea, Melena, Hematochezia Genitourinary: Denies: Dysuria, Hematuria, Frequency Musculoskeletal: Reports: Swelling - Both ankles and sprained, Extremity Pain. Denies: Neck pain, Back pain Skin: Denies: Rash, Wounds Neurological: Denies: Headache, Weakness, Numbness Physical Exam Vital Signs/Narrative: Vital Signs Temp Pulse Resp BP Pulse Ox 11/03/20 01:05 97.8 F 86 16 152/69 H 98 Inital Vital Signs reviewed: Yes General: Well nourished, Well developed, - - Well-appearing no distress Head: Normocephalic, Atraumatic Eyes: Perrl, EOMI ENT: No trauma. Negative for: Otorrhea Neck: Nontender, Full ROM Cardiovascular: Regular rate, Regular rhythm, No murmurs Respiratory: No distress, CTA bilaterally, Chest nontender Extremeties: tenderness dorsally at the wrist extensor musculature, into the olecranon and medial epicondyle, as well as the fifth metacarpal. Wrist nontender. Limited range of motion of the left thumb due to pain, but able to oppose if she forces through it, otherwise full range of motion of all joints. No bony tenderness in the ankle with mild swelling laterally bilaterally. Skin: Normal color, No rash, Trauma - Skin intact. Abrasion throughout the ulnar aspect of the right forearm up to the elbow with tenderness throughout. Abrasion left thumb. Diagnostic/Tx/Re-eval Clinical Impression(s) from Imaging Studies Forearm X-Ray 11/03/20 02:00 IMPRESSION: Normal x-ray examination of the radius and ulna. Electronically Signed: Curry Castellano MD at 4:02 EDT Tel , Service support , Hand X-Ray 11/03/20 02:00 IMPRESSION: Normal x-ray examination of the hand. Electronically Signed: Curry Castellano MD at 4:03 EDT Tel , Service support , Hand X-Ray 11/03/20 02:00 IMPRESSION: Normal x-ray examination of the hand. Electronically Signed: Curry Castellano MD at 4:04 EDT Tel , Service support , - Medical Decision Making On my interpretation, the following x-ray series showed no acute fractures: 2 views right forearm 3 views right hand 3 views left hand I do not think the patient needs any other x-rays and neither does she. She was offered something for pain while here and reassured and discharged in stable condition. ED Disposition - Plan for ED Patient: Disposition: Home or Assisted Living Diagnosis: Fall down stairs, Contusion of hand, left, Contusion of hand, right, Contusion of right forearm, Ankle sprain Instructions: ED Soft Tissue Contusion Referrals: Jarod Dunn DO [Primary Care Provider] - As Needed
[2020-11-03] MEDS: traMADol 50 MG Tablet PO (03:10)
[2020-11-03 03:11] VITALS: BP 150/67; PULSE 78; RESP 18; TEMP 36.6; O2SAT 97
== END 2020-11-03 03:13 | disposition home or self-care (01) ==
PROVIDERS: Emergency Provider Emergency Medicine; PCP Family Medicine
DX: S60.222A Contusion of left hand, initial encounter (principal); S60.221A Contusion of right hand, initial encounter; S50.11XA Contusion of right forearm, initial encounter; F17.200 Nicotine dependence, unspecified, uncomplicated; W10.9XXA Fall (on) (from) unspecified stairs and steps, initial encounter; Z90.710 Acquired absence of both cervix and uterus
CPT/HCPCS: 73090; 73130; 99283

== ENCOUNTER 2021-03-03 14:24 | Emergency (ER) | payer MEDICARE, MEDICAID, SELFPAY ==
[2021-03-03 14:27] VITALS: BP 134/90; PULSE 94; RESP 16; TEMP 36.8; O2SAT 94; BMI 37.9
--- NOTE | 2021-03-03 15:22 | EDS_ITS ---
HPI History of Present Illness Chief Complaint: Dental Informant: patient Onset/Context/Timing Onset: Yesterday Narrative Narrative: Patient is a 45-year-old female presenting with dental pain. Patient states last night of filling in her left upper molar fell out. She states this line was placed in November and they told her if this feeling did not she would need a root canal. [facility] [place]. She called them and has appointment to be seen tomorrow at 9 AM. Patient states he is having significant pain and having electrical sensation from where her nerve is exposed. She denies any other complaints at this time. Patient is currently on clindamycin is for her tooth that was called in today and was previously on doxycycline for her infected flea bite on her left leg. No worsening symptoms there. [facility] Medical History Anxiety Arthritis Asthma Back pain Cancer CHF (congestive heart failure) Depression Diabetes mellitus Diverticulosis Enlargement, spleen Fibromyalgia GERD (gastroesophageal reflux disease) Hemorrhoids Herpes Hiatal hernia History of alcoholism History of blood transfusion History of drug abuse History of kidney stones History of myocardial infarct at age less than 60 years HIV (human immunodeficiency virus infection) HIV exposure HPV in female Hypertension Insomnia Kidney disease Obesity Polyneuropathy Seasonal allergies Vitamin B12 deficiency Vitamin D deficiency Home Medications folic acid 400 mcg tablet 0.4 mg PO DAILY 12/07/18 [History Last Taken 06/20/19] melatonin 3 mg tablet 3 mg PO HS PRN 12/07/18 [History Last Taken Unknown] dicyclomine 10 mg capsule 10 mg PO TIDAC PRN cap 12/20/18 [History Last Taken 06/20/19] cyanocobalamin (vitamin B-12) 500 mcg PO DAILY 05/31/19 [History Last Taken 06/20/19] multivitamin 1 ea PO DAILY 05/31/19 [History Last Taken 06/20/19] albuterol sulfate 90 mcg/actuation aerosol inhaler 2 puff INHALATION Q6H PRN #18 g 06/18/19 [Rx Last Taken 06/20/19] loratadine 10 mg PO DAILY PRN 09/09/19 [History Last Taken Unknown] sennosides-docusate sodium 2 tab PO DAILY PRN 09/09/19 [History Last Taken Unknown] beclomethasone dipropionate 80 mcg/actuation HFA breath activated aerosol 1 inh INHALATION BID g 09/19/19 [History Last Taken Unknown] calcium carbonate 215 mg calcium (500 mg) chewable tablet 215 mg PO BID 09/19/19 [History Last Taken Unknown] cholecalciferol (vitamin D3) 1,250 mcg (50,000 unit) capsule 50,000 unit PO .COMPLEX cap 09/19/19 [History Last Taken Unknown] pantoprazole 40 mg tablet,delayed release 40 mg PO DAILY 09/19/19 [History Last Taken Unknown] fluconazole 100 mg PO DAILY 11/28/19 [History Last Taken Unknown] magnesium 250 mg PO DAILY 11/28/19 [History Last Taken Unknown] ondansetron HCl 4 mg PO TID 11/28/19 [History Last Taken Unknown] bbwkrtqah-zmxzjqrw-vduyaer ala 1 ea PO DAILY 02/16/20 [History Last Taken Unknown] Valacyclovir Hcl [Valtrex] 1,000 mg PO TID #30 tab 05/21/20 [Rx Last Taken Unknown] oxycodone 5 mg PO Q6H PRN 2 Days #8 cap 03/03/21 [Rx Last Taken Unknown] Allergy/AdvReac Type Severity Reaction Status Date / Time Iodinated Contrast Media Allergy Unknown Hives Verified 03/03/21 14:26 [Iodinated Contrast- Oral and IV Dye] amoxicillin Allergy Hives Verified 03/03/21 14:26 hydrocodone [From Vicodin] Allergy Unknown Verified 03/03/21 14:26 methylprednisolone Allergy Hives Verified 03/03/21 14:26 [From Medrol] moxifloxacin Allergy Shortness Verified 03/03/21 14:26 of breath prochlorperazine Allergy Other Verified 03/03/21 14:26 [From Compazine] prochlorperazine edisylate Allergy Other Verified 03/03/21 14:26 [From Compazine] prochlorperazine maleate Allergy Other Verified 03/03/21 14:26 [From Compazine] acetaminophen [From Tylenol] AdvReac Other Verified 03/03/21 14:26 sumatriptan [From Imitrex] AdvReac Hives Verified 03/03/21 14:26 A MIG[facility]INE MED Allergy Other Uncoded 03/03/21 14:26 Family History Other Alcoholism Anxiety and depression Arthritis Asthma Breast cancer CVA (cerebral vascular accident) Cancer Diabetes Heart disease Hyperlipemia Hypertension Kidney disease Myocardial infarction Seizures Surgical History History of 2 sections History of appendectomy History of cholecystectomy History of colonoscopy History of D&C History of endoscopy History of hernia repair History of hysterectomy History of left heart catheterization (06/01/19) History of left knee surgery History of liver biopsy History of shoulder surgery History of tonsillectomy History of tubal ligation Hx of right knee surgery Social History Smoking Status: Current some day smoker tobacco type: cigarettes Tobacco: How many years used: 22 alcohol intake: former substance use type: former substance user what type of physical activity do you participate in: none ROS ROS ED Constitutional Constitutional ED: Denies chills or fever(s) ENT ENT ED: Reports other Details: dental pain ; Denies rhinorrhea or sore throat Cardiovascular Cardiovascular: Denies chest pain Respiratory/Chest Respiratory/Chest: Denies dyspnea Gastrointestinal Gastrointestinal: Denies abdominal pain or vomiting Musculoskeletal Musculoskeletal: Denies myalgias Integumentary Denies Abrasions or rash Neurologic Neurologic: Denies headache(s) or weakness Psychiatric Psychiatric: Denies depression EXAM Physical Exam Const Vital Signs: 03/03/21 14:27 Temperature 98.3 F Temperature Source Temporal Pulse Rate 94 Respiratory Rate 16 Blood Pressure 134/90 H Blood Pressure Mean 104 Pulse Ox 94 Oxygen Delivery Method Room Air Positive well nourished and well developed General Appearance ED: well developed HEENT HEENT Narrative: Patient notes left upper first molar is broken and there appears to be exposure of dentin and nerve root. There is no filling in place. There is some mild associated erythema around the root. No active bleeding. It is very tender to palpation in this area. No associated abscess. No gingival swelling noted. Sublingual mucosa is soft. No trismus. Normal phonation. Mouth ED: Yes lips normal and Yes tongue normal Mouth: lips normal and tongue normal Throat: posterior oropharynx normal Eyes PERRL and EOMs intact bilaterally Neck no lymphadenopathy and supple Chest Wall inspection of chest normal Resp normal respiratory effort Cardio regular rate and regular rhythm Extremity normal to inspection Neuro oriented x3 and moves all extremities Sensorium / Orientation: alert Skin Skin Narrative: Area of erythema without induration, warmth or fluctuance of the left medial thigh. No significant tenderness to palpation. MDM MDM MDM Narrative Medical decision making narrative: Patient evaluated for left upper dental pain. She had a filling fall out. Patient pain is treated with dental nerve block. 1 cc of 1% lidocaine with epinephrine injected above the to the pain and posterior superior alveolar block is also performed. Patient tolerated this well with improvement of her symptoms. The tooth is covered with dry socket paste. Patient is given a short course of oxycodone for pain control. [facility] report does not show any recent prescriptions. She was already started on antibiotics per her dentist. She has appointment tomorrow for follow-up. Patient does have an area of possible cellulitis that she is being treated for on her leg. It appears to be healing and since she is started on clindamycin she is counseled that she can stop the doxycycline. Discharge Plan Triage Chief Complaint: Dental ED Provider: Rita Kohli Dx/Rx/DC Orders Clinical Impression: Pain, dental, Dental filling status Instructions: ED Dental Pain Prescriptions: New oxycodone 5 mg capsule 5 mg PO Q6H PRN (Reason: pain) 2 Days Qty: 8 RF: 0 No Action melatonin 3 mg tablet 3 mg PO HS PRN (Reason: Sleep) RF: 0 folic acid 400 mcg tablet 0.4 mg PO DAILY RF: 0 dicyclomine 10 mg capsule 10 mg PO TIDAC PRN (Reason: pain) RF: 0 cholecalciferol (vitamin D3) 1,250 mcg (50,000 unit) capsule 50,000 unit PO .COMPLEX RF: 0 Antacid Calcium 215 mg calcium (500 mg) tablet,chewable 215 mg PO BID RF: 0 multivitamin 1 EACH tablet 1 ea PO DAILY RF: 0 cyanocobalamin (vitamin B-12) 500 MCG tablet 500 mcg PO DAILY RF: 0 sennosides-docusate sodium 1 EACH capsule 2 tab PO DAILY PRN (Reason: Constipation) RF: 0 loratadine 10 MG tablet 10 mg PO DAILY PRN (Reason: Allergies) RF: 0 beclomethasone dipropionate 80 mcg/actuation HFA aerosol breath activated 1 inh inhalation BID RF: 0 pantoprazole 40 mg tablet,delayed release (DR/EC) 40 mg PO DAILY RF: 0 fluconazole 100 MG tablet 100 mg PO DAILY RF: 0 ondansetron HCl 4 MG tablet 4 mg PO TID RF: 0 magnesium 250 MG tablet 250 mg PO DAILY RF: 0 nvdivalif-ortitxdf-emwhcrj ala 1 EACH tablet 1 ea PO DAILY RF: 0 albuterol sulfate [ProAir HFA] 90 mcg/actuation HFA aerosol inhaler 2 puff INHALATION Q6H PRN (Reason: shortness of breath or wheezing) Qty: 18 RF: 2 Valacyclovir Hcl [Valtrex] 1,000 MG tablet 1,000 mg PO TID Qty: 30 RF: 0 Primary Care Provider: Jarod Dunn Referrals: Jarod Dunn DO [Primary Care Provider] - Activity Restrictions/Additional Instructions: Continue taking the clindamycin prescribed. You may stop your doxycycline. Make sure you follow-up with your dentist tomorrow. Disposition Disposition: Home, Self Care Discharge Date/Time: 03/03/21 16:46
[2021-03-03] MEDS: Lidocaine 1% /Epi 1:100 (50ml) 50 ML VIAL INFILT (16:36)
== END 2021-03-03 16:46 | disposition home or self-care (01) ==
PROVIDERS: Emergency Provider Emergency Medicine; PCP Family Medicine
DX: K08.89 Other specified disorders of teeth and supporting structures (principal); Z21 Asymptomatic human immunodeficiency virus [HIV] infection status; I11.0 Hypertensive heart disease with heart failure; I50.9 Heart failure, unspecified; E11.40 Type 2 diabetes mellitus with diabetic neuropathy, unspecified; M19.90 Unspecified osteoarthritis, unspecified site; J45.909 Unspecified asthma, uncomplicated; K21.9 Gastro-esophageal reflux disease without esophagitis; E53.8 Deficiency of other specified B group vitamins; E55.9 Vitamin D deficiency, unspecified; F32.9 Major depressive disorder, single episode, unspecified; F41.9 Anxiety disorder, unspecified; F19.11 Other psychoactive substance abuse, in remission; F10.21 Alcohol dependence, in remission; E66.9 Obesity, unspecified; F17.210 Nicotine dependence, cigarettes, uncomplicated; I25.2 Old myocardial infarction; Z79.899 Other long term (current) drug therapy
CPT/HCPCS: 64400; 64999; 99282

== ENCOUNTER → 2021-06-19 15:54 | Outpatient (CLI) | payer MEDICARE, MEDICAID, SELFPAY ==
[2021-06-19 16:26] LABS: Hematocrit 37.7 % (37-47); Hemoglobin 13.4 g/dL (12.0-15.0); Mean Corp Hgb Conc 35.5 g/dL (32-36); Mean Corpuscular Hgb 29.9 pg (27.0-32.0); Mean Corpuscular Volume 84.2 fL (81-99); Platelet Count 169 K/mm3 (150-450); RBC Distribution Width CV 13.3 % (11.6-14.6); RBC Distribution Width SD 40.9 fl (35.1-43.9); Red Blood Count 4.48 M/mm3 (4.2-5.4); White Blood Count 9.6 K/mm3 (4.4-11.0)
[2021-06-19 17:16] LABS: Anion Gap 9 (5-15); BUN 25 mg/dL (7-18); BUN/Creat Ratio 23.4 RATIO (10-20); Calcium,Total 9.3 mg/dL (8.5-10.1); Chloride 104 mmol/L (98-107); Creatinine, Serum 1.07 mg/dL (0.55-1.02); EST Glomerular Filtration Rate 59 mL/min (>60); Est Glom Filt Rate - Afr Amer 72 mL/min (>60); Glucose 283 mg/dL (74-106); Potassium 3.5 mmol/L (3.5-5.1); Sodium Level 136 mmol/L (136-145)
[2021-06-22 09:13] LABS: Syphilis Antibodies Non-reactive
[2021-06-22 14:08] LABS: Absolute CD4 Helper 614 /uL (359-1519); Basophils (Absolute) 0.1 x10E3/uL (0.0-0.2); Eosinophils 3 % (Not Estab.); Eosinophils (Absolute) 0.3 x10E3/uL (0.0-0.4); Hemoglobin 13.9 g/dL (11.1-15.9); Immature Granulocytes 0 % (Not Estab.); Lymphs 33 % (Not Estab.); Lymphs (Absolute) 3.1 x10E3/uL (0.7-3.1); MCH 29.6 pg (26.6-33.0); MCHC 33.9 g/dL (31.5-35.7); MCV 87 fL (79-97); Monocytes 5 % (Not Estab.); Monocytes (Absolute) 0.5 x10E3/uL (0.1-0.9); Neutrophils 58 % (Not Estab.); Neutrophils (Absolute) 5.5 x10E3/uL (1.4-7.0); Percent % CD4 Pos. Lymph. 19.8 % (30.8-58.5); Platelets 184 x10E3/uL (150-450); RBC Count 4.69 x10E6/uL (3.77-5.28); RDW 13.4 % (11.7-15.4); WBC Count 9.4 x10E3/uL (3.4-10.8)
[2021-06-22 14:54] LABS: Immature Granulocytes Absolute 0 x10E3/uL (0.0-0.1)
[2021-06-23 11:22] LABS: HIV-1 RNA by PCR, Quant. < 20 copies/mL (.)
== END ==
PROVIDERS: PCP Family Medicine; Referring Provider Internal Medicine Infectious Disease; Visit Provider Internal Medicine Infectious Disease
DX: B20 Human immunodeficiency virus [HIV] disease (principal)
CPT/HCPCS: 36415; 80048; 85027; 86361; 86780; 87536

== ENCOUNTER 2021-08-13 09:28 | Outpatient (CLI) | payer MEDICARE, MEDICAID, SELFPAY ==
--- NOTE | 2021-08-13 09:32 | BI_ITS ---
MAMMOGRAPHY - BILATERAL SCREENING REASON FOR EXAM: Female, 45 years old. Routine annual screening examination. PERTINENT HISTORY: Mother with breast cancer. Aunts with breast cancer. Occasional left nipple discharge. TECHNIQUE: Digital bilateral breast micah (3D mammographic acquisition) in the CC and MLO projections. 2-D mediolateral oblique (MLO) and craniocaudad (CC) views of both breasts were obtained. CAD: Full Field Digital Mammography with Computer Added Detection was performed. COMPARISON: Comparison is made with prior study dated 08/06/2019. FINDINGS: Breast Composition: The breasts are almost entirely fatty. There are no dominant masses or suspicious calcifications. Stable 3 mm calcified nodule in the anterior upper lateral aspect of the right breast. No other significant abnormalities are identified. There has been no significant change since the prior study. BI/SCRN MAMM (CAD)W/MICAH BILAT IMPRESSION: Stable bilateral screening mammogram. Yearly follow-up mammogram recommended. (A) ASSESSMENT CATEGORY: BIRADS Category 2: Benign. A letter regarding these results will be sent to the patient by the facility within 30 days. Approximately 10% of breast cancers are not detected by mammography. A normal mammogram should not delay biopsy of a clinically suspicious abnormality. [id number] Electronically Signed: Del Amato MD at 10:55 EST , Service support ,
== END 2021-08-13 23:59 | disposition short-term general hospital (02) ==
LOC: OPBI 09:29
PROVIDERS: PCP Family Medicine; Referring Provider Internal Medicine Infectious Disease; Visit Provider Internal Medicine Infectious Disease
DX: Z12.31 Encounter for screening mammogram for malignant neoplasm of breast (principal)
CPT/HCPCS: 77063; 77067

== ENCOUNTER 2021-08-17 08:34 | Emergency (ER) | payer MEDICARE, MEDICAID, SELFPAY ==
[2021-08-17 08:35] VITALS: BP 155/92; PULSE 101; RESP 18; TEMP 36.3; O2SAT 98; BMI 40.0
--- NOTE | 2021-08-17 09:30 | RAD_ITS ---
STUDY: X-RAY - PELVIS REASON FOR EXAM: Female, 45 years old. Fall TECHNIQUE: One view of the pelvis was obtained. COMPARISON: None. FINDINGS: There is a non-specific bowel gas pattern. Surgical clips are seen in the right lower quadrant most likely secondary to prior appendectomy. There are multiple calcified phleboliths. Normal bilateral iliac wings, sacroiliac joints and visualized sacrum. Normal visualized bilateral superior and inferior pubic rami. There are degenerative changes of the pubic symphysis with articular narrowing and sclerosis. Normal ischial tuberosities. Normal visualized right femoral head. Normal right acetabulum. Normal right hip joint. Normal visualized left femoral head. Normal left acetabulum. Normal left hip joint. RAD/Pelvis 1 or 2 Views IMPRESSION: Normal x-ray examination of the pelvis. Electronically Signed: Del Amato MD at 10:42 EST , Service support ,
--- NOTE | 2021-08-17 09:30 | RAD_ITS ---
STUDY: X-RAY CHEST REASON FOR EXAM: Female, 45 years old. Fall TECHNIQUE: PA and lateral views of the chest. COMPARISON: None. FINDINGS: The lungs are clear and expanded. There is no demonstrated pleural abnormality. Normal size heart. Normal mediastinum and donta. Normal visualized pulmonary arteries. Normal visualized aortic arch and descending thoracic aorta. There is demineralization of the osseous structures. There is evidence of ORIF of the distal lateral right clavicular fracture. There is no demonstrated abnormality of the visualized soft tissue structures of the upper abdomen. RAD/Chest PA and Lateral IMPRESSION: No acute abnormality is seen. Electronically Signed: Del Amato MD at 10:40 EST , Service support ,
--- NOTE | 2021-08-17 09:30 | RAD_ITS ---
STUDY: X-RAY - LEFT TIBIA AND FIBULA REASON FOR EXAM: Female, 45 years old. Fall TECHNIQUE: 2 view(s) of the tibia and fibula were obtained. COMPARISON: None. FINDINGS: Normal visualized tibia. Normal visualized fibula. The soft tissue structures are unremarkable. RAD/Tibia & Fibula 2 Views IMPRESSION: Normal x-ray examination of the tibia and fibula. Electronically Signed: Del Amato MD at 10:42 EST , Service support ,
--- NOTE | 2021-08-17 09:30 | RAD_ITS ---
STUDY: X-RAY - LEFT FEMUR REASON FOR STUDY: Female, 45 years old. Fall TECHNIQUE: 4 view(s) of the femur. COMPARISON: None. FINDINGS: Normal visualized femur. Normal visualized soft tissue structure. RAD/Femur Min 2 Views IMPRESSION: Normal x-ray examination of the femur. Electronically Signed: Del Amato MD at 10:41 EST , Service support ,
--- NOTE | 2021-08-17 09:39 | EDS_ITS ---
HPI HPI - Fall History of Present Illness Chief Complaint: Fall Informant: patient Occured/Mechanism Occurred: Today Narrative Narrative: Patient presents after falling around 5 AM this morning. She states she fell down 5 steps at home. She complaining of pain to everything on her left side. No loss of consciousness. She did not take anything for pain. [facility] Medical History Anxiety Arthritis Asthma Back pain Cancer CHF (congestive heart failure) Depression Diabetes mellitus Diverticulosis Enlargement, spleen Fibromyalgia GERD (gastroesophageal reflux disease) Hemorrhoids Herpes Hiatal hernia History of alcoholism History of blood transfusion History of drug abuse History of kidney stones History of myocardial infarct at age less than 60 years HIV (human immunodeficiency virus infection) HIV exposure HPV in female Hypertension Insomnia Kidney disease Obesity Polyneuropathy Seasonal allergies Vitamin B12 deficiency Vitamin D deficiency Home Medications folic acid 400 mcg tablet 0.4 mg PO DAILY 12/07/18 [History Last Taken 06/20/19] melatonin 3 mg tablet 3 mg PO HS PRN 12/07/18 [History Last Taken Unknown] dicyclomine 10 mg capsule 10 mg PO TIDAC PRN cap 12/20/18 [History Last Taken 06/20/19] cyanocobalamin (vitamin B-12) 500 mcg PO DAILY 05/31/19 [History Last Taken 06/20/19] multivitamin 1 ea PO DAILY 05/31/19 [History Last Taken 06/20/19] albuterol sulfate 90 mcg/actuation aerosol inhaler 2 puff INHALATION Q6H PRN #18 g 06/18/19 [Rx Last Taken 06/20/19] loratadine 10 mg PO DAILY PRN 09/09/19 [History Last Taken Unknown] sennosides-docusate sodium 2 tab PO DAILY PRN 09/09/19 [History Last Taken Unknown] beclomethasone dipropionate 80 mcg/actuation HFA breath activated aerosol 1 inh INHALATION BID g 09/19/19 [History Last Taken Unknown] calcium carbonate 215 mg calcium (500 mg) chewable tablet 215 mg PO BID 09/19/19 [History Last Taken Unknown] cholecalciferol (vitamin D3) 1,250 mcg (50,000 unit) capsule 50,000 unit PO .COMPLEX cap 09/19/19 [History Last Taken Unknown] pantoprazole 40 mg tablet,delayed release 40 mg PO DAILY 09/19/19 [History Last Taken Unknown] fluconazole 100 mg PO DAILY 11/28/19 [History Last Taken Unknown] magnesium 250 mg PO DAILY 11/28/19 [History Last Taken Unknown] ondansetron HCl 4 mg PO TID 11/28/19 [History Last Taken Unknown] jniqtmmwq-uhdtibie-ijfoepo ala 1 ea PO DAILY 02/16/20 [History Last Taken Unknown] Valacyclovir Hcl [Valtrex] 1,000 mg PO TID #30 tab 05/21/20 [Rx Last Taken Unknown] oxycodone 5 mg PO Q6H PRN 2 Days #8 cap 03/03/21 [Rx Last Taken Unknown] naproxen [Naprosyn] 500 mg PO BID PRN #20 tab 08/17/21 [Rx Last Taken Unknown] Allergy/AdvReac Type Severity Reaction Status Date / Time Iodinated Contrast Media Allergy Unknown Hives Verified 08/17/21 10:34 [Iodinated Contrast- Oral and IV Dye] amoxicillin Allergy Hives Verified 08/17/21 10:34 hydrocodone [From Vicodin] Allergy Unknown Verified 08/17/21 10:34 methylprednisolone Allergy Hives Verified 08/17/21 10:34 [From Medrol] moxifloxacin Allergy Shortness Verified 08/17/21 10:34 of breath prochlorperazine Allergy Other Verified 08/17/21 10:34 [From Compazine] prochlorperazine edisylate Allergy Other Verified 08/17/21 10:34 [From Compazine] prochlorperazine maleate Allergy Other Verified 08/17/21 10:34 [From Compazine] acetaminophen [From Tylenol] AdvReac Other Verified 08/17/21 10:34 sumatriptan [From Imitrex] AdvReac Hives Verified 08/17/21 10:34 A MIGRAINE MED Allergy Other Uncoded 08/17/21 10:34 Family History Other Alcoholism Anxiety and depression Arthritis Asthma Breast cancer CVA (cerebral vascular accident) Cancer Diabetes Heart disease Hyperlipemia Hypertension Kidney disease Myocardial infarction Seizures Surgical History History of 2 sections History of appendectomy History of cholecystectomy History of colonoscopy History of D&C History of endoscopy History of hernia repair History of hysterectomy History of left heart catheterization (06/01/19) History of left knee surgery History of liver biopsy History of shoulder surgery History of tonsillectomy History of tubal ligation Hx of right knee surgery Social History Smoking Status: Current some day smoker tobacco type: cigarettes Tobacco: How many years used: 22 alcohol intake: former substance use type: former substance user what type of physical activity do you participate in: none ROS ROS ED Constitutional Constitutional ED: Denies chills or fever(s) Eyes Eyes: Denies change in vision ENT ENT ED: Denies sore throat Cardiovascular Cardiovascular: Reports chest pain and other Details: Left rib pain Respiratory/Chest Respiratory/Chest: Denies cough or dyspnea Gastrointestinal Gastrointestinal: Denies abdominal pain, diarrhea, nausea or vomiting Genitourinary Genitourinary ED: Denies dysuria Musculoskeletal Musculoskeletal: Reports arthralgias; Denies back pain Integumentary Denies rash Neurologic Neurologic: Reports paresthesias; Denies headache(s) or weakness Allergic/Immunologic Allergic/Immunologic ED: Denies urticaria EXAM Physical Exam Const Vital Signs: 08/17/21 08:35 Temperature 97.3 F L Temperature Source Temporal Pulse Rate 101 H Respiratory Rate 18 Blood Pressure 155/92 H Blood Pressure Mean 113 Pulse Ox 98 Oxygen Delivery Method Room Air Positive well nourished and well developed General Appearance ED: well developed HEENT Reports normocephalic atraumatic Eyes PERRL and EOMs intact bilaterally Neck full ROM Chest Wall inspection of chest normal Chest Narrative: Mild tenderness to the left lower ribs. No crepitus. No ecch ymosis or abrasion. Resp normal respiratory effort and clear to auscultation bilaterally Cardio regular rate and regular rhythm GI non-tender Palpation: soft Extremity normal to inspection Extremity Narrative: Diffuse muscular tenderness throughout the thigh and lower leg. No deformity. Strong distal pulses. Psych mental status grossly normal Skin Lesions: no lesions Rashes: no rashes MDM MDM MDM Narrative Medical decision making narrative: X-rays obtained and patient given naproxen. Radiography Diagnostic Testing: Clinical Impression(s) from Imaging Studies Chest X-Ray 08/17/21 09:30 IMPRESSION: No acute abnormality is seen. Electronically Signed: Del Amato MD at 10:40 EST , Service support , Femur X-Ray 08/17/21 09:30 IMPRESSION: Normal x-ray examination of the femur. Electronically Signed: Del Amato MD at 10:41 EST , Service support , Pelvis X-Ray 08/17/21 09:30 IMPRESSION: Normal x-ray examination of the pelvis. Electronically Signed: Del Amato MD at 10:42 EST , Service support , Tibia/Fibula X-Ray 08/17/21 09:30 IMPRESSION: Normal x-ray examination of the tibia and fibula. Electronically Signed: Del Amato MD at 10:42 EST , Service support , Treatment and Re-Evaluation Comments:: X-rays per my interpretation reveal no evidence of acute fracture. Radiology to rotation is also reviewed. Test results discussed with the patient. She will be given crutches to help with ambulation as she states she has increased pain with any weightbearing on her left leg. She begin a prescription for naproxen. She will follow-up with Dr. Butcher. Discharge Plan Triage Chief Complaint: Fall Other Complaint: Lower Extremity Injury Upper Extremity Injury ED Provider: Krissy Houser Dx/Rx/DC Orders Clinical Impression: Contusion of left leg, Fall Instructions: ED Contusion, Lower Extremity Prescriptions: New naproxen [Naprosyn] 500 mg tablet 500 mg PO BID PRN (Reason: pain) Qty: 20 RF: 0 No Action melatonin 3 mg tablet 3 mg PO HS PRN (Reason: Sleep) RF: 0 folic acid 400 mcg tablet 0.4 mg PO DAILY RF: 0 dicyclomine 10 mg capsule 10 mg PO TIDAC PRN (Reason: pain) RF: 0 cholecalciferol (vitamin D3) 1,250 mcg (50,000 unit) capsule 50,000 unit PO .COMPLEX RF: 0 Antacid Calcium 215 mg calcium (500 mg) tablet,chewable 215 mg PO BID RF: 0 multivitamin 1 EACH tablet 1 ea PO DAILY RF: 0 cyanocobalamin (vitamin B-12) 500 MCG tablet 500 mcg PO DAILY RF: 0 sennosides-docusate sodium 1 EACH capsule 2 tab PO DAILY PRN (Reason: Constipation) RF: 0 loratadine 10 MG tablet 10 mg PO DAILY PRN (Reason: Allergies) RF: 0 beclomethasone dipropionate 80 mcg/actuation HFA aerosol breath activated 1 inh inhalation BID RF: 0 pantoprazole 40 mg tablet,delayed release (DR/EC) 40 mg PO DAILY RF: 0 fluconazole 100 MG tablet 100 mg PO DAILY RF: 0 ondansetron HCl 4 MG tablet 4 mg PO TID RF: 0 magnesium 250 MG tablet 250 mg PO DAILY RF: 0 yzvpkddwm-schajwbc-jturdfk ala 1 EACH tablet 1 ea PO DAILY RF: 0 oxycodone 5 mg capsule 5 mg PO Q6H PRN (Reason: pain) 2 Days Qty: 8 RF: 0 albuterol sulfate [ProAir HFA] 90 mcg/actuation HFA aerosol inhaler 2 puff INHALATION Q6H PRN (Reason: shortness of breath or wheezing) Qty: 18 RF: 2 Valacyclovir Hcl [Valtrex] 1,000 MG tablet 1,000 mg PO TID Qty: 30 RF: 0 Primary Care Provider: Jarod Dunn Referrals: Jarod Dunn DO [Primary Care Provider] - 1 Week Disposition Disposition: Home, Self Care
[2021-08-17] MEDS: Naproxen 500 MG Tablet PO (10:31)
--- NOTE | 2021-08-17 10:31 | ED.RN ---
pt took naproxen but moaning and shaking head because she was only ordered that.
[2021-08-17 12:00] VITALS: BP 145/99; PULSE 95; RESP 18; O2SAT 97
== END 2021-08-17 12:02 | disposition home or self-care (01) ==
PROVIDERS: Emergency Provider Emergency Medicine; PCP Family Medicine; Visit Provider Emergency Medicine
DX: S80.12XA Contusion of left lower leg, initial encounter (principal); B20 Human immunodeficiency virus [HIV] disease; I11.0 Hypertensive heart disease with heart failure; I50.9 Heart failure, unspecified; E11.42 Type 2 diabetes mellitus with diabetic polyneuropathy; Z68.41 Body mass index [BMI] 40.0-44.9, adult; W19.XXXA Unspecified fall, initial encounter; F17.210 Nicotine dependence, cigarettes, uncomplicated; Y93.9 Activity, unspecified; Y92.9 Unspecified place or not applicable; F41.9 Anxiety disorder, unspecified; J45.909 Unspecified asthma, uncomplicated; F32.A Depression, unspecified; M79.7 Fibromyalgia; K21.9 Gastro-esophageal reflux disease without esophagitis; Z87.442 Personal history of urinary calculi; I25.2 Old myocardial infarction; E55.9 Vitamin D deficiency, unspecified; E66.9 Obesity, unspecified
CPT/HCPCS: 71046; 72170; 73552; 73590; 99284

== ENCOUNTER 2021-11-19 12:23 | Outpatient (CLI) | payer MEDICARE, MEDICAID, SELFPAY ==
--- NOTE | 2021-11-19 13:05 | MRI_ITS ---
STUDY: MRI LUMBAR SPINE WITHOUT CONTRAST REASON FOR EXAM: Female, 45 years old. LOW BACK PAIN; NO KNOWN INJURY TECHNIQUE: Standardized fat and water weighted pulse sequences were obtained in the sagittal and axial planes. COMPARISON: Lumbar spine x-ray dated October 14, 2021. CT of abdomen and pelvis dated September 08, 2019 FINDINGS: T12-L1: Normal endplates. Normal disc height, hydration and morphology. Normal bilateral facet joints. Normal central canal and bilateral lateral recesses. Normal bilateral intervertebral neural foramina. Normal lumbar lordosis. There is no substantial scoliosis. Normal conus medullaris that terminates at the T12-L1 level. No marrow edema or fracture. L1-2: Normal endplates. Normal disc height, hydration and morphology. Normal bilateral facet joints. Normal central canal and bilateral lateral recesses. Normal bilateral intervertebral neural foramina. L2-3: Normal endplates. Normal disc height, hydration and morphology. Normal bilateral facet joints. Normal central canal and bilateral lateral recesses. Normal bilateral intervertebral neural foramina. L3-4: Normal endplates. Normal disc height, hydration and morphology. Normal bilateral facet joints. Normal central canal and bilateral lateral recesses. Normal bilateral intervertebral neural foramina. L4-5: Normal endplates. Diffuse disc desiccation and mild disc space narrowing with annular bulging. Mild facet joint and ligamenta flava hypertrophy, left greater than right. Mild fluid distention of the left facet joint. Mild central canal stenosis. Normal bilateral lateral recesses. Normal bilateral intervertebral neural foramina. L5-S1: Normal endplates. Normal disc height, hydration and morphology. Normal bilateral facet joints. Normal central canal and bilateral lateral recesses. Normal bilateral intervertebral neural foramina. Normal visualized sacral ala. Normal visualized paraspinous soft tissue structures. MRI/Spine Lumbar (Routine) IMPRESSION: 1. Mild degenerative disc disease at L4-L5 and mild central canal stenosis. Electronically Signed: Rob Brown MD at 14:34 EDT ,
--- NOTE | 2021-11-19 13:39 | MRI_ITS ---
STUDY: MRI LEFT KNEE REASON FOR EXAM: Female, 45 years old. PAIN IN KNEE X 20 YEARS. HX OF SURGERIES X 3 ON EACH KNEE. TECHNIQUE: Standardized fat and water weighted pulse sequences were obtained in all 3 orthogonal planes. COMPARISON: X-ray of the left knee dated August 20, 2021 FINDINGS: Normal medial meniscus. Normal hyaline cartilage of the medial femorotibial compartment. Normal medial femoral condyle and tibial plateau. Normal medial collateral ligamentous complex (MCL). Normal distal semimembranosus, gracilis and semitendinosus tendons. Normal lateral meniscus. There is diffuse, less than 50% thickness articular cartilage loss of the lateral femorotibial compartment. Normal lateral femoral condyle and tibial plateau. Normal proximal tibiofibular articulation. Normal lateral collateral (fibular) ligament. Normal popliteus tendon. Normal biceps femoris tendon. Normal anterior cruciate ligament (ACL). Normal posterior cruciate ligament (PCL). Normal congruent patellofemoral articulation. There is diffuse, less than 50% thickness articular cartilage loss of the patellofemoral compartment. Subchondral cystic changes are present in the lateral patellar facet. Normal medial and lateral patellar retinaculum. Normal quadriceps tendon. Normal patellar tendon. Normal Hoffa''s fat pad. There is no joint effusion. The soft tissues are unremarkable. The otherwise visualized osseous structures are unremarkable. MRI/Lower Ext Joint Only (Routine) IMPRESSION: 1. Mild cartilage thinning and osteophytic changes of the patellofemoral compartment. 2. Mild cartilage thinning in the lateral compartment. Electronically Signed: Rob Brown MD at 14:26 EDT ,
[2021-11-19 14:44] LABS: Hematocrit 41.7 % (37-47); Hemoglobin 14.7 g/dL (12.0-15.0); Mean Corp Hgb Conc 35.3 g/dL (32-36); Mean Corpuscular Hgb 29.2 pg (27.0-32.0); Mean Corpuscular Volume 82.9 fL (81-99); Mean Platelet Vol. 10.8 fl (6.2-12.0); Platelet Count 161 K/mm3 (150-450); RBC Distribution Width CV 13.2 % (11.6-14.6); Red Blood Count 5.03 M/mm3 (4.2-5.4); White Blood Count 5.9 K/mm3 (4.4-11.0)
[2021-11-19 15:20] LABS: Hemoglobin A1c 10.7 % (3.8-5.6)
[2021-11-19 15:28] LABS: Anion Gap 6 (5-15); BUN 13 mg/dL (7-18); BUN/Creat Ratio 12.6 RATIO (10-20); Calcium,Total 9.1 mg/dL (8.5-10.1); Chloride 99 mmol/L (98-107); Creatinine, Serum 1.03 mg/dL (0.55-1.02); EST Glomerular Filtration Rate 62 mL/min (>60); Est Glom Filt Rate - Afr Amer 75 mL/min (>60); Glucose 459 mg/dL (74-106); Potassium 3.6 mmol/L (3.5-5.1); Sodium Level 135 mmol/L (136-145)
[2021-11-19 15:29] LABS: Syphilis Antibodies Non-reactive
[2021-11-19 17:15] LABS: Chlamydia Trachomatis by PCR Negative (Negative); Neisserai gonorrhoeae by PCR Negative (Negative); Probe Check PASS; Sample Adequacy Control PASS; Specimen Processing Control PASS
[2021-11-23 14:39] LABS: HIV-1 RNA by PCR, Quant. 20 copies/mL (.); LOG10 HIV-1 RNA 1.301 (.)
[2021-11-23 15:07] LABS: Absolute CD4 Helper 428 /uL (359-1519); Basophils (Absolute) 0 x10E3/uL (0.0-0.2); Eosinophils 3 % (Not Estab.); Eosinophils (Absolute) 0.2 x10E3/uL (0.0-0.4); Hematocrit 46.6 % (34.0-46.6); Hemoglobin 14.7 g/dL (11.1-15.9); Immature Granulocytes 0 % (Not Estab.); Lymphs 32 % (Not Estab.); Lymphs (Absolute) 1.9 x10E3/uL (0.7-3.1); MCH 28.9 pg (26.6-33.0); MCHC 31.5 g/dL (31.5-35.7); MCV 92 fL (79-97); Monocytes 6 % (Not Estab.); Monocytes (Absolute) 0.4 x10E3/uL (0.1-0.9); Neutrophils 58 % (Not Estab.); Neutrophils (Absolute) 3.4 x10E3/uL (1.4-7.0); Percent % CD4 Pos. Lymph. 22.5 % (30.8-58.5); Platelets 173 x10E3/uL (150-450); RBC Count 5.09 x10E6/uL (3.77-5.28); RDW 13.3 % (11.7-15.4); WBC Count 5.9 x10E3/uL (3.4-10.8)
[2021-11-23 16:58] LABS: Immature Granulocytes Absolute 0 x10E3/uL (0.0-0.1)
== END 2021-11-19 23:59 | disposition home or self-care (01) ==
DX: Z21 Asymptomatic human immunodeficiency virus [HIV] infection status (principal); M23.92 Unspecified internal derangement of left knee; M54.16 Radiculopathy, lumbar region
CPT/HCPCS: 36415; 72148; 73721; 80048; 83036; 85027; 86361; 86780; 87491; 87536; 87591

== ENCOUNTER 2022-02-19 05:31 | Emergency (ER) | payer MEDICARE, MEDICAID, SELFPAY ==
[2022-02-19 05:31] VITALS: PULSE 105; RESP 16; TEMP 36.7; O2SAT 97; BMI 38.2
[2022-02-19 05:36] VITALS: BP 135/101
--- NOTE | 2022-02-19 06:21 | RAD_ITS ---
STUDY: X-RAY - UNILATERAL RIBS ( RIGHT ) WITH CHEST REASON FOR EXAM: Female, 46 years old. Trauma TECHNIQUE - RIBS: 4 view(s) of the ribs. TECHNIQUE - CHEST: Single frontal view of the chest. COMPARISON: None. FINDINGS - RIBS: Normal visualized ribs without a demonstrated fracture. FINDINGS - CHEST: The lungs are clear and expanded. There is no demonstrated pleural abnormality. Normal size heart. Normal mediastinum and donta. Normal visualized pulmonary arteries. Normal visualized aortic arch and descending thoracic aorta. Normal visualized thoracic spine. Normal visualized ribs, clavicles, and shoulders. There is no demonstrated abnormality of the visualized soft tissue structures of the upper abdomen. RAD/Ribs Uni Min 3V w/PA Chest IMPRESSION: RIBS: Normal x-ray examination of the ribs. CHEST: Normal x-ray examination of the chest. Electronically Signed: Jordan Brannon DO at 6:43 EDT ,
--- NOTE | 2022-02-19 06:40 | EDS_ITS ---
HPI History of Present Illness Chief Complaint: Chest Other Informant: patient Onset/Context/Timing Onset: Today Quality of Pain: Sharp, Aching, Burning and Stabbing Location: Right lower ribs Worsened by: Movement, deep breathing Relieved by: Nothing Associated Symptoms Associated Symptoms: Negative for Parasthesias, Weakness, Loss of function, Inability to ambulate, Loss of consciousness or Amnesia Narrative Narrative: Patient presents with right-sided rib pain that began today. Patient states that she bent over a railing and felt a pop on the right side of her ribs. Patient states her pain is sharp. Patient states it is worse with movement. Patient states nothing helps with her pain. Patient denies any paresthesias or weakness. Patient denies any head injury or loss of consciousness. Patient denies any shortness of breath but states it hurts to take a deep breath. Patient states the pain radiates into her back. [facility] Medical History Anxiety Arthritis Asthma Back pain Cancer CHF (congestive heart failure) Depression Diabetes mellitus Diverticulosis Enlargement, spleen Fibromyalgia GERD (gastroesophageal reflux disease) Hemorrhoids Herpes Hiatal hernia History of alcoholism History of blood transfusion History of drug abuse History of kidney stones History of myocardial infarct at age less than 60 years HIV (human immunodeficiency virus infection) HIV exposure HPV in female Hypertension Insomnia Kidney disease Obesity Polyneuropathy Seasonal allergies Vitamin B12 deficiency Vitamin D deficiency Medical History no medical history Home Medications folic acid 400 mcg tablet 0.4 mg PO DAILY supplement 12/07/18 [History Last Taken 06/20/19] dicyclomine 10 mg capsule 10 mg PO TIDAC PRN pain 12/20/18 [History Last Taken 06/20/19] cyanocobalamin (vitamin B-12) 500 mcg tablet 500 mcg PO DAILY vitamin 05/31/19 [History Last Taken 06/20/19] multivitamin 1 ea PO DAILY vitamin 05/31/19 [History Last Taken 06/20/19] albuterol sulfate 90 mcg/actuation aerosol inhaler (ProAir HFA) 2 puff inhalation Q6H PRN shortness of breath or wheezing #18 grams 06/18/19 [Rx Last Taken 06/20/19] loratadine 10 mg tablet 10 mg PO DAILY PRN Allergies 09/09/19 [History Last Taken Unknown] sennosides 8.6 mg-docusate sodium 50 mg capsule 2 tab PO DAILY PRN Constipation 09/09/19 [History Last Taken Unknown] calcium carbonate 215 mg calcium (500 mg) chewable tablet (Antacid Calcium) 215 mg PO BID supplement 09/19/19 [History Last Taken Unknown] cholecalciferol (vitamin D3) 1,250 mcg (50,000 unit) capsule 50,000 unit PO .COMPLEX vitamin 09/19/19 [History Last Taken Unknown] pantoprazole 40 mg tablet,delayed release 40 mg PO DAILY reflux 09/19/19 [History Last Taken Unknown] fluconazole 100 mg tablet 100 mg PO DAILY yeast infection 11/28/19 [History Last Taken Unknown] magnesium 250 mg tablet 250 mg PO DAILY supplement 11/28/19 [History Last Taken Unknown] ondansetron HCl 4 mg tablet 4 mg PO TID nausea 11/28/19 [History Last Taken Unknown] Valacyclovir Hcl [Valtrex] 1,000 mg PO TID #30 tabs 05/21/20 [Rx Last Taken Unknown] naproxen 500 mg tablet (Naprosyn) 500 mg PO BID PRN pain #20 tabs 08/17/21 [Rx Last Taken Unknown] bictegravir 50 mg-emtricitabine 200 mg-tenofovir alafenam 25 mg tablet 1 tab PO DAILY HIV 08/20/21 [History Last Taken Unknown] meloxicam 15 mg tablet 15 mg PO DAILY PRN pain #14 tabs 02/19/22 [Rx Last Taken Unknown] Allergy/AdvReac Type Severity Reaction Status Date / Time Iodinated Contrast Media Allergy Unknown Hives Verified 02/19/22 05:34 [Iodinated Contrast- Oral and IV Dye] amoxicillin Allergy Hives Verified 02/19/22 05:34 hydrocodone [From Vicodin] Allergy Unknown Verified 02/19/22 05:34 methylprednisolone Allergy Hives Verified 02/19/22 05:34 [From Medrol] moxifloxacin Allergy Shortness Verified 02/19/22 05:34 of breath prochlorperazine Allergy Other Verified 02/19/22 05:34 [From Compazine] prochlorperazine edisylate Allergy Other Verified 02/19/22 05:34 [From Compazine] prochlorperazine maleate Allergy Other Verified 02/19/22 05:34 [From Compazine] acetaminophen [From Tylenol] AdvReac Other Verified 02/19/22 05:34 sumatriptan [From Imitrex] AdvReac Hives Verified 02/19/22 05:34 Family History Other Alcoholism Anxiety and depression Arthritis Asthma Breast cancer CVA (cerebral vascular accident) Cancer Diabetes Heart disease Hyperlipemia Hypertension Kidney disease Myocardial infarction Seizures Surgical History History of 2 sections History of appendectomy History of cholecystectomy History of colonoscopy History of D&C History of endoscopy History of hernia repair History of hysterectomy History of left heart catheterization (06/01/19) History of left knee surgery History of liver biopsy History of shoulder surgery History of tonsillectomy History of tubal ligation Hx of right knee surgery Social History Smoking Status: Current some day smoker tobacco type: cigarettes Tobacco: How many years used: 22 alcohol intake: former substance use type: former substance user what type of physical activity do you participate in: none ROS ROS ED Constitutional Constitutional ED: Denies chills or fever(s) Eyes Eyes: Denies blurry vision or change in vision ENT ENT ED: Denies rhinorrhea or sore throat Cardiovascular Cardiovascular: Reports chest pain; Denies palpitations Respiratory/Chest Respiratory/Chest: Denies cough or dyspnea Gastrointestinal Gastrointestinal: Denies nausea or vomiting Genitourinary Genitourinary ED: Denies dysuria or hematuria Musculoskeletal Musculoskeletal: Reports back pain; Denies neck pain Integumentary Reports rash; Denies abscess Neurologic Neurologic: Reports headache(s); Denies weakness Allergic/Immunologic Allergic/Immunologic ED: Denies mouth swelling or urticaria EXAM Physical Exam Const Vital Signs: 02/19/22 05:31 02/19/22 05:34 02/19/22 05:36 Temperature 98.1 F Temperature Source Temporal Pulse Rate 105 H Respiratory Rate 16 Respiratory Effort Normal Non-Labored Blood Pressure 135/101 H Blood Pressure Mean 112 Pulse Ox 97 Oxygen Delivery Method Room Air Positive well nourished and well developed General Appearance ED: well developed HEENT Reports moist mucous membranes Neck supple and no JVD Chest Wall Chest Narrative: There is tenderness over the right lower ribs and costal margin. There is no edema or ecchymosis. There is no bony crepitance or step-off. There is no subcutaneous emphysema noted. Resp normal respiratory effort and clear to auscultation bilaterally Cardio regular rate, regular rhythm and no murmurs GI normal to inspection, nondistended, normoactive bowel sounds and non-tender Palpation: soft Extremity normal to inspection General Extremety ED: Negative for edema or tenderness General Extremity: Negative for edema Neuro oriented x3, CN's II-XII intact bilaterally and no sensory deficits noted Sensorium / Orientation: alert Motor Exam: strength 5/5 throughout Psych mental status grossly normal Skin no rashes or lesions noted MDM MDM MDM Narrative Medical decision making narrative: X-rays of the right ribs were obtained. There are 5 views. On my interpretation, there is no acute fracture. There is no displacement of the ribs. There is no pneumothorax. There is no acute cardiopulmonary process. Radiologist also interpreted the x-rays and agrees. Patient was advised of her findings. Patient was instructed to use ice to the area. Patient was given a prescription for meloxicam. Patient was instructed to follow-up with her primary care physician in 5 to 7 days. Patient understood and was agreeable with the plan. All questions were answered. Radiography Diagnostic Testing: Clinical Impression(s) from Imaging Studies Ribs w/Chest X-Ray 02/19/22 06:21 IMPRESSION: RIBS: Normal x-ray examination of the ribs. CHEST: Normal x-ray examination of the chest. Electronically Signed: Jordan Brannon DO at 6:43 EDT Reading Location ID and State: [facility] / [place] Tel , Service support , Discharge Plan Triage Chief Complaint: Chest Other ED Provider: Carlton Watts Dx/Rx/DC Orders Clinical Impression: Rib pain on right side, Fibromyalgia Instructions: ED Chest Wall Contusion Prescriptions: New meloxicam 15 mg tablet 15 mg PO DAILY PRN (Reason: pain) Qty: 14 0RF No Action folic acid 400 mcg tablet 0.4 mg PO DAILY dicyclomine 10 mg capsule 10 mg PO TIDAC PRN (Reason: pain) cholecalciferol (vitamin D3) 1,250 mcg (50,000 unit) capsule 50,000 unit PO .COMPLEX Rx Instructions: 50,000 units PO q o week; Antacid Calcium 215 mg calcium (500 mg) tablet,chewable 215 mg PO BID multivitamin 1 EACH tablet 1 ea PO DAILY cyanocobalamin (vitamin B-12) 500 MCG tablet 500 mcg PO DAILY sennosides-docusate sodium 1 EACH capsule 2 tab PO DAILY PRN (Reason: Constipation) loratadine 10 MG tablet 10 mg PO DAILY PRN (Reason: Allergies) pantoprazole 40 mg tablet,delayed release (DR/EC) 40 mg PO DAILY fluconazole 100 MG tablet 100 mg PO DAILY ondansetron HCl 4 MG tablet 4 mg PO TID magnesium 250 MG tablet 250 mg PO DAILY dldjdrewx-ouewqqky-wfvieob ala 50-200-25 mg tablet 1 tab PO DAILY naproxen [Naprosyn] 500 mg tablet 500 mg PO BID PRN (Reason: pain) Qty: 20 0RF albuterol sulfate [ProAir HFA] 90 mcg/actuation HFA aerosol inhaler 2 puff INHALATION Q6H PRN (Reason: shortness of breath or wheezing) Qty: 18 2RF Valacyclovir Hcl [Valtrex] 1,000 MG tablet 1,000 mg PO TID Qty: 30 0RF Primary Care Provider: Care Physician,No Primary Referrals: Jarod Dunn DO [NON-STAFF] - 5-7 Days Care Physician,No Primary [Primary Care Provider] - Disposition Disposition: Home, Self Care
== END 2022-02-19 07:10 | disposition home or self-care (01) ==
PROVIDERS: Emergency Provider Emergency Medicine; Visit Provider Emergency Medicine
DX: R07.81 Pleurodynia (principal); I11.0 Hypertensive heart disease with heart failure; I50.9 Heart failure, unspecified; E11.42 Type 2 diabetes mellitus with diabetic polyneuropathy; M79.7 Fibromyalgia; F17.210 Nicotine dependence, cigarettes, uncomplicated; E66.9 Obesity, unspecified; Z79.899 Other long term (current) drug therapy
CPT/HCPCS: 71101; 99282

== ENCOUNTER → 2022-05-11 | Outpatient (CLI) | payer MEDICARE, MEDICAID, SELFPAY ==
[2022-05-11 12:01] LABS: Absolute Lymphocyte Count 1.72 X10^3/uL (0.83-4.51); Absolute Neutrophil Count 3.5 X10^3/uL (2.0-7.7); Basophil# 0.03 X10^3/uL; Basophil% 0.5 % (0-1); Eosinophil# 0.18 X10^3/uL; Eosinophils% 3.1 % (0-5); Hematocrit 39.3 % (37-47); Hemoglobin 13.5 g/dL (12.0-15.0); Lymphocyte # 1.72 X10^3/ul (0.83-4.51); Lymphocyte % 29.9 % (19-41); Mean Corp Hgb Conc 34.4 g/dL (32-36); Mean Corpuscular Volume 84.5 fL (81-99); Mean Platelet Vol. 11.2 fl (6.2-12.0); Monocyte# 0.33 X10^3/uL; Monocyte% 5.7 % (0-10); NRBC Flagged by Analyzer 0 % (0-5); Neutrophil # 3.48 X10^3/uL (2.7-7.7); Neutrophil % 60.5 % (47-70); Platelet Count 152 K/mm3 (150-450); RBC Distribution Width CV 13.4 % (11.6-14.6); RBC Distribution Width SD 41.3 fl (35.1-43.9); Red Blood Count 4.65 M/mm3 (4.2-5.4); White Blood Count 5.8 K/mm3 (4.4-11.0)
[2022-05-11 13:00] LABS: Syphilis Antibodies Non-reactive
[2022-05-11 14:03] LABS: Chlamydia Trachomatis by PCR Negative (Negative); Neisserai gonorrhoeae by PCR Negative (Negative); Probe Check PASS; Sample Adequacy Control PASS; Specimen Processing Control PASS
[2022-05-11 14:08] LABS: Anion Gap 8 (5-15); BUN 20 mg/dL (7-18); Calcium,Total 9.7 mg/dL (8.5-10.1); Chloride 101 mmol/L (98-107); Cholesterol 165 mg/dL (200); Creatinine, Serum 1.11 mg/dL (0.55-1.02); EST Glomerular Filtration Rate 56 mL/min (>60); Est Glom Filt Rate - Afr Amer 68 mL/min (>60); Glucose 514 mg/dL (74-106); High Density Lipoprotein 36 mg/dL; Potassium 4.4 mmol/L (3.5-5.1); Sodium Level 133 mmol/L (136-145); Triglycerides 277 mg/dL; Very Low Density Lipoprotein 55 mg/dL (5-40)
[2022-05-13 10:39] LABS: HIV-1 RNA by PCR, Quant. 30 copies/mL (.); LOG10 HIV-1 RNA 1.477 (.)
== END | disposition home or self-care (01) ==
PROVIDERS: Referring Provider Internal Medicine Infectious Disease; Visit Provider Internal Medicine Infectious Disease
DX: B20 Human immunodeficiency virus [HIV] disease (principal); E11.65 Type 2 diabetes mellitus with hyperglycemia
CPT/HCPCS: 36415; 80048; 80061; 85025; 86780; 87491; 87536; 87591

== ENCOUNTER 2022-10-10 23:52 | Emergency (ER) | payer MEDICARE, MEDICAID, SELFPAY ==
[2022-10-10 23:52] VITALS: BP 146/82; PULSE 98; RESP 20; TEMP 36.6; O2SAT 100; BMI 37.6
--- NOTE | 2022-10-11 00:10 | EDS_ITS ---
HPI History of Present Illness Chief Complaint: Dental Informant: patient Narrative Narrative: Presents with pain in her right lower jaw. She states she had a filling fall out about 2 weeks ago. She cannot get into see the dentist for a few more weeks. It is just increasing. No prior treatment. No other complaints. No trouble swallowing. No fevers or chills. No trouble breathing shortness of breath or chest pain. Only medicine is Biktarvy. She states she has had negative viral loads and negative for HIV for 23 years due to treatments. She has multiple allergies but can tolerate tramadol and clindamycin. [facility] Medical History Anxiety Arthritis Asthma Back pain Cancer CHF (congestive heart failure) Depression Diabetes mellitus Diverticulosis Enlargement, spleen Fibromyalgia GERD (gastroesophageal reflux disease) Hemorrhoids Herpes Hiatal hernia History of alcoholism History of blood transfusion History of drug abuse History of kidney stones History of myocardial infarct at age less than 60 years HIV (human immunodeficiency virus infection) HIV exposure HPV in female Hypertension Insomnia Kidney disease Obesity Polyneuropathy Seasonal allergies Vitamin B12 deficiency Vitamin D deficiency Home Medications bictegravir 50 mg-emtricitabine 200 mg-tenofovir alafenam 25 mg tablet (Biktarvy) 1 tab PO DAILY 10/10/22 [History Last Taken Unknown] clindamycin HCl 300 mg capsule (Cleocin HCl) 300 mg PO Q6H #40 CAPSULES 10/11/22 [Rx Last Taken Unknown] tramadol 50 mg tablet 50 mg PO Q6H PRN pain #10 tabs 10/11/22 [Rx Last Taken Unknown] Allergy/AdvReac Type Severity Reaction Status Date / Time Iodinated Contrast Media Allergy Unknown Hives Verified 02/19/22 05:34 [Iodinated Contrast- Oral and IV Dye] amoxicillin Allergy Hives Verified 02/19/22 05:34 hydrocodone [From Vicodin] Allergy Unknown Verified 02/19/22 05:34 methylprednisolone Allergy Hives Verified 02/19/22 05:34 [From Medrol] moxifloxacin Allergy Shortness Verified 02/19/22 05:34 of breath prochlorperazine Allergy Other Verified 02/19/22 05:34 [From Compazine] prochlorperazine edisylate Allergy Other Verified 02/19/22 05:34 [From Compazine] prochlorperazine maleate Allergy Other Verified 02/19/22 05:34 [From Compazine] acetaminophen [From Tylenol] AdvReac Other Verified 02/19/22 05:34 sumatriptan [From Imitrex] AdvReac Hives Verified 02/19/22 05:34 Family History Other Alcoholism Anxiety and depression Arthritis Asthma Breast cancer CVA (cerebral vascular accident) Cancer Diabetes Heart disease Hyperlipemia Hypertension Kidney disease Myocardial infarction Seizures Surgical History History of 2 sections History of appendectomy History of cholecystectomy History of colonoscopy History of D&C History of endoscopy History of hernia repair History of hysterectomy History of left heart catheterization (06/01/19) History of left knee surgery History of liver biopsy History of shoulder surgery History of tonsillectomy History of tubal ligation Hx of right knee surgery Social History Smoking Status: Current some day smoker tobacco type: cigarettes Tobacco: How many years used: 22 alcohol intake: former substance use type: former substance user what type of physical activity do you participate in: none ROS ROS ED Constitutional Constitutional ED: Denies chills or fever(s) ENT ENT ED: Reports other Details: Dental pain as above. ; Denies rhinorrhea or sore throat Cardiovascular Cardiovascular: Denies chest pain Respiratory/Chest Respiratory/Chest: Denies cough or dyspnea Gastrointestinal Gastrointestinal: Denies nausea or vomiting Musculoskeletal Musculoskeletal: Denies neck pain Integumentary Denies rash Hematologic/Lymphatic Hematologic/Lymphatic: Denies lymphadenopathy EXAM Physical Exam Narrative Exam Narrative: GEN awake alert no acute distress. Laying comfortably on bed. HEENT: No facial swelling erythema or tenderness. No sinus tenderness. Nasal passages clear. Oropharynx looks normal. She does have multiple teeth missing. There is a premolar on the right lower jaw that has most of the back of it gone. I do not know if there was a prior filling or if this is infection with loss of most of the tooth but there is certainly exposed pulp. Gum has mild erythema around it but there is no swelling no abscess. Floor the mouth is soft and she moves her tongue easily. Neck shows no lymphadenopathy Lungs are clear. Heart is regular. Abdomen is obese but benign. Const Vital Signs: 10/10/22 23:52 Temperature 97.8 F Temperature Source Oral Pulse Rate 98 Respiratory Rate 20 H Blood Pressure 146/82 H Blood Pressure Mean 103 Pulse Ox 100 Oxygen Delivery Method Room Air MDM MDM MDM Narrative Medical decision making narrative: Patient will follow-up with dentist. I will start her on antibiotics and meds for pain. She has multiple allergies that we need to work around. I did do online prescribing report access and her last narcotics are about a year and a half ago. Discharge Plan Triage Chief Complaint: Dental ED Provider: Stevenson Oliveira Dx/Rx/DC Orders Clinical Impression: Pain, dental Instructions: ED Dental Pain Prescriptions: New tramadol 50 mg tablet 50 mg PO Q6H PRN (Reason: pain) Qty: 10 0RF clindamycin HCl [Cleocin HCl] 300 mg capsule 300 mg PO Q6H Qty: 40 0RF No Action Biktarvy 50-200-25 mg tablet 1 tab PO DAILY Label Comments: TAKE 1 TABLET BY MOUTH EVERY DAY - TAKE AT LEAST 2 HOURS APART FROM MULTIVITAMINS AND CALCIUM Primary Care Provider: Care Physician,No Primary Referrals: Care Physician,No Primary [Primary Care Provider] - Activity Restrictions/Additional Instructions: Follow-up with your dentist as soon as possible. Disposition Disposition: Home, Self Care
[2022-10-11 00:15] VITALS: BP 146/82; PULSE 98; RESP 20; O2SAT 100
[2022-10-11] MEDS: Clindamycin HCl 150 MG Capsule 300 MG PO (00:20)
[2022-10-11] MEDS: traMADol 50 MG Tablet PO (00:20)
== END 2022-10-11 00:28 | disposition home or self-care (01) ==
LOC: ED 10-11 00:26
PROVIDERS: Emergency Provider Emergency Medicine; Visit Provider Emergency Medicine
DX: K08.89 Other specified disorders of teeth and supporting structures (principal); I11.0 Hypertensive heart disease with heart failure; I50.9 Heart failure, unspecified; E11.638 Type 2 diabetes mellitus with other oral complications; E11.42 Type 2 diabetes mellitus with diabetic polyneuropathy; R68.84 Jaw pain; F17.210 Nicotine dependence, cigarettes, uncomplicated
CPT/HCPCS: 99283

== ENCOUNTER 2022-10-14 19:45 | Emergency (ER) | payer MEDICARE, MEDICAID, SELFPAY ==
[2022-10-14 19:46] VITALS: BP 138/90; PULSE 100; RESP 18; TEMP 36.8; O2SAT 98; BMI 35.8
--- NOTE | 2022-10-14 20:07 | ED.VIS.CHEST ---
HPI History of Present Illness Chief Complaint: Chest Pain Informant: patient Onset/Context/Timing Onset: Yesterday Narrative Narrative: Patient has been having mid and right chest pain that she cannot describe otherwise since last night around 24 hours or so ago, it started when she felt a pop sensation in her right upper chest/neck area. She has been having dental pain from a decayed/broken right mandibular first molar for the past several days to a week, she was seen here in the ED, was prescribed clindamycin that she has been taking for 4 or 5 days now, and tramadol which is gone she still having a lot of pain there. She feels like this pop was related to that somehow but it did not occur in her mouth that was more in her neck and upper chest. She states since the pain started there in her neck and chest she has been having some trouble breathing as well. She denies any leg pain or swelling. No history of DVT or PE that she knows of. She is on no anticoagulants for any reason. [facility] Medical History Anxiety Arthritis Asthma Back pain Cancer CHF (congestive heart failure) Depression Diabetes mellitus Diverticulosis Enlargement, spleen Fibromyalgia GERD (gastroesophageal reflux disease) Hemorrhoids Herpes Hiatal hernia History of alcoholism History of blood transfusion History of drug abuse History of kidney stones History of myocardial infarct at age less than 60 years HIV (human immunodeficiency virus infection) HIV exposure HPV in female Hypertension Insomnia Kidney disease Obesity Polyneuropathy Seasonal allergies Vitamin B12 deficiency Vitamin D deficiency Home Medications bictegravir 50 mg-emtricitabine 200 mg-tenofovir alafenam 25 mg tablet (Biktarvy) 1 tab PO DAILY 10/10/22 [History Last Taken Unknown] clindamycin HCl 300 mg capsule (Cleocin HCl) 300 mg PO Q6H #40 CAPSULES 10/11/22 [Rx Last Taken Unknown] tramadol 50 mg tablet 50 mg PO Q6H PRN pain #10 tabs 10/11/22 [Rx Last Taken Unknown] oxycodone-acetaminophen 5 mg-325 mg tablet (Percocet) 1 tab PO Q4H 2 days #10 tabs 10/14/22 [Rx Last Taken Unknown] Allergy/AdvReac Type Severity Reaction Status Date / Time Iodinated Contrast Media Allergy Unknown Hives Verified 10/14/22 19:48 [Iodinated Contrast- Oral and IV Dye] amoxicillin Allergy Hives Verified 10/14/22 19:48 hydrocodone [From Vicodin] Allergy Unknown Verified 10/14/22 19:48 methylprednisolone Allergy Hives Verified 10/14/22 19:48 [From Medrol] moxifloxacin Allergy Shortness Verified 10/14/22 19:48 of breath prochlorperazine Allergy Other Verified 10/14/22 19:48 [From Compazine] prochlorperazine edisylate Allergy Other Verified 10/14/22 19:48 [From Compazine] prochlorperazine maleate Allergy Other Verified 10/14/22 19:48 [From Compazine] acetaminophen [From Tylenol] AdvReac Other Verified 10/14/22 19:48 sumatriptan [From Imitrex] AdvReac Hives Verified 10/14/22 19:48 Family History Other Alcoholism Anxiety and depression Arthritis Asthma Breast cancer CVA (cerebral vascular accident) Cancer Diabetes Heart disease Hyperlipemia Hypertension Kidney disease Myocardial infarction Seizures Surgical History History of 2 sections History of appendectomy History of cholecystectomy History of colonoscopy History of D&C History of endoscopy History of hernia repair History of hysterectomy History of left heart catheterization (06/01/19) History of left knee surgery History of liver biopsy History of shoulder surgery History of tonsillectomy History of tubal ligation Hx of right knee surgery Social History Smoking Status: Current some day smoker tobacco type: cigarettes Tobacco: How many years used: 22 alcohol intake: former substance use type: former substance user what type of physical activity do you participate in: none ROS ROS ED Constitutional Constitutional ED: Denies chills or fever(s) Eyes Eyes: Denies change in vision or diplopia ENT ENT ED: Reports as per HPI and dental pain; Denies rhinorrhea or sore throat Cardiovascular Cardiovascular: Reports chest pain; Denies palpitations Respiratory/Chest Respiratory/Chest: Reports dyspnea; Denies cough Gastrointestinal Gastrointestinal: Denies abdominal pain, diarrhea, nausea or vomiting Genitourinary Genitourinary ED: Denies dysuria or hematuria Musculoskeletal Musculoskeletal: Denies back pain or neck pain Integumentary Denies abscess or rash Neurologic Neurologic: Denies headache(s), paresthesias or weakness Psychiatric Psychiatric: Reports anxiety; Denies suicidal thoughts EXAM Physical Exam Const Vital Signs: 10/14/22 19:46 10/14/22 20:46 10/14/22 20:46 Temperature 98.3 F Temperature Source Temporal Pulse Rate 100 86 Respiratory Rate 18 16 Respiratory Effort Normal Non-Labored Blood Pressure 138/90 H 131/78 H Blood Pressure Mean 106 95 Pulse Ox 98 99 Oxygen Delivery Method Room Air Room Air 10/14/22 22:00 10/14/22 22:48 10/14/22 23:00 Temperature 97.6 F L Temperature Source Oral Pulse Rate 74 76 74 Respiratory Rate 16 18 Respiratory Effort Blood Pressure 128/82 H 113/66 Blood Pressure Mean 97 81 Pulse Ox 99 99 Oxygen Delivery Method Room Air Room Air Positive well nourished and well developed General Appearance ED: well developed and NAD HEENT Reports moist mucous membranes HEENT Narrative: Tender tooth #30 which is decayed down to the gumline, there is no obvious associated abscess visible or palpable, no trismus, no sublingual edema or tongue elevation. No gingival obvious abnormality or bleeding. No purulent discharge. normocephalic and atraumatic Eyes PERRL and EOMs intact bilaterally Neck full ROM, no lymphadenopathy and supple Chest Wall inspection of chest normal and palpation of chest normal Resp normal respiratory effort and clear to auscultation bilaterally Resp Narrative: Tachypneic, no distress Cardio regular rate, regular rhythm and no murmurs GI non-tender and non-distended Auscultation: normoactive bowel sounds Palpation: soft Back/Spine no CVA tenderness General Back: other FROM Extremity normal to inspection General Extremety ED: Negative for edema, pulses abnormal or tenderness General Extremity: Negative for edema or pulses abnormal Neuro oriented x3, CN's II-XII intact bilaterally and no sensory deficits noted Sensorium / Orientation: awake and alert Motor Exam: strength 5/5 throughout Psych Mood & Affect: anxious Skin no rashes or lesions noted and no wounds MDM MDM MDM Narrative Medical decision making narrative: EKG and troponin are normal, labs otherwise are just significant for hyperglycemia 486.she was given IV fluids and morphine for her symptoms initially which helped. Initially obtained a 1 view chest x-ray which my interpretation is negative for pneumothorax or wide mediastinum, but given her symptoms and in the interest of ruling out the most dangerous pathology here, I thought she should have CT angiography of the neck and chest in order to rule out arterial dissections. Patient indicated that although she has a clear allergy to IV contrast dye, if she receives IV only, she does not react; she only reacts with hives if she has oral and IV dye only. I initially attempted to pretreat her with our emergent protocol, but the patient also declared an allergy to methylprednisolone due to oral Medrol Dosepak, she does not recall ever having had IV methylprednisolone so we are avoiding that and watching her after the CTA. Patient remained stable. She did not develop any reaction from the IV dye. CT angiography of the chest and the neck vessels were obtained, I reviewed the images and I see no signs of any dissection or other acute vascular abnormality. I reviewed the radiology interpretations of these imaging studies and they are in agreement. Additionally, I reviewed the area of the patient's dental pain. There is no sign of a drainable collection, consistent with my exam. She wanted more pain medication. She appeared very well, resting comfortably. I reviewed her OARRS report, she had a recent tramadol which she admitted to but no other recent prescriptions for narcotics, so I wrote her a prescription for oxycodone and advised her that we will send to our pharmacy here so that she may take 1 prior to discharge if she wishes. In the meantime we did give her some insulin for hyperglycemia as well. Stable for discharge. Lab Data Attestation: I reviewed the patient's lab results. Labs: Laboratory Results - last 24 hr 10/14/22 10/14/22 20:01 20:01 WBC 7.6 RBC 5.26 Hgb 15.5 H Hct 45.3 MCV 86.1 MCH 29.5 MCHC 34.2 RDW Std Deviation 41.3 RDW Coeff of Vladimir 13.2 Plt Count 196 MPV 10.9 Immature Gran % (Auto) 0.300 Neut % (Auto) 59.4 Lymph % (Auto) 30.9 [place] % (Auto) 5.4 Eos % (Auto) 3.2 Baso % (Auto) 0.8 Absolute Neuts (auto) 4.5 Absolute Lymphs (auto) 2.34 Nucleated RBC % 0 Sodium 132 L Potassium 3.8 Chloride 99 Carbon Dioxide 22.0 Anion Gap 11 BUN 17 Creatinine 1.16 H Estim Creat Clear Calc 57.33 Est GFR (MDRD) Af Amer 65 Est GFR (MDRD) Non-Af 54 L BUN/Creatinine Ratio 14.7 Glucose 486 H* Calcium 9.3 Troponin I High Sens < 3 L Radiography Diagnostic Testing: Clinical Impression(s) from Imaging Studies Chest X-Ray 10/14/22 20:32 IMPRESSION: Degenerative changes, as described above. No demonstrated acute cardiopulmonary process. Electronically Signed: Brad Valentine MD at 20:59 EST Reading Location ID and State: [facility] / [place] , Service support , Chest CTA 10/14/22 21:30 IMPRESSION: CTA chest examination, without a demonstrated pulmonary embolism or arterial dissection. Suboptimal enhancement of the pulmonary arteries. Electronically Signed: Brad Valentine MD at 23:09 EST Reading Location ID and State: [facility] / [place] , Service support , Neck CTA 10/14/22 21:36 IMPRESSION: Normal bilateral cervical carotid and vertebral arteries. No internal carotid artery stenosis. Electronically Signed: Brad Valentine MD at 23:15 EST , Rhythm Strip Rhythm Strip: Sinus Tach Rate: 102 Ectopy: None EKG Initial EKG: Attestation: I personally reviewed and interpreted this EKG as follows: Interpretation: Sinus Rhythm and No Acute Injury Pattern Discharge Plan Triage Chief Complaint: Chest Pain ED Provider: Brad Lan Dx/Rx/DC Orders Clinical Impression: Pain due to dental caries, Chest pain, Hyperglycemia due to type 2 diabetes mellitus Instructions: ED Chest Pain, Uncertain Cause, ED Dental Cavity Prescriptions: New oxycodone-acetaminophen [Percocet] 5-325 mg tablet 1 tab PO Q4H 2 Days Qty: 10 0RF No Action Biktarvy 50-200-25 mg tablet 1 tab PO DAILY Label Comments: TAKE 1 TABLET BY MOUTH EVERY DAY - TAKE AT LEAST 2 HOURS APART FROM MULTIVITAMINS AND CALCIUM tramadol 50 mg tablet 50 mg PO Q6H PRN (Reason: pain) Qty: 10 0RF clindamycin HCl [Cleocin HCl] 300 mg capsule 300 mg PO Q6H Qty: 40 0RF Primary Care Provider: Care Physician,No Primary Referrals: Danii Colvin MD [Med Staff - [employer]] - 1 Week if not improving Care Physician,No Primary [Primary Care Provider] - Dentist,Your [STAFF PHYSICIAN] - As soon as possible (see attached dental resource list if needed) Disposition Disposition: Home, Self Care
[2022-10-14] MEDS: Morphine 4 MG/ML Syringe IV (20:26)
--- NOTE | 2022-10-14 20:32 | RAD_ITS ---
STUDY: X-RAY CHEST REASON FOR EXAM: Female, 46 years old. Chest pain TECHNIQUE: Single AP portable view of the chest. COMPARISON: None. FINDINGS: There are monitoring devices. The lungs are clear and expanded. There is no demonstrated pleural abnormality. Normal size heart. Normal mediastinum and donta. Normal visualized pulmonary arteries. Normal visualized aortic arch and descending thoracic aorta. There is mild scoliosis and degenerative change of the spine. There is postoperative change of the right distal clavicle. There is no demonstrated abnormality of the visualized soft tissue structures of the upper abdomen. RAD/Chest 1 View (Portable) IMPRESSION: Degenerative changes, as described above. No demonstrated acute cardiopulmonary process. Electronically Signed: Brad Valentine MD at 20:59 EST ,
[2022-10-14 20:36] LABS: Absolute Lymphocyte Count 2.34 X10^3/uL (0.83-4.51); Absolute Neutrophil Count 4.5 X10^3/uL (2.0-7.7); Basophil# 0.06 X10^3/uL; Basophil% 0.8 % (0-1); Eosinophil# 0.24 X10^3/uL; Eosinophils% 3.2 % (0-5); Hematocrit 45.3 % (37-47); Hemoglobin 15.5 g/dL (12.0-15.0); Lymphocyte # 2.34 X10^3/ul (0.83-4.51); Lymphocyte % 30.9 % (19-41); Mean Corp Hgb Conc 34.2 g/dL (32-36); Mean Corpuscular Hgb 29.5 pg (27.0-32.0); Mean Corpuscular Volume 86.1 fL (81-99); Mean Platelet Vol. 10.9 fl (6.2-12.0); Monocyte# 0.41 X10^3/uL; Monocyte% 5.4 % (0-10); NRBC Flagged by Analyzer 0 % (0-5); Neutrophil % 59.4 % (47-70); Platelet Count 196 K/mm3 (150-450); RBC Distribution Width CV 13.2 % (11.6-14.6); RBC Distribution Width SD 41.3 fl (35.1-43.9); Red Blood Count 5.26 M/mm3 (4.2-5.4); White Blood Count 7.6 K/mm3 (4.4-11.0)
[2022-10-14 20:46] VITALS: BP 131/78; PULSE 86; RESP 16; O2SAT 99
[2022-10-14 20:59] LABS: Anion Gap 11 (5-15); BUN 17 mg/dL (7-18); BUN/Creat Ratio 14.7 RATIO (10-20); Calcium,Total 9.3 mg/dL (8.5-10.1); Chloride 99 mmol/L (98-107); Creatinine, Serum 1.16 mg/dL (0.55-1.02); EST Glomerular Filtration Rate 54 mL/min (>60); Est Glom Filt Rate - Afr Amer 65 mL/min (>60); Estimated Creatinine Clearance 57.33 ml/min; Glucose 486 mg/dL (74-106); Potassium 3.8 mmol/L (3.5-5.1); Sodium Level 132 mmol/L (136-145); Troponin-I HS < 3 pg/mL (3.0-54.0)
--- NOTE | 2022-10-14 21:30 | CT_ITS ---
STUDY: CTA CHEST REASON FOR EXAM: Female, 46 years old. Chest pain, neck pain RADIATION DOSAGE (If Supplied By Facility): CTDIvol = ( 21.20 ) mGy, DLP = ( 954.84 ) mGycm TECHNIQUE: The examination was performed with the intravenous administration of IV 100mL Isovue-370. Post-processing of the angiographic images was performed, with multiplanar reformation and 3D reconstruction. Individualized dose optimization techniques were used for this CT. COMPARISON: Chest x-ray FINDINGS: There is limited enhancement of the main pulmonary artery and right and left pulmonary arteries. There is limited enhancement of the bilateral peripheral pulmonary arteries. There is no demonstrated pulmonary embolism. Normal thoracic aorta. There is bovine arch with common origin of the brachiocephalic and left common carotid arteries. There is no demonstrated aortic dissection. Normal heart and pericardium. Normal mediastinum. Normal hilar regions. Normal visualized trachea and bronchi. The lungs are well expanded. There is mild lower lung atelectasis. Normal pleura. Normal chest wall structures. There is mild dextroscoliosis and degenerative change of the spine. There is postoperative change of the right shoulder. There is hepatomegaly with diffuse hepatic enlargement. There are cholecystectomy clips. CT/CTA Chest W/WO Contrast IMPRESSION: CTA chest examination, without a demonstrated pulmonary embolism or arterial dissection. Suboptimal enhancement of the pulmonary arteries. Electronically Signed: Brad Valentine MD at 23:09 EST ,
--- NOTE | 2022-10-14 21:36 | CT_ITS ---
STUDY: CTA NECK WITH CONTRAST REASON FOR EXAM: Female, 46 years old. R neck pain/chest pain RADIATION DOSAGE (If Supplied By Facility): CTDIvol = ( 25.68 ) mGy, DLP = ( 688.27 ) mGycm TECHNIQUE: CT angiography with multi-detector data acquisition was performed from the aortic arch to the skull base following intravenous administration of IV 100mL Isovue-370. MIP images were reconstructed from the axial data set. Post-processing of the angiographic images was performed, with multiplanar reformation and 3D reconstruction. Individualized dose optimization techniques were used for this CT. COMPARISON: None. FINDINGS: AORTIC ARCH: There is a bovine origin of the great vessels arising from the aortic arch with a common origin of the brachiocephalic and left common carotid artery. Normal origin of the left subclavian artery. RIGHT CAROTID ARTERIES: Normal right common carotid artery (CCA). Normal right common carotid bulb. Normal origin of the right internal carotid (ICA) artery without a hemodynamically significant stenosis. Normal visualized cervical portion of the right internal carotid artery. Normal origin of the right external carotid artery (ECA). LEFT CAROTID ARTERIES: Normal left common carotid artery (CCA). Normal left common carotid bulb. Normal origin of the left internal carotid (ICA) artery without a hemodynamically significant stenosis. Normal visualized cervical portion of the left internal carotid artery. Normal origin of the left external carotid artery (ECA). VERTEBRAL ARTERIES: Normal bilateral vertebral arteries. Other: There is degenerative change at C5-6. CT/CTA Neck W/WO Contrast IMPRESSION: Normal bilateral cervical carotid and vertebral arteries. No internal carotid artery stenosis. Electronically Signed: Brad Valentine MD at 23:15 EST ,
[2022-10-14] MEDS: Insulin Lispro 100 UNIT/ML INSULN.PEN 14 UNIT SC (21:59)
[2022-10-14 22:00] VITALS: BP 128/82; PULSE 74; RESP 16; O2SAT 99
[2022-10-14 22:48] VITALS: BP 113/66; PULSE 76; RESP 18; TEMP 36.4; O2SAT 99
[2022-10-14 23:00] VITALS: PULSE 74
[2022-10-14 23:21] VITALS: PULSE 73; RESP 16; O2SAT 98
== END 2022-10-14 23:44 | disposition home or self-care (01) ==
PROVIDERS: Emergency Provider Emergency Medicine; Visit Provider Emergency Medicine
DX: R07.9 Chest pain, unspecified (principal); I11.0 Hypertensive heart disease with heart failure; I50.9 Heart failure, unspecified; E11.65 Type 2 diabetes mellitus with hyperglycemia; E11.638 Type 2 diabetes mellitus with other oral complications; E11.42 Type 2 diabetes mellitus with diabetic polyneuropathy; F17.210 Nicotine dependence, cigarettes, uncomplicated; K08.89 Other specified disorders of teeth and supporting structures; M79.7 Fibromyalgia
CPT/HCPCS: 70498; 71045; 71275; 80048; 84484; 85025; 93005; 96361; 96374; 99285; Q9967; A4216

== ENCOUNTER 2022-12-12 06:45 | Emergency (ER) | payer MEDICARE, MEDICAID, SELFPAY ==
[2022-12-12 06:47] VITALS: PULSE 106; RESP 18; TEMP 36.4; O2SAT 98; BMI 34.4
[2022-12-12 06:51] VITALS: BP 145/93
--- NOTE | 2022-12-12 07:35 | ED.VIS.DENTA ---
HPI History of Present Illness Chief Complaint: Dental Informant: patient Onset/Context/Timing Onset: Days (2) Context: Sudden Onset Timing: Continuous Quality: Sharp Location: Right lower second premolar Worsened by: Movement of her jaw Relieved by: - (Drinking cold liquids) Associated Symptoms Assocated Symptom - Dental: jaw swelling and face swelling; Negative for fever, cold sensitivity or hot sensitivity Narrative Narrative: Patient presents with right lower dental pain that has been getting worse over the past 2 days. Patient states it began rather suddenly. Patient states it is sharp. Patient states it is over the right lower second premolar. Patient states her pain has been constant for the past 2 days. Patient states it is worse when she moves her jaw. Patient states it is better with drinking cold liquids. Patient denies any fevers or chills. Patient denies any hot or cold sensitivity. Patient states she is unable to see her dentist for the next 3 weeks. Patient was seen at another emergency department and was given prescriptions for clindamycin, Orajel, and nabumetone. Patient states she is unable to take the nabumetone because of her liver disease and GERD. Prior similar symptoms: Yes PFSH PFSH Medical History Anxiety Arthritis Asthma Back pain Cancer CHF (congestive heart failure) Depression Diabetes mellitus Diverticulosis Enlargement, spleen Fibromyalgia GERD (gastroesophageal reflux disease) Hemorrhoids Herpes Hiatal hernia History of alcoholism History of blood transfusion History of drug abuse History of kidney stones History of myocardial infarct at age less than 60 years HIV (human immunodeficiency virus infection) HIV exposure HPV in female Hypertension Insomnia Kidney disease Obesity Polyneuropathy Seasonal allergies Vitamin B12 deficiency Vitamin D deficiency Home Medications bictegravir 50 mg-emtricitabine 200 mg-tenofovir alafenam 25 mg tablet (Biktarvy) 1 tab PO DAILY 10/10/22 [History Last Taken Unknown] clindamycin HCl 300 mg capsule (Cleocin HCl) 300 mg PO Q6H #40 CAPSULES 10/11/22 [Rx Last Taken Unknown] oxycodone-acetaminophen 5 mg-325 mg tablet (Percocet) 1 tab PO Q4H 2 days #10 tabs 10/14/22 [Rx Last Taken Unknown] tramadol 50 mg tablet 50 mg PO Q6H PRN pain #10 tabs 12/12/22 [Rx Last Taken Unknown] Allergy/AdvReac Type Severity Reaction Status Date / Time Iodinated Contrast Media Allergy Unknown Hives Verified 10/14/22 19:48 [Iodinated Contrast- Oral and IV Dye] amoxicillin Allergy Hives Verified 10/14/22 19:48 hydrocodone [From Vicodin] Allergy Unknown Verified 10/14/22 19:48 methylprednisolone Allergy Hives Verified 10/14/22 19:48 [From Medrol] moxifloxacin Allergy Shortness Verified 10/14/22 19:48 of breath prochlorperazine Allergy Other Verified 10/14/22 19:48 [From Compazine] prochlorperazine edisylate Allergy Other Verified 10/14/22 19:48 [From Compazine] prochlorperazine maleate Allergy Other Verified 10/14/22 19:48 [From Compazine] acetaminophen [From Tylenol] AdvReac Other Verified 10/14/22 19:48 sumatriptan [From Imitrex] AdvReac Hives Verified 10/14/22 19:48 Family History Other Alcoholism Anxiety and depression Arthritis Asthma Breast cancer CVA (cerebral vascular accident) Cancer Diabetes Heart disease Hyperlipemia Hypertension Kidney disease Myocardial infarction Seizures Surgical History History of 2 sections History of appendectomy History of cholecystectomy History of colonoscopy History of D&C History of endoscopy History of hernia repair History of hysterectomy History of left heart catheterization (06/01/19) History of left knee surgery History of liver biopsy History of shoulder surgery History of tonsillectomy History of tubal ligation Hx of right knee surgery Social History Smoking Status: Current some day smoker tobacco type: cigarettes Tobacco: How many years used: 22 alcohol intake: former substance use type: former substance user what type of physical activity do you participate in: none ROS ROS ED Constitutional Constitutional ED: Denies chills or fever(s) Eyes Eyes: Reports blurry vision ENT ENT ED: Denies rhinorrhea or sore throat Cardiovascular Cardiovascular: Denies chest pain or palpitations Respiratory/Chest Respiratory/Chest: Denies cough or dyspnea Gastrointestinal Gastrointestinal: Denies nausea or vomiting Genitourinary Genitourinary ED: Denies dysuria or hematuria Musculoskeletal Musculoskeletal: Reports back pain and neck pain Integumentary Denies abscess or rash Neurologic Neurologic: Reports headache(s); Denies weakness Allergic/Immunologic Allergic/Immunologic ED: Denies mouth swelling or urticaria EXAM Physical Exam Const Vital Signs: 12/12/22 06:47 12/12/22 06:51 Temperature 97.6 F L Temperature Source Temporal Pulse Rate 106 H Respiratory Rate 18 Blood Pressure 145/93 H Blood Pressure Mean 110 Pulse Ox 98 Oxygen Delivery Method Room Air Positive well nourished, well developed and obese General Appearance ED: well developed and NAD Nutritional Appearance: obese HEENT HEENT Narrative: Oral mucosa is pink and moist. There is a large dental carry noted over the right lower second premolar. There is some gingival edema. There is no fluctuance. There is no drainable abscess. There is no sublingual edema. There is no evidence of Eusebio's angina. Oropharynx is clear. Airway is patent. Mouth ED: Yes oral and palatal mucosa normal Mouth: oral and palatal mucosa normal Teeth and Gingiva: caries and gingiva abnormal Positive for gingival edema and gingival tenderness Throat: posterior oropharynx normal Eyes PERRL and EOMs intact bilaterally Neck supple and no JVD General: Negative for anterior neck swelling or submandibular swelling Lymph Lymphatic: no lymphadenopathy noted Neuro oriented x3, CN's II-XII intact bilaterally, moves all extremities, no focal motor deficits and no sensory deficits noted Sensorium / Orientation: alert Motor Exam: strength 5/5 throughout Psych mental status grossly normal Skin no rashes or lesions noted MDM MDM MDM Narrative Medical decision making narrative: Patient was advised that this is most likely infected dental carry. Patient was advised that she should continue the current antibiotics that she is on. Patient was instructed to continue using Orajel as needed. Prior records were reviewed. Patient is able to tolerate tramadol. Patient was given a prescription for a short course of tramadol. Patient was instructed to stop the nabumetone. Patient was instructed to follow-up with her dentist in 5 to 7 days. Patient understood and was agreeable with the plan. All questions were answered. History & Record Review Additional record(s) reviewed:: Prior outpatient record and Prior ED visit Discharge Plan Triage Chief Complaint: Dental ED Provider: Carlton Watts Dx/Rx/DC Orders Clinical Impression: Infected dental caries, Obesity, Pain, dental Instructions: ED Dental Pain, ED Dental Cavity Prescriptions: Continued tramadol 50 mg tablet 50 mg PO Q6H PRN (Reason: pain) Qty: 10 0RF No Action Biktarvy 50-200-25 mg tablet 1 tab PO DAILY Label Comments: TAKE 1 TABLET BY MOUTH EVERY DAY - TAKE AT LEAST 2 HOURS APART FROM MULTIVITAMINS AND CALCIUM clindamycin HCl [Cleocin HCl] 300 mg capsule 300 mg PO Q6H Qty: 40 0RF oxycodone-acetaminophen [Percocet] 5-325 mg tablet 1 tab PO Q4H 2 Days Qty: 10 0RF Primary Care Provider: Care Physician,No Primary Referrals: Care Physician,No Primary [Primary Care Provider] - Dentist,Your [STAFF PHYSICIAN] - 5-7 Days Disposition Disposition: Home, Self Care
== END 2022-12-12 07:50 | disposition home or self-care (01) ==
PROVIDERS: Emergency Provider Emergency Medicine; Visit Provider Emergency Medicine
DX: K02.9 Dental caries, unspecified (principal); I11.0 Hypertensive heart disease with heart failure; I50.9 Heart failure, unspecified; E11.638 Type 2 diabetes mellitus with other oral complications; E11.42 Type 2 diabetes mellitus with diabetic polyneuropathy; E66.9 Obesity, unspecified; K76.9 Liver disease, unspecified; F17.210 Nicotine dependence, cigarettes, uncomplicated
CPT/HCPCS: 99282

== ENCOUNTER 2023-03-21 20:48 | Emergency (ER) | payer MEDICARE, SELFPAY ==
--- NOTE | 2023-03-21 20:50 | ED.RN ---
NOTIFIED DR ALFARO OF SYMPTOMS, REPORTS HE WILL EVALUATE PT IN TRIAGE
[2023-03-21 20:51] VITALS: BP 143/88; PULSE 97; RESP 16; TEMP 36.3; O2SAT 100; BMI 36.9
--- NOTE | 2023-03-21 21:23 | ED.RN ---
NOTIFIED DR ALFARO OF SYMPTOMS, REPORTS HE WILL EVALUATE PT IN TRIAGE
--- NOTE | 2023-03-21 21:59 | CT_ITS ---
EXAMINATION: CT BRAIN WITH CONTRAST INDICATION: 47-year-old female. Right face and upper extremity paresthesias TECHNIQUE: Noncontrast axial images were obtained of the brain. Subsequently, routine carotid CT angiogram protocol was performed without and with IV contrast. In addition, images were obtained of the [place]. NASCET criteria using the distal ICAs for comparison were used for evaluation of stenoses. 3D reconstructions were reviewed. A radiation dose optimization technique was used for this scan. IV Contrast dosage and agent: Isovue-370/100 mL COMPARISON: FINDINGS: CT BRAIN: BRAIN PARENCHYMA: No intra- or extra-axial hemorrhage. No evidence of acute infarct. No intracranial mass or mass effect. There is mild bilateral periventricular and subcortical white matter hypoattenuation which is symmetric in distribution. Mild to moderate diffuse cerebral atrophy. Posterior fossa structures are unremarkable. Mild diffuse cerebral atrophy. CSF SPACES: Appropriate for age. No hydrocephalus. Basal cisterns are patent. CALVARIUM, SKULL BASE, PARANASAL SINUSES AND MASTOID AIR CELLS: No acute fracture. No significant paranasal sinus disease. Mastoid air cells are clear. CTA NECK: AORTIC ARCH AND BRANCHES: Bovine configuration to the arch. Patent arch vessels. RIGHT CCA: No occlusion, significant stenosis or dissection. RIGHT ICA: No occlusion, significant stenosis or dissection. LEFT CCA: No occlusion, significant stenosis or dissection. LEFT ICA: No occlusion, significant stenosis or dissection. RIGHT VERTEBRAL ARTERY: No occlusion, significant stenosis or dissection. LEFT VERTEBRAL ARTERY: No occlusion, significant stenosis or dissection. NECK SOFT TISSUES: Unremarkable. CTA HEAD: Anterior circulation: ICAs: No significant stenosis at the intracranial/visualized segments. ACAs: No significant stenosis at the visualized segments. ACOM: Present. MCAs: No significant stenosis at the visualized segments. Posterior circulation: PCOMs: slag skimmer: No significant stenosis at the visualized segments. BASILAR ARTERY: No significant stenosis. VERTEBRAL ARTERIES: No significant stenosis at the intradural/visualized segments. No evidence of intracranial aneurysm or vascular malformation. CT/CTA Head AND Neck W/ Contrast IMPRESSION: 1. No acute intracranial abnormality. 2. Mild bilateral periventricular and subcortical white matter chronic small vessel disease with age appropriate cerebral atrophy. 3. No acute intracranial vascular abnormality. Electronically Signed: Mars John MD at 1:10 EDT ,
--- NOTE | 2023-03-21 22:01 | EX.ED.VIS.HA ---
HPI History of Present Illness Chief Complaint: Headache Detail of Chief Complaint: Headache and paresthesias to right arm and right face Informant: patient Narrative Narrative: Patient presents the emergency department complaint of a headache that she has had for about a week. Patient states that she has been sleeping more over the last week. Patient went to sleep at 7 AM this morning and she woke up at 6 PM and and noticed paresthesias to the right face and right arm. Patient denies weakness. She has history of migraines. She has history of HIV. She has had similar episodes of paresthesias 1 other time 3 years ago. Patient recently started new medications including lisinopril and losartan and Lantus insulin. [facility] Medical History Anxiety Arthritis Asthma Back pain Cancer CHF (congestive heart failure) Depression Diabetes mellitus Diverticulosis Enlargement, spleen Fibromyalgia GERD (gastroesophageal reflux disease) Hemorrhoids Herpes Hiatal hernia History of alcoholism History of blood transfusion History of drug abuse History of kidney stones History of myocardial infarct at age less than 60 years HIV (human immunodeficiency virus infection) HIV exposure HPV in female Hypertension Insomnia Kidney disease Obesity Polyneuropathy Seasonal allergies Vitamin B12 deficiency Vitamin D deficiency Home Medications bictegravir 50 mg-emtricitabine 200 mg-tenofovir alafenam 25 mg tablet (Biktarvy) 1 tab PO DAILY 10/10/22 [History Last Taken Unknown] clindamycin HCl 300 mg capsule (Cleocin HCl) 300 mg PO Q6H #40 CAPSULES 10/11/22 [Rx Last Taken Unknown] oxycodone-acetaminophen 5 mg-325 mg tablet (Percocet) 1 tab PO Q4H 2 days #10 tabs 10/14/22 [Rx Last Taken Unknown] tramadol 50 mg tablet 50 mg PO Q6H PRN pain #10 tabs 12/12/22 [Rx Last Taken Unknown] Allergy/AdvReac Type Severity Reaction Status Date / Time Iodinated Contrast Media Allergy Unknown Hives Verified 03/21/23 20:51 [Iodinated Contrast- Oral and IV Dye] amoxicillin Allergy Hives Verified 03/21/23 20:51 hydrocodone [From Vicodin] Allergy Unknown Verified 03/21/23 20:51 methylprednisolone Allergy Hives Verified 03/21/23 20:51 [From Medrol] moxifloxacin Allergy Shortness Verified 03/21/23 20:51 of breath prochlorperazine Allergy Other Verified 03/21/23 20:51 [From Compazine] prochlorperazine edisylate Allergy Other Verified 03/21/23 20:51 [From Compazine] prochlorperazine maleate Allergy Other Verified 03/21/23 20:51 [From Compazine] acetaminophen [From Tylenol] AdvReac Other Verified 03/21/23 20:51 sumatriptan [From Imitrex] AdvReac Hives Verified 03/21/23 20:51 Family History Other Alcoholism Anxiety and depression Arthritis Asthma Breast cancer CVA (cerebral vascular accident) Cancer Diabetes Heart disease Hyperlipemia Hypertension Kidney disease Myocardial infarction Seizures Surgical History History of 2 sections History of appendectomy History of cholecystectomy History of colonoscopy History of D&C History of endoscopy History of hernia repair History of hysterectomy History of left heart catheterization (06/01/19) History of left knee surgery History of liver biopsy History of shoulder surgery History of tonsillectomy History of tubal ligation Hx of right knee surgery Social History Smoking Status: Current some day smoker tobacco type: cigarettes Tobacco: How many years used: 22 alcohol intake: former substance use type: former substance user what type of physical activity do you participate in: none ROS ROS ED Review of Systems ROS Unobtainable: other Constitutional Constitutional ED: Reports lethargy; Denies chills, fever(s), sweats or weight loss Eyes Eyes: Denies blurry vision, change in vision or diplopia ENT ENT ED: Denies rhinorrhea or sore throat Cardiovascular Cardiovascular: Denies chest pain, orthopnea or racing heartbeat Respiratory/Chest Respiratory/Chest: Denies cough, dyspnea, dyspnea on exertion, orthopnea or sputum Gastrointestinal Gastrointestinal: Denies abdominal pain, diarrhea, nausea or vomiting Genitourinary Genitourinary ED: Denies dysuria, hematuria or urinary frequency Musculoskeletal Musculoskeletal: Denies arthralgias, back pain, myalgias or neck pain Integumentary Denies abscess, Abrasions or rash Neurologic Neurologic: Reports headache(s) and paresthesias; Denies weakness Psychiatric Psychiatric: Denies anxiety, depression or suicidal thoughts Endocrine Endocrinology: Denies polydipsia, polyphagia or polyuria Hematologic/Lymphatic Hematologic/Lymphatic: Denies easy bleeding, easy bruising or lymphadenopathy Allergic/Immunologic Allergic/Immunologic ED: Denies mouth swelling, tongue swelling or urticaria EXAM Physical Exam Const Vital Signs: 03/21/23 20:51 03/21/23 22:40 Temperature 97.3 F L Temperature Source Temporal Pulse Rate 97 Respiratory Rate 16 16 Blood Pressure 143/88 H Blood Pressure Mean 106 Pulse Ox 100 100 Oxygen Delivery Method Room Air Positive well nourished and well developed General Appearance ED: well developed and NAD HEENT Reports TM's clear and moist mucous membranes normocephalic and atraumatic; Negative for trauma or tenderness Tympanic Membrane ED: Yes TM's clear Eyes PERRL and EOMs intact bilaterally General Eye ED: Negative for pale conjunctiva or scleral icterus Neck no lymphadenopathy, supple and no JVD General: Negative for tenderness Chest Wall inspection of chest normal and palpation of chest normal Chest: Negative for tenderness Resp normal respiratory effort and clear to auscultation bilaterally Effort and Inspection: Negative for respiratory distress or pain with movement Auscultation: Negative for rhonchi, wheezes or diminished lung sounds Cardio regular rate, regular rhythm, S1 normal heart sound, S2 normal heart sound and no murmurs Peripheral Pulses: pulses 2+ throughout GI normal to inspection, nondistended, normoactive bowel sounds, soft to palpation, non-tender, non-distended and no masses Back/Spine no CVA tenderness and no thoracic nor lumbar tenderness Extremity normal to inspection General Extremety ED: Negative for edema General Extremity: Negative for edema Neuro oriented x3, CN's II-XII intact bilaterally, no sensory deficits noted and gait normal Neuro Narrative: NIH stroke scale is a 1 for paresthesias to right face and right arm. No focal weakness noted. Sensorium / Orientation: awake, alert, oriented to person, oriented to place and oriented to time Motor Exam: strength 5/5 throughout and strength abnormal Psych mental status grossly normal Skin no rashes or lesions noted and no wounds MDM MDM MDM Narrative Medical decision making narrative: Patient presents with headache and paresthesias. She has history of migraines. In the differential would be complex migraine versus acute intracranial process such as hemorrhage or tumor. Patient tells me she has been undetectable as far as her HIV because she has been compliant with her medications. Patient not a thrombolytic candidate due to last known well was 7 AM. Suspicion for stroke is low but certainly within the differential. CBC with differential obtained was normal. Chemistries unremarkable. Glucose was elevated 311. Patient was given Reglan, Benadryl, and Toradol and she did start feeling improved as far as her headache. Paresthesias resolved to her right arm but still had some paresthesias to the right side of the face. Clinically I suspect likely complex migraine. CTA head and neck were ordered and the results of which are pending. Case will be turned over to evening physician awaiting CT read results and final disposition. I feel patient can be discharged home as long as CTA of the head and neck are unremarkable. Lab Data Attestation: I reviewed the patient's lab results. Labs: Laboratory Results - last 24 hr 03/21/23 22:41 WBC 5.7 RBC 4.94 Hgb 14.5 Hct 43.0 MCV 87.0 MCH 29.4 MCHC 33.7 RDW Std Deviation 41.8 RDW Coeff of Vladimir 13.2 Plt Count 129 L MPV 11.0 Immature Gran % (Auto) 0.300 Neut % (Auto) 56.5 Lymph % (Auto) 33.6 [place] % (Auto) 5.6 Eos % (Auto) 3.5 Baso % (Auto) 0.5 Absolute Neuts (auto) 3.2 Absolute Lymphs (auto) 1.92 Nucleated RBC % 0 Sodium 134 L Potassium 4.2 Chloride 102 Carbon Dioxide 26.0 Anion Gap 6 BUN 15 Creatinine 1.17 H Estim Creat Clear Calc 56.24 Est GFR (MDRD) Af Amer 64 Est GFR (MDRD) Non-Af 53 L BUN/Creatinine Ratio 12.8 Glucose 311 H Calcium 8.9 Discharge Plan Triage Chief Complaint: Headache ED Provider: Donna Parisi Dx/Rx/DC Orders Clinical Impression: Paresthesias, Migraine headache, Hyperglycemia Instructions: ED Diabetic Hyperglycemia, ED, Migraine (Classical), ED Paraesthesias Prescriptions: No Action Biktarvy 50-200-25 mg tablet 1 tab PO DAILY Patient Comments: TAKE 1 TABLET BY MOUTH EVERY DAY - TAKE AT LEAST 2 HOURS APART FROM MULTIVITAMINS AND CALCIUM clindamycin HCl [Cleocin HCl] 300 mg capsule 300 mg PO Q6H Qty: 40 0RF oxycodone-acetaminophen [Percocet] 5-325 mg tablet 1 tab PO Q4H 2 Days Qty: 10 0RF tramadol 50 mg tablet 50 mg PO Q6H PRN (Reason: pain) Qty: 10 0RF Primary Care Provider: Danial De La Cruz Referrals: Care Physician,No Primary [Non-Staff] - Activity Restrictions/Additional Instructions: Follow-up with your primary care physician within next 5 to 7 days
[2023-03-21 22:40] VITALS: RESP 16; O2SAT 100
[2023-03-21] MEDS: Ketorolac 15 MG/ML Vial IV (22:41)
[2023-03-21] MEDS: DiphenhydrAMINE 50 MG/ML Syringe 25 MG IV (22:41)
[2023-03-21] MEDS: 0.9% Normal Saline 1,000 ML 1000 ML IV (22:42)
[2023-03-21] MEDS: Metoclopramide 10 MG/2 ML Vial IV (22:42)
[2023-03-21 23:06] LABS: Absolute Lymphocyte Count 1.92 X10^3/uL (0.83-4.51); Absolute Neutrophil Count 3.2 X10^3/uL (2.0-7.7); Basophil# 0.03 X10^3/uL; Basophil% 0.5 % (0-1); Eosinophils% 3.5 % (0-5); Hemoglobin 14.5 g/dL (12.0-15.0); Lymphocyte # 1.92 X10^3/ul (0.83-4.51); Lymphocyte % 33.6 % (19-41); Mean Corp Hgb Conc 33.7 g/dL (32-36); Mean Corpuscular Hgb 29.4 pg (27.0-32.0); Monocyte# 0.32 X10^3/uL; Monocyte% 5.6 % (0-10); NRBC Flagged by Analyzer 0 % (0-5); Neutrophil # 3.23 X10^3/uL (2.7-7.7); Neutrophil % 56.5 % (47-70); Platelet Count 129 K/mm3 (150-450); RBC Distribution Width CV 13.2 % (11.6-14.6); RBC Distribution Width SD 41.8 fl (35.1-43.9); Red Blood Count 4.94 M/mm3 (4.2-5.4); White Blood Count 5.7 K/mm3 (4.4-11.0)
[2023-03-21 23:17] LABS: Anion Gap 6 (5-15); BUN 15 mg/dL (7-18); BUN/Creat Ratio 12.8 RATIO (10-20); Calcium,Total 8.9 mg/dL (8.5-10.1); Chloride 102 mmol/L (98-107); Creatinine, Serum 1.17 mg/dL (0.55-1.02); EST Glomerular Filtration Rate 53 mL/min (>60); Est Glom Filt Rate - Afr Amer 64 mL/min (>60); Estimated Creatinine Clearance 56.24 ml/min; Glucose 311 mg/dL (74-106); Potassium 4.2 mmol/L (3.5-5.1); Sodium Level 134 mmol/L (136-145)
[2023-03-22 01:36] VITALS: BP 128/69; PULSE 79; RESP 18; O2SAT 97
== END 2023-03-22 01:37 | disposition home or self-care (01) ==
PROVIDERS: Emergency Provider Emergency Medicine; PCP Family Medicine; Visit Provider Emergency Medicine
DX: R20.2 Paresthesia of skin (principal); Z21 Asymptomatic human immunodeficiency virus [HIV] infection status; I11.0 Hypertensive heart disease with heart failure; I50.9 Heart failure, unspecified; E11.65 Type 2 diabetes mellitus with hyperglycemia; E11.42 Type 2 diabetes mellitus with diabetic polyneuropathy; Z79.4 Long term (current) use of insulin; F17.210 Nicotine dependence, cigarettes, uncomplicated; G43.909 Migraine, unspecified, not intractable, without status migrainosus; Z79.899 Other long term (current) drug therapy
CPT/HCPCS: 70496; 70498; 80048; 85025; 96361; 96374; 96375; 99283; J7030; Q9967; A4216

== ENCOUNTER → 2023-05-09 | Outpatient (CLI) | payer MEDICARE, MEDICAID, SELFPAY ==
[2023-05-09 10:12] LABS: Hematocrit 42.4 % (37-47); Hemoglobin 14.9 g/dL (12.0-15.0); Mean Corp Hgb Conc 35.1 g/dL (32-36); Mean Corpuscular Hgb 29.9 pg (27.0-32.0); Mean Corpuscular Volume 85.1 fL (81-99); Mean Platelet Vol. 10.8 fl (6.2-12.0); Platelet Count 154 K/mm3 (150-450); RBC Distribution Width CV 12.7 % (11.6-14.6); RBC Distribution Width SD 38.8 fl (35.1-43.9); Red Blood Count 4.98 M/mm3 (4.2-5.4)
[2023-05-09 10:39] LABS: AST(SGOT) 20 U/L (15-37); Alanine Aminotransfer ALT/SGPT 29 U/L (13-56); Albumin, Serum 3.9 g/dL (3.2-5.0); Alkaline Phosphatase 144 U/L (45-117); Anion Gap 9 (5-15); BUN 11 mg/dL (7-18); BUN/Creat Ratio 13.5 RATIO (10-20); Bilirubin, Direct 0.25 mg/dL (0.00-0.30); Calcium,Total 9.2 mg/dL (8.5-10.1); Chloride 104 mmol/L (98-107); Creatinine, Serum 0.81 mg/dL (0.55-1.02); EST Glomerular Filtration Rate 81 mL/min (>60); Est Glom Filt Rate - Afr Amer 97 mL/min (>60); Glucose 204 mg/dL (74-106); Potassium 3.3 mmol/L (3.5-5.1); Protein, Total 7.9 g/dL (6.4-8.2); Sodium Level 138 mmol/L (136-145)
[2023-05-09 11:15] LABS: Hepatitis B Surface Antibody Reactive; Hepatitis B Surface Antigen Non-Reactive (Nonreactive); Hepatitis C Antibody Non-Reactive (Nonreactive)
[2023-05-10 14:09] LABS: Absolute CD4 Helper 380 /uL (359-1519); Basophils (Absolute) 0 x10E3/uL (0.0-0.2); Eosinophils 2 % (Not Estab.); Eosinophils (Absolute) 0.1 x10E3/uL (0.0-0.4); Hematocrit 43.6 % (34.0-46.6); Hemoglobin 14.8 g/dL (11.1-15.9); Hepatitis B Core Ab Total Negative (Negative); Immature Granulocytes 0 % (Not Estab.); Immature Granulocytes Absolute 0 x10E3/uL (0.0-0.1); Lymphs 28 % (Not Estab.); Lymphs (Absolute) 1.9 x10E3/uL (0.7-3.1); MCH 29.6 pg (26.6-33.0); MCHC 33.9 g/dL (31.5-35.7); MCV 87 fL (79-97); Monocytes 5 % (Not Estab.); Monocytes (Absolute) 0.4 x10E3/uL (0.1-0.9); Neutrophils 65 % (Not Estab.); Neutrophils (Absolute) 4.5 x10E3/uL (1.4-7.0); Platelets 153 x10E3/uL (150-450); RDW 13.1 % (11.7-15.4); WBC Count 6.9 x10E3/uL (3.4-10.8)
[2023-05-11 05:09] LABS: HIV-1 RNA by PCR, Quant. < 20 copies/mL (.)
== END | disposition home or self-care (01) ==
LOC: LAB 09:24
PROVIDERS: PCP Family Medicine; Referring Provider Internal Medicine Infectious Disease; Visit Provider Internal Medicine Infectious Disease
DX: B20 Human immunodeficiency virus [HIV] disease (principal)
CPT/HCPCS: 36415; 80048; 80076; 85027; 86361; 86704; 86706; 86803; 87340; 87536